=== PATIENT | female | born 1975 | race Caucasian/White ===

== ENCOUNTER 2019-11-11 16:43 | Inpatient (IN) | payer OTHER ==
[2019-11-11 18:01] VITALS: BMI 29.0
--- NOTE | 2019-11-11 18:54 | HP ---
CIWA Score Nausea/Vomitin Muscle Tremors: 3 Anxiety: 1-Mildly Anxious Agitation: 0-Normal Activity Paroxysmal Sweats: 3 (Increased facial moisture) Orientation: 0-Oriented Tacttile Disturbances: 1-Very Mild Itch/Numbness Auditory Disturbances: 0-None Visual Disturbances: 0-None Headache: 2-Mild CIWA-Ar Total Score: 13 - Admission Criteria OASAS Guidelines: Admission for Medically Managed Detox: Requires at least one of the followin. CIWA greater than 12 2. Seizures within the past 24 hours 3. Delirium tremens within the past 24 hours 4. Hallucinations within the past 24 hours 5. Acute intervention needed for co occurring medical disorder 6. Acute intervention needed for co occurring psychiatric disorder 7. Severe withdrawal that cannot be handled at a lower level of care (continued vomiting, continued diarrhea, abnormal vital signs) requiring intravenous medication and/or fluids 8. Patient presents the following: CIWA greater than 12 Admission Criteria Met: Admission criteria met Admission ROS [facility] Chief Complaint: States "I'm suffering and I want to get off benzo's and alcohol" Allergies/Adverse Reactions: Allergies Allergy/AdvReac Type Severity Reaction Status Date / Time No Known Allergies Allergy Verified 11/11/19 18:08 History of Present Illness: 44 yo presents seeking alcohol and benzo withdrawal UTox: + KARLA/MTD/BZO CECILIO: 0.00 Hx; Seizures - last 1 yr ago. Triggered by stopping pill use; + blackouts - last 6 yrs ago; + overdose - Last overdose 7 years ago. Alcohol use began at age 30. Currently drinks 2-3 40 oz beers daily. States last drink yesterday. Benzo use began at age 32ish. Currently uses 3 - 2 mg xanax/day. Last used yesterday. Cocaine use began at age 30. Currently uses $40-60/day. Smokes. Nicotine use began at age16. Currently smokes 4-5 cig/day. Heroin use began at age 19. Currently on PROMESA - MMTP. Methadone dose is 100mg PO daily. Last medicated today. Has a Narcan kit at home. PMHx: COPD, Hep C; MHHx: Depression. Denies thoughts of harming self or others. SHx: Domiciled. Unemployed. Denies legal issues. Patient Name: Cintia Persaud Date: 1975 Address: [address] [place] [id number] Sex: Female Rx Written Rx Dispensed Drug Quantity Days Supply Prescriber Name 10/31/2019 10/31/2019 clonazepam 2 mg tablet 9 3 Cam, Zach Blackwell DO 10/31/2019 10/31/2019 alprazolam 0.5 mg tablet 6 3 Cam, Zach Blackwell DO 09/28/2019 10/01/2019 clonazepam 1 mg tablet 60 10 Cheli Corbett) 09/12/2019 10/01/2019 alprazolam 0.5 mg tablet 30 15 Cam, Zach Blackwell DO 09/11/2019 09/11/2019 alprazolam 0.5 mg tablet 30 15 Cam, Zach Blackwell DO 08/27/2019 08/28/2019 alprazolam 0.5 mg tablet 10 5 Cam, Zach Blackwell DO 07/26/2019 07/27/2019 clonazepam 2 mg tablet 45 15 Cam, Zach Blackwell DO 07/26/2019 07/27/2019 alprazolam 0.5 mg tablet 30 15 Cam, Zach Blackwell DO 07/20/2019 07/24/2019 clonazepam 2 mg tablet 9 3 Cam, Zach Blackwell DO 07/24/2019 07/24/2019 alprazolam 0.5 mg tablet 6 3 Cam, Zach Blackwell DO 07/20/2019 07/21/2019 zolpidem tartrate 10 mg tablet 15 15 Cam, Zach Blackwell DO 07/20/2019 07/21/2019 alprazolam 0.5 mg tablet 6 3 Cam, Zach Blackwell DO 07/18/2019 07/18/2019 clonazepam 2 mg tablet 21 7 Yuni Redman MD 06/26/2019 06/26/2019 alprazolam 0.5 mg tablet 14 7 CamZach DO 06/26/2019 06/26/2019 clonazepam 2 mg tablet 21 7 CamZach DO 06/09/2019 06/09/2019 alprazolam 0.5 mg tablet 20 10 CamZach DO 05/10/2019 05/10/2019 alprazolam 0.5 mg tablet 20 10 CamZach DO 05/02/2019 05/02/2019 zolpidem tartrate 10 mg tablet 15 15 Cam, Zach Blackwell DO 04/25/2019 04/25/2019 alprazolam 0.5 mg tablet 10 5 Cam, Zach Blackwell DO 04/16/2019 04/18/2019 alprazolam 0.5 mg tablet 10 5 Cam, Zach Blackwell DO 03/23/2019 03/23/2019 clonazepam 2 mg tablet 15 5 Cam, Zach Blackwell DO 03/23/2019 03/23/2019 alprazolam 0.5 mg tablet 10 5 Cam, Zach Blackwell DO 02/27/2019 02/27/2019 clonazepam 2 mg tablet 15 5 Cam, Zach Blackwell DO 02/27/2019 02/27/2019 alprazolam 0.5 mg tablet 5 5 Cam, Zach Blackwell DO Patient Name: Cintia Persaud Date: 1975 Address: [address] [place] [address] Sex: Female Rx Written Rx Dispensed Drug Quantity Days Supply Prescriber Name 09/10/2019 09/10/2019 clonazepam 1 mg tablet 21 7 Jordyn Espinoza Patient Name: Cintia Persaud Date: 1975 Address: [address] [place] [address] Sex: Female Rx Written Rx Dispensed Drug Quantity Days Supply Prescriber Name 08/29/2019 08/29/2019 clonazepam 2 mg tablet 90 30 Cam, Zach Blackwell DO 05/30/2019 05/30/2019 zolpidem tartrate 10 mg tablet 30 30 Cam, Zach Blackwell DO 05/30/2019 05/30/2019 clonazepam 2 mg tablet 90 30 Cam, Zach Blackwell DO 05/30/2019 05/30/2019 alprazolam 0.5 mg tablet 20 10 Cam, Zach Blackwell DO 05/02/2019 05/02/2019 alprazolam 0.5 mg tablet 10 5 Cam, Zach Blackwell DO 05/02/2019 05/02/2019 clonazepam 2 mg tablet 90 30 Cam, Zcah Blackwell DO 04/04/2019 04/04/2019 clonazepam 2 mg tablet 90 30 Cam, Zach Blackwell DO 04/04/2019 04/04/2019 alprazolam 0.5 mg tablet 20 10 Cam, Zach Blackwell DO 02/28/2019 03/02/2019 clonazepam 2 mg tablet 75 25 Cam, Zach J DO 02/28/2019 03/02/2019 alprazolam 0.5 mg tablet 30 15 Cam, Zach J DO 12/22/2018 12/22/2018 clonazepam 2 mg tablet 48 16 Cam, Zach J DO 12/22/2018 12/22/2018 zolpidem tartrate 10 mg tablet 15 15 Cam, Zach J DO 12/22/2018 12/22/2018 alprazolam 0.5 mg tablet 60 15 Cam, Zach J DO 12/14/2018 12/15/2018 clonazepam 2 mg tablet 15 5 Cam, Zach J DO Patient Name: Cnitia Persaud Date: 1975 Address: [address] [place], [place] [address] [address] Sex: Female Rx Written Rx Dispensed Drug Quantity Days Supply Prescriber Name 02/07/2019 02/10/2019 alprazolam 0.5 mg tablet 20 10 Cam, Zach J DO 02/07/2019 02/10/2019 clonazepam 2 mg tablet 42 14 Cam, Zach J DO 01/23/2019 01/29/2019 clonazepam 2 mg tablet 42 14 Cam, Zach J DO 01/15/2019 01/15/2019 clonazepam 2 mg tablet 48 16 Cam, Zach J DO 01/15/2019 01/15/2019 alprazolam 0.5 mg tablet 60 30 Cam, Zach J DO 01/15/2019 01/15/2019 zolpidem tartrate 10 mg tablet 30 30 Cam, Zach Blackwell DO 01/03/2019 01/04/2019 clonazepam 2 mg tablet 48 16 Cam, Zach J DO 11/22/2018 11/24/2018 alprazolam 0.5 mg tablet 90 30 Cam, Zach Blackwell DO 11/22/2018 11/22/2018 clonazepam 2 mg tablet 90 30 Cam, Zach Blackwell DO 11/20/2018 11/21/2018 alprazolam 0.5 mg tablet 15 5 Cam, Zach Blackwell DO Patient Name: Cintia Persaud Date: 1975 Address: [place] [address] Sex: Female Rx Written Rx Dispensed Drug Quantity Days Supply Prescriber Name 02/02/2019 02/04/2019 lorazepam 2 mg tablet 8 2 Adelso Meza (LAURA) 12/27/2018 12/27/2018 lorazepam 1 mg tablet 8 2 Kristi Crowder MD 11/07/2018 11/15/2018 lorazepam 2 mg tablet 8 2 Reshma Raghav Patient Name: Cintia Persaud Date: 1975 Address: [address] [place] [address] Sex: Female Rx Written Rx Dispensed Drug Quantity Days Supply Prescriber Name 12/19/2018 12/20/2018 clonazepam 2 mg tablet 42 14 Zach Levy DO Exam Limitations: No Limitations - Ebola screening Have you traveled outside of the country in the last 21 days: No Have you had contact with anyone from an Ebola affected area: No Have you been sick,other than usual withdrawal symptoms: No Do you have a fever: No - Review of Systems Constitutional: Changes in sleep (Difficulty falling and staying asleep. States takes seroquel for sleep) EENT: reports: Dental Problems (Craked/missing teeth. Chews and swallows ok) Respiratory: reports: No Symptoms reported Cardiac: reports: No Symptoms Reported GI: reports: Nausea (x 2 hours), Abdominal cramping : reports: No Symptoms Reported Musculoskeletal: reports: Back Pain (Intermittent achy back pain r/t withdrawals ) Integumentary: reports: No Symptoms Reported Neuro: reports: Headache (Temporal headache - sharp - "6". Triggered by stress.) Endocrine: reports: Increased Thirst Hematology: reports: No Symptoms Reported Psychiatric: reports: Judgement Intact, Orientated x3, Anxious, Depressed ( Denies thoughts of harming self or others) Patient History - PPD History Previous Implant?: Yes Documented Results: Negative w/o proof Implanted On Prior [facility] Admission?: Yes PPD to be Administered?: Yes - Reproductive History Patient is a Female of Child Bearing Age (11 -55 yrs old): Yes Last Menstrual Period: 10/28/19 Patient : No - Smoking Cessation Smoking history: Current every day smoker Have you smoked in the past 12 months: Yes Aproximately how many cigarettes per day: 5 Hx Chewing Tobacco Use: No Initiated information on smoking cessation: Yes 'Breaking Loose' booklet given: 11/11/19 - Substance & Tx. History Hx Alcohol Use: Yes Hx Substance Use: Yes Substance Use Type: Alcohol, Cocaine, Heroin, Tranquilizers (Xanax) Hx Substance Use Treatment: Yes (detox, rehab, currently on MMTP) - Substances abused Alcohol Substance route: Oral Frequency: Daily Amount used: Beer - 2 40 oz Age of first use: 30 Date of last use: 11/10/19 Alprazolam (Xanax) Substance route: Oral Frequency: Daily Amount used: 2 mg pill Age of first use: 30 Date of last use: 11/10/19 Admission Physical Exam [facility] - Vital Signs Vital Signs: Vital Signs - 24 hr 11/11/19 11/11/19 17:50 18:12 Temperature 7.8 F L 7.8 F L Pulse Rate 56 L 56 L Respiratory 18 18 Rate Blood Pressure 123/69 123/69 - Physical General Appearance: Yes: Nourished, Mild Distress, Tremorous (Mild tremors), Sweating (Increased facial moisture), Anxious HEENTM: Yes: EOMI, Hearing grossly Normal, Normocephalic, Normal Voice, ARTURO, Pharynx Normal (No lesions/erythema. 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 NML intact, Fully Oriented, Alert, Motor Strength 5/5, Normal Mood/Affect Integumentary: Yes: Normal Color, Warm, Moist (Increased facial moisture), Other (decreased skin turgor) Lymphatic: Yes: Within Normal Limits - Diagnostic (1) Alcohol dependence with withdrawal, uncomplicated Current Visit: Yes Status: Acute (2) Sedative, hypnotic or anxiolytic dependence with withdrawal, uncomplicated Current Visit: Yes Status: Acute (3) History of COPD Current Visit: Yes Status: Chronic (4) History of hepatitis C Current Visit: Yes Status: Chronic (5) Cocaine dependence, uncomplicated Current Visit: Yes Status: Acute (6) Nicotine dependence, unspecified, uncomplicated Current Visit: Yes Status: Chronic Qualifiers: Nicotine product type: cigarettes Qualified Code(s): F17.210 - Nicotine dependence, cigarettes, uncomplicated (7) Bradycardia Current Visit: Yes Status: Acute (8) Dehydration symptoms Current Visit: Yes Status: Acute (9) Methadone maintenance therapy patient Current Visit: Yes Status: Acute (10) Perforated nasal septum Current Visit: Yes Status: Chronic Cleared for Admission S - Detox or Rehab [facility] Level of Care: Medically Managed Detox Regimen/Protocol: Ativan Claeared for Rehab Admission: No Breathalyzer - Breathalyzer Breathalyzer: 0 Urine Drug Screen - Test Device Lot number: [id number] Expiration date: 08/27/21 - Control Is test valid?: Yes - Results Drug screen NEGATIVE: No Urine drug screen results: KARLA-Cocaine, MTD-Methadone, BZO-Benzodiazepines Inpatient Rehab Admission - Rehab Decision to Admit Inpatient rehab admission?: No
[2019-11-11] MEDS ORDERED: BISMUTH SUBSALICYLATE 524 MG/30 ML UD PO PRN (19:20)
[2019-11-11] MEDS ORDERED: MENTHOL/PHENOL 1 EACH UD MM PRN (19:20)
[2019-11-11] MEDS ORDERED: MAGNESIUM CITRATE 300 ML BOTTLE PO PRN (19:20)
[2019-11-11] MEDS ORDERED: LORazepam 1 MG TABLET PO PRN (19:20)
[2019-11-11] MEDS ORDERED: MAG HYDROX/AL HYDROX/SIMETH 30 ML UNIT-DOSE CUP PO PRN (19:20)
[2019-11-11] MEDS ORDERED: IBUPROFEN 400 MG TABLET (FP) PO PRN (19:20)
[2019-11-11] MEDS ORDERED: PROCHLORPERAZINE MALEATE 5 MG TABLET PO PRN (19:20)
[2019-11-11] MEDS ORDERED: MAGNESIUM HYDROX 2400MG/30ML ORAL SUSPENSION 30 ML CUP PO PRN (19:20)
[2019-11-11] MEDS ORDERED: LORazepam 1 MG TABLET PO ONE (19:20)
[2019-11-11] MEDS ORDERED: ACETAMINOPHEN 325 MG TABLET (FP) PO PRN ×2 (19:20)
[2019-11-11] MEDS: THIAMINE HCL 100 MG TABLET (FP) PO SCH (22:12)
[2019-11-11] MEDS: MELATONIN 5 MG TABLETS PO PRN (22:13)
[2019-11-11] MEDS: LORazepam 2 MG TABLET PO SCH (22:13)
[2019-11-12] MEDS: LORazepam 2 MG TABLET PO SCH ×2 (05:30→10:28)
[2019-11-12] MEDS ORDERED: METHADONE HCL 10 MG TABLET PO SCH (07:45)
[2019-11-12] MEDS ORDERED: METHADONE HCL 40 MG DISPERSABLE TABLET ONE (08:32)
[2019-11-12] MEDS ORDERED: METHADONE HCL 10 MG TABLET ONE (08:32)
[2019-11-12] MEDS: METHADONE 80 MG, METHADONE 20 MG PO SCH (08:35)
--- NOTE | 2019-11-12 09:45 | EKG ---
Test Reason : Blood Pressure : / mmHG Vent. Rate : 052 BPM Atrial Rate : 052 BPM P-R Int : 166 ms QRS Dur : 094 ms QT Int : 458 ms P-R-T Axes : 061 062 040 degrees QTc Int : 425 ms POOR DATA QUALITY, INTERPRETATION MAY BE ADVERSELY AFFECTED SINUS BRADYCARDIA INCOMPLETE RIGHT BUNDLE BRANCH BLOCK BORDERLINE ECG NO PREVIOUS ECGS AVAILABLE Confirmed by Yane Fox ([id number]) on 11/12/2019 9:45:29 AM Referred By: APOLONIA Confirmed By:Yane Fox
[2019-11-12] MEDS: PRENATAL VITAMINS W/ FOLIC ACID TABLET (FP) PO SCH (10:28)
--- NOTE | 2019-11-12 10:51 | PN ---
S CIWA - CIWA Score Nausea/Vomitin-Mild Nausea/No Vomiting Muscle Tremors: 2 Anxiety: 4-Mod. Anxious/Guarded Agitation: 2 Paroxysmal Sweats: 2 Orientation: 0-Oriented Tacttile Disturbances: 0-None Auditory Disturbances: 0-None Visual Disturbances: 1-Very Mild Sensitivity Headache: 0-None Present CIWA-Ar Total Score: 12 BHS Progress Note (SOAP) Subjective: 44 years old female admitted on 11/09/19 for alcohol and benzo withdrawal sx management treating with ativan detox regiment reports ativan not working for Mrs Persaud discontinue ativan replaced with valium patient demands to have ativan and valium health teaching on risks of addiction and respiratory suppression patient prefers valium as detox regiment Objective: 11/12/19 10:58 Vital Signs Temperature 98.7 F 11/12/19 08:34 Pulse Rate 80 11/12/19 08:34 Respiratory Rate 18 11/12/19 08:34 Blood Pressure 105/71 11/12/19 08:34 O2 Sat by Pulse Oximetry (%) Laboratory Last Values POC Urine HCG, Qual Negative 11/11/19 18:25 11/12/19 11:00 lab history reviewed that 11/11/19 admission lab been cancelled reorder admission lab Assessment: 11/12/19 11:01 alcohol and benzo withdrawal Plan: valium regiment
[2019-11-12] MEDS ORDERED: TRIMETHOBENZAMIDE HCL 200MG/2ML INJ IM ONE (11:10)
[2019-11-12] MEDS ORDERED: ALBUTEROL SO4 HFA INHALER IH PRN ×2 (13:26→15:18)
[2019-11-12] MEDS ORDERED: ALBUTEROL SO4 0.083% IH SOL 2.5 MG/3 ML VIAL.NEB. NEB PRN (13:26)
[2019-11-12] MEDS: diazePAM 5 MG TABLET PO PRN ×2 (13:34→19:41)
[2019-11-12] MEDS ORDERED: ALBUTEROL SO4 2.5/IPRATROPIUM 0.5 INH SOL 3 ML VIAL.NEB. NEB PRN (15:17)
--- NOTE | 2019-11-12 15:40 | CONSULT ---
[facility] Psychiatric Consult - Data Date of interview: 11/12/19 Admission source: [facility] Identifying data: First visit at [facility] and admission to [address] [place] [address] for this 44 y/o Hispnic female self-referred for detoxification treatment. KERRY issues : opioid, cocaine, benzodiazepine (xanax), nicotine. Patient is , mother of eight, domiciled, uneployed and supported on food stamps. Substance Abuse History: Discussed with patient. Details in current [facility] report as follows : Smoking history: Current every day smoker. Have you smoked in the past 12 months: Yes. Aproximately how many cigarettes per day: 5. Hx Chewing Tobacco Use: No. Initiated information on smoking cessation: Yes. 'Breaking Loose' booklet given: 11/11/19. - Substance & Tx. History. Hx Alcohol Use: Yes. Hx Substance Use: Yes. Substance Use Type: Alcohol, Cocaine, Heroin, Tranquilizers (Xanax). Hx Substance Use Treatment: Yes (detox, rehab, currently on MMTP). - Substances abused. Alcohol. Substance route: Oral. Frequency: Daily. Amount used: Beer - 2 40 oz. Age of first use: 30. Date of last use: 11/10/19. Alprazolam (Xanax). Substance route: Oral. Frequency: Daily. Amount used: 2 mg pill. Age of first use: 30. Date of last use: Medical History: Medical profile is remarkable for COPD and hepatitis C. No known allergies. Psychiatric History: Patient endorses a history of multiple psychiatric hospitalizations ([facility], [facility] , [facility]). Diagnosed with Schizophrenia (self-report). Ms Persaud informs that she sees a private psychiatrist in [place] , Dr Reid, for medication management (seroquel + prozac + xanax + klonopin). She is also on methadone maintenance (100 mg/day) at [facility] in the [place]. Patient denies history of suicide attempts. Physical/Sexual Abuse/Trauma History: Not discussed. Patient declines. Additional Comment: Urine drug screen results: KARLA-Cocaine, MTD-Methadone, BZO- Benzodiazepines. Noted. Mental Status Exam - Mental Status Exam Alert and Oriented to: Time, Place, Person Cognitive Function: Good Patient Appearance: Well Groomed Mood: Withdrawn, Anxious Affect: Mood Congruent, Constricted Patient Behavior: Fatigued, Appropriate, Cooperative Speech Pattern: Clear, Appropriate Voice Loudness: Normal Thought Process: Goal Oriented Thought Disorder: Not Present Hallucinations: Denies Suicidal Ideation: Denies Homicidal Ideation: Denies Insight/Judgement: Poor Sleep: Poorly, Difficulty falling asleep Appetite: Good Gait/Station: Normal Psychiatric Findings - Problem List ([place] 1, 2,3) (1) Alcohol dependence with withdrawal, uncomplicated Current Visit: Yes Status: Acute (2) Sedative, hypnotic or anxiolytic dependence with withdrawal, uncomplicated Current Visit: Yes Status: Acute (3) Opioid dependence on agonist therapy Current Visit: Yes Status: Chronic (4) Cocaine dependence, uncomplicated Current Visit: Yes Status: Chronic (5) Nicotine dependence, unspecified, uncomplicated Current Visit: Yes Status: Chronic Qualifiers: Nicotine product type: cigarettes Qualified Code(s): F17.210 - Nicotine dependence, cigarettes, uncomplicated (6) Substance induced mood disorder Current Visit: Yes Status: Chronic (7) Schizophrenia Current Visit: Yes Status: Chronic Comment: As per self-report. (8) Insomnia Current Visit: Yes Status: Chronic - Initial Treatment Plan Initial Treatment Plan: Psychoeducation. Sleep hygiene. Detoxification in progress. AA/NA metings. Resumed, at patient's request : seroquel 50 mg po hs + prozac 20 mg po daily. Side effects/benefits of both drugs are discussed with patient. Consent (verbal) given to MD. Neville.
[2019-11-12] MEDS: diazePAM 5 MG TABLET PO SCH ×2 (17:23→22:08)
[2019-11-12 17:55] LABS: PH,URINE 6.5 (5.0-8.0); URINE APPEARANCE CLOUDY; URINE BILIRUBIN NEGATIVE (NEGATIVE); URINE COLOR YELLOW; URINE GLUCOSE (UA) NEGATIVE (NEGATIVE); URINE KETONE NEGATIVE (NEGATIVE); URINE LEUK ESTERASE NEGATIVE (NEGATIVE); URINE NITRITE NEGATIVE (NEGATIVE); URINE PROTEIN NEGATIVE (NEGATIVE); URINE UROBILINOGEN 0.2 mg/dL (0.2-1.0)
[2019-11-12] MEDS: QUEtiapine FUMARATE 50 MG TABLET PO SCH (22:08)
[2019-11-12] MEDS: THIAMINE HCL 100 MG TABLET (FP) PO SCH (22:08)
[2019-11-12] MEDS: MELATONIN 5 MG TABLETS PO PRN (22:09)
[2019-11-13] MEDS ORDERED: METHADONE HCL 10 MG TABLET ONE (04:39)
[2019-11-13] MEDS ORDERED: METHADONE HCL 40 MG DISPERSABLE TABLET ONE (04:40)
[2019-11-13] MEDS ORDERED: LORazepam 1 MG TABLET PO SCH (05:00)
[2019-11-13] MEDS: diazePAM 5 MG TABLET PO SCH ×3 (05:13→22:13)
[2019-11-13] MEDS: METHADONE 80 MG, METHADONE 20 MG PO SCH (05:13)
[2019-11-13] MEDS: NICOTINE POLACRILEX 2 MG GUM BUC PRN (05:14)
[2019-11-13] MEDS: FLUoxetine HCL 20 MG CAPSULE PO SCH (10:07)
[2019-11-13] MEDS: PRENATAL VITAMINS W/ FOLIC ACID TABLET (FP) PO SCH (10:07)
[2019-11-13] MEDS: diazePAM 5 MG TABLET PO PRN ×2 (10:07→17:06)
[2019-11-13 10:37] LABS: HEMATOCRIT 39.8 % (32.4-45.2); HEMOGLOBIN 13.2 GM/dL (10.7-15.3); MCHC 33.1 g/dl (32.0-36.0); MEAN CELL VOLUME 93.7 fl (80-96); MEAN PLT VOLUME 7.8 fl (7.5-11.1); PLATELET COUNT 276 K/MM3 (134-434); RBC 4.25 M/mm3 (3.60-5.2); RDW 13.6 % (11.6-15.6); WHITE BLOOD COUNT 7.1 K/mm3 (4.0-10.0)
[2019-11-13 10:55] LABS: ALBUMIN 3.4 g/dl (3.4-5.0); BILIRUBIN,TOTAL 0.7 mg/dL (0.2-1); BLOOD UREA NITROGEN 19.8 mg/dL (7-18); CALCIUM 9.2 mg/dL (8.5-10.1); CREATININE 0.8 mg/dL (0.55-1.3); POTASSIUM 4.4 mmol/L (3.5-5.1); TOT PROT 7.4 g/dl (6.4-8.2)
--- NOTE | 2019-11-13 11:58 | PN ---
[facility] CIWA - CIWA Score Nausea/Vomitin-No Nausea/No Vomiting Muscle Tremors: 2 Anxiety: 4-Mod. Anxious/Guarded Agitation: 1-Slight > Activity Paroxysmal Sweats: 1-Minimal Palms Moist Orientation: 0-Oriented Tacttile Disturbances: 0-None Auditory Disturbances: 0-None Visual Disturbances: 0-None Headache: 0-None Present CIWA-Ar Total Score: 8 [facility] Progress Note (SOAP) Subjective: 44 years old female admitted on 11/09/19 for alcohol and benzo withdrawal sx management treating with valium detox regiment patient requested valium detox regiment yesterday patient prefers ativan detox regiment today encourage the patient to stay with valium patient requests to be seen by a psychiatrist psychiatric referral Objective: 11/13/19 11:57 Vital Signs Temperature 97 F L 11/13/19 08:35 Pulse Rate 65 11/13/19 08:35 Respiratory Rate 20 11/13/19 08:35 Blood Pressure 103/65 11/13/19 08:35 O2 Sat by Pulse Oximetry (%) Laboratory Last Values WBC 7.1 K/mm3 (4.0-10.0) 11/13/19 07:45 RBC 4.25 M/mm3 (3.60-5.2) 11/13/19 07:45 Hgb 13.2 GM/dL (10.7-15.3) 11/13/19 07:45 Hct 39.8 % (32.4-45.2) 11/13/19 07:45 MCV 93.7 fl (80-96) 11/13/19 07:45 MCH 31.0 pg (25.7-33.7) 11/13/19 07:45 MCHC 33.1 g/dl (32.0-36.0) 11/13/19 07:45 RDW 13.6 % (11.6-15.6) 11/13/19 07:45 Plt Count 276 K/MM3 (134-434) 11/13/19 07:45 MPV 7.8 fl (7.5-11.1) 11/13/19 07:45 Sodium 139 mmol/L (136-145) 11/13/19 07:45 Potassium 4.4 mmol/L (3.5-5.1) 11/13/19 07:45 Chloride 104 mmol/L (98-107) 11/13/19 07:45 Carbon Dioxide 32 mmol/L (21-32) 11/13/19 07:45 Anion Gap 3 MMOL/L (8-16) L 11/13/19 07:45 BUN 19.8 mg/dL (7-18) H 11/13/19 07:45 Creatinine 0.8 mg/dL (0.55-1.3) 11/13/19 07:45 Est GFR (CKD-EPI)AfAm 105.39 11/13/19 07:45 Est GFR (CKD-EPI)NonAf 90.93 11/13/19 07:45 Random Glucose 64 mg/dL (74-106) L 11/13/19 07:45 Calcium 9.2 mg/dL (8.5-10.1) 11/13/19 07:45 Total Bilirubin 0.7 mg/dL (0.2-1) 11/13/19 07:45 AST 46 U/L (15-37) H 11/13/19 07:45 ALT 58 U/L (13-61) 11/13/19 07:45 Alkaline Phosphatase 89 U/L (45-117) 11/13/19 07:45 Total Protein 7.4 g/dl (6.4-8.2) 11/13/19 07:45 Albumin 3.4 g/dl (3.4-5.0) 11/13/19 07:45 Urine Color Yellow 11/12/19 13:41 Urine Appearance Cloudy 11/12/19 13:41 Urine pH 6.5 (5.0-8.0) 11/12/19 13:41 Ur Specific [place] 1.021 (1.010-1.035) 11/12/19 13:41 Urine Protein Negative (NEGATIVE) 11/12/19 13:41 Urine Glucose (UA) Negative (NEGATIVE) 11/12/19 13:41 Urine Ketones Negative (NEGATIVE) 11/12/19 13:41 Urine Blood Negative (NEGATIVE) 11/12/19 13:41 Urine Nitrite Negative (NEGATIVE) 11/12/19 13:41 Urine Bilirubin Negative (NEGATIVE) 11/12/19 13:41 Urine Urobilinogen 0.2 mg/dL (0.2-1.0) 11/12/19 13:41 Ur Leukocyte Esterase Negative (NEGATIVE) 11/12/19 13:41 POC Urine HCG, Qual Negative 11/11/19 18:25 lab noted Assessment: 11/13/19 11:58 alcohol and benzo withdrawal Plan: valium regiment
[2019-11-13] MEDS: THIAMINE HCL 100 MG TABLET (FP) PO SCH (22:12)
[2019-11-13] MEDS: MELATONIN 5 MG TABLETS PO PRN (22:13)
[2019-11-13] MEDS: QUEtiapine FUMARATE 50 MG TABLET PO SCH (22:13)
[2019-11-14] MEDS ORDERED: LORazepam 0.5 MG TABLET PO PRN
[2019-11-14] MEDS ORDERED: diazePAM 5 MG TABLET PO PRN (01:00)
[2019-11-14] MEDS ORDERED: METHADONE HCL 10 MG TABLET ONE (02:53)
[2019-11-14] MEDS ORDERED: METHADONE HCL 40 MG DISPERSABLE TABLET ONE (02:53)
[2019-11-14] MEDS ORDERED: LORazepam 0.5 MG TABLET PO SCH (05:00)
[2019-11-14] MEDS: diazePAM 5 MG TABLET PO SCH ×2 (05:36→17:18)
[2019-11-14] MEDS: METHADONE 80 MG, METHADONE 20 MG PO SCH (05:36)
[2019-11-14] MEDS: NICOTINE POLACRILEX 2 MG GUM BUC PRN (05:37)
[2019-11-14] MEDS: PRENATAL VITAMINS W/ FOLIC ACID TABLET (FP) PO SCH (09:53)
[2019-11-14] MEDS: FLUoxetine HCL 20 MG CAPSULE PO SCH (09:54)
--- NOTE | 2019-11-14 12:20 | PN ---
S CIWA - CIWA Score Nausea/Vomitin-No Nausea/No Vomiting Muscle Tremors: 2 Anxiety: 1-Mildly Anxious Agitation: 1-Slight > Activity Paroxysmal Sweats: 2 Orientation: 0-Oriented Tacttile Disturbances: 0-None Auditory Disturbances: 0-None Visual Disturbances: 0-None Headache: 0-None Present CIWA-Ar Total Score: 6 S Progress Note (SOAP) Subjective: 44 years old female admitted on 11/09/19 for alcohol and benzo withdrawal sx management treating with valium detox regiment feeling better today less anxious patient wants to go to [facility] patient prefers to go to [facility] today Mrs Persaud attends groups and meetings while in detox Objective: 11/14/19 12:25 Vital Signs Temperature 97.0 F L 11/14/19 08:43 Pulse Rate 74 11/14/19 08:43 Respiratory Rate 18 11/14/19 08:43 Blood Pressure 118/71 11/14/19 08:43 O2 Sat by Pulse Oximetry (%) Laboratory Last Values WBC 7.1 K/mm3 (4.0-10.0) 11/13/19 07:45 RBC 4.25 M/mm3 (3.60-5.2) 11/13/19 07:45 Hgb 13.2 GM/dL (10.7-15.3) 11/13/19 07:45 Hct 39.8 % (32.4-45.2) 11/13/19 07:45 MCV 93.7 fl (80-96) 11/13/19 07:45 MCH 31.0 pg (25.7-33.7) 11/13/19 07:45 MCHC 33.1 g/dl (32.0-36.0) 11/13/19 07:45 RDW 13.6 % (11.6-15.6) 11/13/19 07:45 Plt Count 276 K/MM3 (134-434) 11/13/19 07:45 MPV 7.8 fl (7.5-11.1) 11/13/19 07:45 Sodium 139 mmol/L (136-145) 11/13/19 07:45 Potassium 4.4 mmol/L (3.5-5.1) 11/13/19 07:45 Chloride 104 mmol/L (98-107) 11/13/19 07:45 Carbon Dioxide 32 mmol/L (21-32) 11/13/19 07:45 Anion Gap 3 MMOL/L (8-16) L 11/13/19 07:45 BUN 19.8 mg/dL (7-18) H 11/13/19 07:45 Creatinine 0.8 mg/dL (0.55-1.3) 11/13/19 07:45 Est GFR (CKD-EPI)AfAm 105.39 11/13/19 07:45 Est GFR (CKD-EPI)NonAf 90.93 11/13/19 07:45 Random Glucose 64 mg/dL (74-106) L 11/13/19 07:45 Calcium 9.2 mg/dL (8.5-10.1) 11/13/19 07:45 Total Bilirubin 0.7 mg/dL (0.2-1) 11/13/19 07:45 AST 46 U/L (15-37) H 11/13/19 07:45 ALT 58 U/L (13-61) 11/13/19 07:45 Alkaline Phosphatase 89 U/L (45-117) 11/13/19 07:45 Total Protein 7.4 g/dl (6.4-8.2) 11/13/19 07:45 Albumin 3.4 g/dl (3.4-5.0) 11/13/19 07:45 Urine Color Yellow 11/12/19 13:41 Urine Appearance Cloudy 11/12/19 13:41 Urine pH 6.5 (5.0-8.0) 11/12/19 13:41 Ur Specific [place] 1.021 (1.010-1.035) 11/12/19 13:41 Urine Protein Negative (NEGATIVE) 11/12/19 13:41 Urine Glucose (UA) Negative (NEGATIVE) 11/12/19 13:41 Urine Ketones Negative (NEGATIVE) 11/12/19 13:41 Urine Blood Negative (NEGATIVE) 11/12/19 13:41 Urine Nitrite Negative (NEGATIVE) 11/12/19 13:41 Urine Bilirubin Negative (NEGATIVE) 11/12/19 13:41 Urine Urobilinogen 0.2 mg/dL (0.2-1.0) 11/12/19 13:41 Ur Leukocyte Esterase Negative (NEGATIVE) 11/12/19 13:41 POC Urine HCG, Qual Negative 11/11/19 18:25 RPR Titer Nonreactive (NONREACTIVE) 11/13/19 07:45 lab noted Assessment: 11/14/19 12:26 alcohol and benzo withdrawal Plan: valium regiment
[2019-11-14] MEDS: THIAMINE HCL 100 MG TABLET (FP) PO SCH (22:03)
[2019-11-14] MEDS: QUEtiapine FUMARATE 50 MG TABLET PO SCH (22:03)
[2019-11-15] MEDS ORDERED: METHADONE HCL 10 MG TABLET ONE (04:19)
[2019-11-15] MEDS ORDERED: METHADONE HCL 40 MG DISPERSABLE TABLET ONE (04:20)
[2019-11-15] MEDS ORDERED: LORazepam 0.5 MG TABLET PO ONE (05:00)
[2019-11-15] MEDS ORDERED: diazePAM 5 MG TABLET PO ONE (05:00)
[2019-11-15] MEDS: METHADONE 80 MG, METHADONE 20 MG PO SCH (05:50)
[2019-11-15 09:22] VITALS: BP 104/66; PULSE 75; TEMP 97.2
[2019-11-15] MEDS: FLUoxetine HCL 20 MG CAPSULE PO SCH (10:30)
[2019-11-15] MEDS: PRENATAL VITAMINS W/ FOLIC ACID TABLET (FP) PO SCH (10:31)
--- NOTE | 2019-11-15 11:40 | DS ---
[facility] Detox Discharge Summary Admission Date: 11/11/19 Discharge Date: 11/15/19 - History Present History: Alcohol Dependence, Sedative Dependence Additional Comments: 44 years old female admitted on 11/09/19 for alcohol and benzo withdrawal sx management treated with valium detox regiment Ms Persaud has completed the valium detox regiment and tolerated well seen by psychiatrist resume seroquel and prozac alert oriented x 3 respiratory clear lungs bilaterally on auscultation abdomen soft round obese no rebound tenderness extremities full range of motion Pertinent Past History: time for discharge : 33 minutes patient may return to her methadone program for behavior and psychosocial therapies - Physical Exam Results Vital Signs: Vital Signs Temperature 97.2 F L 11/15/19 08:38 Pulse Rate 75 11/15/19 08:38 Respiratory Rate 18 11/15/19 08:38 Blood Pressure 104/66 11/15/19 08:38 O2 Sat by Pulse Oximetry (%) Pertinent Admission Physical Exam Findings: alcohol and benzo withdrawal Laboratory Last Values WBC 7.1 K/mm3 (4.0-10.0) 11/13/19 07:45 RBC 4.25 M/mm3 (3.60-5.2) 11/13/19 07:45 Hgb 13.2 GM/dL (10.7-15.3) 11/13/19 07:45 Hct 39.8 % (32.4-45.2) 11/13/19 07:45 MCV 93.7 fl (80-96) 11/13/19 07:45 MCH 31.0 pg (25.7-33.7) 11/13/19 07:45 MCHC 33.1 g/dl (32.0-36.0) 11/13/19 07:45 RDW 13.6 % (11.6-15.6) 11/13/19 07:45 Plt Count 276 K/MM3 (134-434) 11/13/19 07:45 MPV 7.8 fl (7.5-11.1) 11/13/19 07:45 Sodium 139 mmol/L (136-145) 11/13/19 07:45 Potassium 4.4 mmol/L (3.5-5.1) 11/13/19 07:45 Chloride 104 mmol/L (98-107) 11/13/19 07:45 Carbon Dioxide 32 mmol/L (21-32) 11/13/19 07:45 Anion Gap 3 MMOL/L (8-16) L 11/13/19 07:45 BUN 19.8 mg/dL (7-18) H 11/13/19 07:45 Creatinine 0.8 mg/dL (0.55-1.3) 11/13/19 07:45 Est GFR (CKD-EPI)AfAm 105.39 11/13/19 07:45 Est GFR (CKD-EPI)NonAf 90.93 11/13/19 07:45 Random Glucose 64 mg/dL (74-106) L 11/13/19 07:45 Calcium 9.2 mg/dL (8.5-10.1) 11/13/19 07:45 Total Bilirubin 0.7 mg/dL (0.2-1) 11/13/19 07:45 AST 46 U/L (15-37) H 11/13/19 07:45 ALT 58 U/L (13-61) 11/13/19 07:45 Alkaline Phosphatase 89 U/L (45-117) 11/13/19 07:45 Total Protein 7.4 g/dl (6.4-8.2) 11/13/19 07:45 Albumin 3.4 g/dl (3.4-5.0) 11/13/19 07:45 Urine Color Yellow 11/12/19 13:41 Urine Appearance Cloudy 11/12/19 13:41 Urine pH 6.5 (5.0-8.0) 11/12/19 13:41 Ur Specific [place] 1.021 (1.010-1.035) 11/12/19 13:41 Urine Protein Negative (NEGATIVE) 11/12/19 13:41 Urine Glucose (UA) Negative (NEGATIVE) 11/12/19 13:41 Urine Ketones Negative (NEGATIVE) 11/12/19 13:41 Urine Blood Negative (NEGATIVE) 11/12/19 13:41 Urine Nitrite Negative (NEGATIVE) 11/12/19 13:41 Urine Bilirubin Negative (NEGATIVE) 11/12/19 13:41 Urine Urobilinogen 0.2 mg/dL (0.2-1.0) 11/12/19 13:41 Ur Leukocyte Esterase Negative (NEGATIVE) 11/12/19 13:41 POC Urine HCG, Qual Negative 11/11/19 18:25 RPR Titer Nonreactive (NONREACTIVE) 11/13/19 07:45 lab noted - Treatment Hospital Course: Detox Protocol Followed, Detoxed Safely, Responded well, Discharged Condition Good, Rehab Referral Accepted Patient has Accepted a [facility] Referral [facility] - Medication Discharge Medications: Ambulatory Orders Fluoxetine HCl [Prozac -] 20 mg PO DAILY 11/11/19 Albuterol Sulfate 0.5% [Ventolin 0.5% Nebulizing Soln. -] 1 amp NEB QID Albuterol Sulfate Inhaler - [Ventolin HFA Inhaler -] 2 inh PO Q4H 11/12/19 Quetiapine Fumarate [Seroquel -] 100 mg PO HS 11/12/19 - Diagnosis (1) Alcohol dependence with withdrawal, uncomplicated Current Visit: Yes Status: Acute (2) Methadone maintenance therapy patient Current Visit: Yes Status: Chronic (3) Sedative, hypnotic or anxiolytic dependence with withdrawal, uncomplicated Current Visit: Yes Status: Acute (4) History of hepatitis C Current Visit: Yes Status: Chronic (5) Nicotine dependence, unspecified, uncomplicated Current Visit: Yes Status: Acute Qualifiers: Nicotine product type: cigarettes Qualified Code(s): F17.210 - Nicotine dependence, cigarettes, uncomplicated (6) Substance induced mood disorder Current Visit: Yes Status: Suspected - AMA Did Patient Leave Against Medical Advice: No CIWA Score - CIWA Score Nausea/Vomitin-No Nausea/No Vomiting Muscle Tremors: 1-None Visible, but [place] Anxiety: 1-Mildly Anxious Agitation: 0-Normal Activity Paroxysmal Sweats: 1-Minimal Palms Moist Orientation: 0-Oriented Tacttile Disturbances: 0-None Auditory Disturbances: 0-None Visual Disturbances: 0-None Headache: 0-None Present CIWA-Ar Total Score: 3
== END 2019-11-15 10:30 | disposition home or self-care (01) | DRG 773 ==
LOC: YASAS 16:43 → Y3N 19:57
PROVIDERS: ADMIT Allergy & Immunology; ATTEND Allergy & Immunology
PROC: HZ2ZZZZ Detoxification Services for Substance Abuse Treatment (ICD-10-PCS; principal; 2019-11-11)
DX: F10.230 Alcohol dependence with withdrawal, uncomplicated (principal); F13.230 Sedative, hypnotic or anxiolytic dependence with withdrawal, uncomplicated; F11.20 Opioid dependence, uncomplicated; F14.20 Cocaine dependence, uncomplicated; F17.210 Nicotine dependence, cigarettes, uncomplicated; F19.24 Other psychoactive substance dependence with psychoactive substance-induced mood disorder; F20.9 Schizophrenia, unspecified; J44.9 Chronic obstructive pulmonary disease, unspecified; B18.2 Chronic viral hepatitis C; G47.00 Insomnia, unspecified; E86.0 Dehydration; R00.1 Bradycardia, unspecified; J34.89 Other specified disorders of nose and nasal sinuses
CPT/HCPCS: 36415; 80053; 81003; 81025; 85027; 86593; 93005; 93010

== ENCOUNTER 2020-05-02 21:15 | Inpatient (IN) | payer OTHER ==
[2020-05-02] MEDS ORDERED: NALOXONE HCL 0.4 MG/ML VIAL ONE (21:35)
[2020-05-02] MEDS ORDERED: SODIUM CHLORIDE 0.9% 500 ML INFUS.BAG IV ONE (22:26)
[2020-05-02 22:59] LABS: BASO % 0.9 % (0-2.0); EOS % 5.2 % (0-4.5); HEMATOCRIT 32.6 % (32.4-45.2); HEMOGLOBIN 10.5 GM/dL (10.7-15.3); MCH 29.2 pg (25.7-33.7); MCHC 32.3 g/dl (32.0-36.0); MEAN CELL VOLUME 90.3 fl (80-96); MEAN PLT VOLUME 7.9 fl (7.5-11.1); MONO % 11.2 % (3.8-10.2); NEUT % 29.7 % (42.8-82.8); PLATELET COUNT 171 K/MM3 (134-434); RBC 3.61 M/mm3 (3.60-5.2); RDW 16.1 % (11.6-15.6); WHITE BLOOD COUNT 4.5 K/mm3 (4.0-10.0)
--- NOTE | 2020-05-02 23:08 | PDOC ---
History of Present Illness - General Chief Complaint: Irregular Heart Beat Stated Complaint: ABNORMAL EKG Time Seen by Provider: 05/02/20 21:19 History Source: Unavil. due to pt. cond. Exam Limitations: Clinical Condition, Intoxication - History of Present Illness Initial Comments: 05/02/20 23:02 Cintia Persaud is a 45 Y F with a PMH of COPD, HEP C, seizures, and polysubtance abuse(alcohol, cocaine, heroin, and THC) on methadone maintenance (110 mg PO daily) presented from [facility] for abnormal EKG: HR: 43, T-Wave abnormality, QT prolonged. In ER patient is somnolent but arousable, unable to obtain information from the patient. v/s in ER p42, O2 sat 97, RR 16, BP 100/60 05/02/20 23:11 Timing/Duration: unsure Severity: moderate Past History - Medical History Allergies/Adverse Reactions: Allergies Allergy/AdvReac Type Severity Reaction Status Date / Time No Known Allergies Allergy Verified 05/02/20 18:06 Home Medications: Ambulatory Orders Fluoxetine HCl [Prozac -] 20 mg PO DAILY 11/11/19 Albuterol Sulfate Inhaler - [Ventolin HFA Inhaler -] 2 inh PO Q4H 11/12/19 Quetiapine Fumarate [Seroquel -] 100 mg PO HS 11/12/19 Asthma: No Cardiac Disorders: No COPD: Yes Diabetes: No GI Disorders: No Disorders: No HTN: No Kidney Stones: No Seizures: Yes (LAST EPISODE 2019) - Surgical History Abdominal Surgery: No Appendectomy: No Cardiac Surgery: No Cholecystectomy: No Lung Surgery: No Neurologic Surgery: No Orthopedic Surgery: No - Reproductive History PID: Yes - Psycho-Social/Smoking History Smoking History: Former smoker Have you smoked in the past 12 months: Yes Number of Cigarettes Smoked Daily: 10 Cigars Per Day: 0 Information on smoking cessation initiated: Yes 'Breaking Loose' booklet given: 05/02/20 - Substance Abuse Hx (Audit-C & DAST Scrn) How often the patient has a drink containing alcohol: 2-4 times / month Number of drinks the patient has on a typical day: 3 or 4 How often the patient has six or more drinks on one occasion: Never Score: In Men: 4 or > Positive; In Women: 3 or > Positive: 3 Screen Result (Pos requires Nsg. Audit-10AR): Positive In the last yr the pt used illegal drug/Rx for NonMed reason: No Score: Yes response is considered Positive: 0 Screen Result (Positive result requires Nsg. DAST-10): Negative Review of Systems - Review of Systems Able to Perform ROS?: No (somnolent, non-verbal ) *Physical Exam - Vital Signs Last Vital Signs Temp Pulse Resp BP Pulse Ox 96.0 F L 43 L 12 90/66 94 L 05/02/20 21:15 05/02/20 22:52 05/02/20 22:52 05/02/20 22:52 05/02/20 22:52 - Physical Exam General Appearance: Yes: Intoxicated HEENT: positive: ARTURO Respiratory/Chest: positive: Lungs Clear, Normal Breath Sounds (decreased RR). negative: Crackles, Rales, Rhonchi Cardiovascular: positive: Regular Rhythm, S1, S2, Bradycardia. negative: JVD, Murmur Vascular Pulses: Carotid (R): 2+, Carotid (L): 2+, Dorsalis-Pedis (R): 2+, Doralis-Pedis (L): 2+ Gastrointestinal/Abdominal: positive: Normal Bowel Sounds Integumentary: positive: Dry, Warm Neurologic: positive: Respond to painful stimul. negative: Fully Oriented, Alert ED Treatment Course - LABORATORY CBC & Chemistry Diagram: 05/02/20 22:39 05/02/20 22:39 - Medications Given in the ED: ED Medications Discontinued Medications Generic Name Dose Route Start Last Admin Trade Name Freq PRN Reason Stop Dose Admin Sodium Chloride 1,000 ml 05/02/20 22:26 05/02/20 22:39 Normal Saline - IV 05/02/20 22:27 1,000 ml ONCE ONE Administration Medical Decision Making - Medical Decision Making 05/02/20 23:21 45 Y F with a PMH of polysubtance abuse(alcohol, cocaine, heroin, and THC) on methadone maintenance (110 mg PO daily), presented to ER with Bradycardia and AMS. - Patient is somnolent, but arousable, non verbal - IVF NS 1000ml, continue to monitor v/s - HR at 40s, stable BP at this time - CBC, CMP - around 1:00 am pts BP dropped to 73/48 P 46, patient was somnolent but arousable. Treated with atropin 1mg, increased P by 20 points. treated with Naloxone 0.4, raised P by another 20 points and raised her BP. She is more awake and alert now. - Dispo: admit to tele 05/02/20 23:21 05/03/20 02:00 05/03/20 02:04 05/03/20 02:12 05/03/20 06:33 Discharge - Discharge Information Problems reviewed: Yes Clinical Impression/Diagnosis: Bradycardia, Somnolence Hypotension Qualifiers: Hypotension type: unspecified hypotension type Qualified Code(s): I95.9 - Hypotension, unspecified Condition: Stable - Admission Yes - Follow up/Referral - Patient Discharge Instructions - Post Discharge Activity
--- NOTE | 2020-05-02 23:15 | PDOC ---
Documentation entered by Jez Horn SCRIBE, acting as scribe for Deana Zapata MD. Deana Zapata MD: This documentation has been prepared by the Kory perdomo Xhesika, SCRIBE, under my direction and personally reviewed by me in its entirety. I confirm that the documentation accurately reflects all work, treatment, procedures, and medical decision making performed by me. Attending Attestation - Resident Resident Name: Colt Aguila - HPI HPI: 05/02/20 22:28 The patient is a 45y/o F with a PMH of alcohol/cocaine/marijuana/ opiates abuse, COPD and Hep C who presents to the ED BIBA from [facility] for bradycardia. Pt is somnolent and unable to contribute to further history. Per [facility] note patient is on methadone maintenance "(reports 110 mg PO daily)." Allergies: NKDA - Physicial Exam PE: 05/02/20 23:10 Pt is somulent but arousable to loud voice or gentle sternal rub. HEENT: normocephalic, atraumatic. Lungs are clear. CV: rrr, bradycardic, no murmur. Abdomen soft, non tender, non distended without guarding or rebound. - Medical Decision Making 05/02/20 23:13 Pt presents to the ED after sent in from [facility] for bradycardia. Patient is sommulent in the ED but arousable, BP and oxygen saturation are normal. Will check labs and hold for sobriety. Discharge - Discharge Information Problems reviewed: Yes Clinical Impression/Diagnosis: Bradycardia, Somnolence Hypotension Qualifiers: Hypotension type: unspecified hypotension type Qualified Code(s): I95.9 - Hypotension, unspecified Condition: Improved Disposition: HOME - Follow up/Referral - Patient Discharge Instructions - Post Discharge Activity
[2020-05-02 23:18] LABS: ALBUMIN 2.9 g/dl (3.4-5.0); BILIRUBIN,TOTAL 0.3 mg/dL (0.2-1); BLOOD UREA NITROGEN 40.9 mg/dL (7-18); CALCIUM 7.9 mg/dL (8.5-10.1); CREATININE 1.1 mg/dL (0.55-1.3); POTASSIUM 4.4 mmol/L (3.5-5.1); TOT PROT 7.4 g/dl (6.4-8.2)
[2020-05-03] MEDS ORDERED: LACTATED RINGERS SOLUTION 1000 ML INFUS.BAG IV ONE (01:14)
[2020-05-03] MEDS ORDERED: ATROPINE SULFATE 1 MG/10 ML DISP.SYRIN ONE (01:38)
[2020-05-03] MEDS ORDERED: ATROPINE SULFATE 1 MG/10 ML DISP.SYRIN IVPUSH ONE (01:39)
[2020-05-03] MEDS ORDERED: NALOXONE HCL 0.4 MG/ML VIAL IVPUSH ONE (01:42)
--- NOTE | 2020-05-03 02:36 | PN ---
Teaching Attending Note Name of Resident: Rocio Littlejohn ATTENDING PHYSICIAN STATEMENT I saw and evaluated the patient. I reviewed the resident's note and discussed the case with the resident. I agree with the resident's findings and plan as documented. SUBJECTIVE: Patient is a 45 year old woman with a PMH of COPD, Hepatitis C disease, Se izures, Bradycardia, Tobacco use and Polysubtance abuse (alcohol, cocaine, heroin, benzodiazepine, marijuana) on Methadone maintenance (110 mg PO daily) who was sent from [facility] for abnormal EKG - rate of 43/minute, T-Wave abnormality and prolonged QT prolonged. In ER patient was somnolent but arousable BP dropped to 73/48 with a pulse of 46/minute - she got naloxone, Atropine and IV NS and her vitals and mentation reportedly improved. Patient is unemployed, lives at home with and LMP was ?01/27/2020. Patient denies chest pain, shortness of breath, abdominal pain, headache, palpitations, dizziness, fever, chills, nausea, vomiting, diarrhea, constipation, dysuria, frequency, urgency, melena, hematochezia or hematuria. No sick contacts or recent travels. Family history is unremarkable. OBJECTIVE: Somnolent but arousable Vital Signs Period Temp Pulse Resp BP Sys/Ramesh Pulse Ox Last 24 Hr 96.0 F 39-87 8-18 73-187/48-152 94-97 HEENT: No Jaundice, eye redness or discharge, PERRLA, EOMI. Normocephalic, atraumatic. External ears are normal and hearing is grossly intact. No nasal discharge. Neck: Supple, nontender. No palpable adenopathy or thyromegaly. No JVD Chest: Good effort. Clear to auscultation and percussion. Heart: Bradycardia. No S3, rub or murmur Abdomen: Not distended, soft, nontender and no HSM. No rebound or guarding. Normal bowel sounds. Ext: Peripheral pulses intact. No leg edema. Skin: Warm and dry. No petechiae, rash or ecchymosis. Neuro: Somnolent but arousable. Oriented x3. CN 2-12 grossly intact. Sensation grossly intact in all four extremities and DTR are symmetric. Psych: Appropriate mood and affect. Good insight. Home Medications Medication Instructions Recorded Fluoxetine HCl [Prozac -] 20 mg PO DAILY 11/11/19 Albuterol Sulfate Inhaler - 2 inh PO Q4H 11/12/19 [Ventolin HFA Inhaler -] Quetiapine Fumarate [Seroquel -] 100 mg PO HS 11/12/19 Abnormal Lab Results 05/02/20 05/02/20 22:39 22:39 Hgb 10.5 L RDW 16.1 H Absolute Neuts (auto) 1.3 L Neutrophils % 29.7 L Lymphocytes % 53.0 H Monocytes % 11.2 H Eosinophils % 5.2 H Anion Gap 3 L BUN 40.9 H Calcium 7.9 L AST 89 H Albumin 2.9 L Current Medications Generic Name Dose Route Start Last Admin Trade Name Freq PRN Reason Stop Dose Admin Albuterol Sulfate 2 puff 05/03/20 04:27 Ventolin Hfa Inhaler - IH Q6H PRN SHORT OF BREATH/WHEEZING Enoxaparin Sodium 40 mg 05/03/20 10:00 Lovenox - SQ DAILY DEEPAK Sodium Chloride 1,000 mls @ 75 mls/hr 05/03/20 04:15 05/03/20 04:28 Normal Saline - IV 75 mls/hr ASDIR DEEPAK Administration Folic Acid 1 mg/ Thiamine HCl 1,000 mls @ 125 mls/hr 05/03/20 05:00 100 mg/ Multivitamins/Minerals IVPB 05/03/20 12:59 10 ml/ Sodium Chloride ONCE ONE Ceftriaxone Sodium 1 gm/ 50 mls @ 100 mls/hr 05/03/20 05:00 Dextrose IVPB DAILY [facility] Multivitamins/Minerals/Vitamin C 1 tab 05/03/20 10:00 Tab-A-Vit - PO DAILY DEEPAK Thiamine HCl 100 mg 05/03/20 10:00 Vitamin B1 - PO DAILY [facility] ASSESSMENT AND PLAN: 1. Polysubstance abuse/Bradycardia/UTI - Bradycardia likely related to illicit drug use. Also it is unclear when last she took Seroquel and Prozac since both may cause bradycardia. EKG shows sinus bradycardia at 44/minute and QTc 497, IRBBB, T wave inversion in V1-V2 with no significant ST changes - not significantly changed compared to prior EKG. Initial troponin is negative. Urine toxicology and CXR are pending. Will verify Methadone dose during the day. Will admit to telemetry, treat with IV Ceftriaxone, repeat troponin, get ECHO, TSH, do neurochecks and implement fall/aspiration/seizure precautions. Consult Cardiology. Continue to monitor for withdrawal. Implement [facility] alcohol withdrawal protocol. Treat with IV Banana bag, thiamine and folic acid. Monitor and replete electrolytes (Ca,Mg,K,P). Counseled patient about abstaining from illicit drugs/alcohol. Will consult transition specialist and refer to alcohol/drug detox upon discharge. Viral testing for COVID-19 ordered and patient placed on airborne, droplet and contact isolation. Will continue comprehensive care for all of patients comorbid conditions. 2. Hypoalbuminemia - Possibly due to combined effects of malnutrition and inflammation associated with comorbid conditions. Will ensure adequate dietary protein intake and also consult pricer bagger. Urinalysis pending. 3. Tobacco Use Counseled on risks associated with tobacco use. We will provide patient all the necessary assistance to facilitate smoking cessation and prescribe Nicotine patch. 4. AMY Cause unclear. Will get kidney sonogram, CPK, hydrate gently, monitor urine output and consult Nephrology. Avoid nephrotoxic agents such as NSAIDS, aminoglycosides, contrast dyes and certain Alternative medicine products. 5. Mild anemia - Likely multifactorial. Will do basic anemia work up including serial stool guaiacs, reticulocyte count and iron studies. 6. DVT prophylaxis - Lovenox 40 mg SQ q 24 hours. 7. Advance directives - Full code
[2020-05-03 03:51] LABS: EPI CELLS >36 /uL (0-25.1); HYALINE CASTS 6 /uL (0-3.1); URINE APPEARANCE CLOUDY; URINE BACTERIA 44 /uL (0-1359); URINE BILIRUBIN NEGATIVE (NEGATIVE); URINE COLOR YELLOW; URINE GLUCOSE (UA) NEGATIVE (NEGATIVE); URINE KETONE NEGATIVE (NEGATIVE); URINE LEUK ESTERASE 2+ (NEGATIVE); URINE NITRITE NEGATIVE (NEGATIVE); URINE PROTEIN 2+ (NEGATIVE); URINE RBC 106 /uL (0-23.9); URINE UROBILINOGEN 0.2 mg/dL (0.2-1.0); URINE WBC 171 /uL (0-25.8)
--- NOTE | 2020-05-03 04:11 | HP ---
CHIEF COMPLAINT: sent from [facility] because of abnormal EKG/bradycardia PCP: unable to answer HISTORY OF PRESENT ILLNESS: Patient 45 yo female with PMHx of COPD, hepatitis C, polysubstance abuse (hx of cocaine, heroine, alcohol & marijuana use), and seizures. Currently on methadone maintenance dose 110 mg daily (need to verify). She presented to [facility] for "detox" and was sent to [facility] because of her EKG findings (bradycardia + prolonged QT). She denies taking any heroine before going to [facility]. She endorses having drank alcohol, and taken klonopin and xanax that day. History was limited due to patient's lethargy and agitation. She denied chest pain, SOB, n/v/d. ER course was notable for: (1)./4 mg narcan (2) (3) Recent Travel: PAST MEDICAL HISTORY: PAST SURGICAL HISTORY: Social History: Smoking: Alcohol: Drugs: Allergies No Known Allergies Allergy (Verified 05/02/20 18:06) HOME MEDICATIONS: Home Medications Medication Instructions Recorded Fluoxetine HCl [Prozac -] 20 mg PO DAILY 11/11/19 Albuterol Sulfate Inhaler - 2 inh PO Q4H 11/12/19 [Ventolin HFA Inhaler -] Quetiapine Fumarate [Seroquel -] 100 mg PO HS 11/12/19 REVIEW OF SYSTEMS CONSTITUTIONAL: Absent: fever, chills, diaphoresis, generalized weakness, malaise, loss of appetite, weight change HEENT: Absent: rhinorrhea, nasal congestion, throat pain, throat swelling, difficulty swallowing, mouth swelling, ear pain, eye pain, visual changes CARDIOVASCULAR: Absent: chest pain, syncope, palpitations, irregular heart rate, lightheadedness, peripheral edema RESPIRATORY: Absent: cough, shortness of breath, dyspnea with exertion, orthopnea, wheezing, stridor, hemoptysis GASTROINTESTINAL: Absent: abdominal pain, abdominal distension, nausea, vomiting, diarrhea, constipation, melena, hematochezia GENITOURINARY: Absent: dysuria, frequency, urgency, hesitancy, hematuria, flank pain, genital pain MUSCULOSKELETAL: Absent: myalgia, arthralgia, joint swelling, back pain, neck pain SKIN: Absent: rash, itching, pallor HEMATOLOGIC/IMMUNOLOGIC: Absent: easy bleeding, easy bruising, lymphadenopathy, frequent infections ENDOCRINE: Absent: unexplained weight gain, unexplained weight loss, heat intolerance, cold intolerance NEUROLOGIC: Absent: headache, focal weakness or paresthesias, dizziness, unsteady gait, seizure, mental status changes, bladder or bowel incontinence PSYCHIATRIC: Absent: anxiety, depression, suicidal or homicidal ideation, hallucinations. PHYSICAL EXAMINATION Vital Signs - 24 hr 05/02/20 05/02/20 05/02/20 21:15 21:30 22:06 Temperature 96.0 F L Pulse Rate 39 L Pulse Rate [ 42 L 42 L Apical] Respiratory 8 L 8 L 14 Rate Blood Pressure 100/60 Blood Pressure 102/62 [Right Arm] O2 Sat by Pulse 97 97 97 Oximetry (%) 05/02/20 05/03/20 05/03/20 22:52 01:12 01:55 Temperature Pulse Rate Pulse Rate [ 43 L 46 L 87 Apical] Respiratory 12 18 Rate Blood Pressure Blood Pressure 90/66 73/48 L [Right Arm] O2 Sat by Pulse 94 L 96 Oximetry (%) 05/03/20 05/03/20 02:10 03:14 Temperature Pulse Rate Pulse Rate [ 71 Apical] Respiratory Rate Blood Pressure Blood Pressure 187/152 H 102/61 [Right Arm] O2 Sat by Pulse Oximetry (%) GENERAL: Awake, alert, and fully oriented, in no acute distress. HEAD: Normal with no signs of trauma. EYES: Pupils equal, round and reactive to light, extraocular movements intact, sclera anicteric, conjunctiva clear. No lid lag. EARS, NOSE, THROAT: Ears normal, nares patent, oropharynx clear without exudates. Moist mucous membranes. NECK: Normal range of motion, supple without lymphadenopathy, JVD, or masses. LUNGS: Breath sounds equal, clear to auscultation bilaterally. No wheezes, and no crackles. No accessory muscle use. HEART: Regular rate and rhythm, normal S1 and S2 without murmur, rub or gallop. ABDOMEN: Soft, nontender, not distended, normoactive bowel sounds, no guarding, no rebound, no masses. No hepatomegaly or splenomegaly. MUSCULOSKELETAL: Normal range of motion at all joints. No bony deformities or tenderness. No CVA tenderness. UPPER EXTREMITIES: 2+ pulses, warm, well-perfused. No cyanosis. No clubbing. No peripheral edema. LOWER EXTREMITIES: 2+ pulses, warm, well-perfused. No calf tenderness. No peripheral edema. NEUROLOGICAL: Cranial nerves II-XII intact. Normal speech. Normal gait. PSYCHIATRIC: Cooperative. Good eye contact. Appropriate mood and affect. SKIN: Warm, dry, normal turgor, no rashes or lesions noted, normal capillary refill. Laboratory Results - last 24 hr 05/02/20 05/02/20 05/03/20 22:39 22:39 01:00 WBC 4.5 RBC 3.61 Hgb 10.5 L Hct 32.6 MCV 90.3 MCH 29.2 MCHC 32.3 RDW 16.1 H Plt Count 171 D MPV 7.9 Absolute Neuts (auto) 1.3 L Neutrophils % 29.7 L Lymphocytes % 53.0 H Monocytes % 11.2 H Eosinophils % 5.2 H Basophils % 0.9 Nucleated RBC % 0 Sodium 138 Potassium 4.4 Chloride 106 Carbon Dioxide 28 Anion Gap 3 L BUN 40.9 H Creatinine 1.1 Est GFR (CKD-EPI)AfAm 71.21 Est GFR (CKD-EPI)NonAf 61.44 Random Glucose 79 Calcium 7.9 L Total Bilirubin 0.3 AST 89 H ALT 52 Alkaline Phosphatase 99 Total Protein 7.4 Albumin 2.9 L Serum , Qual Negative Urine Color Urine Appearance Urine pH Ur Specific [place] Urine Protein Urine Glucose (UA) Urine Ketones Urine Blood Urine Nitrite Urine Bilirubin Urine Urobilinogen Ur Leukocyte Esterase Urine WBC (Auto) Urine RBC (Auto) Urine Casts (Auto) U Epithel Cells (Auto) Urine Bacteria (Auto) 05/03/20 03:37 WBC RBC Hgb Hct MCV MCH MCHC RDW Plt Count MPV Absolute Neuts (auto) Neutrophils % Lymphocytes % Monocytes % Eosinophils % Basophils % Nucleated RBC % Sodium Potassium Chloride Carbon Dioxide Anion Gap BUN Creatinine Est GFR (CKD-EPI)AfAm Est GFR (CKD-EPI)NonAf Random Glucose Calcium Total Bilirubin AST ALT Alkaline Phosphatase Total Protein Albumin Serum , Qual Urine Color Yellow Urine Appearance Cloudy Urine pH 6.0 Ur Specific [place] 1.007 L Urine Protein 2+ H Urine Glucose (UA) Negative Urine Ketones Negative Urine Blood 3+ H Urine Nitrite Negative Urine Bilirubin Negative Urine Urobilinogen 0.2 Ur Leukocyte Esterase 2+ H Urine WBC (Auto) 171 Urine RBC (Auto) 106 Urine Casts (Auto) 6 U Epithel Cells (Auto) >36 Urine Bacteria (Auto) 44 ASSESSMENT/PLAN: ATTENDING PHYSICIAN STATEMENT I saw and evaluated the patient. I reviewed the resident's note and discussed the case with the resident. I agree with the resident's findings and plan as documented. SUBJECTIVE: OBJECTIVE: ASSESSMENT AND PLAN:
[2020-05-03] MEDS ORDERED: SODIUM CHLORIDE 1,000 ML IV SCH ×3 (04:15→16:30)
[2020-05-03] MEDS ORDERED: FOLIC ACID 1 MG TABLET (FP) PO ONE (04:23)
[2020-05-03] MEDS ORDERED: THIAMINE HCL 200 MG/2 ML VIAL IM ONE (04:23)
[2020-05-03 04:27] LABS: OPIATES, URI NEGATIVE ng/ml (CUTOFF=300); PHENCYCLIDINE,URINE NEGATIVE ng/ml (CUTOFF=25); URINE AMPHETAMINES NEGATIVE ng/ml (CUTOFF=500); URINE BARBITURATES NEGATIVE ng/ml (CUTOFF=200)
[2020-05-03] MEDS ORDERED: ALBUTEROL SO4 HFA INHALER IH PRN ×2 (04:27→19:56)
[2020-05-03 04:38] LABS: COCAINE, UR POSITIVE ng/ml (CUTOFF=300); METHADONE, UR POSITIVE ng/ml (CUTOFF=300); URINE BENZODIAZEPINES POSITIVE ng/ml (CUTOFF=200)
[2020-05-03] MEDS ORDERED: CEFTRIAXONE 1 GM/50 ML BAG ONE ×3 (04:53→10:13)
[2020-05-03] MEDS ORDERED: FOLIC ACID INJECTION - 1 MG, THIAMINE HCL 100 MG, MULTIVIT INJECTION ADULT 10 ML in SOD... IVPB ONE (05:00)
[2020-05-03] MEDS ORDERED: CEFTRIAXONE 1 GM in DEXTROSE 5%-WATER - 50 ML IVPB SCH (05:00)
--- NOTE | 2020-05-03 05:10 | HP ---
CHIEF COMPLAINT: sent from health system because of abnormal EKG/bradycardia PCP: unable to answer HISTORY OF PRESENT ILLNESS: Patient 45 yo female with PMHx of COPD, hepatitis C, polysubstance abuse (hx of cocaine, heroine, alcohol & marijuana use), seizures, and patient mentions possible heart murmur. Currently on methadone maintenance dose 110 mg daily (need to verify). She presented to health system for "detox" and was sent to [facility] because of her EKG findings (bradycardia + prolonged QT). She denies taking any heroine before going to health system. She endorses having drank alcohol, and taken klonopin and xanax that day. History was limited due to patient's lethargy and agitation. She denied chest pain, SOB, n/v/d. ER course was notable for: (1) 0.4 mg narcan + 1mg IV atropine (2) + UA (3) EKG bradycardia (4) BP 73/48 Recent Travel: denies PAST MEDICAL HISTORY: only verified COPD, and mentions heart murmur PAST SURGICAL HISTORY: mentioned some history of some kind of vaginal surgery, unable to elaborate Family Hx: refused to answer Social History: Smoking: former Alcohol: occasionaly Drugs: benzos, methadone, cocaine, marijuana Allergies No Known Allergies Allergy (Verified 05/02/20 18:06) REVIEW OF SYSTEMS CONSTITUTIONAL: Absent: fever, chills, diaphoresis, generalized weakness, malaise, loss of a ppetite, weight change HEENT: Absent: rhinorrhea, nasal congestion, throat pain, throat swelling, difficulty swallowing, mouth swelling, ear pain, eye pain, visual changes CARDIOVASCULAR: Absent: chest pain, syncope, palpitations, irregular heart rate, lightheadedness, peripheral edema RESPIRATORY: Absent: cough, shortness of breath, dyspnea with exertion, orthopnea, wheezing, stridor, hemoptysis GASTROINTESTINAL: Absent: abdominal pain, abdominal distension, nausea, vomiting, diarrhea, constipation, melena, hematochezia GENITOURINARY: Absent: dysuria, frequency, urgency, hesitancy, hematuria, flank pain, genital pain MUSCULOSKELETAL: Absent: myalgia, arthralgia, joint swelling, back pain, neck pain SKIN: Absent: rash, itching, pallor HEMATOLOGIC/IMMUNOLOGIC: Absent: easy bleeding, easy bruising, lymphadenopathy, frequent infections ENDOCRINE: Absent: unexplained weight gain, unexplained weight loss, heat intolerance, cold intolerance NEUROLOGIC: Tired Absent: headache, focal weakness or paresthesias, dizziness, unsteady gait, seizure, mental status changes, bladder or bowel incontinence PSYCHIATRIC: Absent: anxiety, depression, suicidal or homicidal ideation, hallucinations. Vital Signs - 24 hr 05/02/20 05/02/20 05/02/20 21:15 21:30 22:06 Temperature 96.0 F L Pulse Rate 39 L Pulse Rate [ 42 L 42 L Apical] Respiratory 8 L 8 L 14 Rate Blood Pressure 100/60 Blood Pressure 102/62 [Right Arm] O2 Sat by Pulse 97 97 97 Oximetry (%) 05/02/20 05/03/20 05/03/20 22:52 01:12 01:55 Temperature Pulse Rate Pulse Rate [ 43 L 46 L 87 Apical] Respiratory 12 18 Rate Blood Pressure Blood Pressure 90/66 73/48 L [Right Arm] O2 Sat by Pulse 94 L 96 Oximetry (%) 05/03/20 05/03/20 02:10 03:14 Temperature Pulse Rate Pulse Rate [ 71 Apical] Respiratory Rate Blood Pressure Blood Pressure 187/152 H 102/61 [Right Arm] O2 Sat by Pulse Oximetry (%) Patient denied most of the exam, was very agitated when woken up GENERAL: Arousable, lethargic, no acute distress HEAD: Normal with no signs of trauma. EYES: dilated, conjunctiva clear EARS, NECK: LUNGS: HEART: ABDOMEN: MUSCULOSKELETAL: . UPPER EXTREMITIES: No peripheral edema. LOWER EXTREMITIES: No peripheral edema. NEUROLOGICAL: PSYCHIATRIC: Not Cooperative. Agitated SKIN: Laboratory Results - last 24 hr 05/02/20 05/02/20 05/03/20 22:39 22:39 01:00 WBC 4.5 RBC 3.61 Hgb 10.5 L Hct 32.6 MCV 90.3 MCH 29.2 MCHC 32.3 RDW 16.1 H Plt Count 171 D MPV 7.9 Absolute Neuts (auto) 1.3 L Neutrophils % 29.7 L Lymphocytes % 53.0 H Monocytes % 11.2 H Eosinophils % 5.2 H Basophils % 0.9 Nucleated RBC % 0 Sodium 138 Potassium 4.4 Chloride 106 Carbon Dioxide 28 Anion Gap 3 L BUN 40.9 H Creatinine 1.1 Est GFR (CKD-EPI)AfAm 71.21 Est GFR (CKD-EPI)NonAf 61.44 Random Glucose 79 Calcium 7.9 L Total Bilirubin 0.3 AST 89 H ALT 52 Alkaline Phosphatase 99 Total Protein 7.4 Albumin 2.9 L Serum , Qual Negative Urine Color Urine Appearance Urine pH Ur Specific [place] Urine Protein Urine Glucose (UA) Urine Ketones Urine Blood Urine Nitrite Urine Bilirubin Urine Urobilinogen Ur Leukocyte Esterase Urine WBC (Auto) Urine RBC (Auto) Urine Casts (Auto) U Epithel Cells (Auto) Urine Bacteria (Auto) Opiates Screen Methadone Screen Barbiturate Screen Phencyclidine Screen Ur Amphetamines Screen MDMA (Ecstasy) Screen Benzodiazepines Screen Cocaine Screen U Marijuana (THC) Screen 05/03/20 05/03/20 03:37 03:37 WBC RBC Hgb Hct MCV MCH MCHC RDW Plt Count MPV Absolute Neuts (auto) Neutrophils % Lymphocytes % Monocytes % Eosinophils % Basophils % Nucleated RBC % Sodium Potassium Chloride Carbon Dioxide Anion Gap BUN Creatinine Est GFR (CKD-EPI)AfAm Est GFR (CKD-EPI)NonAf Random Glucose Calcium Total Bilirubin AST ALT Alkaline Phosphatase Total Protein Albumin Serum , Qual Urine Color Yellow Urine Appearance Cloudy Urine pH 6.0 Ur Specific [place] 1.007 L Urine Protein 2+ H Urine Glucose (UA) Negative Urine Ketones Negative Urine Blood 3+ H Urine Nitrite Negative Urine Bilirubin Negative Urine Urobilinogen 0.2 Ur Leukocyte Esterase 2+ H Urine WBC (Auto) 171 Urine RBC (Auto) 106 Urine Casts (Auto) 6 U Epithel Cells (Auto) >36 Urine Bacteria (Auto) 44 Opiates Screen Negative Methadone Screen Positive A* Barbiturate Screen Negative Phencyclidine Screen Negative Ur Amphetamines Screen Negative MDMA (Ecstasy) Screen Negative Benzodiazepines Screen Positive A* Cocaine Screen Positive A* U Marijuana (THC) Screen Negative ASSESSMENT/PLAN: 45 yo female presented to ED from [facility] because of abnormal EKG showing bradycardia and prolonged QT. In ED became hypotensive and narcan and atropine were given. Patient remains lethargic. Admitted to tele for bradycardia and detox. Bradycardia: 2/2 opioid overdose vs, drug use vs, psych medications - EKG: bradycardia, prolonged QT, QTc 497 - responded to narcan - hx bradycardia w/ possibly murmur - Cardiology consulted - tele monitoring - Seroquel and prozac could be contributing/ Psych consulted Polysubstance abuse - possible withdrawal - verify methadone dose - COW score 2 - thiamine, folic acid, IVF - utox pending - seizure precautions - fall precautions UTI - UA + - started 1 g ceftriazone IV COPD - CXR pending - albuterol PRN - verify home medications DVT Prophylaxis Lovenox 40 sq Visit type - Emergency Visit Emergency Visit: Yes ED Registration Date: 05/03/20 Care time: The patient presented to the Emergency Department on the above date and was hospitalized for further evaluation of their emergent condition. - New Patient This patient is new to me today: Yes Date on this admission: 05/03/20 - Critical Care Critical Care patient: No ATTENDING PHYSICIAN STATEMENT I saw and evaluated the patient. I reviewed the resident's note and discussed the case with the resident. I agree with the resident's findings and plan as documented. SUBJECTIVE: OBJECTIVE: ASSESSMENT AND PLAN:
[2020-05-03] MEDS: cefTRIAXone SODIUM 1 GM VIAL IVPB SCH ×2 (07:02→11:00)
--- NOTE | 2020-05-03 09:06 | CON.CARD ---
Consult Consult Specialty:: Cardiology - History of Present Illness History of Present Illness: Cintia Persaud is a 45 Y F with a PMH of COPD, HEP C, seizures, and polysubtance abuse(alcohol, cocaine, heroin, and THC) on methadone maintenance (110 mg PO daily) presented from [facility] for abnormal EKG: HR: 43, T-Wave abnormality, QT prolonged. In ER patient is somnolent but arousable, unable to obtain information from the patient. v/s in ER p42, O2 sat 97, RR 16, BP 100/60 - History Source History Provided By: Patient, Medical Record - Past Medical History Pulmonary: Yes: COPD Hepatobiliary: Yes: Hepatitis C ...LMP: 01/27/20 - Alcohol/Substance Use Hx Alcohol Use: Yes History of Substance Use: reports: Cocaine, Heroin, Prescription - Smoking History Smoking history: Former smoker Have you smoked in the past 12 months: Yes Aproximately how many cigarettes per day: 10 - Social History ADL: Independent Occupation: unemployed History of Recent Travel: No Home Medications - Allergies Allergies/Adverse Reactions: Allergies Allergy/AdvReac Type Severity Reaction Status Date / Time No Known Allergies Allergy Verified 05/02/20 18:06 - Home Medications Home Medications: Ambulatory Orders Fluoxetine HCl [Prozac -] 20 mg PO DAILY 11/11/19 Albuterol Sulfate Inhaler - [Ventolin HFA Inhaler -] 2 inh PO Q4H 11/12/19 Quetiapine Fumarate [Seroquel -] 100 mg PO HS 11/12/19 Review of Systems - Review of Systems Constitutional: reports: Lethargy Eyes: reports: No Symptoms HENT: reports: No Symptoms Neck: reports: No Symptoms Cardiovascular: reports: No Symptoms Gastrointestinal: reports: No Symptoms Genitourinary: reports: No Symptoms Breasts: reports: No Symptoms Reported Musculoskeletal: reports: No Symptoms Integumentary: reports: No Symptoms Neurological: reports: No Symptoms Endocrine: reports: No Symptoms Hematology/Lymphatic: reports: No Symptoms Psychiatric: reports: No Symptoms Vital Signs: Vital Signs Temperature 96.0 F L 05/02/20 21:15 Pulse Rate 46 L 05/03/20 06:57 Respiratory Rate 18 05/03/20 06:57 Blood Pressure 105/69 05/03/20 06:57 O2 Sat by Pulse Oximetry (%) 96 05/03/20 06:57 Constitutional: Yes: Well Nourished, No Distress, Calm Eyes: Yes: WNL, Conjunctiva Clear, EOM Intact HENT: Yes: WNL, Atraumatic, Normocephalic Neck: Yes: WNL, Supple, Trachea Midline Respiratory: Yes: WNL, Regular, CTA Bilaterally Gastrointestinal: Yes: WNL, Normal Bowel Sounds Renal/: Yes: WNL Cardiovascular: Yes: WNL, Regular Rate and Rhythm Musculoskeletal: Yes: WNL Extremities: Yes: WNL Integumentary: Yes: WNL Neurological: Yes: WNL, Alert, Oriented ...Motor Strength: WNL Psychiatric: Yes: WNL, Alert, Oriented - Other Data Labs, Other Data: CBC, BMP 05/02/20 22:39 05/02/20 22:39 Imaging - Results Chest X-ray: Image Reviewed (no i/e) EKG: Image Reviewed (s barady at 44) Problem List - Problems (1) Hypotension Code(s): I95.9 - HYPOTENSION, UNSPECIFIED Qualifiers: Hypotension type: unspecified hypotension type Qualified Code(s): I95.9 - Hypotension, unspecified (2) Somnolence Code(s): R40.0 - SOMNOLENCE (3) Bradycardia Code(s): R00.1 - BRADYCARDIA, UNSPECIFIED (4) Alcohol dependence Code(s): F10.20 - ALCOHOL DEPENDENCE, UNCOMPLICATED (5) Alcohol dependence with withdrawal, uncomplicated Code(s): F10.230 - ALCOHOL DEPENDENCE WITH WITHDRAWAL, UNCOMPLICATED (6) Substance induced mood disorder Code(s): F19.94 - OTH PSYCHOACTIVE SUBSTANCE USE, UNSP W MOOD DISORDER (7) Substance-induced anxiety disorder Code(s): F19.980 - OTH PSYCHOACTIVE SUBSTANCE USE, UNSP W ANXIETY DISORDER (8) Substance-induced sleep disorder Code(s): F19.982 - OTH PSYCHOACTIVE SUBSTANCE USE, UNSP W SLEEP DISORDER (9) COPD (chronic obstructive pulmonary disease) Code(s): J44.9 - CHRONIC OBSTRUCTIVE PULMONARY DISEASE, UNSPECIFIED (10) Cocaine dependence Code(s): F14.20 - COCAINE DEPENDENCE, UNCOMPLICATED (11) Cocaine dependence, uncomplicated Code(s): F14.20 - COCAINE DEPENDENCE, UNCOMPLICATED (12) Hepatitis C Code(s): B19.20 - UNSPECIFIED VIRAL HEPATITIS C WITHOUT HEPATIC COMA Qualifiers: Viral hepatitis chronicity: chronic Hepatic coma status: without hepatic co ma Qualified Code(s): B18.2 - Chronic viral hepatitis C (13) History of COPD Code(s): Z87.09 - PERSONAL HISTORY OF OTHER DISEASES OF THE RESPIRATORY SYSTEM (14) Insomnia Code(s): G47.00 - INSOMNIA, UNSPECIFIED (15) Methadone maintenance therapy patient Code(s): F11.20 - OPIOID DEPENDENCE, UNCOMPLICATED (16) Nicotine dependence Code(s): F17.200 - NICOTINE DEPENDENCE, UNSPECIFIED, UNCOMPLICATED (17) Nicotine dependence, unspecified, uncomplicated Code(s): F17.200 - NICOTINE DEPENDENCE, UNSPECIFIED, UNCOMPLICATED Qualifiers: Nicotine product type: cigarettes Qualified Code(s): F17.210 - Nicotine dependence, cigarettes, uncomplicated (18) Opioid dependence on agonist therapy Code(s): F11.20 - OPIOID DEPENDENCE, UNCOMPLICATED (19) Perforated nasal septum Code(s): J34.89 - OTHER SPECIFIED DISORDERS OF NOSE AND NASAL SINUSES (20) Schizoaffective disorder Code(s): F25.9 - SCHIZOAFFECTIVE DISORDER, UNSPECIFIED (21) Sedative, hypnotic or anxiolytic dependence with withdrawal, uncomplicated Code(s): F13.230 - SEDATV/HYP/ANXIOLYTC DEPENDENCE W WITHDRAWAL, UNCOMPLICATED (22) Substance induced mood disorder Code(s): F19.94 - OTH PSYCHOACTIVE SUBSTANCE USE, UNSP W MOOD DISORDER (23) Seizure concurrent with and due to anxiolytic withdrawal Code(s): F13.239 - SEDATV/HYP/ANXIOLYTC DEPENDENCE W WITHDRAWAL, UNSP; F13.288 - SEDATIVE, HYPNOTIC OR ANXIOLYTIC DEPENDENCE W OTH DISORDER; R56.9 - UNSPECIFIED CONVULSIONS (24) Bipolar disorder Code(s): F31.9 - BIPOLAR DISORDER, UNSPECIFIED (25) Schizophrenia Code(s): F20.9 - SCHIZOPHRENIA, UNSPECIFIED (26) Schizophrenia Code(s): F20.9 - SCHIZOPHRENIA, UNSPECIFIED Assessment/Plan urosepsis Somnolence bradycardia QTC prolongation polysubstance abuse Plan ICU monitoring ABX IVF resuscitation 24 Holter echo cc time spent 70 min
[2020-05-03] MEDS ORDERED: chlordiazePOXIDE HCL 25 MG CAPSULE ONE (09:22)
[2020-05-03] MEDS ORDERED: THIAMINE HCL 100 MG TABLET (FP) PO SCH (10:00)
[2020-05-03] MEDS ORDERED: ENOXAPARIN NA (PORCINE) 40 MG/0.4 ML DISP.SYRIN SQ SCH (10:00)
[2020-05-03] MEDS ORDERED: MULTIVITAMINS (DAILY MVI) TABLET (FP) PO SCH (10:00)
[2020-05-03] MEDS ORDERED: ENOXAPARIN NA (PORCINE) 40 MG/0.4 ML DISP.SYRIN SQ ONE (10:12)
[2020-05-03] MEDS ORDERED: MULTIVITAMINS (DAILY MVI) TABLET (FP) ONE (10:12)
[2020-05-03] MEDS ORDERED: THIAMINE HCL 100 MG TABLET (FP) ONE (10:12)
[2020-05-03] MEDS ORDERED: SODIUM CHLORIDE 0.9% 500 ML INFUS.BAG IV ONE ×2 (12:25)
[2020-05-03 12:43] LABS: EOS % 3.6 % (0-4.5); HEMOGLOBIN 9.7 GM/dL (10.7-15.3); LYMPH % 36.8 % (8-40); MCHC 32.2 g/dl (32.0-36.0); MEAN CELL VOLUME 89.9 fl (80-96); MEAN PLT VOLUME 7.8 fl (7.5-11.1); MONO % 11.1 % (3.8-10.2); NEUT % 47.5 % (42.8-82.8); PLATELET COUNT 150 K/MM3 (134-434); RBC 3.34 M/mm3 (3.60-5.2); RDW 16.2 % (11.6-15.6); WHITE BLOOD COUNT 3.6 K/mm3 (4.0-10.0)
--- NOTE | 2020-05-03 13:25 | CONSULT ---
Consultation: REQUESTING PROVIDER:Mimi CONSULT REQUEST: We have been asked to medically evaluate this patient for ICU HISTORY OF PRESENT ILLNESS: 45 yo F PMH of COPD, hepatitis C, polysubstance abuse (hx of cocaine, heroine, alcohol & marijuana use), seizure d/o presented to [facility] yesterday for deto x. pt states that while she was at [facility] she was sent to [place] since her " heart was too slow" and EKG findings (bradycardia + prolonged QT). . she denies cp, shortness of breath or dizziness. she states that her drug of choice is benzos and she last used 4 mg BZO yesterday morning. denies withdrawal seizures. she is currently on methadone maintenance dose 110 mg daily (need to verify). She presented to [facility] for "detox" . She denies taking any heroine before going to [facility]. pt denied overdose during my exam but [facility] note states hx of overdose. Pt states that 2 weeks ago she was in [facility] for 7 days for a "kidney infection" requiring surgery. she states she was on IV abx . she denies having any home medications/ antibiotics In ED pt has received 4 L IVF and MAPs in 60. currently with MAP of 71 on 5th L. She was bradycardic in 30s throughout ED course REVIEW OF SYSTEMS: CONSTITUTIONAL: Present: generalized weakness Absent: fever, chills, diaphoresis,malaise, loss of appetite, weight change HEENT: Absent: rhinorrhea, nasal congestion, throat pain, throat swelling, difficulty swallowing, mouth swelling, ear pain, eye pain, visual changes CARDIOVASCULAR: Absent: chest pain, syncope, palpitations, irregular heart rate, lightheadedness, peripheral edema RESPIRATORY: Absent: cough, shortness of breath, dyspnea with exertion, orthopnea, wheezing, stridor, hemoptysis GASTROINTESTINAL: Absent: abdominal pain, abdominal distension, nausea, vomiting, diarrhea, constipation, melena, hematochezia GENITOURINARY: Absent: dysuria, frequency, urgency, hesitancy, hematuria, flank pain, genital pain MUSCULOSKELETAL: Absent: myalgia, arthralgia, joint swelling, back pain, neck pain SKIN: Absent: rash, itching, pallor HEMATOLOGIC/IMMUNOLOGIC: Absent: easy bleeding, easy bruising, lymphadenopathy, frequent infections ENDOCRINE: Absent: unexplained weight gain, unexplained weight loss, heat intolerance, cold intolerance NEUROLOGIC: Absent: headache, focal weakness or paresthesias, dizziness, unsteady gait, seizure, mental status changes, bladder or bowel incontinence PSYCHIATRIC: Absent: anxiety, depression, suicidal or homicidal ideation, hallucinations. PHYSICAL EXAMINATION Vital Signs - 24 hr 05/02/20 05/03/20 05/03/20 22:52 01:12 01:55 Temperature Pulse Rate Pulse Rate [ 43 L 46 L 87 Apical] Respiratory 12 18 Rate Blood Pressure Blood Pressure 90/66 73/48 L [Right Arm] O2 Sat by Pulse 94 L 96 Oximetry (%) 05/03/20 05/03/20 05/03/20 02:10 03:14 06:57 Temperature Pulse Rate Pulse Rate [ 71 46 L Apical] Respiratory 18 Rate Blood Pressure Blood Pressure 187/152 H 102/61 105/69 [Right Arm] O2 Sat by Pulse 96 Oximetry (%) 05/03/20 12:11 Temperature 96.7 F L Pulse Rate Pulse Rate [ 38 L Apical] Respiratory Rate Blood Pressure Blood Pressure 87/60 L [Right Arm] O2 Sat by Pulse 100 Oximetry (%) GENERAL: Awake, alert, and fully oriented, in no acute distress. HEAD: Normal with no signs of trauma. EYES: Pupils equally dilated, round and reactive to light, extraocular movements intact EARS, NOSE, THROAT: oropharynx clear without exudates. Moist mucous membranes. NECK: Normal range of motion, supple without lymphadenopathy, JVD, or masses. LUNGS: Breath sounds equal, clear to auscultation bilaterally. No accessory muscle use. HEART: bradycardia rate and rhythm, normal S1 and S2, + systolic murmur ABDOMEN: Soft, nontender, not distended, normoactive bowel sounds, no guarding, no rebound, no masses. MUSCULOSKELETAL: No CVA tenderness. midline lower thoracic tenderness UPPER EXTREMITIES: 2+ pulses, warm, well-perfused. No peripheral edema. LOWER EXTREMITIES: 2+ pulses, warm, well-perfused. No calf tenderness. No peripheral edema. NEUROLOGICAL: Cranial nerves II-XII intact. Normal speech. CIWA 4; tremulousness COWS8; dilated pupils, chills, tremor Laboratory Last Values WBC 3.6 K/mm3 (4.0-10.0) L 05/03/20 12:23 RBC 3.34 M/mm3 (3.60-5.2) L 05/03/20 12:23 Hgb 9.7 GM/dL (10.7-15.3) L 05/03/20 12:23 Hct 30.0 % (32.4-45.2) L 05/03/20 12:23 MCV 89.9 fl (80-96) 05/03/20 12:23 MCH 29.0 pg (25.7-33.7) 05/03/20 12:23 MCHC 32.2 g/dl (32.0-36.0) 05/03/20 12:23 RDW 16.2 % (11.6-15.6) H 05/03/20 12:23 Plt Count 150 K/MM3 (134-434) 05/03/20 12:23 MPV 7.8 fl (7.5-11.1) 05/03/20 12:23 Absolute Neuts (auto) 1.7 K/mm3 (1.5-8.0) 05/03/20 12:23 Neutrophils % 47.5 % (42.8-82.8) D 05/03/20 12:23 Lymphocytes % 36.8 % (8-40) D 05/03/20 12:23 Monocytes % 11.1 % (3.8-10.2) H 05/03/20 12:23 Eosinophils % 3.6 % (0-4.5) 05/03/20 12:23 Basophils % 1.0 % (0-2.0) 05/03/20 12:23 Nucleated RBC % 0 % (0-0) 05/03/20 12:23 Sodium 143 mmol/L (136-145) 05/03/20 12:23 Potassium 4.5 mmol/L (3.5-5.1) 05/03/20 12:23 Chloride 113 mmol/L (98-107) H 05/03/20 12:23 Carbon Dioxide 29 mmol/L (21-32) 05/03/20 12:23 Anion Gap 1 MMOL/L (8-16) L 05/03/20 12:23 BUN 28.8 mg/dL (7-18) H 05/03/20 12:23 Creatinine 0.8 mg/dL (0.55-1.3) 05/03/20 12:23 Est GFR (CKD-EPI)AfAm 104.65 05/03/20 12:23 Est GFR (CKD-EPI)NonAf 90.30 05/03/20 12:23 Random Glucose 65 mg/dL (74-106) L 05/03/20 12:23 Calcium 8.2 mg/dL (8.5-10.1) L 05/03/20 12:23 Phosphorus 3.1 mg/dL (2.5-4.9) 05/03/20 12:23 Magnesium 2.1 mg/dL (1.8-2.4) 05/03/20 12:23 Total Bilirubin 0.2 mg/dL (0.2-1) 05/03/20 12:23 AST 60 U/L (15-37) H 05/03/20 12:23 ALT 40 U/L (13-61) 05/03/20 12:23 Alkaline Phosphatase 87 U/L (45-117) 05/03/20 12:23 Total Protein 6.4 g/dl (6.4-8.2) 05/03/20 12:23 Albumin 2.4 g/dl (3.4-5.0) L 05/03/20 12:23 TSH 0.53 uIU/ml (0.358-3.74) 05/03/20 12:23 Serum , Qual Negative 05/03/20 01:00 Urine Color Yellow 05/03/20 03:37 Urine Appearance Cloudy 05/03/20 03:37 Urine pH 6.0 (5.0-8.0) 05/03/20 03:37 Ur Specific Stryker 1.007 (1.010-1.035) L 05/03/20 03:37 Urine Protein 2+ (NEGATIVE) H 05/03/20 03:37 Urine Glucose (UA) Negative (NEGATIVE) 05/03/20 03:37 Urine Ketones Negative (NEGATIVE) 05/03/20 03:37 Urine Blood 3+ (NEGATIVE) H 05/03/20 03:37 Urine Nitrite Negative (NEGATIVE) 05/03/20 03:37 Urine Bilirubin Negative (NEGATIVE) 05/03/20 03:37 Urine Urobilinogen 0.2 mg/dL (0.2-1.0) 05/03/20 03:37 Ur Leukocyte Esterase 2+ (NEGATIVE) H 05/03/20 03:37 Urine WBC (Auto) 171 /uL (0-25.8) 05/03/20 03:37 Urine RBC (Auto) 106 /uL (0-23.9) 05/03/20 03:37 Urine Casts (Auto) 6 /uL (0-3.1) 05/03/20 03:37 U Epithel Cells (Auto) >36 /uL (0-25.1) 05/03/20 03:37 Urine Bacteria (Auto) 44 /uL (0-1359) 05/03/20 03:37 Opiates Screen Negative ng/ml (AOQUBZ=771) 05/03/20 03:37 Methadone Screen Positive ng/ml (EOGTZP=341) A* 05/03/20 03:37 Barbiturate Screen Negative ng/ml (UATFQQ=502) 05/03/20 03:37 Phencyclidine Screen Negative ng/ml (CUTOFF=25) 05/03/20 03:37 Ur Amphetamines Screen Negative ng/ml (NXHRDL=435) 05/03/20 03:37 MDMA (Ecstasy) Screen Negative ng/ml (WIWOKH=962) 05/03/20 03:37 Benzodiazepines Screen Positive ng/ml (DVXPRD=814) A* 05/03/20 03:37 Cocaine Screen Positive ng/ml (OLOKQW=079) A* 05/03/20 03:37 U Marijuana (THC) Screen Negative ng/ml (CUTOFF=50) 05/03/20 03:37 Active Medications Generic Name Dose Route Start Last Admin Trade Name Freq PRN Reason Stop Dose Admin Albuterol Sulfate 2 puff 05/03/20 04:27 Ventolin Hfa Inhaler - IH Q6H PRN SHORT OF BREATH/WHEEZING Ceftriaxone Sodium 1 gm 05/03/20 05:00 05/03/20 11:00 Rocephin - IVPB 1 gm DAILY DEEPAK Administration Enoxaparin Sodium 40 mg 05/03/20 10:00 05/03/20 11:00 Lovenox - SQ 40 mg DAILY DEEPAK Administration Folic Acid 1 mg 05/04/20 10:00 Folic Acid - PO DAILY DEEPAK Sodium Chloride 1,000 mls @ 125 mls/hr 05/03/20 12:25 Normal Saline - IV ASDIR DEEPAK Multivitamins/Minerals/Vitamin C 1 tab 05/03/20 10:00 05/03/20 11:00 Tab-A-Vit - PO 1 tab DAILY DEEPAK Administration Thiamine HCl 100 mg 05/03/20 10:00 05/03/20 11:00 Vitamin B1 - PO 100 mg DAILY DEEPAK Administration CT Abdomen/ Pelvis: Atelectatic changes and/or scarring in the visualized lower lungs with trace left and possibly right pleural effusions. Small nodule at the periphery of the right middle lobe measuring 6.4 mm. Trace pericardial effusion. There is mild simple ascites predominantly perihepatic with fluid in the bilateral paracolic gutters and small collection in the pelvis. No intra-abdominal free air. Intrahepatic periportal edema and pericholecystic edema could be secondary to a degree of fluid overload versus hepatocellular disease. The liver is enlarged measuring 19 cm in craniocaudal dimension. Spleen is upper limits of normal size. Pancreas a nd adrenal glands are unremarkable . There is a well-positioned right nephroureteral stent. Mild to moderate right hydronephrosis. Patchy areas of cortical hypoenhancement in both kidneys more pronounced on the right side compatible with pyelonephritis. Cortical scarring in the right kidney. No evidence of abscess. No bowel distention or appreciable thickening allowing for lack of enteric contrast. Normal appendix. Large amount of retained stool in the colon. Pelvic organs are grossly normal. 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 In ED became hypotensive and narcan and atropine were given. Pt is admitted to ICU for Sepsis Neuro: hx of seizures -seizure precautions Cardio: Bradycardia: 2/2 opioid intoxication - EKG: bradycardia, prolonged QT, QTc 497 ... will do continuous QTc monitoring - Cardiology consulted - tele monitoring - avoid QT prolonging agents - cont IVF @80 - maintain MAP >65, will start peripheral dopamine - cont to follow K, Mg, Phos - since pt was bradycardic, hypotensive and hypoglycemic considered possible Beta etelvina toxicity, gave 2mg glucagon without response. - will order Echo ID: Sepsis 2/2 UTI vs Pyelonephritis - c/w ceftriaxone - c/w IVF @ 80 cc. s/p 6 U - will get BCx, UCx - will get CT abdomen/pelvis Psych: Polysubstance abuse - possible withdrawal - CIWA, COWS monitor closely - avoid ativan, librium given HR. avoid MTD bc of QTc - thiamine, folic acid, IVF - utox + MTD, BZO, cocaine - seizure precautions - fall precautions Pulm: Acute hypercapnic respiratory failure 2/2 COPD, BZO use -ABG reviewed: pH 7.25, pCO2 50, pO2 127 - albuterol PRN - on 3L NC O2, titrate as tolerated DVT Prophylaxis Lovenox 40 sq Regular diet Dispo: We will continue to follow the patient. Thank you for this consultative opportunity. ATTENDING PHYSICIAN STATEMENT I saw and evaluated the patient. I reviewed the resident's note and discussed the case with the resident. I agree with the resident's findings and plan as documented. SUBJECTIVE: OBJECTIVE: ASSESSMENT AND PLAN:
[2020-05-03 13:26] LABS: BILIRUBIN,TOTAL 0.2 mg/dL (0.2-1); BLOOD UREA NITROGEN 28.8 mg/dL (7-18); CALCIUM 8.2 mg/dL (8.5-10.1); GLUCOSE,RANDOM 65 mg/dL (74-106); PHOSPHOROUS 3.1 mg/dL (2.5-4.9); POTASSIUM 4.5 mmol/L (3.5-5.1); SGOT/AST 60 U/L (15-37); TOT PROT 6.4 g/dl (6.4-8.2)
[2020-05-03 13:27] LABS: ALBUMIN 2.4 g/dl (3.4-5.0); ALK PHOS 87 U/L (45-117); ANION GAP 1 MMOL/L (8-16); CHLORIDE 113 mmol/L (98-107); CO2 29 mmol/L (21-32); CREATININE 0.8 mg/dL (0.55-1.3); MAGNESIUM 2.1 mg/dL (1.8-2.4); SGPT/ALT 40 U/L (13-61); SODIUM 143 mmol/L (136-145)
--- NOTE | 2020-05-03 14:55 | PN ---
Progress Note, Physician History of Present Illness: Cintia Persaud is a 45 Y F with a PMH of COPD, HEP C, seizures, and polysubtance abuse(alcohol, cocaine, heroin, and THC) on methadone maintenance (110 mg PO daily) presented from [facility] for abnormal EKG: HR: 43, T-Wave abnormality, QT prolonged. In ER patient is somnolent but arousable, unable to obtain information from the patient. v/s in ER p42, O2 sat 97, RR 16, BP 100/60 - Current Medication List Current Medications: Active Medications Albuterol Sulfate (Ventolin Hfa Inhaler -) 2 puff IH Q6H PRN PRN Reason: SHORT OF BREATH/WHEEZING Chlorhexidine Gluconate (Hibiclens For Decolonization -) 1 applic TP HS [facility] Enoxaparin Sodium (Lovenox -) 40 mg SQ DAILY [facility] Last Admin: 05/03/20 11:00 Dose: 40 mg Documented by: Folic Acid (Folic Acid -) 1 mg PO DAILY [facility] Sodium Chloride (Normal Saline -) 1,000 mls @ 125 mls/hr IV ASDIR [facility] Last Admin: 05/03/20 14:16 Dose: 125 mls/hr Documented by: Piperacillin Sod/Tazobactam (Sod 3.375 gm/ Dextrose) 50 mls @ 100 mls/hr IVPB Q8H-IV DEEPAK; Protocol Piperacillin Sod/Tazobactam (Sod 3.375 gm/ Dextrose) 50 mls @ 100 mls/hr IVPB Q8H-IV DEEPAK; Protocol Stop: 05/04/20 14:29 Multivitamins/Minerals/Vitamin C (Tab-A-Vit -) 1 tab PO DAILY [facility] Last Admin: 05/03/20 11:00 Dose: 1 tab Documented by: Mupirocin (Bactroban Ointment (For Decolonization) -) 1 applic NS BID [facility] Stop: 05/08/20 21:59 Thiamine HCl (Vitamin B1 -) 100 mg PO DAILY [facility] Last Admin: 05/03/20 11:00 Dose: 100 mg Documented by: - Objective Vital Signs: Vital Signs Temperature 96.7 F L 05/03/20 12:11 Pulse Rate 38 L 05/03/20 12:11 Respiratory Rate 18 05/03/20 06:57 Blood Pressure 87/60 L 05/03/20 12:11 O2 Sat by Pulse Oximetry (%) 100 05/03/20 12:11 Eyes: Yes: WNL, Conjunctiva Clear, EOM Intact HENT: Yes: WNL, Atraumatic, Normocephalic Neck: Yes: WNL, Supple, Trachea Midline Cardiovascular: Yes: WNL, Regular Rate and Rhythm Respiratory: Yes: WNL, Regular, CTA Bilaterally Gastrointestinal: Yes: WNL, Normal Bowel Sounds Genitourinary: Yes: WNL Musculoskeletal: Yes: WNL Extremities: Yes: WNL Edema: No Integumentary: Yes: WNL Neurological: Yes: WNL, Alert, Oriented ...Motor Strength: WNL Psychiatric: Yes: WNL Labs: CBC, BMP 05/03/20 12:23 05/03/20 12:23 Problem List - Problems (1) Hypotension Code(s): I95.9 - HYPOTENSION, UNSPECIFIED Qualifiers: Hypotension type: unspecified hypotension type Qualified Code(s): I95.9 - Hypotension, unspecified (2) Somnolence Code(s): R40.0 - SOMNOLENCE (3) Bradycardia Code(s): R00.1 - BRADYCARDIA, UNSPECIFIED (4) Alcohol dependence Code(s): F10.20 - ALCOHOL DEPENDENCE, UNCOMPLICATED (5) Alcohol dependence with withdrawal, uncomplicated Code(s): F10.230 - ALCOHOL DEPENDENCE WITH WITHDRAWAL, UNCOMPLICATED (6) Substance induced mood disorder Code(s): F19.94 - OTH PSYCHOACTIVE SUBSTANCE USE, UNSP W MOOD DISORDER (7) Substance-induced anxiety disorder Code(s): F19.980 - OTH PSYCHOACTIVE SUBSTANCE USE, UNSP W ANXIETY DISORDER (8) Substance-induced sleep disorder Code(s): F19.982 - OTH PSYCHOACTIVE SUBSTANCE USE, UNSP W SLEEP DISORDER (9) COPD (chronic obstructive pulmonary disease) Code(s): J44.9 - CHRONIC OBSTRUCTIVE PULMONARY DISEASE, UNSPECIFIED (10) Cocaine dependence Code(s): F14.20 - COCAINE DEPENDENCE, UNCOMPLICATED (11) Cocaine dependence, uncomplicated Code(s): F14.20 - COCAINE DEPENDENCE, UNCOMPLICATED (12) Hepatitis C Code(s): B19.20 - UNSPECIFIED VIRAL HEPATITIS C WITHOUT HEPATIC COMA Qualifiers: Viral hepatitis chronicity: chronic Hepatic coma status: without hepatic coma Qualified Code(s): B18.2 - Chronic viral hepatitis C (13) History of COPD Code(s): Z87.09 - PERSONAL HISTORY OF OTHER DISEASES OF THE RESPIRATORY SYSTEM (14) Insomnia Code(s): G47.00 - INSOMNIA, UNSPECIFIED (15) Methadone maintenance therapy patient Code(s): F11.20 - OPIOID DEPENDENCE, UNCOMPLICATED (16) Nicotine dependence Code(s): F17.200 - NICOTINE DEPENDENCE, UNSPECIFIED, UNCOMPLICATED (17) Nicotine dependence, unspecified, uncomplicated Code(s): F17.200 - NICOTINE DEPENDENCE, UNSPECIFIED, UNCOMPLICATED Qualifiers: Nicotine product type: cigarettes Qualified Code(s): F17.210 - Nicotine dependence, cigarettes, uncomplicated (18) Opioid dependence on agonist therapy Code(s): F11.20 - OPIOID DEPENDENCE, UNCOMPLICATED (19) Perforated nasal septum Code(s): J34.89 - OTHER SPECIFIED DISORDERS OF NOSE AND NASAL SINUSES (20) Schizoaffective disorder Code(s): F25.9 - SCHIZOAFFECTIVE DISORDER, UNSPECIFIED (21) Sedative, hypnotic or anxiolytic dependence with withdrawal, uncomplicated Code(s): F13.230 - SEDATV/HYP/ANXIOLYTC DEPENDENCE W WITHDRAWAL, UNCOMPLICATED (22) Substance induced mood disorder Code(s): F19.94 - OTH PSYCHOACTIVE SUBSTANCE USE, UNSP W MOOD DISORDER (23) Seizure concurrent with and due to anxiolytic withdrawal Code(s): F13.239 - SEDATV/HYP/ANXIOLYTC DEPENDENCE W WITHDRAWAL, UNSP; F13.288 - SEDATIVE, HYPNOTIC OR ANXIOLYTIC DEPENDENCE W OTH DISORDER; R56.9 - UNSPECIFIED CONVULSIONS (24) Bipolar disorder Code(s): F31.9 - BIPOLAR DISORDER, UNSPECIFIED (25) Schizophrenia Code(s): F20.9 - SCHIZOPHRENIA, UNSPECIFIED (26) Schizophrenia Code(s): F20.9 - SCHIZOPHRENIA, UNSPECIFIED Assessment/Plan urosepsis Somnolence bradycardia QTC prolongation polysubstance abuse Plan ICU monitoring ABX IVF resuscitation 24 Holter echo cc time spent 36 min
[2020-05-03] MEDS ORDERED: DEXTROSE 50%-WATER 25 GM/50 ML DISP.SYRIN ONE (16:18)
[2020-05-03] MEDS ORDERED: GLUCAGON 1 MG KIT IVPUSH ONE (16:28)
[2020-05-03] MEDS ORDERED: MAGNESIUM 2GM/50ML STERILE WATER IVPB IVPB ONE (16:29)
[2020-05-03] MEDS ORDERED: DEXTROSE 50%-WATER 25 GM/50 ML DISP.SYRIN IVPUSH ONE (16:32)
[2020-05-03] MEDS ORDERED: DEXTROSE 50%-WATER - 25 GM/50 ML VIAL IVPUSH ONE (16:32)
[2020-05-03] MEDS ORDERED: DEXTROSE 5%-0.45% SALINE 1,000 ML IV SCH (16:45)
[2020-05-03] MEDS ORDERED: DOPAMINE 400 MG/D5W - 400,000 MCG/250 ML INFUS.BAG IVPB SCH (16:45)
[2020-05-03 18:08] LABS: ARTERIAL BLD GAS O2 SATURATION 98.1 mmHg (95-98); ARTERIAL BLOOD GAS BASE EXCESS -5.3 mmol/L (-2-2); ARTERIAL BLOOD GAS PO2 127.8 mmHg (80-100); ARTERIAL BLOOD GAS pH 7.256 (7.350-7.450)
[2020-05-03 18:14] LABS: ALLENS TEST POSITIVE; O2 CONTENT 97.5 % vol
[2020-05-03] MEDS: PIPERACILLIN/TAZOB 3.375 GM 3.375 GM in DEXTROSE 5%-WATER - 50 ML IVPB SCH ×2 (19:39→19:45)
[2020-05-03] MEDS ORDERED: DEXTROSE 5%-WATER - 50 ML IVPB ONE (19:43)
[2020-05-03] MEDS ORDERED: PIPERACILLIN/TAZOBACTAM 3.375 GM VIAL IVPB ONE (19:43)
[2020-05-03] MEDS: MUPIROCIN 2% TOPICAL OINTMENT FOR DECOLONIZATION NS SCH (21:26)
[2020-05-03] MEDS: CHLORHEXIDINE GLUCONATE 4% CLEANSER FOR DECOLONIZATION TP SCH (21:26)
[2020-05-04] MEDS ORDERED: DOPAMINE 400 MG/D5W - 400,000 MCG/250 ML INFUS.BAG IVPB SCH (01:15)
[2020-05-04] MEDS ORDERED: PIPERACILLIN/TAZOBACTAM 3.375 GM VIAL IVPB ONE ×3 (01:17→17:40)
[2020-05-04] MEDS ORDERED: DEXTROSE 5%-WATER - 50 ML IVPB ONE ×3 (01:17→17:40)
[2020-05-04] MEDS: PIPERACILLIN/TAZOB 3.375 GM 3.375 GM in DEXTROSE 5%-WATER - 50 ML IVPB SCH ×3 (01:22→17:43)
[2020-05-04] MEDS ORDERED: CALCIUM CARBONATE 650 MG TABLET PO PRN (02:49)
[2020-05-04] MEDS ORDERED: PANTOPRAZOLE 20 MG TABLET PO ONE (02:49)
[2020-05-04] MEDS: PANTOPRAZOLE 20 MG TABLET PO SCH (06:27)
[2020-05-04] MEDS ORDERED: DEXTROSE 5%-0.45% SALINE 1,000 ML IV SCH (06:57)
[2020-05-04 07:29] LABS: INR 0.87 (0.83-1.09); PROTHROMBIN TIME (PATIENT) 10.2 SEC (9.7-13.0)
[2020-05-04 07:43] LABS: ALBUMIN 2.4 g/dl (3.4-5.0); ALK PHOS 90 U/L (45-117); ANION GAP 5 MMOL/L (8-16); BILIRUBIN,TOTAL 0.7 mg/dL (0.2-1); BLOOD UREA NITROGEN 16.8 mg/dL (7-18); CALCIUM 8.2 mg/dL (8.5-10.1); CHLORIDE 110 mmol/L (98-107); CO2 25 mmol/L (21-32); CREATININE 0.8 mg/dL (0.55-1.3); GLUCOSE,RANDOM 67 mg/dL (74-106); MAGNESIUM 1.8 mg/dL (1.8-2.4); PHOSPHOROUS 2.5 mg/dL (2.5-4.9); POTASSIUM 4.2 mmol/L (3.5-5.1); SGOT/AST 57 U/L (15-37); SGPT/ALT 38 U/L (13-61); SODIUM 141 mmol/L (136-145); TOT PROT 6.3 g/dl (6.4-8.2)
[2020-05-04] MEDS ORDERED: FOLIC ACID 1 MG TABLET (FP) PO SCH (10:00)
[2020-05-04] MEDS ORDERED: METHADONE HCL 10 MG TABLET PO SCH (10:30)
[2020-05-04] MEDS: MUPIROCIN 2% TOPICAL OINTMENT FOR DECOLONIZATION NS SCH ×2 (10:32→22:30)
--- NOTE | 2020-05-04 10:45 | PN ---
Teaching Attending Note Name of Resident: Lalo Humphries ATTENDING PHYSICIAN STATEMENT I saw and evaluated the patient. I reviewed the resident's note and discussed the case with the resident. I agree with the resident's findings and plan as documented. SUBJECTIVE: Pt seen and examined in the ICU. Remains in sinus bradycardia but with good ch ronotropic response with movement or activity. Briefly on dopamine gtt overnight. Denies shortness of breath, chest pain, lightheadedness, dizziness. OBJECTIVE: Vital Signs Period Temp Pulse Resp BP Sys/Ramesh Pulse Ox Last 24 Hr 96.7 F-98.7 F 36-65 10-19 74-139/41-92 94-100 Intake & Output 05/01/20 05/02/20 05/03/20 05/04/20 23:59 23:59 23:59 23:59 Intake Total 150 1550 Balance 150 1550 Weight 76.204 kg 79.6 kg Gen: NAD at rest Heart: RRR Lung: decreased breath sounds at the bases Abd: soft, nontender Ext: no edema CBC, BMP 05/03/20 12:23 05/04/20 06:00 Active Medications Albuterol Sulfate (Ventolin Hfa Inhaler -) 2 puff IH Q6H PRN PRN Reason: SHORT OF BREATH/WHEEZING Calcium Carbonate (Calcium Carbonate -) 650 mg PO DAILY PRN PRN Reason: DYSPEPSIA Chlorhexidine Gluconate (Hibiclens For Decolonization -) 1 applic TP HS DEEPAK Last Admin: 05/03/20 21:26 Dose: Not Given Documented by: Enoxaparin Sodium (Lovenox -) 40 mg SQ DAILY DEEPAK Folic Acid (Folic Acid -) 1 mg PO DAILY DEEPAK Piperacillin Sod/Tazobactam (Sod 3.375 gm/ Dextrose) 50 mls @ 100 mls/hr IVPB Q8H-IV DEEPAK; Protocol Piperacillin Sod/Tazobactam (Sod 3.375 gm/ Dextrose) 50 mls @ 100 mls/hr IVPB Q8H-IV DEEPAK; Protocol Stop: 05/04/20 14:29 Last Admin: 05/04/20 01:22 Dose: 100 mls/hr Documented by: Dopamine HCl/Dextrose (Dopamine 400 Mg/D5w -) 400,000 mcg in 250 mls @ 5.97 mls/hr IVPB TITR DEEPAK; Protocol Last Titration: 05/04/20 03:07 Dose: 0 mcg/kg/min, 0 mls/hr Documented by: Dextrose/Sodium Chloride (D5-1/2ns -) 1,000 mls @ 42 mls/hr IV ASDIR [facility] Last Admin: 05/04/20 06:45 Dose: 42 mls/hr Documented by: Methadone HCl (Dolophine -) 55 mg PO DAILY@0600 [facility] Multivitamins/Minerals/Vitamin C (Tab-A-Vit -) 1 tab PO DAILY [facility] Mupirocin (Bactroban Ointment (For Decolonization) -) 1 applic NS BID [facility] Stop: 05/08/20 21:59 Last Admin: 05/04/20 10:32 Dose: Not Given Documented by: Pantoprazole Sodium (Protonix -) 20 mg PO ACBK [facility] Last Admin: 05/04/20 06:27 Dose: 20 mg Documented by: Thiamine HCl (Vitamin B1 -) 100 mg PO DAILY [facility] ASSESSMENT AND PLAN: Sinus Bradycardia Pyelonephritis Sepsis Polysubstance Abuse COPD Hep C Smoker Anemia - decrease methadone dose - continue antibiotics - f/u cultures - urology eval - IVF - can monitor on telemetry
[2020-05-04] MEDS: THIAMINE HCL 100 MG TABLET (FP) PO SCH (10:49)
[2020-05-04] MEDS: ENOXAPARIN NA (PORCINE) 40 MG/0.4 ML DISP.SYRIN SQ SCH (10:49)
[2020-05-04] MEDS: FOLIC ACID 1 MG TABLET (FP) PO SCH (10:49)
[2020-05-04] MEDS: MULTIVITAMINS (DAILY MVI) TABLET (FP) PO SCH (10:49)
--- NOTE | 2020-05-04 10:51 | PN ---
Progress Note (short form) - Note Progress Note: ICU Transfer Note 45 yo F PMH of COPD, hepatitis C, polysubstance abuse (hx of cocaine, heroine, alcohol & marijuana use), seizure d/o presented to ED from [facility] because of abnormal EKG showing bradycardia and prolonged QT and found to have hypotension and bradycardia, given narcan + atropine is admitted to ICU for Sepsis 2/2 to pyelonephritis. Pt was recently treated for a urinary tract infection and montifiore, however she presented with similar symptoms and CAT scan a/p showed right ureteral stent in place with right mild-moderate hydro. Dr Cook/Urology is to see patient. Pt is currently on abx and is stable to be transferred to med surg.
--- NOTE | 2020-05-04 11:12 | CON.GU ---
Consult Consult Specialty:: Urology Reason for Consultation:: 45 yo female w hx chronic right hydronephrosis and prior stent placement w pylonephritis - History of Present Illness History of Present Illness: 45 yo female w mult medical issues including polysubstance abuse copd prior sepsis now w pylonephritis w hx of chronic right hydronephrosis w DJ stent in place - Past Medical History Pulmonary: Yes: COPD Hepatobiliary: Yes: Hepatitis C ...LMP: 04/02/20 - Alcohol/Substance Use Hx Alcohol Use: Yes History of Substance Use: reports: Cocaine, Heroin, Prescription - Smoking History Smoking history: Current every day smoker Have you smoked in the past 12 months: Yes Aproximately how many cigarettes per day: 5 - Social History ADL: Independent Occupation: unemployed History of Recent Travel: No Home Medications - Allergies Allergies/Adverse Reactions: Allergies Allergy/AdvReac Type Severity Reaction Status Date / Time No Known Allergies Allergy Verified 05/02/20 18:06 - Home Medications Home Medications: Ambulatory Orders Fluoxetine HCl [Prozac -] 20 mg PO DAILY 11/11/19 Albuterol Sulfate Inhaler - [Ventolin HFA Inhaler -] 2 inh PO Q4H 11/12/19 Quetiapine Fumarate [Seroquel -] 100 mg PO HS 11/12/19 Physical Exam- Vital Signs: Vital Signs Temperature 98.7 F 05/04/20 06:00 Pulse Rate 54 L 05/04/20 09:00 Respiratory Rate 17 05/04/20 09:00 Blood Pressure 129/70 05/04/20 09:00 O2 Sat by Pulse Oximetry (%) 100 05/04/20 09:00 Labs: CBC, BMP 05/03/20 12:23 05/04/20 06:00 Problem List - Problems (1) Pyelonephritis Assessment/Plan: Chronic right hydronephrosis s/p right DJ stent placement Pt cr currently 0.8 no WBC elevation Hydronephrosis chronic Likely nonobstructive If does not improve would perform renal scan w lasix if obstructed would need percutaneous NT Code(s): N12 - TUBULO-INTERSTITIAL NEPHRITIS, NOT SPCF ACUTE OR CHRONIC
[2020-05-04] MEDS ORDERED: METHADONE HCL 10 MG TABLET PO ONE (12:45)
[2020-05-04] MEDS ORDERED: METHADONE 40 MG, METHADONE 15 MG PO ONE (13:00)
--- NOTE | 2020-05-04 13:03 | PN ---
Physical Exam: SUBJECTIVE: Patient seen and examined. No acute events overnight, asymptoamtic and afebrile. C/o of mild stomach pain. OBJECTIVE: Vital Signs Period Temp Pulse Resp BP Sys/Ramesh Pulse Ox Last 24 Hr 97.6 F-98.7 F 36-65 10-19 74-139/41-92 94-100 GENERAL: Awake, alert, and fully oriented, in no acute distress. EYES: Pupils equally dilated, round and reactive to light EARS, NOSE, THROAT: dry mucous membranes. NECK: Normal range of motion, supple without lymphadenopathy, JVD, or masses. LUNGS: Breath sounds equal, clear to auscultation bilaterally. HEART: bradycardia rate and rhythm, normal S1 and S2, + systolic murmur ABDOMEN: Soft, nontender, not distended, normoactive bowel sounds, no guarding, no rebound, no masses. MUSCULOSKELETAL: No CVA tenderness. midline lower thoracic tenderness UPPER EXTREMITIES: 2+ pulses, warm, well-perfused. No peripheral edema. LOWER EXTREMITIES: 2+ pulses, warm, well-perfused. No calf tenderness. No peripheral edema. NEUROLOGICAL: Normal speech. Laboratory Results - last 24 hr 05/03/20 05/03/20 05/04/20 12:23 18:10 06:00 PT with INR INR Anticoagulation Therapy No Result Required. Puncture Site Right radial Patient Temperature No Result Required. ABG pH 7.256 L ABG pCO2 50.30 H ABG pO2 127.8 H ABG HCO3 21.9 L ABG O2 Sat (Measured) 98.1 H ABG O2 Content 97.5 ABG Base Excess -5.3 L Jeff Test Positive Patient On Oxygen Yes O2 Delivery Device Nasal Oxygen Flow Rate 1 lt Vent Mode No Result Required. Vent Rate No Result Required. Mechanical Rate No Result Required. PEEP No Result Required. Pressure Support Vent No Result Required. Sodium 143 141 Potassium 4.5 4.2 Chloride 113 H 110 H Carbon Dioxide 29 25 Anion Gap 1 L 5 L BUN 28.8 H 16.8 Creatinine 0.8 0.8 Est GFR (CKD-EPI)AfAm 104.65 104.65 Est GFR (CKD-EPI)NonAf 90.30 90.30 Random Glucose 65 L 67 L Calcium 8.2 L 8.2 L Phosphorus 3.1 2.5 Magnesium 2.1 1.8 Total Bilirubin 0.2 0.7 AST 60 H 57 H ALT 40 38 Alkaline Phosphatase 87 90 Troponin I < 0.02 < 0.02 Total Protein 6.4 6.3 L Albumin 2.4 L 2.4 L TSH 0.53 05/04/20 06:00 PT with INR 10.20 INR 0.87 Anticoagulation Therapy Puncture Site Patient Temperature ABG pH ABG pCO2 ABG pO2 ABG HCO3 ABG O2 Sat (Measured) ABG O2 Content ABG Base Excess Jeff Test Patient On Oxygen O2 Delivery Device Oxygen Flow Rate Vent Mode Vent Rate Mechanical Rate PEEP Pressure Support Vent Sodium Potassium Chloride Carbon Dioxide Anion Gap BUN Creatinine Est GFR (CKD-EPI)AfAm Est GFR (CKD-EPI)NonAf Random Glucose Calcium Phosphorus Magnesium Total Bilirubin AST ALT Alkaline Phosphatase Troponin I Total Protein Albumin TSH Active Medications Generic Name Dose Route Start Last Admin Trade Name Freq PRN Reason Stop Dose Admin Albuterol Sulfate 2 puff 05/03/20 19:56 Ventolin Hfa Inhaler - IH Q6H PRN SHORT OF BREATH/WHEEZING Calcium Carbonate 650 mg 05/04/20 02:49 Calcium Carbonate - PO DAILY PRN DYSPEPSIA Chlorhexidine Gluconate 1 applic 05/03/20 22:00 05/03/20 21:26 Hibiclens For Decolonization - TP Not Given HS DEEPAK Enoxaparin Sodium 40 mg 05/04/20 10:00 05/04/20 10:49 Lovenox - SQ 40 mg DAILY DEEPAK Administration Folic Acid 1 mg 05/04/20 10:00 05/04/20 10:49 Folic Acid - PO 1 mg DAILY DEEPAK Administration Piperacillin Sod/Tazobactam 50 mls @ 100 mls/hr 05/03/20 14:30 Sod 3.375 gm/ Dextrose IVPB Q8H-IV DEEPAK Protocol Piperacillin Sod/Tazobactam 50 mls @ 100 mls/hr 05/03/20 14:30 05/04/20 10:50 Sod 3.375 gm/ Dextrose IVPB 05/04/20 14:29 100 mls/hr Q8H-IV DEEPAK Administration Protocol Dopamine HCl/Dextrose 400,000 mcg in 250 mls @ 5.97 mls/hr 05/04/20 01:15 05/04/20 03:07 Dopamine 400 Mg/D5w - IVPB 0 mcg/kg/min TITR DEEPAK 0 mls/hr Titration Protocol 2 MCG/KG/MIN Dextrose/Sodium Chloride 1,000 mls @ 42 mls/hr 05/04/20 06:57 05/04/20 06:45 D5-1/2ns - IV 42 mls/hr ASDIR DEEPAK Administration Multivitamins/Minerals/Vitamin C 1 tab 05/04/20 10:00 05/04/20 10:49 Tab-A-Vit - PO 1 tab DAILY DEEPAK Administration Mupirocin 1 applic 05/03/20 22:00 05/04/20 10:32 Bactroban Ointment (For Decolonization) - NS 05/08/20 21:59 Not Given BID DEEPAK Pantoprazole Sodium 20 mg 05/04/20 07:00 05/04/20 06:27 Protonix - PO 20 mg ACBK DEEPAK Administration Thiamine HCl 100 mg 05/04/20 10:00 05/04/20 10:49 Vitamin B1 - PO 100 mg DAILY DEEPAK Administration ASSESSMENT/PLAN: 45 yo F PMH of COPD, hepatitis C, polysubstance abuse (hx of cocaine, heroine, alcohol & marijuana use), seizure d/o presented to ED from [facility] because of abnormal EKG showing bradycardia and prolonged QT and found to have hypotension and bradycardia, given narcan + atropine is admitted to ICU for Sepsis 2/2 to pyelonephritis. Neuro: hx of seizures seizure precautions Aox3 Cardio: Bradycardia: 2/2 opioid intoxication EKG: bradycardia, prolonged QTc 501 avoid QT prolonging agents maintain MAP >65, will start peripheral dopamine cont to follow K, Mg, Phos ID: Sepsis 2/2 UTI vs Pyelonephritis c/w IVF d5-1/2ns CT abdomen/pelvis: mild to moderate right hydro, right ureteral stent intact, b/l kidneys consistent with pyelo cont zosyn Psych: Polysubstance abuse CIWA, COWS monitor closely avoid ativan, librium given HR. avoid MTD bc of QTc thiamine, folic acid, IVF utox + MTD, BZO, cocaine seizure precautions fall precautions Methadone for detox 110mg as per pt Will give half 55mg today- verify with clinic in am- closed today Pulm: albuterol PRN on 3L NC O2, titrate as tolerated DVT Prophylaxis Lovenox 40 sq FEN monitor lytes Regular diet Dispo: f/u methadone dose, transfer to [facility], cont abx Visit type - Emergency Visit Emergency Visit: Yes ED Registration Date: 05/03/20 Care time: The patient presented to the Emergency Department on the above date and was hospitalized for further evaluation of their emergent condition. - New Patient This patient is new to me today: Yes Date on this admission: 05/08/20 - Critical Care Critical Care patient: No - Discharge Referral Referred to [facility] Med [facility] No ATTENDING PHYSICIAN STATEMENT I saw and evaluated the patient. I reviewed the resident's note and discussed the case with the resident. I agree with the resident's findings and plan as documented. SUBJECTIVE: OBJECTIVE: ASSESSMENT AND PLAN:
[2020-05-04] MEDS ORDERED: METHADONE HCL 10 MG TABLET ONE (13:06)
[2020-05-04] MEDS ORDERED: METHADONE HCL 40 MG DISPERSABLE TABLET ONE (13:06)
--- NOTE | 2020-05-04 14:00 | CON.ID ---
Consult - History of Present Illness History of Present Illness: 45 y.o. female with PMH of polysubstance abuse (heroin, crack/cocaine, marijuana) , ETOH abuse, Hepatitis C, ? Bipolar d.o./Schizophrenia sent from [facility] for bradycardia. Pt states she was hospitalized 2 wks ago for c/o dysuria and treated for pylenephritis with IV antibiotics and had Rt ureteral stent placement for hydronephrosis. Pt reports that she was placed in isolation "because of the bacteria they found in my urine". Does not know results of COVID screen but has not had fever/SOB/cough/rhinorhea/abd pain/n/d/v. She states she was discharged home last week and and told to f/u with PMD within 2 days but she did not. She went to [facility] to detox because she started doing cocaine again. Denies IV heroin use for past 20 yrs and states she has been on MMTP on and off since then. In the ER, pt was noted to have a HR of 42 and became hypotensive (BP 73/48) which was treated with naloxone and atropine and has resolved. Was a poor source of history due to lethargy at the time. EKG showed sinus bradycardia and QTc prolongation. Pt currently in ICU still with bradycardia but alert, without distress. Denies flank pain/suprapubic pain/dysuria and remains afebrile. Has no other complaints. Was initally started on Ceftriaxone for possible UTI based on UA results but was switched to Zosyn. - History Source History Provided By: Patient Limitations to Obtaining History: No Limitations - Past Medical History Pulmonary: Yes: COPD Hepatobiliary: Yes: Hepatitis C Renal/: Yes: UTI ...LMP: 04/02/20 Psych: Yes: Other (? bipolar/schizophrenia) - Past Surgical History Past Surgical History: Yes: Stent (ureteral) - Alcohol/Substance Use Hx Alcohol Use: Yes History of Substance Use: reports: Cocaine, Heroin, Prescription - Smoking History Smoking history: Current every day smoker Have you smoked in the past 12 months: Yes Aproximately how many cigarettes per day: 5 - Social History ADL: Independent Occupation: unemployed History of Recent Travel: No Home Medications - Allergies Allergies/Adverse Reactions: Allergies Allergy/AdvReac Type Severity Reaction Status Date / Time No Known Allergies Allergy Verified 05/02/20 18:06 - Home Medications Home Medications: Ambulatory Orders Fluoxetine HCl [Prozac -] 20 mg PO DAILY 11/11/19 Albuterol Sulfate Inhaler - [Ventolin HFA Inhaler -] 2 inh PO Q4H 11/12/19 Quetiapine Fumarate [Seroquel -] 100 mg PO HS 11/12/19 Review of Systems - Review of Systems Constitutional: reports: No Symptoms Eyes: reports: No Symptoms HENT: reports: No Symptoms Neck: reports: No Symptoms Cardiovascular: reports: No Symptoms Respiratory: reports: No Symptoms Gastrointestinal: reports: No Symptoms Genitourinary: reports: No Symptoms Musculoskeletal: reports: No Symptoms Integumentary: reports: No Symptoms Neurological: reports: No Symptoms Endocrine: reports: No Symptoms Hematology/Lymphatic: reports: No Symptoms Psychiatric: reports: No Symptoms Physical Exam Vital Signs: Vital Signs Temperature 98.7 F 05/04/20 06:00 Pulse Rate 54 L 05/04/20 09:00 Respiratory Rate 17 05/04/20 09:00 Blood Pressure 129/70 05/04/20 09:00 O2 Sat by Pulse Oximetry (%) 100 05/04/20 09:00 Constitutional: Yes: No Distress, Calm Eyes: Yes: Conjunctiva Clear, EOM Intact, PERRL HENT: Yes: Atraumatic, Normocephalic Neck: Yes: Supple, Trachea Midline Cardiovascular: Yes: Bradycardia Respiratory: Yes: CTA Bilaterally Gastrointestinal: Yes: Normal Bowel Sounds, Soft Renal/: Yes: WNL Musculoskeletal: Yes: WNL Extremities: Yes: WNL Edema: No Peripheral Pulses WNL: Yes Integumentary: Yes: Tattoos Neurological: Yes: Alert, Oriented Psychiatric: Yes: Alert Labs: CBC, BMP 05/03/20 12:23 05/04/20 06:00 Microbiology 05/03/20 03:37 Urine - Urine - Catheterized Urine Culture - Final Normal Urogenital Lexie Laboratory Tests 05/02/20 05/02/20 05/03/20 22:39 22:39 01:00 WBC 4.5 RBC 3.61 Hgb 10.5 L Hct 32.6 MCV 90.3 MCH 29.2 MCHC 32.3 RDW 16.1 H Plt Count 171 D MPV 7.9 Absolute Neuts (auto) 1.3 L Neutrophils % 29.7 L Lymphocytes % 53.0 H Monocytes % 11.2 H Eosinophils % 5.2 H Basophils % 0.9 Nucleated RBC % 0 PT with INR INR Anticoagulation Therapy Puncture Site Patient Temperature ABG pH ABG pCO2 ABG pO2 ABG HCO3 ABG O2 Sat (Measured) ABG O2 Content ABG Base Excess Jeff Test Patient On Oxygen O2 Delivery Device Oxygen Flow Rate Vent Mode Vent Rate Mechanical Rate PEEP Pressure Support Vent Sodium 138 Potassium 4.4 Chloride 106 Carbon Dioxide 28 Anion Gap 3 L BUN 40.9 H Creatinine 1.1 Est GFR (CKD-EPI)AfAm 71.21 Est GFR (CKD-EPI)NonAf 61.44 Random Glucose 79 Calcium 7.9 L Phosphorus Magnesium Total Bilirubin 0.3 AST 89 H ALT 52 Alkaline Phosphatase 99 Troponin I Total Protein 7.4 Albumin 2.9 L TSH 1.43 Serum , Qual Negative Urine Color Urine Appearance Urine pH Ur Specific [place] Urine Protein Urine Glucose (UA) Urine Ketones Urine Blood Urine Nitrite Urine Bilirubin Urine Urobilinogen Ur Leukocyte Esterase Urine WBC (Auto) Urine RBC (Auto) Urine Casts (Auto) U Epithel Cells (Auto) Urine Bacteria (Auto) Opiates Screen Methadone Screen Barbiturate Screen Phencyclidine Screen Ur Amphetamines Screen MDMA (Ecstasy) Screen Benzodiazepines Screen Cocaine Screen U Marijuana (THC) Screen 05/03/20 05/03/20 05/03/20 03:37 03:37 12:23 WBC 3.6 L RBC 3.34 L Hgb 9.7 L Hct 30.0 L MCV 89.9 MCH 29.0 MCHC 32.2 RDW 16.2 H Plt Count 150 MPV 7.8 Absolute Neuts (auto) 1.7 Neutrophils % 47.5 D Lymphocytes % 36.8 D Monocytes % 11.1 H Eosinophils % 3.6 Basophils % 1.0 Nucleated RBC % 0 PT with INR INR Anticoagulation Therapy Puncture Site Patient Temperature ABG pH ABG pCO2 ABG pO2 ABG HCO3 ABG O2 Sat (Measured) ABG O2 Content ABG Base Excess Jeff Test Patient On Oxygen O2 Delivery Device Oxygen Flow Rate Vent Mode Vent Rate Mechanical Rate PEEP Pressure Support Vent Sodium Potassium Chloride Carbon Dioxide Anion Gap BUN Creatinine Est GFR (CKD-EPI)AfAm Est GFR (CKD-EPI)NonAf Random Glucose Calcium Phosphorus Magnesium Total Bilirubin AST ALT Alkaline Phosphatase Troponin I Total Protein Albumin TSH Serum , Qual Urine Color Yellow Urine Appearance Cloudy Urine pH 6.0 Ur Specific [place] 1.007 L Urine Protein 2+ H Urine Glucose (UA) Negative Urine Ketones Negative Urine Blood 3+ H Urine Nitrite Negative Urine Bilirubin Negative Urine Urobilinogen 0.2 Ur Leukocyte Esterase 2+ H Urine WBC (Auto) 171 Urine RBC (Auto) 106 Urine Casts (Auto) 6 U Epithel Cells (Auto) >36 Urine Bacteria (Auto) 44 Opiates Screen Negative Methadone Screen Positive A* Barbiturate Screen Negative Phencyclidine Screen Negative Ur Amphetamines Screen Negative MDMA (Ecstasy) Screen Negative Benzodiazepines Screen Positive A* Cocaine Screen Positive A* U Marijuana (THC) Screen Negative 05/03/20 05/03/20 05/04/20 12:23 18:10 06:00 WBC RBC Hgb Hct MCV MCH MCHC RDW Plt Count MPV Absolute Neuts (auto) Neutrophils % Lymphocytes % Monocytes % Eosinophils % Basophils % Nucleated RBC % PT with INR INR Anticoagulation Therapy No Result Required. Puncture Site Right radial Patient Temperature No Result Required. ABG pH 7.256 L ABG pCO2 50.30 H ABG pO2 127.8 H ABG HCO3 21.9 L ABG O2 Sat (Measured) 98.1 H ABG O2 Content 97.5 ABG Base Excess -5.3 L Jeff Test Positive Patient On Oxygen Yes O2 Delivery Device Nasal Oxygen Flow Rate 1 lt Vent Mode No Result Required. Vent Rate No Result Required. Mechanical Rate No Result Required. PEEP No Result Required. Pressure Support Vent No Result Required. Sodium 143 141 Potassium 4.5 4.2 Chloride 113 H 110 H Carbon Dioxide 29 25 Anion Gap 1 L 5 L BUN 28.8 H 16.8 Creatinine 0.8 0.8 Est GFR (CKD-EPI)AfAm 104.65 104.65 Est GFR (CKD-EPI)NonAf 90.30 90.30 Random Glucose 65 L 67 L Calcium 8.2 L 8.2 L Phosphorus 3.1 2.5 Magnesium 2.1 1.8 Total Bilirubin 0.2 0.7 AST 60 H 57 H ALT 40 38 Alkaline Phosphatase 87 90 Troponin I < 0.02 < 0.02 Total Protein 6.4 6.3 L Albumin 2.4 L 2.4 L TSH 0.53 Serum , Qual Urine Color Urine Appearance Urine pH Ur Specific [place] Urine Protein Urine Glucose (UA) Urine Ketones Urine Blood Urine Nitrite Urine Bilirubin Urine Urobilinogen Ur Leukocyte Esterase Urine WBC (Auto) Urine RBC (Auto) Urine Casts (Auto) U Epithel Cells (Auto) Urine Bacteria (Auto) Opiates Screen Methadone Screen Barbiturate Screen Phencyclidine Screen Ur Amphetamines Screen MDMA (Ecstasy) Screen Benzodiazepines Screen Cocaine Screen U Marijuana (THC) Screen 05/04/20 06:00 WBC RBC Hgb Hct MCV MCH MCHC RDW Plt Count MPV Absolute Neuts (auto) Neutrophils % Lymphocytes % Monocytes % Eosinophils % Basophils % Nucleated RBC % PT with INR 10.20 INR 0.87 Anticoagulation Therapy Puncture Site Patient Temperature ABG pH ABG pCO2 ABG pO2 ABG HCO3 ABG O2 Sat (Measured) ABG O2 Content ABG Base Excess Jeff Test Patient On Oxygen O2 Delivery Device Oxygen Flow Rate Vent Mode Vent Rate Mechanical Rate PEEP Pressure Support Vent Sodium Potassium Chloride Carbon Dioxide Anion Gap BUN Creatinine Est GFR (CKD-EPI)AfAm Est GFR (CKD-EPI)NonAf Random Glucose Calcium Phosphorus Magnesium Total Bilirubin AST ALT Alkaline Phosphatase Troponin I Total Protein Albumin TSH Serum , Qual Urine Color Urine Appearance Urine pH Ur Specific [place] Urine Protein Urine Glucose (UA) Urine Ketones Urine Blood Urine Nitrite Urine Bilirubin Urine Urobilinogen Ur Leukocyte Esterase Urine WBC (Auto) Urine RBC (Auto) Urine Casts (Auto) U Epithel Cells (Auto) Urine Bacteria (Auto) Opiates Screen Methadone Screen Barbiturate Screen Phencyclidine Screen Ur Amphetamines Screen MDMA (Ecstasy) Screen Benzodiazepines Screen Cocaine Screen U Marijuana (THC) Screen Urine CX - no pathogens Blood culture pending COVID pending Imaging - Results X-ray: Report Reviewed Cat Scan: Pending Problem List - Problems (1) Hypotension Code(s): I95.9 - HYPOTENSION, UNSPECIFIED Qualifiers: Hypotension type: unspecified hypotension type Qualified Code(s): I95.9 - Hypotension, unspecified (2) Pyelonephritis Code(s): N12 - TUBULO-INTERSTITIAL NEPHRITIS, NOT SPCF ACUTE OR CHRONIC (3) Bradycardia Code(s): R00.1 - BRADYCARDIA, UNSPECIFIED (4) Alcohol dependence Code(s): F10.20 - ALCOHOL DEPENDENCE, UNCOMPLICATED (5) COPD (chronic obstructive pulmonary disease) Code(s): J44.9 - CHRONIC OBSTRUCTIVE PULMONARY DISEASE, UNSPECIFIED (6) Cocaine dependence Code(s): F14.20 - COCAINE DEPENDENCE, UNCOMPLICATED (7) Hepatitis C Code(s): B19.20 - UNSPECIFIED VIRAL HEPATITIS C WITHOUT HEPATIC COMA Qualifiers: Viral hepatitis chronicity: chronic Hepatic coma status: without hepatic coma Qualified Code(s): B18.2 - Chronic viral hepatitis C (8) History of COPD Code(s): Z87.09 - PERSONAL HISTORY OF OTHER DISEASES OF THE RESPIRATORY SYSTEM (9) Methadone maintenance therapy patient Code(s): F11.20 - OPIOID DEPENDENCE, UNCOMPLICATED (10) Nicotine dependence Code(s): F17.200 - NICOTINE DEPENDENCE, UNSPECIFIED, UNCOMPLICATED Assessment/Plan Bradycardia Hypotension Pyelonephritis Rt hydronephrosis s/p ureteral stent Polysubstance abuse AMY Hx of Seizure d.o. COPD Hepatitis C -- chart reviewed, lab/imaging results noted -- Pt remains bradycardic but alert, afebrile -- U/A suggestive of UTI, Urine Culture neg -- s/p treatment for Pyelonephritis recently reported 7 days with IV antibiotics - possibly for resistant organism. Continue Zosyn for now. -- following , f/u CT A/P results -- follow up blood cultures, hepatitis serology -- renal function improved -- f/u COVID testing, isolation/precautions -- Cardiology following Will follow up Thank you cc time: 45 min
--- NOTE | 2020-05-04 15:41 | HOSP ---
Subjective - Review of Symptoms Subjective: Pt seen and assessed at bedside in ICU, seen stable, NAD, AOx3. Pt stable for transfer from ICU to telemetry. Physical Examination Vital Signs: Vital Signs Temperature 98.7 F 05/04/20 06:00 Pulse Rate 54 L 05/04/20 09:00 Respiratory Rate 17 05/04/20 09:00 Blood Pressure 129/70 05/04/20 09:00 O2 Sat by Pulse Oximetry (%) 100 05/04/20 09:00 Findings/Remarks: General: AOx3, pt resting comfortably in bed Lungs: Clear B/L Heart: RRR, no murmurs or rubs noted Abdomen: Soft, non-tender, B/L mild CVA tenderness Extremities: No edema, pulses intact Neuro: Motor 5/5, sensations intact in all 4 extremities Labs: CBC, BMP 05/03/20 12:23 05/04/20 06:00 Visit type - Emergency Visit Emergency Visit: No - New Patient This patient is new to me today: No - Critical Care Critical Care patient: No
--- NOTE | 2020-05-04 15:46 | PN ---
Progress Note, Physician History of Present Illness: Cintia Persaud is a 45 Y F with a PMH of COPD, HEP C, seizures, and polysubtance abuse(alcohol, cocaine, heroin, and THC) on methadone maintenance (110 mg PO daily) presented from [facility] for abnormal EKG: HR: 43, T-Wave abnormality, QT prolonged. In ER patient is somnolent but arousable, unable to obtain information from the patient. v/s in ER p42, O2 sat 97, RR 16, BP 100/60 - Current Medication List Current Medications: Active Medications Albuterol Sulfate (Ventolin Hfa Inhaler -) 2 puff IH Q6H PRN PRN Reason: SHORT OF BREATH/WHEEZING Calcium Carbonate (Calcium Carbonate -) 650 mg PO DAILY PRN PRN Reason: DYSPEPSIA Chlorhexidine Gluconate (Hibiclens For Decolonization -) 1 applic TP HS [facility] Last Admin: 05/03/20 21:26 Dose: Not Given Documented by: Enoxaparin Sodium (Lovenox -) 40 mg SQ DAILY [facility] Last Admin: 05/04/20 10:49 Dose: 40 mg Documented by: Folic Acid (Folic Acid -) 1 mg PO DAILY [facility] Last Admin: 05/04/20 10:49 Dose: 1 mg Documented by: Piperacillin Sod/Tazobactam (Sod 3.375 gm/ Dextrose) 50 mls @ 100 mls/hr IVPB Q8H-IV [facility]; Protocol Dopamine HCl/Dextrose (Dopamine 400 Mg/D5w -) 400,000 mcg in 250 mls @ 5.97 mls/hr IVPB TITR [facility]; Protocol Last Titration: 05/04/20 03:07 Dose: 0 mcg/kg/min, 0 mls/hr Documented by: Dextrose/Sodium Chloride (D5-1/2ns -) 1,000 mls @ 42 mls/hr IV ASDIR [facility] Last Admin: 05/04/20 06:45 Dose: 42 mls/hr Documented by: Multivitamins/Minerals/Vitamin C (Tab-A-Vit -) 1 tab PO DAILY [facility] Last Admin: 05/04/20 10:49 Dose: 1 tab Documented by: Mupirocin (Bactroban Ointment (For Decolonization) -) 1 applic NS BID [facility] Stop: 05/08/20 21:59 Last Admin: 05/04/20 10:32 Dose: Not Given Documented by: Pantoprazole Sodium (Protonix -) 20 mg PO ACBK [facility] Last Admin: 05/04/20 06:27 Dose: 20 mg Documented by: Thiamine HCl (Vitamin B1 -) 100 mg PO DAILY [facility] Last Admin: 05/04/20 10:49 Dose: 100 mg Documented by: - Objective Vital Signs: Vital Signs Temperature 98.7 F 05/04/20 06:00 Pulse Rate 54 L 05/04/20 09:00 Respiratory Rate 17 05/04/20 09:00 Blood Pressure 129/70 05/04/20 09:00 O2 Sat by Pulse Oximetry (%) 100 05/04/20 09:00 Eyes: Yes: WNL, Conjunctiva Clear, EOM Intact HENT: Yes: WNL, Atraumatic, Normocephalic Neck: Yes: WNL, Supple, Trachea Midline Cardiovascular: Yes: WNL, Regular Rate and Rhythm Respiratory: Yes: WNL, Regular, CTA Bilaterally Gastrointestinal: Yes: WNL, Normal Bowel Sounds Genitourinary: Yes: WNL Musculoskeletal: Yes: WNL Extremities: Yes: WNL Edema: No Integumentary: Yes: WNL Neurological: Yes: WNL, Alert, Oriented ...Motor Strength: WNL Psychiatric: Yes: WNL Labs: CBC, BMP 05/03/20 12:23 05/04/20 06:00 INR, PTT INR 0.87 (0.83-1.09) 05/04/20 06:00 Problem List - Problems (1) Hypotension Code(s): I95.9 - HYPOTENSION, UNSPECIFIED Qualifiers: Hypotension type: unspecified hypotension type Qualified Code(s): I95.9 - Hypotension, unspecified (2) Somnolence Code(s): R40.0 - SOMNOLENCE (3) Bradycardia Code(s): R00.1 - BRADYCARDIA, UNSPECIFIED (4) Alcohol dependence Code(s): F10.20 - ALCOHOL DEPENDENCE, UNCOMPLICATED (5) Alcohol dependence with withdrawal, uncomplicated Code(s): F10.230 - ALCOHOL DEPENDENCE WITH WITHDRAWAL, UNCOMPLICATED (6) Substance induced mood disorder Code(s): F19.94 - OTH PSYCHOACTIVE SUBSTANCE USE, UNSP W MOOD DISORDER (7) Substance-induced anxiety disorder Code(s): F19.980 - OTH PSYCHOACTIVE SUBSTANCE USE, UNSP W ANXIETY DISORDER (8) Substance-induced sleep disorder Code(s): F19.982 - OTH PSYCHOACTIVE SUBSTANCE USE, UNSP W SLEEP DISORDER (9) COPD (chronic obstructive pulmonary disease) Code(s): J44.9 - CHRONIC OBSTRUCTIVE PULMONARY DISEASE, UNSPECIFIED (10) Cocaine dependence Code(s): F14.20 - COCAINE DEPENDENCE, UNCOMPLICATED (11) Cocaine dependence, uncomplicated Code(s): F14.20 - COCAINE DEPENDENCE, UNCOMPLICATED (12) Hepatitis C Code(s): B19.20 - UNSPECIFIED VIRAL HEPATITIS C WITHOUT HEPATIC COMA Qualifiers: Viral hepatitis chronicity: chronic Hepatic coma status: without hepatic coma Qualified Code(s): B18.2 - Chronic viral hepatitis C (13) History of COPD Code(s): Z87.09 - PERSONAL HISTORY OF OTHER DISEASES OF THE RESPIRATORY SYSTEM (14) Insomnia Code(s): G47.00 - INSOMNIA, UNSPECIFIED (15) Methadone maintenance therapy patient Code(s): F11.20 - OPIOID DEPENDENCE, UNCOMPLICATED (16) Nicotine dependence Code(s): F17.200 - NICOTINE DEPENDENCE, UNSPECIFIED, UNCOMPLICATED (17) Nicotine dependence, unspecified, uncomplicated Code(s): F17.200 - NICOTINE DEPENDENCE, UNSPECIFIED, UNCOMPLICATED Qualifiers: Nicotine product type: cigarettes Qualified Code(s): F17.210 - Nicotine dependence, cigarettes, uncomplicated (18) Opioid dependence on agonist therapy Code(s): F11.20 - OPIOID DEPENDENCE, UNCOMPLICATED (19) Perforated nasal septum Code(s): J34.89 - OTHER SPECIFIED DISORDERS OF NOSE AND NASAL SINUSES (20) Schizoaffective disorder Code(s): F25.9 - SCHIZOAFFECTIVE DISORDER, UNSPECIFIED (21) Sedative, hypnotic or anxiolytic dependence with withdrawal, uncomplicated Code(s): F13.230 - SEDATV/HYP/ANXIOLYTC DEPENDENCE W WITHDRAWAL, UNCOMPLICATED (22) Substance induced mood disorder Code(s): F19.94 - OTH PSYCHOACTIVE SUBSTANCE USE, UNSP W MOOD DISORDER (23) Seizure concurrent with and due to anxiolytic withdrawal Code(s): F13.239 - SEDATV/HYP/ANXIOLYTC DEPENDENCE W WITHDRAWAL, UNSP; F13.288 - SEDATIVE, HYPNOTIC OR ANXIOLYTIC DEPENDENCE W OTH DISORDER; R56.9 - UNSPECIFIED CONVULSIONS (24) Bipolar disorder Code(s): F31.9 - BIPOLAR DISORDER, UNSPECIFIED (25) Schizophrenia Code(s): F20.9 - SCHIZOPHRENIA, UNSPECIFIED (26) Schizophrenia Code(s): F20.9 - SCHIZOPHRENIA, UNSPECIFIED Assessment/Plan urosepsis bradycardia QTC prolongation polysubstance abuse Plan ICU monitoring ABX IVF resuscitation 24 Holter echo cc time spent 36 min
--- NOTE | 2020-05-04 19:03 | PN ---
Physical Exam: SUBJECTIVE: Patient seen and examined 05/04/20: tranferred from icu service to medicine. Pt states she feels tired and exhausted. Deneis any cp, sob, plapitations. No abd pain, n/v/f/c OBJECTIVE: Vital Signs Period Temp Pulse Resp BP Sys/Ramesh Pulse Ox Last 24 Hr 97.6 F-98.7 F 38-65 10-20 83-139/46-92 94-100 GENERAL: The patient is awake, alert, and fully oriented, in no acute distress. HEAD: Normal with no signs of trauma. EYES: extraocular movements intact, sclera anicteric, conjunctiva clear. No ptosis. ENT: Ears normal, nares patent, oropharynx clear without exudates, moist mucous membranes. NECK: Trachea midline, full range of motion, supple. LUNGS: Breath sounds equal, clear to auscultation bilaterally, no wheezes, no crackles, no accessory muscle use. HEART: bradycardic, S1, S2 without murmur, rub or gallop. ABDOMEN: Soft, nontender, nondistended, normoactive bowel sounds, no guarding, no rebound, no hepatosplenomegaly, no masses. EXTREMITIES: 2+ pulses, warm, well-perfused, no edema. NEUROLOGICAL: Cranial nerves II through XII grossly intact. Normal speech, gait not observed. PSYCH: Normal mood, normal affect. SKIN: Warm, dry, normal turgor, no rashes or lesions noted Laboratory Results - last 24 hr 05/03/20 05/04/20 05/04/20 12:23 06:00 06:00 PT with INR 10.20 INR 0.87 Sodium 143 141 Potassium 4.5 4.2 Chloride 113 H 110 H Carbon Dioxide 29 25 Anion Gap 1 L 5 L BUN 28.8 H 16.8 Creatinine 0.8 0.8 Est GFR (CKD-EPI)AfAm 104.65 104.65 Est GFR (CKD-EPI)NonAf 90.30 90.30 Random Glucose 65 L 67 L Calcium 8.2 L 8.2 L Phosphorus 3.1 2.5 Magnesium 2.1 1.8 Total Bilirubin 0.2 0.7 AST 60 H 57 H ALT 40 38 Alkaline Phosphatase 87 90 Troponin I < 0.02 < 0.02 Total Protein 6.4 6.3 L Albumin 2.4 L 2.4 L TSH 0.53 Active Medications Generic Name Dose Route Start Last Admin Trade Name Freq PRN Reason Stop Dose Admin Albuterol Sulfate 2 puff 05/03/20 19:56 Ventolin Hfa Inhaler - IH Q6H PRN SHORT OF BREATH/WHEEZING Calcium Carbonate 650 mg 05/04/20 02:49 Calcium Carbonate - PO DAILY PRN DYSPEPSIA Chlorhexidine Gluconate 1 applic 05/03/20 22:00 05/03/20 21:26 Hibiclens For Decolonization - TP Not Given HS [facility] Enoxaparin Sodium 40 mg 05/04/20 10:00 05/04/20 10:49 Lovenox - SQ 40 mg DAILY [facility] Administration Folic Acid 1 mg 05/04/20 10:00 05/04/20 10:49 Folic Acid - PO 1 mg DAILY [facility] Administration Piperacillin Sod/Tazobactam 50 mls @ 100 mls/hr 05/04/20 18:00 05/04/20 17:43 Sod 3.375 gm/ Dextrose IVPB 100 mls/hr Q8H-IV [facility] Administration Protocol Dopamine HCl/Dextrose 400,000 mcg in 250 mls @ 5.97 mls/hr 05/04/20 01:15 05/04/20 03:07 Dopamine 400 Mg/D5w - IVPB 0 mcg/kg/min TITR [facility] 0 mls/hr Titration Protocol 2 MCG/KG/MIN Dextrose/Sodium Chloride 1,000 mls @ 42 mls/hr 05/04/20 06:57 05/04/20 06:45 D5-1/2ns - IV 42 mls/hr ASDIR [facility] Administration Multivitamins/Minerals/Vitamin C 1 tab 05/04/20 10:00 05/04/20 10:49 Tab-A-Vit - PO 1 tab DAILY [facility] Administration Mupirocin 1 applic 05/03/20 22:00 05/04/20 10:32 Bactroban Ointment (For Decolonization) - NS 05/08/20 21:59 Not Given BID [facility] Pantoprazole Sodium 20 mg 05/04/20 07:00 05/04/20 06:27 Protonix - PO 20 mg ACBK [facility] Administration Thiamine HCl 100 mg 05/04/20 10:00 05/04/20 10:49 Vitamin B1 - PO 100 mg DAILY [facility] Administration ASSESSMENT/PLAN: 45 yo F PMH of COPD, hepatitis C, polysubstance abuse (hx of cocaine, heroine, alcohol & marijuana use), seizure d/o admitted to icu for sepsis secondary to pyelonephritis. *Sepsis - secondary to pyelonephritis On Zosyn, recent treatment for pyelo s/p ureteral stent for right hydronephrosis Urine culture neg, blood cultures neg to date *Bradycardia: 2/2 opioid intoxication s/p narcan and atropine in ED -cont to monitor on tele *Polysubstance abuse CIWA, COWS monitor closely - no signs of withdrawal currently avoid ativan, librium given HR. avoid MTD bc of QTc thiamine, folic acid, IVF utox + MTD, BZO, cocaine seizure precautions fall precautions Methadone for detox 110mg as per pt Will give half 55mg today- verify with clinic in am- clinic closed again today *DVT Prophy - Lovenox Dispo: f/u methadone dose Problem List - Problems (1) Bradycardia Code(s): R00.1 - BRADYCARDIA, UNSPECIFIED (2) Sepsis Code(s): A41.9 - SEPSIS, UNSPECIFIED ORGANISM Visit type - Emergency Visit Emergency Visit: Yes ED Registration Date: 05/03/20 Care time: The patient presented to the Emergency Department on the above date a nd was hospitalized for further evaluation of their emergent condition. - New Patient This patient is new to me today: Yes Date on this admission: 05/04/20 - Critical Care Critical Care patient: No - Discharge Referral Referred to [facility] No
[2020-05-04] MEDS: CHLORHEXIDINE GLUCONATE 4% CLEANSER FOR DECOLONIZATION TP SCH (22:30)
[2020-05-05] MEDS ORDERED: PIPERACILLIN/TAZOBACTAM 3.375 GM VIAL IVPB ONE ×3 (01:40→16:06)
[2020-05-05] MEDS ORDERED: DEXTROSE 5%-WATER - 50 ML IVPB ONE ×3 (01:40→16:06)
[2020-05-05] MEDS: PIPERACILLIN/TAZOB 3.375 GM 3.375 GM in DEXTROSE 5%-WATER - 50 ML IVPB SCH ×3 (01:55→18:13)
[2020-05-05] MEDS ORDERED: METHADONE HCL 10 MG TABLET PO ONE (05:56)
[2020-05-05] MEDS ORDERED: METHADONE 40 MG, METHADONE 10 MG, METHADONE 5 MG PO ONE (06:15)
[2020-05-05] MEDS ORDERED: METHADONE HCL 10 MG TABLET ONE (06:47)
[2020-05-05] MEDS ORDERED: METHADONE HCL 40 MG DISPERSABLE TABLET ONE (06:48)
[2020-05-05] MEDS ORDERED: METHADONE HCL 5 MG TABLET ONE (06:48)
[2020-05-05] MEDS: PANTOPRAZOLE 20 MG TABLET PO SCH (06:51)
--- NOTE | 2020-05-05 07:07 | PN ---
Physical Exam: SUBJECTIVE: Patient seen and examined. No acute overnight events. Pt complained of nausea, to which she says that she feels better with Tums. She also complains of some burning on urination. Denies fevers, chills, SOB, c/p, abd pain, numbness or tingling. OBJECTIVE: Vital Signs Period Temp Pulse Resp BP Sys/Ramesh Pulse Ox Last 24 Hr 98.1 F-98.1 F 35-54 12-20 117-162/55-86 96-100 GENERAL: Pt somnolent, not in acute distress HEENT: NCAT, EOMI, moist mucus membranes, no nasal exudates. LUNGS: Breath sounds equal, clear to auscultation bilaterally, no wheezes HEART: Bradycardic, regular rhythm. S1, S2, no murmurs. ABDOMEN: Soft, nontender, nondistended, bowel sounds present in all 4 quadrants. EXTREMITIES: warm, well-perfused, no edema. SKIN: Warm, dry Laboratory Last Values WBC 3.6 K/mm3 (4.0-10.0) L 05/03/20 12:23 RBC 3.34 M/mm3 (3.60-5.2) L 05/03/20 12:23 Hgb 9.7 GM/dL (10.7-15.3) L 05/03/20 12:23 Hct 30.0 % (32.4-45.2) L 05/03/20 12:23 MCV 89.9 fl (80-96) 05/03/20 12:23 MCH 29.0 pg (25.7-33.7) 05/03/20 12:23 MCHC 32.2 g/dl (32.0-36.0) 05/03/20 12:23 RDW 16.2 % (11.6-15.6) H 05/03/20 12:23 Plt Count 150 K/MM3 (134-434) 05/03/20 12:23 MPV 7.8 fl (7.5-11.1) 05/03/20 12:23 Absolute Neuts (auto) 1.7 K/mm3 (1.5-8.0) 05/03/20 12:23 Neutrophils % 47.5 % (42.8-82.8) D 05/03/20 12:23 Lymphocytes % 36.8 % (8-40) D 05/03/20 12:23 Monocytes % 11.1 % (3.8-10.2) H 05/03/20 12:23 Eosinophils % 3.6 % (0-4.5) 05/03/20 12:23 Basophils % 1.0 % (0-2.0) 05/03/20 12:23 Nucleated RBC % 0 % (0-0) 05/03/20 12:23 PT with INR 10.20 SEC (9.7-13.0) 05/04/20 06:00 INR 0.87 (0.83-1.09) 05/04/20 06:00 Anticoagulation Therapy No Result Required. 05/03/20 18:10 Puncture Site Right radial 05/03/20 18:10 Patient Temperature No Result Required. 05/03/20 18:10 ABG pH 7.256 (7.350-7.450) L 05/03/20 18:10 ABG pCO2 50.30 mmHg (35-45) H 05/03/20 18:10 ABG pO2 127.8 mmHg (80-100) H 05/03/20 18:10 ABG HCO3 21.9 mmol/L (22-27) L 05/03/20 18:10 ABG O2 Sat (Measured) 98.1 mmHg (95-98) H 05/03/20 18:10 ABG O2 Content 97.5 % vol 05/03/20 18:10 ABG Base Excess -5.3 mmol/L (-2-2) L 05/03/20 18:10 Jeff Test Positive 05/03/20 18:10 Patient On Oxygen Yes 05/03/20 18:10 O2 Delivery Device Nasal 05/03/20 18:10 Oxygen Flow Rate 1 lt 05/03/20 18:10 Vent Mode No Result Required. 05/03/20 18:10 Vent Rate No Result Required. 05/03/20 18:10 Mechanical Rate No Result Required. 05/03/20 18:10 PEEP No Result Required. 05/03/20 18:10 Pressure Support Vent No Result Required. 05/03/20 18:10 Sodium 141 mmol/L (136-145) 05/04/20 06:00 Potassium 4.2 mmol/L (3.5-5.1) 05/04/20 06:00 Chloride 110 mmol/L (98-107) H 05/04/20 06:00 Carbon Dioxide 25 mmol/L (21-32) 05/04/20 06:00 Anion Gap 5 MMOL/L (8-16) L 05/04/20 06:00 BUN 16.8 mg/dL (7-18) 05/04/20 06:00 Creatinine 0.8 mg/dL (0.55-1.3) 05/04/20 06:00 Est GFR (CKD-EPI)AfAm 104.65 05/04/20 06:00 Est GFR (CKD-EPI)NonAf 90.30 05/04/20 06:00 Random Glucose 67 mg/dL (74-106) L 05/04/20 06:00 Calcium 8.2 mg/dL (8.5-10.1) L 05/04/20 06:00 Phosphorus 2.5 mg/dL (2.5-4.9) 05/04/20 06:00 Magnesium 1.8 mg/dL (1.8-2.4) 05/04/20 06:00 Total Bilirubin 0.7 mg/dL (0.2-1) 05/04/20 06:00 AST 57 U/L (15-37) H 05/04/20 06:00 ALT 38 U/L (13-61) 05/04/20 06:00 Alkaline Phosphatase 90 U/L (45-117) 05/04/20 06:00 Troponin I < 0.02 ng/ml (0.00-0.05) 05/04/20 06:00 Total Protein 6.3 g/dl (6.4-8.2) L 05/04/20 06:00 Albumin 2.4 g/dl (3.4-5.0) L 05/04/20 06:00 TSH 0.53 uIU/ml (0.358-3.74) 05/03/20 12:23 Serum , Qual Negative 05/03/20 01:00 Urine Color Yellow 05/03/20 03:37 Urine Appearance Cloudy 05/03/20 03:37 Urine pH 6.0 (5.0-8.0) 05/03/20 03:37 Ur Specific Blair 1.007 (1.010-1.035) L 05/03/20 03:37 Urine Protein 2+ (NEGATIVE) H 05/03/20 03:37 Urine Glucose (UA) Negative (NEGATIVE) 05/03/20 03:37 Urine Ketones Negative (NEGATIVE) 05/03/20 03:37 Urine Blood 3+ (NEGATIVE) H 05/03/20 03:37 Urine Nitrite Negative (NEGATIVE) 05/03/20 03:37 Urine Bilirubin Negative (NEGATIVE) 05/03/20 03:37 Urine Urobilinogen 0.2 mg/dL (0.2-1.0) 05/03/20 03:37 Ur Leukocyte Esterase 2+ (NEGATIVE) H 05/03/20 03:37 Urine WBC (Auto) 171 /uL (0-25.8) 05/03/20 03:37 Urine RBC (Auto) 106 /uL (0-23.9) 05/03/20 03:37 Urine Casts (Auto) 6 /uL (0-3.1) 05/03/20 03:37 U Epithel Cells (Auto) >36 /uL (0-25.1) 05/03/20 03:37 Urine Bacteria (Auto) 44 /uL (0-1359) 05/03/20 03:37 Opiates Screen Negative ng/ml (ZEPAFV=904) 05/03/20 03:37 Methadone Screen Positive ng/ml (YURCTC=307) A* 05/03/20 03:37 Barbiturate Screen Negative ng/ml (JMNWLD=319) 05/03/20 03:37 Phencyclidine Screen Negative ng/ml (CUTOFF=25) 05/03/20 03:37 Ur Amphetamines Screen Negative ng/ml (FUWCRO=503) 05/03/20 03:37 MDMA (Ecstasy) Screen Negative ng/ml (NVRWIT=763) 05/03/20 03:37 Benzodiazepines Screen Positive ng/ml (KHECUI=145) A* 05/03/20 03:37 Cocaine Screen Positive ng/ml (DOFSDS=507) A* 05/03/20 03:37 U Marijuana (THC) Screen Negative ng/ml (CUTOFF=50) 05/03/20 03:37 COVID-19 (YASMANI) Not detected (Not Detected) 05/03/20 01:43 Active Medications Albuterol Sulfate (Ventolin Hfa Inhaler -) 2 puff IH Q4H PRN PRN Reason: SHORT OF BREATH/WHEEZING Calcium Carbonate (Calcium Carbonate -) 650 mg PO DAILY PRN PRN Reason: DYSPEPSIA Last Admin: 05/05/20 10:47 Dose: 650 mg Documented by: Chlorhexidine Gluconate (Hibiclens For Decolonization -) 1 applic TP HS [facility] Last Admin: 05/04/20 22:30 Dose: 1 applic Documented by: Enoxaparin Sodium (Lovenox -) 40 mg SQ DAILY [facility] Last Admin: 05/05/20 10:46 Dose: 40 mg Documented by: Folic Acid (Folic Acid -) 1 mg PO DAILY [facility] Last Admin: 05/05/20 10:47 Dose: 1 mg Documented by: Gabapentin (Neurontin -) 300 mg PO TID [facility] Piperacillin Sod/Tazobactam (Sod 3.375 gm/ Dextrose) 50 mls @ 100 mls/hr IVPB Q8H-IV [facility]; Protocol Last Admin: 05/05/20 01:55 Dose: 100 mls/hr Documented by: Methadone HCl (Dolophine -) 55 mg PO DAILY [facility] Multivitamins/Minerals/Vitamin C (Tab-A-Vit -) 1 tab PO DAILY [facility] Last Admin: 05/05/20 10:47 Dose: 1 tab Documented by: Mupirocin (Bactroban Ointment (For Decolonization) -) 1 applic NS BID [facility] Stop: 05/08/20 21:59 Last Admin: 05/05/20 10:56 Dose: Not Given Documented by: Pantoprazole Sodium (Protonix -) 20 mg PO ACBK [facility] Last Admin: 05/05/20 06:51 Dose: 20 mg Documented by: Thiamine HCl (Vitamin B1 -) 100 mg PO DAILY [facility] Last Admin: 05/05/20 10:48 Dose: 100 mg Documented by: ASSESSMENT/PLAN: 45 yo F PMH of COPD, hepatitis C, polysubstance abuse (hx of cocaine, heroine, alcohol & marijuana use), seizure disorder presented to ED from [facility] because of abnormal EKG showing bradycardia and prolonged QT and found to have hypotension and bradycardia. In the ED, pt was given narcan and atropine. She is currently admitted to ICU for Sepsis secondary to pyelonephritis. Neuro/Psych: Polysubstance abuse Seizure disorder -Alert and oriented -CIWA 5, COWS 2 -avoid ativan, librium given bradycardia. Caution with methadone because prolonged QTc. -c/w methadone 55mg -c/w gabapentin -start Klonipin 2mg once. -Avoid medication that prolongs QTc. -c/w thiamine, folic acid, IVF -Utox positive for methadone, benzodiazepines, cocaine -seizure precautions, fall precautions -Addiction medicine consulted. Will follow recommendations regarding methadone and Klonipin. -Spoke to [facility] Methadone clinic, confirmed with Simi Cook, pt takes 110mg qD. Last medicated on 05/02/2020. Cardio: Bradycardia secondary to opioid intoxication -Considered possible BB toxicity (hypotensive, bradycardia, hypoglycemic). Gave 2mg glucagon w/o response. -Cardiology consulted. Recommended IVF resuscitation, 24h Holter, echo. GI Nausea -Avoid zofran due to QTc. Recommend Compazine or Tigan for nausea. -c/w calcium carbonate ID: Sepsis secondary to Pyelonephritis -CT abdomen/pelvis: mild to moderate right hydronephrosis, right ureteral stent intact, b/l kidneys consistent with pyelonephritis. -ID consulted. Recommended continue zosyn (05/04) -f/u cultures Pulm: No acute issues -saturating 100% on RA, supplemental O2 to keep SpO2 >92% -c/w Albuterol PRN FEN -No standing fluids -replete electrolytes as needed -Full diet PPx -DVT: Lovenox 40 sq -GI: PPI Dispo: Transfer to Tele. Visit type - Emergency Visit Emergency Visit: Yes ED Registration Date: 05/03/20 Care time: The patient presented to the Emergency Department on the above date and was hospitalized for further evaluation of their emergent condition. - New Patient This patient is new to me today: No - Critical Care Critical Care patient: Yes Total Critical Care Time (in minutes): 37 Critical Care Statement: The care of this patient involved high complexity decision making to prevent further life threatening deterioration of the patient's condition and/or to evaluate & treat vital organ system(s) failure or risk of failure. ATTENDING PHYSICIAN STATEMENT I saw and evaluated the patient. I reviewed the resident's note and discussed the case with the resident. I agree with the resident's findings and plan as documented. SUBJECTIVE: OBJECTIVE: ASSESSMENT AND PLAN:
--- NOTE | 2020-05-05 08:40 | PN ---
Progress Note, Physician History of Present Illness: Cintia Persaud is a 45 Y F with a PMH of COPD, HEP C, seizures, and polysubtance abuse(alcohol, cocaine, heroin, and THC) on methadone maintenance (110 mg PO daily) presented from [facility] for abnormal EKG: HR: 43, T-Wave abnormality, QT prolonged. In ER patient is somnolent but arousable, unable to obtain information from the patient. v/s in ER p42, O2 sat 97, RR 16, BP 100/60 - Current Medication List Current Medications: Active Medications Albuterol Sulfate (Ventolin Hfa Inhaler -) 2 puff IH Q6H PRN PRN Reason: SHORT OF BREATH/WHEEZING Calcium Carbonate (Calcium Carbonate -) 650 mg PO DAILY PRN PRN Reason: DYSPEPSIA Chlorhexidine Gluconate (Hibiclens For Decolonization -) 1 applic TP HS [facility] Last Admin: 05/04/20 22:30 Dose: 1 applic Documented by: Enoxaparin Sodium (Lovenox -) 40 mg SQ DAILY [facility] Last Admin: 05/04/20 10:49 Dose: 40 mg Documented by: Folic Acid (Folic Acid -) 1 mg PO DAILY [facility] Last Admin: 05/04/20 10:49 Dose: 1 mg Documented by: Piperacillin Sod/Tazobactam (Sod 3.375 gm/ Dextrose) 50 mls @ 100 mls/hr IVPB Q8H-IV DEEPAK; Protocol Last Admin: 05/05/20 01:55 Dose: 100 mls/hr Documented by: Multivitamins/Minerals/Vitamin C (Tab-A-Vit -) 1 tab PO DAILY [facility] Last Admin: 05/04/20 10:49 Dose: 1 tab Documented by: Mupirocin (Bactroban Ointment (For Decolonization) -) 1 applic NS BID [facility] Stop: 05/08/20 21:59 Last Admin: 05/04/20 22:30 Dose: Not Given Documented by: Pantoprazole Sodium (Protonix -) 20 mg PO ACBK [facility] Last Admin: 05/05/20 06:51 Dose: 20 mg Documented by: Thiamine HCl (Vitamin B1 -) 100 mg PO DAILY [facility] Last Admin: 05/04/20 10:49 Dose: 100 mg Documented by: - Objective Vital Signs: Vital Signs Temperature 98.1 F 05/05/20 04:00 Pulse Rate 35 L 05/05/20 06:00 Respiratory Rate 14 05/05/20 06:00 Blood Pressure 162/86 05/05/20 06:00 O2 Sat by Pulse Oximetry (%) 100 05/05/20 06:00 Eyes: Yes: WNL, Conjunctiva Clear, EOM Intact HENT: Yes: WNL, Atraumatic, Normocephalic Neck: Yes: WNL, Supple, Trachea Midline Cardiovascular: Yes: WNL, Regular Rate and Rhythm Respiratory: Yes: WNL, Regular, CTA Bilaterally Gastrointestinal: Yes: WNL, Normal Bowel Sounds Genitourinary: Yes: WNL Musculoskeletal: Yes: WNL Extremities: Yes: WNL Edema: No Integumentary: Yes: WNL Neurological: Yes: WNL, Alert, Oriented ...Motor Strength: WNL Psychiatric: Yes: WNL Labs: CBC, BMP 05/03/20 12:23 05/04/20 06:00 INR, PTT INR 0.87 (0.83-1.09) 05/04/20 06:00 Problem List - Problems (1) Hypotension Code(s): I95.9 - HYPOTENSION, UNSPECIFIED Qualifiers: Hypotension type: unspecified hypotension type Qualified Code(s): I95.9 - Hypotension, unspecified (2) Somnolence Code(s): R40.0 - SOMNOLENCE (3) Bradycardia Code(s): R00.1 - BRADYCARDIA, UNSPECIFIED (4) Alcohol dependence Code(s): F10.20 - ALCOHOL DEPENDENCE, UNCOMPLICATED (5) Alcohol dependence with withdrawal, uncomplicated Code(s): F10.230 - ALCOHOL DEPENDENCE WITH WITHDRAWAL, UNCOMPLICATED (6) Substance induced mood disorder Code(s): F19.94 - OTH PSYCHOACTIVE SUBSTANCE USE, UNSP W MOOD DISORDER (7) Substance-induced anxiety disorder Code(s): F19.980 - OTH PSYCHOACTIVE SUBSTANCE USE, UNSP W ANXIETY DISORDER (8) Substance-induced sleep disorder Code(s): F19.982 - OTH PSYCHOACTIVE SUBSTANCE USE, UNSP W SLEEP DISORDER (9) COPD (chronic obstructive pulmonary disease) Code(s): J44.9 - CHRONIC OBSTRUCTIVE PULMONARY DISEASE, UNSPECIFIED (10) Cocaine dependence Code(s): F14.20 - COCAINE DEPENDENCE, UNCOMPLICATED (11) Cocaine dependence, uncomplicated Code(s): F14.20 - COCAINE DEPENDENCE, UNCOMPLICATED (12) Hepatitis C Code(s): B19.20 - UNSPECIFIED VIRAL HEPATITIS C WITHOUT HEPATIC COMA Qualifiers: Viral hepatitis chronicity: chronic Hepatic coma status: without hepatic coma Qualified Code(s): B18.2 - Chronic viral hepatitis C (13) History of COPD Code(s): Z87.09 - PERSONAL HISTORY OF OTHER DISEASES OF THE RESPIRATORY SYSTEM (14) Insomnia Code(s): G47.00 - INSOMNIA, UNSPECIFIED (15) Methadone maintenance therapy patient Code(s): F11.20 - OPIOID DEPENDENCE, UNCOMPLICATED (16) Nicotine dependence Code(s): F17.200 - NICOTINE DEPENDENCE, UNSPECIFIED, UNCOMPLICATED (17) Nicotine dependence, unspecified, uncomplicated Code(s): F17.200 - NICOTINE DEPENDENCE, UNSPECIFIED, UNCOMPLICATED Qualifiers: Nicotine product type: cigarettes Qualified Code(s): F17.210 - Nicotine dependence, cigarettes, uncomplicated (18) Opioid dependence on agonist therapy Code(s): F11.20 - OPIOID DEPENDENCE, UNCOMPLICATED (19) Perforated nasal septum Code(s): J34.89 - OTHER SPECIFIED DISORDERS OF NOSE AND NASAL SINUSES (20) Schizoaffective disorder Code(s): F25.9 - SCHIZOAFFECTIVE DISORDER, UNSPECIFIED (21) Sedative, hypnotic or anxiolytic dependence with withdrawal, uncomplicated Code(s): F13.230 - SEDATV/HYP/ANXIOLYTC DEPENDENCE W WITHDRAWAL, UNCOMPLICATED (22) Substance induced mood disorder Code(s): F19.94 - OTH PSYCHOACTIVE SUBSTANCE USE, UNSP W MOOD DISORDER (23) Seizure concurrent with and due to anxiolytic withdrawal Code(s): F13.239 - SEDATV/HYP/ANXIOLYTC DEPENDENCE W WITHDRAWAL, UNSP; F13.288 - SEDATIVE, HYPNOTIC OR ANXIOLYTIC DEPENDENCE W OTH DISORDER; R56.9 - UNSPECIFIED CONVULSIONS (24) Bipolar disorder Code(s): F31.9 - BIPOLAR DISORDER, UNSPECIFIED (25) Schizophrenia Code(s): F20.9 - SCHIZOPHRENIA, UNSPECIFIED (26) Schizophrenia Code(s): F20.9 - SCHIZOPHRENIA, UNSPECIFIED Assessment/Plan urosepsis -resolved HTN bradycardia may be due to Klonopin and gabapeptin QTC prolongation polysubstance abuse ECHO moderate tly reduced EF ? 30% - will review Plan ICU monitoring ABX IVF resuscitation 24 Holter echo d/c gabapeptin and klonopin Add ELI I and [place] check BNP cc time spent 36 min
--- NOTE | 2020-05-05 10:02 | EKG ---
Test Reason : Blood Pressure : / mmHG Vent. Rate : 039 BPM Atrial Rate : 039 BPM P-R Int : 188 ms QRS Dur : 086 ms QT Int : 548 ms P-R-T Axes : 072 066 053 degrees QTc Int : 441 ms MARKED SINUS BRADYCARDIA ABNORMAL ECG WHEN COMPARED WITH ECG OF 02-MAY-2020 21:26, INCOMPLETE RIGHT BUNDLE BRANCH BLOCK IS NO LONGER PRESENT NONSPECIFIC T WAVE ABNORMALITY NO LONGER EVIDENT IN ANTERIOR LEADS Confirmed by Yane Fox ([id number]) on 05/05/2020 10:02:13 AM Referred By: Confirmed By:Yane Fox
--- NOTE | 2020-05-05 10:14 | EKG ---
Test Reason : Blood Pressure : / mmHG Vent. Rate : 044 BPM Atrial Rate : 044 BPM P-R Int : 204 ms QRS Dur : 096 ms QT Int : 582 ms P-R-T Axes : 078 039 041 degrees QTc Int : 497 ms MARKED SINUS BRADYCARDIA INCOMPLETE RIGHT BUNDLE BRANCH BLOCK NONSPECIFIC T WAVE ABNORMALITY PROLONGED QT ABNORMAL ECG WHEN COMPARED WITH ECG OF 02-MAY-2020 19:10, No significant changes Confirmed by Yane Fox ([id number]) on 05/05/2020 10:14:28 AM Referred By: Confirmed By:Yane Fox
[2020-05-05] MEDS: ENOXAPARIN NA (PORCINE) 40 MG/0.4 ML DISP.SYRIN SQ SCH (10:46)
[2020-05-05] MEDS: MULTIVITAMINS (DAILY MVI) TABLET (FP) PO SCH (10:47)
[2020-05-05] MEDS: FOLIC ACID 1 MG TABLET (FP) PO SCH (10:47)
[2020-05-05] MEDS: THIAMINE HCL 100 MG TABLET (FP) PO SCH (10:48)
[2020-05-05] MEDS: MUPIROCIN 2% TOPICAL OINTMENT FOR DECOLONIZATION NS SCH ×2 (10:56→21:46)
--- NOTE | 2020-05-05 11:23 | ECHO ---
Name: ARA MOORE Exam:Adult Echocardiogram Study Date: 05/05/2020 07:49 AM Age: 45 yrs Reason For Study: SOB Height: 63 in Weight: 168 lb BSA: 1.8 m2 BP: 162/86 mmHg MMode/2D Measurements & Calculations IVSd: 0.71 cm Ao root diam: 3.0 cm LVIDd: 5.4 cm LA dimension: 3.0 cm LVIDs: 3.9 cm ACS: 2.3 cm LVPWd: 0.74 cm LVPWs: 1.0 cm EDV(Teich): 142.2 ml ESV(Teich): 64.4 ml LVOT diam: 2.1 cm TAPSE: 2.1 cm RV S Trev: 11.5 cm/sec Doppler Measurements & Calculations MV V2 max: 133.4 cm/sec MV E max trev: 98.2 cm/sec MV max P.1 mmHg MV A max trev: 71.6 cm/sec MV V2 mean: 47.2 cm/sec MV E/A: 1.4 MV mean P.3 mmHg MV dec time: 0.20 sec MV V2 VTI: 43.1 cm Ao V2 max: 129.5 cm/sec LV V1 max P.0 mmHg Ao max P.7 mmHg LV V1 max: 111.6 cm/sec MEI(V,D): 3.0 cm2 MR max trev: 413.4 cm/sec TR max trev: 217.9 cm/sec MR max P.4 mmHg TR max P.0 mmHg PA V2 max: 80.1 cm/sec Med Peak E' Trev: 7.4 cm/sec PA max P.6 mmHg Med E/e': 13.3 Lat Peak E' Trev: 12.5 cm/sec Lat E/e': 7.9 Procedure Study Quality: Fair. Left Ventricle The left ventricle is mildly dilated. Left ventricular systolic function is moderately reduced. Eject ion Fraction = 30%. The transmitral spectral Doppler flow pattern is suggestive of pseudonormalization. T here is moderate global hypokinesis of the left ventricle. Right Ventricle The right ventricle is grossly normal size. The right ventricular systolic function is moderately red uced. Atria The left atrium is mildly dilated. Mitral Valve The mitral valve leaflets appear normal. There is no evidence of stenosis, fluttering, or prolapse. T here is mild mitral regurgitation. Tricuspid Valve The tricuspid valve is not well visualized, but is grossly normal. There is trace tricuspid regurgita tion. Right ventricular systolic pressure is normal. Aortic Valve The aortic valve is normal in structure and function. Pulmonic Valve The pulmonic valve is not well seen, but is grossly normal. Great Vessels The aortic root is normal size. Pericardium/Pleura There is no pericardial effusion. Interpretation Summary LV: Mildly dilated, global hypokinesia with moderately decreased systolic function, EF 30%, pseudonormalization inflow pattern; E/e' 13 mmhg RV: not well seen, likely normal size , decreased systolic function LA; Mildly dilated MV: Mild MR Trace TR with normal RVSP. Yane Fox 05/05/2020 11:22 AM
--- NOTE | 2020-05-05 11:53 | PN ---
Progress Note, Physician History of Present Illness: stable no new issues afebrile today - Current Medication List Current Medications: Active Medications Albuterol Sulfate (Ventolin Hfa Inhaler -) 2 puff IH Q6H PRN PRN Reason: SHORT OF BREATH/WHEEZING Calcium Carbonate (Calcium Carbonate -) 650 mg PO DAILY PRN PRN Reason: DYSPEPSIA Last Admin: 05/05/20 10:47 Dose: 650 mg Documented by: Chlorhexidine Gluconate (Hibiclens For Decolonization -) 1 applic TP HS [facility] Last Admin: 05/04/20 22:30 Dose: 1 applic Documented by: Enoxaparin Sodium (Lovenox -) 40 mg SQ DAILY [facility] Last Admin: 05/05/20 10:46 Dose: 40 mg Documented by: Folic Acid (Folic Acid -) 1 mg PO DAILY [facility] Last Admin: 05/05/20 10:47 Dose: 1 mg Documented by: Piperacillin Sod/Tazobactam (Sod 3.375 gm/ Dextrose) 50 mls @ 100 mls/hr IVPB Q8H-IV DEEPAK; Protocol Last Admin: 05/05/20 01:55 Dose: 100 mls/hr Documented by: Multivitamins/Minerals/Vitamin C (Tab-A-Vit -) 1 tab PO DAILY [facility] Last Admin: 05/05/20 10:47 Dose: 1 tab Documented by: Mupirocin (Bactroban Ointment (For Decolonization) -) 1 applic NS BID [facility] Stop: 05/08/20 21:59 Last Admin: 05/05/20 10:56 Dose: Not Given Documented by: Pantoprazole Sodium (Protonix -) 20 mg PO ACBK [facility] Last Admin: 05/05/20 06:51 Dose: 20 mg Documented by: Thiamine HCl (Vitamin B1 -) 100 mg PO DAILY [facility] Last Admin: 05/05/20 10:48 Dose: 100 mg Documented by: - Objective Vital Signs: Vital Signs Temperature 98.1 F 05/05/20 04:00 Pulse Rate 35 L 05/05/20 06:00 Respiratory Rate 14 05/05/20 09:00 Blood Pressure 162/86 05/05/20 06:00 O2 Sat by Pulse Oximetry (%) 100 05/05/20 09:00 Constitutional: Yes: No Distress, Calm, Obese Cardiovascular: Yes: S1, S2 Respiratory: Yes: Regular, CTA Bilaterally Gastrointestinal: Yes: Normal Bowel Sounds, Soft Musculoskeletal: Yes: WNL Extremities: Yes: WNL Neurological: Yes: Alert, Oriented Psychiatric: Yes: Alert, Oriented Labs: CBC, BMP 05/03/20 12:23 05/04/20 06:00 INR, PTT INR 0.87 (0.83-1.09) 05/04/20 06:00 - ....Imaging Chest X-ray: Report Reviewed, Image Reviewed Cat Scan: Report Reviewed, Image Reviewed Assessment/Plan Problem List - Problems (1) Hypotension Code(s): I95.9 - HYPOTENSION, UNSPECIFIED Qualifiers: Hypotension type: unspecified hypotension type Qualified Code(s): I95.9 - Hypotension, unspecified (2) Pyelonephritis Code(s): N12 - TUBULO-INTERSTITIAL NEPHRITIS, NOT SPCF ACUTE OR CHRONIC (3) Bradycardia Code(s): R00.1 - BRADYCARDIA, UNSPECIFIED (4) Alcohol dependence Code(s): F10.20 - ALCOHOL DEPENDENCE, UNCOMPLICATED (5) COPD (chronic obstructive pulmonary disease) Code(s): J44.9 - CHRONIC OBSTRUCTIVE PULMONARY DISEASE, UNSPECIFIED (6) Cocaine dependence Code(s): F14.20 - COCAINE DEPENDENCE, UNCOMPLICATED (7) Hepatitis C Code(s): B19.20 - UNSPECIFIED VIRAL HEPATITIS C WITHOUT HEPATIC COMA Qualifiers: Viral hepatitis chronicity: chronic Hepatic coma status: without hepatic coma Qualified Code(s): B18.2 - Chronic viral hepatitis C (8) History of COPD Code(s): Z87.09 - PERSONAL HISTORY OF OTHER DISEASES OF THE RESPIRATORY SYSTEM (9) Methadone maintenance therapy patient Code(s): F11.20 - OPIOID DEPENDENCE, UNCOMPLICATED (10) Nicotine dependence Code(s): F17.200 - NICOTINE DEPENDENCE, UNSPECIFIED, UNCOMPLICATED Assessment/Plan Bradycardia Hypotension Pyelonephritis Rt hydronephrosis s/p ureteral stent Polysubstance abuse AMY Hx of Seizure d.o. COPD Hepatitis C plan continue abx await for all results rest as per icu monitor closely cc 37 min
--- NOTE | 2020-05-05 12:22 | CONSULT ---
Consult Detox [facility] Reason for Current Admission/Consult: We are consulted for assistance with patients methadone maintenence. - History History of Present Illness: History obtained from chart: Patient 45 yo female with PMHx of COPD, hepatitis C, polysubstance abuse (hx of cocaine, heroine, alcohol & marijuana use), seizures, and patient mentions possible heart murmur. Currently on methadone maintenance dose 110 mg daily (need to verify). She presented to [facility] for "detox" and was sent to [facility] because of her EKG findings (bradycardia + prolonged QT). She denies taking any heroine before going to [facility]. She endorses having drank alcohol, and taken klonopin and xanax that day. History was limited due to patient's lethargy and agitation. She denied chest pain, SOB, n/v/d. She was seen by Cardiology: Dr. Ryaa: urosepsis, bradycardia, QTC prolongation, polysubstance abuse. Plan: ICU monitoring, ABX, IVF resuscitation, 24 Holter, echo. EKG: HR 39, QTc 441. Laboratory Tests 05/02/20 05/02/20 05/03/20 22:39 22:39 01:00 WBC 4.5 RBC 3.61 Hgb 10.5 L Hct 32.6 MCV 90.3 MCH 29.2 MCHC 32.3 RDW 16.1 H Plt Count 171 D MPV 7.9 Absolute Neuts (auto) 1.3 L Neutrophils % 29.7 L Lymphocytes % 53.0 H Monocytes % 11.2 H Eosinophils % 5.2 H Basophils % 0.9 Nucleated RBC % 0 PT with INR INR Anticoagulation Therapy Puncture Site Patient Temperature ABG pH ABG pCO2 ABG pO2 ABG HCO3 ABG O2 Sat (Measured) ABG O2 Content ABG Base Excess Jeff Test Patient On Oxygen O2 Delivery Device Oxygen Flow Rate Vent Mode Vent Rate Mechanical Rate PEEP Pressure Support Vent Sodium 138 Potassium 4.4 Chloride 106 Carbon Dioxide 28 Anion Gap 3 L BUN 40.9 H Creatinine 1.1 Est GFR (CKD-EPI)AfAm 71.21 Est GFR (CKD-EPI)NonAf 61.44 Random Glucose 79 Calcium 7.9 L Phosphorus Magnesium Total Bilirubin 0.3 AST 89 H ALT 52 Alkaline Phosphatase 99 Troponin I Total Protein 7.4 Albumin 2.9 L TSH 1.43 Serum , Qual Negative Urine Color Urine Appearance Urine pH Ur Specific [place] Urine Protein Urine Glucose (UA) Urine Ketones Urine Blood Urine Nitrite Urine Bilirubin Urine Urobilinogen Ur Leukocyte Esterase Urine WBC (Auto) Urine RBC (Auto) Urine Casts (Auto) U Epithel Cells (Auto) Urine Bacteria (Auto) Opiates Screen Methadone Screen Barbiturate Screen Phencyclidine Screen Ur Amphetamines Screen MDMA (Ecstasy) Screen Benzodiazepines Screen Cocaine Screen U Marijuana (THC) Screen COVID-19 (YASMANI) 05/03/20 05/03/20 05/03/20 01:43 03:37 03:37 WBC RBC Hgb Hct MCV MCH MCHC RDW Plt Count MPV Absolute Neuts (auto) Neutrophils % Lymphocytes % Monocytes % Eosinophils % Basophils % Nucleated RBC % PT with INR INR Anticoagulation Therapy Puncture Site Patient Temperature ABG pH ABG pCO2 ABG pO2 ABG HCO3 ABG O2 Sat (Measured) ABG O2 Content ABG Base Excess Jeff Test Patient On Oxygen O2 Delivery Device Oxygen Flow Rate Vent Mode Vent Rate Mechanical Rate PEEP Pressure Support Vent Sodium Potassium Chloride Carbon Dioxide Anion Gap BUN Creatinine Est GFR (CKD-EPI)AfAm Est GFR (CKD-EPI)NonAf Random Glucose Calcium Phosphorus Magnesium Total Bilirubin AST ALT Alkaline Phosphatase Troponin I Total Protein Albumin TSH Serum , Qual Urine Color Yellow Urine Appearance Cloudy Urine pH 6.0 Ur Specific [place] 1.007 L Urine Protein 2+ H Urine Glucose (UA) Negative Urine Ketones Negative Urine Blood 3+ H Urine Nitrite Negative Urine Bilirubin Negative Urine Urobilinogen 0.2 Ur Leukocyte Esterase 2+ H Urine WBC (Auto) 171 Urine RBC (Auto) 106 Urine Casts (Auto) 6 U Epithel Cells (Auto) >36 Urine Bacteria (Auto) 44 Opiates Screen Negative Methadone Screen Positive A* Barbiturate Screen Negative Phencyclidine Screen Negative Ur Amphetamines Screen Negative MDMA (Ecstasy) Screen Negative Benzodiazepines Screen Positive A* Cocaine Screen Positive A* U Marijuana (THC) Screen Negative COVID-19 (YASMANI) Not detected 05/03/20 05/03/20 05/03/20 12:23 12:23 18:10 WBC 3.6 L RBC 3.34 L Hgb 9.7 L Hct 30.0 L MCV 89.9 MCH 29.0 MCHC 32.2 RDW 16.2 H Plt Count 150 MPV 7.8 Absolute Neuts (auto) 1.7 Neutrophils % 47.5 D Lymphocytes % 36.8 D Monocytes % 11.1 H Eosinophils % 3.6 Basophils % 1.0 Nucleated RBC % 0 PT with INR INR Anticoagulation Therapy No Result Required. Puncture Site Right radial Patient Temperature No Result Required. ABG pH 7.256 L ABG pCO2 50.30 H ABG pO2 127.8 H ABG HCO3 21.9 L ABG O2 Sat (Measured) 98.1 H ABG O2 Content 97.5 ABG Base Excess -5.3 L Jeff Test Positive Patient On Oxygen Yes O2 Delivery Device Nasal Oxygen Flow Rate 1 lt Vent Mode No Result Required. Vent Rate No Result Required. Mechanical Rate No Result Required. PEEP No Result Required. Pressure Support Vent No Result Required. Sodium 143 Potassium 4.5 Chloride 113 H Carbon Dioxide 29 Anion Gap 1 L BUN 28.8 H Creatinine 0.8 Est GFR (CKD-EPI)AfAm 104.65 Est GFR (CKD-EPI)NonAf 90.30 Random Glucose 65 L Calcium 8.2 L Phosphorus 3.1 Magnesium 2.1 Total Bilirubin 0.2 AST 60 H ALT 40 Alkaline Phosphatase 87 Troponin I < 0.02 Total Protein 6.4 Albumin 2.4 L TSH 0.53 Serum , Qual Urine Color Urine Appearance Urine pH Ur Specific [place] Urine Protein Urine Glucose (UA) Urine Ketones Urine Blood Urine Nitrite Urine Bilirubin Urine Urobilinogen Ur Leukocyte Esterase Urine WBC (Auto) Urine RBC (Auto) Urine Casts (Auto) U Epithel Cells (Auto) Urine Bacteria (Auto) Opiates Screen Methadone Screen Barbiturate Screen Phencyclidine Screen Ur Amphetamines Screen MDMA (Ecstasy) Screen Benzodiazepines Screen Cocaine Screen U Marijuana (THC) Screen COVID-19 (YASMANI) 05/04/20 05/04/20 06:00 06:00 WBC RBC Hgb Hct MCV MCH MCHC RDW Plt Count MPV Absolute Neuts (auto) Neutrophils % Lymphocytes % Monocytes % Eosinophils % Basophils % Nucleated RBC % PT with INR 10.20 INR 0.87 Anticoagulation Therapy Puncture Site Patient Temperature ABG pH ABG pCO2 ABG pO2 ABG HCO3 ABG O2 Sat (Measured) ABG O2 Content ABG Base Excess Jeff Test Patient On Oxygen O2 Delivery Device Oxygen Flow Rate Vent Mode Vent Rate Mechanical Rate PEEP Pressure Support Vent Sodium 141 Potassium 4.2 Chloride 110 H Carbon Dioxide 25 Anion Gap 5 L BUN 16.8 Creatinine 0.8 Est GFR (CKD-EPI)AfAm 104.65 Est GFR (CKD-EPI)NonAf 90.30 Random Glucose 67 L Calcium 8.2 L Phosphorus 2.5 Magnesium 1.8 Total Bilirubin 0.7 AST 57 H ALT 38 Alkaline Phosphatase 90 Troponin I < 0.02 Total Protein 6.3 L Albumin 2.4 L TSH Serum , Qual Urine Color Urine Appearance Urine pH Ur Specific [place] Urine Protein Urine Glucose (UA) Urine Ketones Urine Blood Urine Nitrite Urine Bilirubin Urine Urobilinogen Ur Leukocyte Esterase Urine WBC (Auto) Urine RBC (Auto) Urine Casts (Auto) U Epithel Cells (Auto) Urine Bacteria (Auto) Opiates Screen Methadone Screen Barbiturate Screen Phencyclidine Screen Ur Amphetamines Screen MDMA (Ecstasy) Screen Benzodiazepines Screen Cocaine Screen U Marijuana (THC) Screen COVID-19 (YASMANI) Home Medication List Medication Instructions Recorded Confirmed Type Albuterol Sulfate Inhaler - 2 inh PO Q4H PRN 11/12/19 05/05/20 History [Ventolin HFA Inhaler -] Alprazolam [Xanax] 0.5 mg PO BID 05/05/20 05/05/20 History Clonazepam [Klonopin] 2 mg PO BID 05/05/20 05/05/20 History Dolutegravir Sodium [Tivicay] 50 mg PO DAILY 05/05/20 05/05/20 History Emtricitabine/Tenofov Alafenam 1 tablet PO DAILY 05/05/20 05/05/20 History [Descovy 200-25 mg Tablet] Gabapentin [Gralise] 300 mg PO TID 05/05/20 05/05/20 History Methadone [Dolophine -] 110 mg PO DAILY 05/05/20 05/05/20 History Venlafaxine HCl ER [Effexor Xr -] 37.5 mg PO DAILY 05/05/20 05/05/20 History Active Medications Generic Name Dose Route Start Last Admin Trade Name Freq PRN Reason Stop Dose Admin Albuterol Sulfate 2 puff 05/03/20 19:56 Ventolin Hfa Inhaler - IH Q6H PRN SHORT OF BREATH/WHEEZING Calcium Carbonate 650 mg 05/04/20 02:49 05/05/20 10:47 Calcium Carbonate - PO 650 mg DAILY PRN Administration DYSPEPSIA Chlorhexidine Gluconate 1 applic 05/03/20 22:00 05/04/20 22:30 Hibiclens For Decolonization - TP 1 applic HS DEEPAK Administration Enoxaparin Sodium 40 mg 05/04/20 10:00 05/05/20 10:46 Lovenox - SQ 40 mg DAILY DEEPAK Administration Folic Acid 1 mg 05/04/20 10:00 05/05/20 10:47 Folic Acid - PO 1 mg DAILY DEEPAK Administration Piperacillin Sod/Tazobactam 50 mls @ 100 mls/hr 05/04/20 18:00 05/05/20 01:55 Sod 3.375 gm/ Dextrose IVPB 100 mls/hr Q8H-IV DEEPAK Administration Protocol Multivitamins/Minerals/Vitamin C 1 tab 05/04/20 10:00 05/05/20 10:47 Tab-A-Vit - PO 1 tab DAILY DEEPAK Administration Mupirocin 1 applic 05/03/20 22:00 05/05/20 10:56 Bactroban Ointment (For Decolonization) - NS 05/08/20 21:59 Not Given BID DEEPAK Pantoprazole Sodium 20 mg 05/04/20 07:00 05/05/20 06:51 Protonix - PO 20 mg ACBK DEEPAK Administration Thiamine HCl 100 mg 05/04/20 10:00 05/05/20 10:48 Vitamin B1 - PO 100 mg DAILY DEEPAK Administration Vital Signs (72 hours) 05/02/20 05/02/20 05/02/20 21:15 21:30 22:06 Temperature 96.0 F L Pulse Rate 39 L Pulse Rate [ 42 L 42 L Apical] Respiratory 8 L 8 L 14 Rate Blood Pressure 100/60 Blood Pressure 102/62 [Right Arm] O2 Sat by Pulse 97 97 97 Oximetry (%) 05/02/20 05/03/20 05/03/20 22:52 01:12 01:55 Temperature Pulse Rate Pulse Rate [ 43 L 46 L 87 Apical] Respiratory 12 18 Rate Blood Pressure Blood Pressure 90/66 73/48 L [Right Arm] O2 Sat by Pulse 94 L 96 Oximetry (%) 05/03/20 05/03/20 05/03/20 02:10 03:14 06:57 Temperature Pulse Rate Pulse Rate [ 71 46 L Apical] Respiratory 18 Rate Blood Pressure Blood Pressure 187/152 H 102/61 105/69 [Right Arm] O2 Sat by Pulse 96 Oximetry (%) 05/03/20 05/03/20 05/03/20 12:11 13:00 14:56 Temperature 96.7 F L Pulse Rate 42 L Pulse Rate [ 38 L 36 L Apical] Respiratory 13 Rate Blood Pressure 88/57 L Blood Pressure 87/60 L 99/68 [Right Arm] O2 Sat by Pulse 100 100 100 Oximetry (%) 05/03/20 05/03/20 05/03/20 15:18 15:24 15:53 Temperature Pulse Rate 40 L 36 L Pulse Rate [ 40 L Apical] Respiratory 16 12 11 Rate Blood Pressure 112/51 L 84/54 L Blood Pressure 92/58 L [Right Arm] O2 Sat by Pulse 100 100 100 Oximetry (%) 05/03/20 05/03/20 05/03/20 16:02 17:00 18:00 Temperature Pulse Rate 39 L 38 L 46 L Pulse Rate [ Apical] Respiratory 11 11 15 Rate Blood Pressure 79/60 L 89/57 L 91/76 Blood Pressure [Right Arm] O2 Sat by Pulse 100 Oximetry (%) 05/03/20 05/03/20 05/03/20 18:30 18:32 18:40 Temperature 97.8 F Pulse Rate 40 L 40 L 40 L Pulse Rate [ Apical] Respiratory 14 13 Rate Blood Pressure 75/46 L 74/41 L 74/41 L Blood Pressure [Right Arm] O2 Sat by Pulse 100 Oximetry (%) 05/03/20 05/03/20 05/03/20 18:57 19:00 19:30 Temperature Pulse Rate 39 L 39 L Pulse Rate [ Apical] Respiratory 13 12 Rate Blood Pressure 84/48 L 83/51 L Blood Pressure [Right Arm] O2 Sat by Pulse 100 100 97 Oximetry (%) 05/03/20 05/03/20 05/03/20 20:00 21:00 21:27 Temperature Pulse Rate 43 L 41 L 40 L Pulse Rate [ Apical] Respiratory 16 12 Rate Blood Pressure 93/54 L 89/46 L 93/60 Blood Pressure [Right Arm] O2 Sat by Pulse 98 98 95 Oximetry (%) 05/03/20 05/03/20 05/03/20 22:30 23:00 23:05 Temperature 97.6 F Pulse Rate 40 L 39 L Pulse Rate [ Apical] Respiratory 16 10 Rate Blood Pressure 101/70 113/59 L Blood Pressure [Right Arm] O2 Sat by Pulse 98 98 98 Oximetry (%) 05/04/20 05/04/20 05/04/20 00:00 00:54 01:00 Temperature Pulse Rate 45 L 49 L 46 L Pulse Rate [ Apical] Respiratory 16 15 Rate Blood Pressure 112/80 139/71 Blood Pressure [Right Arm] O2 Sat by Pulse 96 95 94 L Oximetry (%) 05/04/20 05/04/20 05/04/20 01:05 01:37 02:00 Temperature Pulse Rate 50 L 49 L 48 L Pulse Rate [ Apical] Respiratory 16 Rate Blood Pressure 139/71 121/90 Blood Pressure [Right Arm] O2 Sat by Pulse 98 98 Oximetry (%) 05/04/20 05/04/20 05/04/20 02:30 03:00 03:07 Temperature 98.6 F Pulse Rate 47 L 42 L 65 Pulse Rate [ Apical] Respiratory 16 14 Rate Blood Pressure 128/79 121/63 121/63 Blood Pressure [Right Arm] O2 Sat by Pulse 99 97 Oximetry (%) 05/04/20 05/04/20 05/04/20 03:30 04:00 05:00 Temperature Pulse Rate 48 L 51 L 40 L Pulse Rate [ Apical] Respiratory 16 19 17 Rate Blood Pressure 122/92 130/62 131/78 Blood Pressure [Right Arm] O2 Sat by Pulse 97 98 96 Oximetry (%) 05/04/20 05/04/20 05/04/20 06:00 06:54 09:00 Temperature 98.7 F Pulse Rate 41 L 45 L 54 L Pulse Rate [ Apical] Respiratory 14 17 Rate Blood Pressure 133/85 129/70 Blood Pressure [Right Arm] O2 Sat by Pulse 99 99 100 Oximetry (%) 05/04/20 05/04/20 05/04/20 11:00 13:00 15:00 Temperature Pulse Rate 46 L 40 L 40 L Pulse Rate [ Apical] Respiratory 15 17 20 Rate Blood Pressure 120/75 126/73 132/71 Blood Pressure [Right Arm] O2 Sat by Pulse 97 98 97 Oximetry (%) 05/04/20 05/04/20 05/04/20 17:00 19:00 20:00 Temperature 98.1 F Pulse Rate 38 L 41 L 38 L Pulse Rate [ Apical] Respiratory 18 12 16 Rate Blood Pressure 120/74 139/70 117/64 Blood Pressure [Right Arm] O2 Sat by Pulse 97 100 97 Oximetry (%) 05/04/20 05/04/20 05/05/20 21:00 22:00 00:00 Temperature 98.1 F Pulse Rate 41 L 37 L Pulse Rate [ Apical] Respiratory 14 14 14 Rate Blood Pressure 119/61 131/55 L Blood Pressure [Right Arm] O2 Sat by Pulse 100 96 100 Oximetry (%) 05/05/20 05/05/20 05/05/20 04:00 04:01 06:00 Temperature 98.1 F Pulse Rate 37 L 37 L 35 L Pulse Rate [ Apical] Respiratory 14 14 Rate Blood Pressure 143/75 162/86 Blood Pressure [Right Arm] O2 Sat by Pulse 100 100 100 Oximetry (%) 05/05/20 09:00 Temperature Pulse Rate Pulse Rate [ Apical] Respiratory 14 Rate Blood Pressure Blood Pressure [Right Arm] O2 Sat by Pulse 100 Oximetry (%) - History Source History Provided By: Medical Record - Alcohol/Substance Use Hx Alcohol Use: Yes - Past Medical History Pulmonary: Yes: COPD Hepatobiliary: Yes: Hepatitis C Renal/: Yes: UTI ...LMP: 04/02/20 Psych: Yes: Other (? bipolar/schizophrenia) - Past Surgical History Past Surgical History: Yes: Stent (ureteral) Assessment Plan - Diagnosis (1) Methadone maintenance therapy patient Status: Chronic - Plan Plan: 1. Pt on methadone maintenence, spoke to resident: Lacy Nixon. Dose needs to be verified with pts program. In our records, his program is [facility]. Please document in Methadone verification form in [id number].
--- NOTE | 2020-05-05 12:57 | PN ---
Teaching Attending Note Name of Resident: Lacy Nixon ATTENDING PHYSICIAN STATEMENT I saw and evaluated the patient. I reviewed the resident's note and discussed the case with the resident. I agree with the resident's findings and plan as documented. SUBJECTIVE: Pt seen and examined in the ICU. Remains in sinus bradycardia. Nauseous this AM. Denies shortness of breath, chest pain, lightheadedness, dizziness. OBJECTIVE: Vital Signs Period Temp Pulse Resp BP Sys/Ramesh Pulse Ox Last 24 Hr 98.1 F-98.1 F 35-41 -20 117-162/55-86 96-100 Intake & Output 05/02/20 05/03/20 05/04/20 05/05/20 23:59 23:59 23:59 23:59 Intake Total 150 2416 670 Balance 150 2416 670 Weight 76.204 kg 79.6 kg Gen: NAD at rest Heart: RRR Lung: decreased breath sounds at the bases Abd: soft, nontender Ext: no edema CBC, BMP 05/03/20 12:23 05/04/20 06:00 Active Medications Albuterol Sulfate (Ventolin Hfa Inhaler -) 2 puff IH Q6H PRN PRN Reason: SHORT OF BREATH/WHEEZING Calcium Carbonate (Calcium Carbonate -) 650 mg PO DAILY PRN PRN Reason: DYSPEPSIA Last Admin: 05/05/20 10:47 Dose: 650 mg Documented by: Chlorhexidine Gluconate (Hibiclens For Decolonization -) 1 applic TP HS [facility] Last Admin: 05/04/20 22:30 Dose: 1 applic Documented by: Enoxaparin Sodium (Lovenox -) 40 mg SQ DAILY [facility] Last Admin: 05/05/20 10:46 Dose: 40 mg Documented by: Folic Acid (Folic Acid -) 1 mg PO DAILY DEEPAK Last Admin: 05/05/20 10:47 Dose: 1 mg Documented by: Piperacillin Sod/Tazobactam (Sod 3.375 gm/ Dextrose) 50 mls @ 100 mls/hr IVPB Q8H-IV DEEPAK; Protocol Last Admin: 05/05/20 01:55 Dose: 100 mls/hr Documented by: Multivitamins/Minerals/Vitamin C (Tab-A-Vit -) 1 tab PO DAILY DEEPAK Last Admin: 05/05/20 10:47 Dose: 1 tab Documented by: Mupirocin (Bactroban Ointment (For Decolonization) -) 1 applic NS BID [facility] Stop: 05/08/20 21:59 Last Admin: 05/05/20 10:56 Dose: Not Given Documented by: Pantoprazole Sodium (Protonix -) 20 mg PO ACBK [facility] Last Admin: 05/05/20 06:51 Dose: 20 mg Documented by: Thiamine HCl (Vitamin B1 -) 100 mg PO DAILY [facility] Last Admin: 05/05/20 10:48 Dose: 100 mg Documented by: ASSESSMENT AND PLAN: Sinus Bradycardia Pyelonephritis Sepsis Polysubstance Abuse COPD Hep C Smoker Anemia - decrease methadone dose - continue antibiotics - f/u cultures - can monitor on telemetry
[2020-05-05] MEDS ORDERED: ALBUTEROL SO4 HFA INHALER IH PRN (15:22)
--- NOTE | 2020-05-05 15:31 | PN ---
Physical Exam: SUBJECTIVE: Patient seen and examined. PAtient reports nausea, otherwise no vomiting. Denies fevers, chills, headache, chest pain, SOB, abdominal pain, OBJECTIVE: Vital Signs Temperature 98.1 F 05/05/20 04:00 Pulse Rate 35 L 05/05/20 06:00 Respiratory Rate 14 05/05/20 09:00 Blood Pressure 162/86 05/05/20 06:00 O2 Sat by Pulse Oximetry (%) 100 05/05/20 09:00 GENERAL: The patient is awake, alert, and fully oriented, in no acute distress. NECK: full range of motion, supple. LUNGS: decreased breath sounds on bilateral bases HEART: bradycardic, regular rhythm, S1, S2 ABDOMEN: Soft, nontender, nondistended, normoactive bowel sounds EXTREMITIES: 2+ pulses, warm, well-perfused, no edema. NEUROLOGICAL: Cranial nerves II through XII grossly intact. Normal speech PSYCH: Normal mood, normal affect. SKIN: Warm, dry, normal turgor Laboratory Results - last 24 hr 05/03/20 01:43 COVID-19 (YASMANI) Not detected Active Medications Generic Name Dose Route Start Last Admin Trade Name Freq PRN Reason Stop Dose Admin Albuterol Sulfate 2 puff 05/03/20 19:56 Ventolin Hfa Inhaler - IH Q6H PRN SHORT OF BREATH/WHEEZING Albuterol Sulfate 2 puff 05/05/20 15:22 Ventolin Hfa Inhaler - IH Q4H PRN SHORT OF BREATH/WHEEZING Calcium Carbonate 650 mg 05/04/20 02:49 05/05/20 10:47 Calcium Carbonate - PO 650 mg DAILY PRN Administration DYSPEPSIA Chlorhexidine Gluconate 1 applic 05/03/20 22:00 05/04/20 22:30 Hibiclens For Decolonization - TP 1 applic HS DEEPAK Administration Enoxaparin Sodium 40 mg 05/04/20 10:00 05/05/20 10:46 Lovenox - SQ 40 mg DAILY DEEPAK Administration Folic Acid 1 mg 05/04/20 10:00 05/05/20 10:47 Folic Acid - PO 1 mg DAILY DEEPAK Administration Piperacillin Sod/Tazobactam 50 mls @ 100 mls/hr 05/04/20 18:00 05/05/20 01:55 Sod 3.375 gm/ Dextrose IVPB 100 mls/hr Q8H-IV DEEPAK Administration Protocol Methadone HCl 55 mg 05/06/20 10:00 Dolophine - PO DAILY DEEPAK Multivitamins/Minerals/Vitamin C 1 tab 05/04/20 10:00 05/05/20 10:47 Tab-A-Vit - PO 1 tab DAILY DEEPAK Administration Mupirocin 1 applic 05/03/20 22:00 05/05/20 10:56 Bactroban Ointment (For Decolonization) - NS 05/08/20 21:59 Not Given BID DEEPAK Non-Formulary Medication 300 mg 05/05/20 22:00 Gabapentin [Gralise] PO TID DEEPAK Pantoprazole Sodium 20 mg 05/04/20 07:00 05/05/20 06:51 Protonix - PO 20 mg ACBK DEEPAK Administration Thiamine HCl 100 mg 05/04/20 10:00 05/05/20 10:48 Vitamin B1 - PO 100 mg DAILY DEEPAK Administration ASSESSMENT/PLAN: Patient is a 45 yo F presented to ED from [facility] because of abnormal EKG showing bradycardia and prolonged QT. In ED became hypotensive and narcan and atropine were given. Patient is admitted to ICU for Sepsis, now resolved and transferred medical floor. #Bradycardia -likely 2/2 multiple medications including opioid intoxication, Klonopin, XAnax -will give klonopin at slower dose prn, hold xanax and give half dose of methadone -EKG done today, QTc 450s -avoid QT prolonging agents -Echo - mildly dilated, global hypokinesia with moderately decreased systolic function, EF 30%, pseudonormalization inflow pattern, RV decreased systolic function, mildly dilated LA, Mild MR, Trace TR with normal RVSP -Cardiology (Dr. Bright) consulted. REcommendations appreciated. #Sepsis 2/2 UTI/pyelonephritis, improving -Continue IV Zosyn -Blood cx, urine cx unremarkable -CT abdomen/pelvis: mild to moderate right hydronephrosis, right ureteral stent intact, b/l kidneys consistent with pyelonephritis. -ID consulted. Recommendations appreciated. #Polysubstance abuse - CIWA, COWS monitor closely - avoid ativan, librium given HR. avoid MTD bc of QTc - thiamine, folic acid, IVF - utox + MTD, BZO, cocaine - seizure precautions - fall precautions #Hx of HIV -continue home Tivicay and Descovy #COPD -continue albuterol IH prn #FEN -Not on any standing fluids -Electrolytes wnl, routine bmp monitoring -Sodium restricted diet #Prophylaxis -Lovenox 40mg sq daily #Disposition -full code -tele monitoring Visit type - Emergency Visit Emergency Visit: Yes ED Registration Date: 05/03/20 Care time: The patient presented to the Emergency Department on the above date and was hospitalized for further evaluation of their emergent condition. - New Patient This patient is new to me today: Yes Date on this admission: 05/05/20 - Critical Care Critical Care patient: No ATTENDING PHYSICIAN STATEMENT I saw and evaluated the patient. I reviewed the resident's note and discussed the case with the resident. I agree with the resident's findings and plan as documented. SUBJECTIVE: OBJECTIVE: ASSESSMENT AND PLAN:
[2020-05-05] MEDS ORDERED: clonazePAM 2 MG TABLET PO ONE (16:16)
[2020-05-05] MEDS ORDERED: SODIUM CHLORIDE 1,000 ML IV SCH (16:30)
[2020-05-05] MEDS ORDERED: clonazePAM 0.5 MG TABLET PO PRN (16:59)
[2020-05-05] MEDS: DOLUTEGRAVIR SODIUM 50 MG TABLET (NON-FORMULARY) PO SCH (18:12)
[2020-05-05] MEDS: EMTRICITABINE/TENOFOV ALAFENAM (DESCOVY) TABLET PO SCH (18:12)
[2020-05-05] MEDS: LISINOPRIL 10 MG TABLET (FP) PO SCH (18:22)
[2020-05-05] MEDS ORDERED: MELATONIN 5 MG TABLETS PO PRN (19:48)
[2020-05-05] MEDS: hydrALAZINE HCL 10 MG TABLET PO SCH (21:46)
[2020-05-05] MEDS: CHLORHEXIDINE GLUCONATE 4% CLEANSER FOR DECOLONIZATION TP SCH (21:46)
[2020-05-05] MEDS ORDERED: GABAPENTIN 300 MG CAPSULE PO SCH (22:00)
[2020-05-06] MEDS ORDERED: DEXTROSE 5%-WATER - 50 ML IVPB ONE ×3 (01:47→17:16)
[2020-05-06] MEDS ORDERED: PIPERACILLIN/TAZOBACTAM 3.375 GM VIAL IVPB ONE ×3 (01:47→17:15)
[2020-05-06] MEDS: PIPERACILLIN/TAZOB 3.375 GM 3.375 GM in DEXTROSE 5%-WATER - 50 ML IVPB SCH ×3 (02:02→17:25)
[2020-05-06] MEDS: hydrALAZINE HCL 10 MG TABLET PO SCH ×3 (05:58→21:10)
[2020-05-06] MEDS: PANTOPRAZOLE 20 MG TABLET PO SCH (05:59)
--- NOTE | 2020-05-06 07:14 | PN ---
Physical Exam: SUBJECTIVE: Patient seen and examined. Complains of nausea, but is able to eat. Also complains of anxiety due to not getting Klonipin. Denies fever, chills, shortness of breath, chest pain, abdominal pain. OBJECTIVE: Vital Signs Period Temp Pulse Resp BP Sys/Ramesh Pulse Ox Last 24 Hr 97.6 F-98.1 F 35-48 12-17 145-161/77-94 98-100 GENERAL: Pt somnolent, not in acute distress HEENT: NCAT, EOMI, moist mucus membranes, no nasal exudates. LUNGS: Breath sounds equal, clear to auscultation bilaterally, no wheezes HEART: Bradycardic, regular rhythm. S1, S2, no murmurs. ABDOMEN: Soft, nontender, nondistended, bowel sounds present in all 4 quadrants. EXTREMITIES: warm, well-perfused, no edema. SKIN: Warm, dry Laboratory Last Values WBC 3.6 K/mm3 (4.0-10.0) L 05/03/20 12:23 RBC 3.34 M/mm3 (3.60-5.2) L 05/03/20 12:23 Hgb 9.7 GM/dL (10.7-15.3) L 05/03/20 12:23 Hct 30.0 % (32.4-45.2) L 05/03/20 12:23 MCV 89.9 fl (80-96) 05/03/20 12:23 MCH 29.0 pg (25.7-33.7) 05/03/20 12:23 MCHC 32.2 g/dl (32.0-36.0) 05/03/20 12:23 RDW 16.2 % (11.6-15.6) H 05/03/20 12:23 Plt Count 150 K/MM3 (134-434) 05/03/20 12:23 MPV 7.8 fl (7.5-11.1) 05/03/20 12:23 Absolute Neuts (auto) 1.7 K/mm3 (1.5-8.0) 05/03/20 12:23 Neutrophils % 47.5 % (42.8-82.8) D 05/03/20 12:23 Lymphocytes % 36.8 % (8-40) D 05/03/20 12:23 Monocytes % 11.1 % (3.8-10.2) H 05/03/20 12:23 Eosinophils % 3.6 % (0-4.5) 05/03/20 12:23 Basophils % 1.0 % (0-2.0) 05/03/20 12:23 Nucleated RBC % 0 % (0-0) 05/03/20 12:23 PT with INR 10.20 SEC (9.7-13.0) 05/04/20 06:00 INR 0.87 (0.83-1.09) 05/04/20 06:00 Anticoagulation Therapy No Result Required. 05/03/20 18:10 Puncture Site Right radial 05/03/20 18:10 Patient Temperature No Result Required. 05/03/20 18:10 ABG pH 7.256 (7.350-7.450) L 05/03/20 18:10 ABG pCO2 50.30 mmHg (35-45) H 05/03/20 18:10 ABG pO2 127.8 mmHg (80-100) H 05/03/20 18:10 ABG HCO3 21.9 mmol/L (22-27) L 05/03/20 18:10 ABG O2 Sat (Measured) 98.1 mmHg (95-98) H 05/03/20 18:10 ABG O2 Content 97.5 % vol 05/03/20 18:10 ABG Base Excess -5.3 mmol/L (-2-2) L 05/03/20 18:10 Jeff Test Positive 05/03/20 18:10 Patient On Oxygen Yes 05/03/20 18:10 O2 Delivery Device Nasal 05/03/20 18:10 Oxygen Flow Rate 1 lt 05/03/20 18:10 Vent Mode No Result Required. 05/03/20 18:10 Vent Rate No Result Required. 05/03/20 18:10 Mechanical Rate No Result Required. 05/03/20 18:10 PEEP No Result Required. 05/03/20 18:10 Pressure Support Vent No Result Required. 05/03/20 18:10 Sodium 141 mmol/L (136-145) 05/04/20 06:00 Potassium 4.2 mmol/L (3.5-5.1) 05/04/20 06:00 Chloride 110 mmol/L (98-107) H 05/04/20 06:00 Carbon Dioxide 25 mmol/L (21-32) 05/04/20 06:00 Anion Gap 5 MMOL/L (8-16) L 05/04/20 06:00 BUN 16.8 mg/dL (7-18) 05/04/20 06:00 Creatinine 0.8 mg/dL (0.55-1.3) 05/04/20 06:00 Est GFR (CKD-EPI)AfAm 104.65 05/04/20 06:00 Est GFR (CKD-EPI)NonAf 90.30 05/04/20 06:00 Random Glucose 67 mg/dL (74-106) L 05/04/20 06:00 Calcium 8.2 mg/dL (8.5-10.1) L 05/04/20 06:00 Phosphorus 2.5 mg/dL (2.5-4.9) 05/04/20 06:00 Magnesium 1.8 mg/dL (1.8-2.4) 05/04/20 06:00 Total Bilirubin 0.7 mg/dL (0.2-1) 05/04/20 06:00 AST 57 U/L (15-37) H 05/04/20 06:00 ALT 38 U/L (13-61) 05/04/20 06:00 Alkaline Phosphatase 90 U/L (45-117) 05/04/20 06:00 Troponin I < 0.02 ng/ml (0.00-0.05) 05/04/20 06:00 Total Protein 6.3 g/dl (6.4-8.2) L 05/04/20 06:00 Albumin 2.4 g/dl (3.4-5.0) L 05/04/20 06:00 TSH 0.53 uIU/ml (0.358-3.74) 05/03/20 12:23 Serum , Qual Negative 05/03/20 01:00 Urine Color Yellow 05/03/20 03:37 Urine Appearance Cloudy 05/03/20 03:37 Urine pH 6.0 (5.0-8.0) 05/03/20 03:37 Ur Specific [place] 1.007 (1.010-1.035) L 05/03/20 03:37 Urine Protein 2+ (NEGATIVE) H 05/03/20 03:37 Urine Glucose (UA) Negative (NEGATIVE) 05/03/20 03:37 Urine Ketones Negative (NEGATIVE) 05/03/20 03:37 Urine Blood 3+ (NEGATIVE) H 05/03/20 03:37 Urine Nitrite Negative (NEGATIVE) 05/03/20 03:37 Urine Bilirubin Negative (NEGATIVE) 05/03/20 03:37 Urine Urobilinogen 0.2 mg/dL (0.2-1.0) 05/03/20 03:37 Ur Leukocyte Esterase 2+ (NEGATIVE) H 05/03/20 03:37 Urine WBC (Auto) 171 /uL (0-25.8) 05/03/20 03:37 Urine RBC (Auto) 106 /uL (0-23.9) 05/03/20 03:37 Urine Casts (Auto) 6 /uL (0-3.1) 05/03/20 03:37 U Epithel Cells (Auto) >36 /uL (0-25.1) 05/03/20 03:37 Urine Bacteria (Auto) 44 /uL (0-1359) 05/03/20 03:37 Opiates Screen Negative ng/ml (NIAQSI=686) 05/03/20 03:37 Methadone Screen Positive ng/ml (RDOVPE=189) A* 05/03/20 03:37 Barbiturate Screen Negative ng/ml (ILHOGK=004) 05/03/20 03:37 Phencyclidine Screen Negative ng/ml (CUTOFF=25) 05/03/20 03:37 Ur Amphetamines Screen Negative ng/ml (ORBYAB=305) 05/03/20 03:37 MDMA (Ecstasy) Screen Negative ng/ml (ZHSKKM=632) 05/03/20 03:37 Benzodiazepines Screen Positive ng/ml (YNQUBA=478) A* 05/03/20 03:37 Cocaine Screen Positive ng/ml (RANWAJ=798) A* 05/03/20 03:37 U Marijuana (THC) Screen Negative ng/ml (CUTOFF=50) 05/03/20 03:37 COVID-19 (YASMANI) Not detected (Not Detected) 05/03/20 01:43 Active Medications Albuterol Sulfate (Ventolin Hfa Inhaler -) 2 puff IH Q4H PRN PRN Reason: SHORT OF BREATH/WHEEZING Calcium Carbonate (Calcium Carbonate -) 650 mg PO DAILY PRN PRN Reason: DYSPEPSIA Last Admin: 05/05/20 10:47 Dose: 650 mg Documented by: Chlorhexidine Gluconate (Hibiclens For Decolonization -) 1 applic TP HS [facility] Last Admin: 05/05/20 21:46 Dose: Not Given Documented by: Enoxaparin Sodium (Lovenox -) 40 mg SQ DAILY [facility] Last Admin: 05/05/20 10:46 Dose: 40 mg Documented by: Folic Acid (Folic Acid -) 1 mg PO DAILY [facility] Last Admin: 05/05/20 10:47 Dose: 1 mg Documented by: Hydralazine HCl (Apresoline -) 10 mg PO TID [facility] Last Admin: 05/06/20 05:58 Dose: 10 mg Documented by: Piperacillin Sod/Tazobactam (Sod 3.375 gm/ Dextrose) 50 mls @ 100 mls/hr IVPB Q8H-IV [facility]; Protocol Last Admin: 05/06/20 02:02 Dose: 100 mls/hr Documented by: Lisinopril (Prinivil) 10 mg PO DAILY [facility] Last Admin: 05/05/20 18:22 Dose: 10 mg Documented by: Melatonin (Melatonin) 10 mg PO PRN PRN Reason: INSOMNIA Methadone HCl (Dolophine -) 55 mg PO DAILY [facility] Multivitamins/Minerals/Vitamin C (Tab-A-Vit -) 1 tab PO DAILY [facility] Last Admin: 05/05/20 10:47 Dose: 1 tab Documented by: Mupirocin (Bactroban Ointment (For Decolonization) -) 1 applic NS BID [facility] Stop: 05/08/20 21:59 Last Admin: 05/05/20 21:46 Dose: Not Given Documented by: Pantoprazole Sodium (Protonix -) 20 mg PO ACBK [facility] Last Admin: 05/06/20 05:59 Dose: 20 mg Documented by: Thiamine HCl (Vitamin B1 -) 100 mg PO DAILY [facility] Last Admin: 05/05/20 10:48 Dose: 100 mg Documented by: ASSESSMENT/PLAN: 45 yo F PMH of COPD, hepatitis C, polysubstance abuse (hx of cocaine, heroine, alcohol & marijuana use), seizure disorder presented to ED from [facility] because of abnormal EKG showing bradycardia and prolonged QT and found to have hypotension and bradycardia. In the ED, pt was given narcan and atropine. She is currently admitted to ICU for Sepsis secondary to pyelonephritis. Neuro/Psych: Polysubstance abuse Seizure disorder -Alert and oriented -CIWA 5, COWS 2 -avoid ativan, librium given bradycardia. Caution with methadone because prolonged QTc. -decrease methadone dose -d/c gabapentin, given bradycardia -Hold Klonipin, until HR >60 -Avoid medication that prolongs QTc. -c/w thiamine, folic acid, IVF -Utox positive for methadone, benzodiazepines, cocaine -seizure precautions, fall precautions -Addiction medicine consulted. Will follow recommendations regarding methadone and Klonipin. -Spoke to [facility] Meth[facility], confirmed with Simi Cook, pt takes 110mg qD. Last medicated on 05/02/2020. Cardio: Bradycardia secondary to opioid intoxication -Considered possible BB toxicity (hypotensive, bradycardia, hypoglycemic). Gave 2mg glucagon w/o response. -Cardiology consulted. Recommended IVF resuscitation, 24h Holter, echo. D/c gabapentin, klonopin, f/u HR. Start lisinopril and Aldactone. C/w hydralazine; add Imdur. -Echo done 05/05 showed mildly dilated LV, global hypokinesia, EF 30%, decrease systolic function. -EKG shows sinus bradycardia GI Nausea -Avoid zofran due to QTc. Recommend Compazine or Tigan for nausea. -c/w calcium carbonate ID: Sepsis secondary to Pyelonephritis -CT abdomen/pelvis: mild to moderate right hydronephrosis, right ureteral stent intact, b/l kidneys consistent with pyelonephritis. -ID consulted. Recommended continue zosyn (05/04) -f/u cultures Pulm: No acute issues -saturating 100% on RA, supplemental O2 to keep SpO2 >92% -c/w Albuterol PRN FEN -No standing fluids -replete electrolytes as needed -Full diet PPx -DVT: Lovenox 40 sq -GI: PPI Dispo: Transfer to tele Visit type - Emergency Visit Emergency Visit: Yes ED Registration Date: 05/03/20 Care time: The patient presented to the Emergency Department on the above date and was hospitalized for further evaluation of their emergent condition. - New Patient This patient is new to me today: No - Critical Care Critical Care patient: Yes Total Critical Care Time (in minutes): 36 Critical Care Statement: The care of this patient involved high complexity decision making to prevent further life threatening deterioration of the patient's condition and/or to evaluate & treat vital organ system(s) failure or risk of failure. ATTENDING PHYSICIAN STATEMENT I saw and evaluated the patient. I reviewed the resident's note and discussed the case with the resident. I agree with the resident's findings and plan as documented. SUBJECTIVE: OBJECTIVE: ASSESSMENT AND PLAN:
[2020-05-06] MEDS ORDERED: PT OWN MED DRAWER 7, Y5N ONE (09:23)
[2020-05-06] MEDS: EMTRICITABINE/TENOFOV ALAFENAM (DESCOVY) TABLET PO SCH (09:33)
[2020-05-06] MEDS: ENOXAPARIN NA (PORCINE) 40 MG/0.4 ML DISP.SYRIN SQ SCH (09:33)
[2020-05-06] MEDS: THIAMINE HCL 100 MG TABLET (FP) PO SCH (09:34)
[2020-05-06] MEDS: FOLIC ACID 1 MG TABLET (FP) PO SCH (09:34)
[2020-05-06] MEDS: DOLUTEGRAVIR SODIUM 50 MG TABLET (NON-FORMULARY) PO SCH (09:35)
[2020-05-06] MEDS: LISINOPRIL 10 MG TABLET (FP) PO SCH (09:35)
[2020-05-06] MEDS: MULTIVITAMINS (DAILY MVI) TABLET (FP) PO SCH (09:35)
[2020-05-06] MEDS ORDERED: METHADONE HCL 10 MG TABLET (FOR DETOX USE ONLY) PO ONE (09:37)
[2020-05-06] MEDS ORDERED: METHADONE HCL 10 MG TABLET (FOR DETOX USE ONLY) PO SCH (10:00)
[2020-05-06] MEDS ORDERED: METHADONE HCL 40 MG DISPERSABLE TABLET ONE (10:08)
[2020-05-06] MEDS ORDERED: METHADONE HCL 5 MG TABLET ONE (10:08)
[2020-05-06] MEDS ORDERED: METHADONE HCL 10 MG TABLET ONE (10:08)
[2020-05-06] MEDS ORDERED: METHADONE 40 MG, METHADONE 10 MG, METHADONE 5 MG PO ONE (10:15)
[2020-05-06] MEDS: MUPIROCIN 2% TOPICAL OINTMENT FOR DECOLONIZATION NS SCH ×2 (10:15→21:10)
--- NOTE | 2020-05-06 12:19 | PN ---
Progress Note, Physician History of Present Illness: stable no new issues - Current Medication List Current Medications: Active Medications Albuterol Sulfate (Ventolin Hfa Inhaler -) 2 puff IH Q4H PRN PRN Reason: SHORT OF BREATH/WHEEZING Calcium Carbonate (Calcium Carbonate -) 650 mg PO DAILY PRN PRN Reason: DYSPEPSIA Last Admin: 05/05/20 10:47 Dose: 650 mg Documented by: Chlorhexidine Gluconate (Hibiclens For Decolonization -) 1 applic TP HS [facility]PL[facility] BY [facility] Last Admin: 05/05/20 21:46 Dose: Not Given Documented by: Enoxaparin Sodium (Lovenox -) 40 mg SQ DAILY [facility]PL[facility] BY [facility] Last Admin: 05/06/20 09:33 Dose: 40 mg Documented by: Folic Acid (Folic Acid -) 1 mg PO DAILY [facility] Last Admin: 05/06/20 09:34 Dose: 1 mg Documented by: Hydralazine HCl (Apresoline -) 10 mg PO TID [facility]PL[facility] BY [facility] Last Admin: 05/06/20 05:58 Dose: 10 mg Documented by: Piperacillin Sod/Tazobactam (Sod 3.375 gm/ Dextrose) 50 mls @ 100 mls/hr IVPB Q8H-IV [facility]; Protocol Last Admin: 05/06/20 09:36 Dose: 100 mls/hr Documented by: Lisinopril (Prinivil) 10 mg PO DAILY [facility] Last Admin: 05/06/20 09:35 Dose: 10 mg Documented by: Melatonin (Melatonin) 10 mg PO HS PRN PRN Reason: INSOMNIA Methadone HCl 40 mg/ Methadone (HCl 10 mg/ Methadone HCl 5 mg) 55 mg PO 0600 [facility]PLACED BY [facility] Multivitamins/Minerals/Vitamin C (Tab-A-Vit -) 1 tab PO DAILY [facility] BY [facility] Last Admin: 05/06/20 09:35 Dose: 1 tab Documented by: Mupirocin (Bactroban Ointment (For Decolonization) -) 1 applic NS BID REPLACED BY [facility] Stop: 05/08/20 21:59 Last Admin: 05/06/20 10:15 Dose: Not Given Documented by: Pantoprazole Sodium (Protonix -) 20 mg PO ACBK REPLACED BY [facility] Last Admin: 05/06/20 05:59 Dose: 20 mg Documented by: Thiamine HCl (Vitamin B1 -) 100 mg PO DAILY REPL[facility] BY [facility] Last Admin: 05/06/20 09:34 Dose: 100 mg Documented by: - Objective Vital Signs: Vital Signs Temperature 98.1 F 05/06/20 09:00 Pulse Rate 47 L 05/06/20 10:18 Respiratory Rate 16 05/06/20 09:00 Blood Pressure 153/94 05/06/20 09:00 O2 Sat by Pulse Oximetry (%) 99 05/06/20 10:18 Constitutional: Yes: No Distress, Calm, Obese Neck: Yes: Supple Cardiovascular: Yes: Regular Rate and Rhythm Respiratory: Yes: Regular, CTA Bilaterally Gastrointestinal: Yes: Normal Bowel Sounds, Soft Musculoskeletal: Yes: WNL Extremities: Yes: Other Neurological: Yes: Alert Psychiatric: Yes: Alert Labs: CBC, BMP 05/03/20 12:23 05/04/20 06:00 INR, PTT INR 0.87 (0.83-1.09) 05/04/20 06:00 Assessment/Plan Problem List - Problems (1) Hypotension Code(s): I95.9 - HYPOTENSION, UNSPECIFIED Qualifiers: Hypotension type: unspecified hypotension type Qualified Code(s): I95.9 - Hypotension, unspecified (2) Pyelonephritis Code(s): N12 - TUBULO-INTERSTITIAL NEPHRITIS, NOT SPCF ACUTE OR CHRONIC (3) Bradycardia Code(s): R00.1 - BRADYCARDIA, UNSPECIFIED (4) Alcohol dependence Code(s): F10.20 - ALCOHOL DEPENDENCE, UNCOMPLICATED (5) COPD (chronic obstructive pulmonary disease) Code(s): J44.9 - CHRONIC OBSTRUCTIVE PULMONARY DISEASE, UNSPECIFIED (6) Cocaine dependence Code(s): F14.20 - COCAINE DEPENDENCE, UNCOMPLICATED (7) Hepatitis C Code(s): B19.20 - UNSPECIFIED VIRAL HEPATITIS C WITHOUT HEPATIC COMA Qualifiers: Viral hepatitis chronicity: chronic Hepatic coma status: without hepatic coma Qualified Code(s): B18.2 - Chronic viral hepatitis C (8) History of COPD Code(s): Z87.09 - PERSONAL HISTORY OF OTHER DISEASES OF THE RESPIRATORY SYSTEM (9) Methadone maintenance therapy patient Code(s): F11.20 - OPIOID DEPENDENCE, UNCOMPLICATED (10) Nicotine dependence Code(s): F17.200 - NICOTINE DEPENDENCE, UNSPECIFIED, UNCOMPLICATED Assessment/Plan Bradycardia Hypotension Pyelonephritis Rt hydronephrosis s/p ureteral stent Polysubstance abuse AMY Hx of Seizure d.o. COPD Hepatitis C plan continue abx rest as per the team
--- NOTE | 2020-05-06 12:44 | EKG ---
Test Reason : Blood Pressure : / mmHG Vent. Rate : 045 BPM Atrial Rate : 045 BPM P-R Int : 186 ms QRS Dur : 092 ms QT Int : 512 ms P-R-T Axes : 067 058 040 degrees QTc Int : 442 ms SINUS BRADYCARDIA OTHERWISE NORMAL ECG WHEN COMPARED WITH ECG OF 05-MAY-2020 09:48, NO SIGNIFICANT CHANGE WAS FOUND Confirmed by MD LIOR, ANGELINA ([id number]) on 05/06/2020 12:43:22 PM Referred By: Genny CASTILLO Confirmed By:ANGELINA TINAJERO MD
--- NOTE | 2020-05-06 12:45 | PN ---
Teaching Attending Note Name of Resident: Lacy Nixon ATTENDING PHYSICIAN STATEMENT I saw and evaluated the patient. I reviewed the resident's note and discussed the case with the resident. I agree with the resident's findings and plan as documented. SUBJECTIVE: Pt seen and examined in the ICU. Remains in sinus bradycardia. Still some nause a. Denies shortness of breath, chest pain, lightheadedness, dizziness. OBJECTIVE: Vital Signs Period Temp Pulse Resp BP Sys/Ramesh Pulse Ox Last 24 Hr 97.6 F-98.1 F 35-48 12-17 145-161/77-94 98-100 Intake & Output 05/03/20 05/04/20 05/05/20 05/06/20 23:59 23:59 23:59 23:59 Intake Total 150 2416 1170 50 Balance 150 2416 1170 50 Weight 79.6 kg 79.379 kg Gen: NAD at rest Heart: RRR Lung: decreased breath sounds at the bases Abd: soft, nontender Ext: no edema CBC, BMP 05/03/20 12:23 05/04/20 06:00 Active Medications Albuterol Sulfate (Ventolin Hfa Inhaler -) 2 puff IH Q4H PRN PRN Reason: SHORT OF BREATH/WHEEZING Calcium Carbonate (Calcium Carbonate -) 650 mg PO DAILY PRN PRN Reason: DYSPEPSIA Last Admin: 05/05/20 10:47 Dose: 650 mg Documented by: Chlorhexidine Gluconate (Hibiclens For Decolonization -) 1 applic TP HS [facility] Last Admin: 05/05/20 21:46 Dose: Not Given Documented by: Enoxaparin Sodium (Lovenox -) 40 mg SQ DAILY [facility] Last Admin: 05/06/20 09:33 Dose: 40 mg Documented by: Folic Acid (Folic Acid -) 1 mg PO DAILY [facility] Last Admin: 05/06/20 09:34 Dose: 1 mg Documented by: Hydralazine HCl (Apresoline -) 10 mg PO TID [facility] Last Admin: 05/06/20 05:58 Dose: 10 mg Documented by: Piperacillin Sod/Tazobactam (Sod 3.375 gm/ Dextrose) 50 mls @ 100 mls/hr IVPB Q8H-IV [facility]; Protocol Last Admin: 05/06/20 09:36 Dose: 100 mls/hr Documented by: Lisinopril (Prinivil) 10 mg PO DAILY [facility] Last Admin: 05/06/20 09:35 Dose: 10 mg Documented by: Melatonin (Melatonin) 10 mg PO HS PRN PRN Reason: INSOMNIA Methadone HCl 40 mg/ Methadone (HCl 10 mg/ Methadone HCl 5 mg) 55 mg PO 0600 [facility] Multivitamins/Minerals/Vitamin C (Tab-A-Vit -) 1 tab PO DAILY [facility] Last Admin: 05/06/20 09:35 Dose: 1 tab Documented by: Mupirocin (Bactroban Ointment (For Decolonization) -) 1 applic NS BID [facility] Stop: 05/08/20 21:59 Last Admin: 05/06/20 10:15 Dose: Not Given Documented by: Pantoprazole Sodium (Protonix -) 20 mg PO ACBK [facility] Last Admin: 05/06/20 05:59 Dose: 20 mg Documented by: Thiamine HCl (Vitamin B1 -) 100 mg PO DAILY [facility] Last Admin: 05/06/20 09:34 Dose: 100 mg Documented by: ASSESSMENT AND PLAN: Sinus Bradycardia Pyelonephritis Sepsis Polysubstance Abuse COPD Hep C Smoker Anemia - decrease methadone dose, minimize klonopin - continue antibiotics - f/u cultures - can monitor on telemetry
--- NOTE | 2020-05-06 13:13 | PN ---
Progress Note, Physician Chief Complaint: Pt A&Ox3; no chest pain or dyspnea. History of Present Illness: Ms. Persaud is a 45y/o woman with a PMH of alcohol/cocaine/marijuana/ opiates abuse, COPD and Hep C who presents to the ED BIBA from [facility] for bradycardia. Pt is somnolent and unable to contribute to further history. Per [facility] note patient is on methadone maintenance "(reports 110 mg PO daily)." Found to have moderately reduced LVEF on ECHO. - Current Medication List Current Medications: Active Medications Albuterol Sulfate (Ventolin Hfa Inhaler -) 2 puff IH Q4H PRN PRN Reason: SHORT OF BREATH/WHEEZING Calcium Carbonate (Calcium Carbonate -) 650 mg PO DAILY PRN PRN Reason: DYSPEPSIA Last Admin: 05/05/20 10:47 Dose: 650 mg Documented by: Chlorhexidine Gluconate (Hibiclens For Decolonization -) 1 applic TP HS [facility] Last Admin: 05/05/20 21:46 Dose: Not Given Documented by: Enoxaparin Sodium (Lovenox -) 40 mg SQ DAILY [facility] Last Admin: 05/06/20 09:33 Dose: 40 mg Documented by: Folic Acid (Folic Acid -) 1 mg PO DAILY [facility] Last Admin: 05/06/20 09:34 Dose: 1 mg Documented by: Hydralazine HCl (Apresoline -) 10 mg PO TID [facility] Last Admin: 05/06/20 05:58 Dose: 10 mg Documented by: Piperacillin Sod/Tazobactam (Sod 3.375 gm/ Dextrose) 50 mls @ 100 mls/hr IVPB Q8H-IV [facility]; Protocol Last Admin: 05/06/20 09:36 Dose: 100 mls/hr Documented by: Lisinopril (Prinivil) 10 mg PO DAILY [facility] Last Admin: 05/06/20 09:35 Dose: 10 mg Documented by: Melatonin (Melatonin) 10 mg PO HS PRN PRN Reason: INSOMNIA Methadone HCl 40 mg/ Methadone (HCl 10 mg/ Methadone HCl 5 mg) 55 mg PO 0600 [facility] Multivitamins/Minerals/Vitamin C (Tab-A-Vit -) 1 tab PO DAILY [facility] Last Admin: 05/06/20 09:35 Dose: 1 tab Documented by: Mupirocin (Bactroban Ointment (For Decolonization) -) 1 applic NS BID [facility] Stop: 05/08/20 21:59 Last Admin: 05/06/20 10:15 Dose: Not Given Documented by: Pantoprazole Sodium (Protonix -) 20 mg PO ACBK [facility] Last Admin: 05/06/20 05:59 Dose: 20 mg Documented by: Thiamine HCl (Vitamin B1 -) 100 mg PO DAILY [facility] Last Admin: 05/06/20 09:34 Dose: 100 mg Documented by: - Objective Vital Signs: Vital Signs Temperature 98.1 F 05/06/20 09:00 Pulse Rate 47 L 05/06/20 10:18 Respiratory Rate 16 05/06/20 09:00 Blood Pressure 153/94 05/06/20 09:00 O2 Sat by Pulse Oximetry (%) 99 05/06/20 10:18 Constitutional: Yes: Obese Eyes: Yes: WNL HENT: Yes: WNL Neck: Yes: WNL Cardiovascular: Yes: S1, S2 Respiratory: Yes: Regular Gastrointestinal: Yes: Soft ...Rectal Exam: Yes: Deferred Genitourinary: No: Anuria Breast(s): Yes: WNL Musculoskeletal: Yes: Muscle Weakness Extremities: Yes: Cool Edema: No Peripheral Pulses WNL: Yes Integumentary: Yes: WNL Neurological: Yes: Alert, Oriented, Weakness Psychiatric: Yes: Alert, Oriented Labs: CBC, BMP 05/03/20 12:23 05/04/20 06:00 INR, PTT INR 0.87 (0.83-1.09) 05/04/20 06:00 - ....Imaging Chest X-ray: Image Reviewed EKG: Image Reviewed Assessment/Plan urosepsis; bilateral ureteral stents; hydronephrosis HTN asymptomatic bradycardia may be due to Klonopin and gabapeptin QTC prolongation polysubstance abuse ECHO moderately reduced EF ? 30% TNI < 0.02 x 3 Pulmonary nodule Plan Telemetry: sinus rhythm; periods of asymptomatic bradycardia to 30s; appropriate chronotropic response to 80-90 bpm. ABX IVF 24 Holter d/c gabapeptin; klonopin dose reduced (continued at lower dose due to detox); f/u HR. On ELI I; started Aldactone On hydralazine; add Imdur. F/u BP and HR. F/u BUN/Cr, electrolytes, Is and Os, daily weight. check BNP (ordered) CT chest for pulmonary nodules suggested (see pelvic CT). cc time spent 35 min
--- NOTE | 2020-05-06 13:54 | PN ---
Teaching Attending Note Name of Resident: Yumi Negron ATTENDING PHYSICIAN STATEMENT I saw and evaluated the patient. I reviewed the resident's note and discussed the case with the resident. I agree with the resident's findings and plan as documented. SUBJECTIVE: pt seen and examined at bedside OBJECTIVE: Last Vital Signs Temp Pulse Resp BP Pulse Ox 98.1 F 47 L 16 153/94 99 05/06/20 09:00 05/06/20 10:18 05/06/20 09:00 05/06/20 09:00 05/06/20 10:18 GENERAL: Awake, alert, and fully oriented, in no acute distress. HEAD: Normal with no signs of trauma. EYES: Pupils equal, round and reactive to light, extraocular movements intact, sclera anicteric, conjunctiva clear. No lid lag. EARS, NOSE, THROAT: Ears normal, nares patent, oropharynx clear without exudates. Moist mucous membranes. NECK: Normal range of motion, supple without lymphadenopathy, JVD, or masses. LUNGS: Breath sounds equal, clear to auscultation bilaterally. No wheezes, and no crackles. No accessory muscle use. HEART: Regular rate and rhythm, normal S1 and S2 without murmur, rub or gallop. ABDOMEN: Soft, nontender, not distended, normoactive bowel sounds, no guarding, no rebound, no masses. No hepatomegaly or splenomegaly. MUSCULOSKELETAL: Normal range of motion at all joints. No bony deformities or tenderness. No CVA tenderness. UPPER EXTREMITIES: 2+ pulses, warm, well-perfused. No cyanosis. No clubbing. No peripheral edema. LOWER EXTREMITIES: 2+ pulses, warm, well-perfused. No calf tenderness. No peripheral edema. NEUROLOGICAL: Cranial nerves II-XII intact. Normal speech. Normal gait. PSYCHIATRIC: Cooperative. Good eye contact. Appropriate mood and affect. SKIN: Warm, dry, normal turgor, no rashes or lesions noted, normal capillary refill. CBCD WBC 3.6 K/mm3 (4.0-10.0) L 05/03/20 12:23 RBC 3.34 M/mm3 (3.60-5.2) L 05/03/20 12:23 Hgb 9.7 GM/dL (10.7-15.3) L 05/03/20 12:23 Hct 30.0 % (32.4-45.2) L 05/03/20 12:23 MCV 89.9 fl (80-96) 05/03/20 12:23 MCHC 32.2 g/dl (32.0-36.0) 05/03/20 12:23 RDW 16.2 % (11.6-15.6) H 05/03/20 12:23 Plt Count 150 K/MM3 (134-434) 05/03/20 12:23 MPV 7.8 fl (7.5-11.1) 05/03/20 12:23 CMP Sodium 141 mmol/L (136-145) 05/04/20 06:00 Potassium 4.2 mmol/L (3.5-5.1) 05/04/20 06:00 Chloride 110 mmol/L (98-107) H 05/04/20 06:00 Carbon Dioxide 25 mmol/L (21-32) 05/04/20 06:00 Anion Gap 5 MMOL/L (8-16) L 05/04/20 06:00 BUN 16.8 mg/dL (7-18) 05/04/20 06:00 Creatinine 0.8 mg/dL (0.55-1.3) 05/04/20 06:00 Calcium 8.2 mg/dL (8.5-10.1) L 05/04/20 06:00 Total Bilirubin 0.7 mg/dL (0.2-1) 05/04/20 06:00 AST 57 U/L (15-37) H 05/04/20 06:00 ALT 38 U/L (13-61) 05/04/20 06:00 Alkaline Phosphatase 90 U/L (45-117) 05/04/20 06:00 Total Protein 6.3 g/dl (6.4-8.2) L 05/04/20 06:00 Albumin 2.4 g/dl (3.4-5.0) L 05/04/20 06:00 Active Medications Albuterol Sulfate (Ventolin Hfa Inhaler -) 2 puff IH Q4H PRN PRN Reason: SHORT OF BREATH/WHEEZING Calcium Carbonate (Calcium Carbonate -) 650 mg PO DAILY PRN PRN Reason: DYSPEPSIA Last Admin: 05/05/20 10:47 Dose: 650 mg Documented by: Chlorhexidine Gluconate (Hibiclens For Decolonization -) 1 applic TP HS [facility] Last Admin: 05/05/20 21:46 Dose: Not Given Documented by: Enoxaparin Sodium (Lovenox -) 40 mg SQ DAILY [facility] Last Admin: 05/06/20 09:33 Dose: 40 mg Documented by: Folic Acid (Folic Acid -) 1 mg PO DAILY [facility] Last Admin: 05/06/20 09:34 Dose: 1 mg Documented by: Hydralazine HCl (Apresoline -) 10 mg PO TID [facility] Last Admin: 05/06/20 05:58 Dose: 10 mg Documented by: Piperacillin Sod/Tazobactam (Sod 3.375 gm/ Dextrose) 50 mls @ 100 mls/hr IVPB Q8H-IV [facility]; Protocol Last Admin: 05/06/20 09:36 Dose: 100 mls/hr Documented by: Lisinopril (Prinivil) 10 mg PO DAILY [facility] Last Admin: 05/06/20 09:35 Dose: 10 mg Documented by: Melatonin (Melatonin) 10 mg PO HS PRN PRN Reason: INSOMNIA Methadone HCl 40 mg/ Methadone (HCl 10 mg/ Methadone HCl 5 mg) 55 mg PO 0600 [facility] Multivitamins/Minerals/Vitamin C (Tab-A-Vit -) 1 tab PO DAILY [facility] Last Admin: 05/06/20 09:35 Dose: 1 tab Documented by: Mupirocin (Bactroban Ointment (For Decolonization) -) 1 applic NS BID [facility] Stop: 05/08/20 21:59 Last Admin: 05/06/20 10:15 Dose: Not Given Documented by: Pantoprazole Sodium (Protonix -) 20 mg PO ACBK [facility] Last Admin: 05/06/20 05:59 Dose: 20 mg Documented by: Spironolactone (Aldactone -) 25 mg PO DAILY [facility] Thiamine HCl (Vitamin B1 -) 100 mg PO DAILY [facility] Last Admin: 05/06/20 09:34 Dose: 100 mg Documented by: ASSESSMENT AND PLAN: Patient is a 45 yo F presented to ED from [facility] because of abnormal EKG showing bradycardia and prolonged QT. In ED became hypotensive and narcan and atropine were given. Patient is admitted to ICU for Sepsis, now resolved and transferred medical floor. # Sinus Bradycardia due to polysubstance intoxication/abuse - d/c gabapentin, taper clonazepam (hold until HR >60bpm) - decrease methadone dose - daily EKG, monitor QTc - if HR<50 consider external pacemaker - had SI in past, but denies current SI, feels depressed - would ask for psych consult - continue tele Pyelonephritis Sepsis Polysubstance Abuse COPD Hep C HIV Smoker Anemia DVT prophylaxis
[2020-05-06] MEDS: SPIRONOLACTONE 25 MG TABLET PO SCH (14:36)
--- NOTE | 2020-05-06 15:13 | PN ---
Physical Exam: SUBJECTIVE: Patient seen and examined. HR improved to 50-60s today. OBJECTIVE: Vital Signs Temperature 98.1 F 05/06/20 09:00 Pulse Rate 47 L 05/06/20 10:18 Respiratory Rate 16 05/06/20 09:00 Blood Pressure 153/94 05/06/20 09:00 O2 Sat by Pulse Oximetry (%) 99 05/06/20 10:18 GENERAL: The patient is awake, alert, and fully oriented, in no acute distress. NECK: full range of motion, supple. LUNGS: decreased breath sounds on bilateral bases HEART: bradycardic, regular rhythm, S1, S2 ABDOMEN: Soft, nontender, nondistended, normoactive bowel sounds EXTREMITIES: 2+ pulses, warm, well-perfused, no edema. NEUROLOGICAL: Cranial nerves II through XII grossly intact. Normal speech PSYCH: Normal mood, normal affect. SKIN: Warm, dry, normal turgor Active Medications Generic Name Dose Route Start Last Admin Trade Name Freq PRN Reason Stop Dose Admin Albuterol Sulfate 2 puff 05/05/20 15:22 Ventolin Hfa Inhaler - IH Q4H PRN SHORT OF BREATH/WHEEZING Calcium Carbonate 650 mg 05/04/20 02:49 05/05/20 10:47 Calcium Carbonate - PO 650 mg DAILY PRN Administration DYSPEPSIA Chlorhexidine Gluconate 1 applic 05/03/20 22:00 05/05/20 21:46 Hibiclens For Decolonization - TP Not Given HS [facility] Enoxaparin Sodium 40 mg 05/04/20 10:00 05/06/20 09:33 Lovenox - SQ 40 mg DAILY [facility] Administration Folic Acid 1 mg 05/04/20 10:00 05/06/20 09:34 Folic Acid - PO 1 mg DAILY [facility] Administration Hydralazine HCl 10 mg 05/05/20 22:00 05/06/20 14:36 Apresoline - PO 10 mg TID [facility] Administration Piperacillin Sod/Tazobactam 50 mls @ 100 mls/hr 05/04/20 18:00 05/06/20 09:36 Sod 3.375 gm/ Dextrose IVPB 100 mls/hr Q8H-IV [facility] Administration Protocol Lisinopril 10 mg 05/05/20 18:15 05/06/20 09:35 Prinivil PO 10 mg DAILY [facility] Administration Melatonin 10 mg 05/05/20 19:48 Melatonin PO HS PRN INSOMNIA Methadone HCl 40 mg/ Methadone 55 mg 05/07/20 06:00 HCl 10 mg/ Methadone HCl 5 mg PO 0600 [facility] Multivitamins/Minerals/Vitamin C 1 tab 05/04/20 10:00 05/06/20 09:35 Tab-A-Vit - PO 1 tab DAILY [facility] Administration Mupirocin 1 applic 05/03/20 22:00 05/06/20 10:15 Bactroban Ointment (For Decolonization) - NS 05/08/20 21:59 Not Given BID [facility] Pantoprazole Sodium 20 mg 05/04/20 07:00 05/06/20 05:59 Protonix - PO 20 mg ACBK [facility] Administration Spironolactone 25 mg 05/06/20 13:30 05/06/20 14:36 Aldactone - PO 25 mg DAILY [facility] Administration Thiamine HCl 100 mg 05/04/20 10:00 05/06/20 09:34 Vitamin B1 - PO 100 mg DAILY [facility] Administration ASSESSMENT/PLAN: Patient is a 45 yo F presented to ED from [facility] because of abnormal EKG showing bradycardia and prolonged QT. In ED became hypotensive and narcan and atropine were given. Patient is admitted to ICU for Sepsis, now resolved and transferred medical floor. #Bradycardia -likely 2/2 multiple medications including opioid intoxication, Klonopin, XAnax -will hold klonopin, xanax and give half dose of methadone -avoid QT prolonging agents -Echo - mildly dilated, global hypokinesia with moderately decreased systolic fu nction, EF 30%, pseudonormalization inflow pattern, RV decreased systolic function, mildly dilated LA, Mild MR, Trace TR with normal RVSP -tele monitoring -Continue Lisinopril 10mg daily -Aldactone 25mg started -monitor renal function -I&O, daily weights -Cardiology (Dr. Lo) consulted. REcommendations appreciated. #Sepsis 2/2 UTI/pyelonephritis, improving -Continue IV Zosyn -Blood cx, urine cx unremarkable -CT abdomen/pelvis: mild to moderate right hydronephrosis, right ureteral stent intact, b/l kidneys consistent with pyelonephritis. -ID consulted. Recommendations appreciated. #Polysubstance abuse - CIWA, COWS monitor closely - avoid ativan, librium given HR. avoid MTD bc of QTc - thiamine, folic acid, IVF - utox + MTD, BZO, cocaine - seizure precautions - fall precautions #Hx of HIV -continue home Tivicay and Descovy #COPD -continue albuterol IH prn #FEN -Not on any standing fluids -Electrolytes wnl, routine bmp monitoring -Sodium restricted diet #Prophylaxis -Lovenox 40mg sq daily #Disposition -full code -tele monitoring Visit type - Emergency Visit Emergency Visit: Yes ED Registration Date: 05/03/20 Care time: The patient presented to the Emergency Department on the above date and was hospitalized for further evaluation of their emergent condition. - New Patient This patient is new to me today: No - Critical Care Critical Care patient: No ATTENDING PHYSICIAN STATEMENT I saw and evaluated the patient. I reviewed the resident's note and discussed the case with the resident. I agree with the resident's findings and plan as documented. SUBJECTIVE: OBJECTIVE: ASSESSMENT AND PLAN:
[2020-05-06] MEDS: DOCUSATE SODIUM 100 MG CAPSULE (FP) PO SCH (21:10)
[2020-05-06] MEDS: CHLORHEXIDINE GLUCONATE 4% CLEANSER FOR DECOLONIZATION TP SCH (21:10)
[2020-05-07] MEDS ORDERED: PIPERACILLIN/TAZOBACTAM 3.375 GM VIAL IVPB ONE ×3 (01:21→17:37)
[2020-05-07] MEDS ORDERED: DEXTROSE 5%-WATER - 50 ML IVPB ONE ×3 (01:22→17:37)
[2020-05-07] MEDS: PIPERACILLIN/TAZOB 3.375 GM 3.375 GM in DEXTROSE 5%-WATER - 50 ML IVPB SCH ×3 (01:44→17:44)
[2020-05-07] MEDS ORDERED: METHADONE HCL 5 MG TABLET ONE (06:12)
[2020-05-07] MEDS ORDERED: METHADONE HCL 10 MG TABLET ONE (06:12)
[2020-05-07] MEDS ORDERED: METHADONE HCL 40 MG DISPERSABLE TABLET ONE (06:12)
[2020-05-07] MEDS: METHADONE 40 MG, METHADONE 10 MG, METHADONE 5 MG PO SCH (06:18)
[2020-05-07] MEDS: PANTOPRAZOLE 20 MG TABLET PO SCH (06:18)
[2020-05-07] MEDS: hydrALAZINE HCL 10 MG TABLET PO SCH ×3 (06:18→21:58)
--- NOTE | 2020-05-07 10:08 | PN ---
Teaching Attending Note Name of Resident: Yumi Negron ATTENDING PHYSICIAN STATEMENT I saw and evaluated the patient. I reviewed the resident's note and discussed the case with the resident. I agree with the resident's findings and plan as documented. SUBJECTIVE: pt seen and examined at bedside, still feeling fatigued, complains of occasional nausea OBJECTIVE: Last Vital Signs Temp Pulse Resp BP Pulse Ox 97.7 F 47 L 16 154/77 96 05/07/20 06:00 05/07/20 06:00 05/07/20 06:00 05/07/20 06:00 05/07/20 06:00 GENERAL: Awake, alert, and fully oriented, in no acute distress. HEAD: Normal with no signs of trauma. EYES: Pupils equal, round and reactive to light, extraocular movements intact, sclera anicteric, conjunctiva clear. No lid lag. EARS, NOSE, THROAT: Ears normal, nares patent, oropharynx clear without exudates. Moist mucous membranes. NECK: Normal range of motion, supple without lymphadenopathy, JVD, or masses. LUNGS: Breath sounds equal, clear to auscultation bilaterally. No wheezes, and no crackles. No accessory muscle use. HEART: Regular rate and rhythm, normal S1 and S2 without murmur, rub or gallop. ABDOMEN: Soft, nontender, not distended, normoactive bowel sounds, no guarding, no rebound, no masses. No hepatomegaly or splenomegaly. MUSCULOSKELETAL: Normal range of motion at all joints. No bony deformities or tenderness. No CVA tenderness. UPPER EXTREMITIES: 2+ pulses, warm, well-perfused. No cyanosis. No clubbing. No peripheral edema. LOWER EXTREMITIES: 2+ pulses, warm, well-perfused. No calf tenderness. No peripheral edema. NEUROLOGICAL: Cranial nerves II-XII intact. Normal speech. Normal gait. PSYCHIATRIC: Cooperative. Good eye contact. Appropriate mood and affect. SKIN: Warm, dry, normal turgor, no rashes or lesions noted, normal capillary refill. CBCD WBC 3.6 K/mm3 (4.0-10.0) L 05/03/20 12:23 RBC 3.34 M/mm3 (3.60-5.2) L 05/03/20 12:23 Hgb 9.7 GM/dL (10.7-15.3) L 05/03/20 12:23 Hct 30.0 % (32.4-45.2) L 05/03/20 12:23 MCV 89.9 fl (80-96) 05/03/20 12:23 MCHC 32.2 g/dl (32.0-36.0) 05/03/20 12:23 RDW 16.2 % (11.6-15.6) H 05/03/20 12:23 Plt Count 150 K/MM3 (134-434) 05/03/20 12:23 MPV 7.8 fl (7.5-11.1) 05/03/20 12:23 CMP Sodium 141 mmol/L (136-145) 05/04/20 06:00 Potassium 4.2 mmol/L (3.5-5.1) 05/04/20 06:00 Chloride 110 mmol/L (98-107) H 05/04/20 06:00 Carbon Dioxide 25 mmol/L (21-32) 05/04/20 06:00 Anion Gap 5 MMOL/L (8-16) L 05/04/20 06:00 BUN 16.8 mg/dL (7-18) 05/04/20 06:00 Creatinine 0.8 mg/dL (0.55-1.3) 05/04/20 06:00 Calcium 8.2 mg/dL (8.5-10.1) L 05/04/20 06:00 Total Bilirubin 0.7 mg/dL (0.2-1) 05/04/20 06:00 AST 57 U/L (15-37) H 05/04/20 06:00 ALT 38 U/L (13-61) 05/04/20 06:00 Alkaline Phosphatase 90 U/L (45-117) 05/04/20 06:00 Total Protein 6.3 g/dl (6.4-8.2) L 05/04/20 06:00 Albumin 2.4 g/dl (3.4-5.0) L 05/04/20 06:00 Active Medications Albuterol Sulfate (Ventolin Hfa Inhaler -) 2 puff IH Q4H PRN PRN Reason: SHORT OF BREATH/WHEEZING Calcium Carbonate (Calcium Carbonate -) 650 mg PO DAILY PRN PRN Reason: DYSPEPSIA Last Admin: 05/05/20 10:47 Dose: 650 mg Documented by: Chlorhexidine Gluconate (Hibiclens For Decolonization -) 1 applic TP HS [facility] Last Admin: 05/06/20 21:10 Dose: 1 applic Documented by: Docusate Sodium (Colace -) 100 mg PO DAILY [facility] Last Admin: 05/06/20 21:10 Dose: 100 mg Documented by: Enoxaparin Sodium (Lovenox -) 40 mg SQ DAILY [facility] Last Admin: 05/06/20 09:33 Dose: 40 mg Documented by: Folic Acid (Folic Acid -) 1 mg PO DAILY [facility] Last Admin: 05/06/20 09:34 Dose: 1 mg Documented by: Hydralazine HCl (Apresoline -) 10 mg PO TID [facility] Last Admin: 05/07/20 06:18 Dose: 10 mg Documented by: Piperacillin Sod/Tazobactam (Sod 3.375 gm/ Dextrose) 50 mls @ 100 mls/hr IVPB Q8H-IV [facility]; Protocol Last Admin: 05/07/20 01:44 Dose: 100 mls/hr Documented by: Lisinopril (Prinivil) 10 mg PO DAILY [facility] Last Admin: 05/06/20 09:35 Dose: 10 mg Documented by: Melatonin (Melatonin) 10 mg PO HS PRN PRN Reason: INSOMNIA Methadone HCl 40 mg/ Methadone (HCl 10 mg/ Methadone HCl 5 mg) 55 mg PO 0600 [facility] Last Admin: 05/07/20 06:18 Dose: 55 mg Documented by: Multivitamins/Minerals/Vitamin C (Tab-A-Vit -) 1 tab PO DAILY [facility] Last Admin: 05/06/20 09:35 Dose: 1 tab Documented by: Mupirocin (Bactroban Ointment (For Decolonization) -) 1 applic NS BID [facility] Stop: 05/08/20 21:59 Last Admin: 05/06/20 21:10 Dose: Not Given Documented by: Pantoprazole Sodium (Protonix -) 20 mg PO ACBK [facility] Last Admin: 05/07/20 06:18 Dose: 20 mg Documented by: Spironolactone (Aldactone -) 25 mg PO DAILY [facility] Last Admin: 05/06/20 14:36 Dose: 25 mg Documented by: Thiamine HCl (Vitamin B1 -) 100 mg PO DAILY [facility] Last Admin: 05/06/20 09:34 Dose: 100 mg Documented by: ASSESSMENT AND PLAN: Patient is a 45 yo F presented to ED from [facility] because of abnormal EKG showing bradycardia and prolonged QT. In ED became hypotensive and narcan and atropine were given. Patient is admitted to ICU for Sepsis, now resolved and transferred medical floor. # Sinus Bradycardia - d/c gabapentin, taper clonazepam - decreased methadone dose - HR still running in 40s and occasionally in 30s - daily EKG, monitor QTc - external pacemaker? permanent pacemaker? - continue tele # Pyelonephritis and Sepsis resolved - on zosyn day 4 Hydronephrosis with J stent Polysubstance Abuse, depression COPD Hep C HIV Smoker Anemia DVT prophylaxis
[2020-05-07] MEDS ORDERED: PT OWN MED DRAWER 7, Y5N ONE (10:33)
[2020-05-07] MEDS: FOLIC ACID 1 MG TABLET (FP) PO SCH (10:36)
[2020-05-07] MEDS: MULTIVITAMINS (DAILY MVI) TABLET (FP) PO SCH (10:37)
[2020-05-07] MEDS: DOCUSATE SODIUM 100 MG CAPSULE (FP) PO SCH (10:38)
[2020-05-07] MEDS: SPIRONOLACTONE 25 MG TABLET PO SCH (10:39)
[2020-05-07] MEDS: LISINOPRIL 10 MG TABLET (FP) PO SCH (10:39)
[2020-05-07] MEDS: THIAMINE HCL 100 MG TABLET (FP) PO SCH (10:40)
[2020-05-07] MEDS: EMTRICITABINE/TENOFOV ALAFENAM (DESCOVY) TABLET PO SCH (10:42)
[2020-05-07] MEDS: DOLUTEGRAVIR SODIUM 50 MG TABLET (NON-FORMULARY) PO SCH (10:44)
[2020-05-07] MEDS: ENOXAPARIN NA (PORCINE) 40 MG/0.4 ML DISP.SYRIN SQ SCH (10:46)
[2020-05-07] MEDS: MUPIROCIN 2% TOPICAL OINTMENT FOR DECOLONIZATION NS SCH ×2 (10:47→22:00)
[2020-05-07 10:50] LABS: BASO % 0.4 % (0-2.0); EOS % 3.6 % (0-4.5); HEMOGLOBIN 11.8 GM/dL (10.7-15.3); LYMPH % 30.1 % (8-40); MCH 29.8 pg (25.7-33.7); MCHC 33.6 g/dl (32.0-36.0); MEAN CELL VOLUME 88.7 fl (80-96); MEAN PLT VOLUME 7.5 fl (7.5-11.1); MONO % 6.9 % (3.8-10.2); PLATELET COUNT 192 K/MM3 (134-434); RBC 3.94 M/mm3 (3.60-5.2); RDW 17.1 % (11.6-15.6)
--- NOTE | 2020-05-07 10:53 | PN ---
Progress Note, Physician History of Present Illness: stable no new issues - Current Medication List Current Medications: Active Medications Albuterol Sulfate (Ventolin Hfa Inhaler -) 2 puff IH Q4H PRN PRN Reason: SHORT OF BREATH/WHEEZING Calcium Carbonate (Calcium Carbonate -) 650 mg PO DAILY PRN PRN Reason: DYSPEPSIA Last Admin: 05/05/20 10:47 Dose: 650 mg Documented by: Chlorhexidine Gluconate (Hibiclens For Decolonization -) 1 applic TP HS [facility] Last Admin: 05/06/20 21:10 Dose: 1 applic Documented by: Docusate Sodium (Colace -) 100 mg PO DAILY [facility] Last Admin: 05/07/20 10:38 Dose: 100 mg Documented by: Enoxaparin Sodium (Lovenox -) 40 mg SQ DAILY [facility] Last Admin: 05/07/20 10:46 Dose: 40 mg Documented by: Folic Acid (Folic Acid -) 1 mg PO DAILY [facility] Last Admin: 05/07/20 10:36 Dose: 1 mg Documented by: Hydralazine HCl (Apresoline -) 10 mg PO TID [facility] Last Admin: 05/07/20 06:18 Dose: 10 mg Documented by: Piperacillin Sod/Tazobactam (Sod 3.375 gm/ Dextrose) 50 mls @ 100 mls/hr IVPB Q8H-IV [facility]; Protocol Last Admin: 05/07/20 10:45 Dose: 100 mls/hr Documented by: Lisinopril (Prinivil) 10 mg PO DAILY [facility] Last Admin: 05/07/20 10:39 Dose: 10 mg Documented by: Melatonin (Melatonin) 10 mg PO HS PRN PRN Reason: INSOMNIA Methadone HCl 40 mg/ Methadone (HCl 10 mg/ Methadone HCl 5 mg) 55 mg PO 0600 [facility] Last Admin: 05/07/20 06:18 Dose: 55 mg Documented by: Multivitamins/Minerals/Vitamin C (Tab-A-Vit -) 1 tab PO DAILY [facility] Last Admin: 05/07/20 10:37 Dose: 1 tab Documented by: Mupirocin (Bactroban Ointment (For Decolonization) -) 1 applic NS BID [facility] Stop: 05/08/20 21:59 Last Admin: 05/07/20 10:47 Dose: Not Given Documented by: Pantoprazole Sodium (Protonix -) 20 mg PO ACBK [facility] Last Admin: 05/07/20 06:18 Dose: 20 mg Documented by: Spironolactone (Aldactone -) 25 mg PO DAILY [facility] Last Admin: 05/07/20 10:39 Dose: 25 mg Documented by: Thiamine HCl (Vitamin B1 -) 100 mg PO DAILY [facility] Last Admin: 05/07/20 10:40 Dose: 100 mg Documented by: - Objective Vital Signs: Vital Signs Temperature 97.7 F 05/07/20 06:00 Pulse Rate 47 L 05/07/20 06:00 Respiratory Rate 16 05/07/20 06:00 Blood Pressure 154/77 05/07/20 06:00 O2 Sat by Pulse Oximetry (%) 96 05/07/20 06:00 Constitutional: Yes: No Distress, Calm Cardiovascular: Yes: S1, S2 Respiratory: Yes: Regular, CTA Bilaterally Gastrointestinal: Yes: Normal Bowel Sounds, Soft Musculoskeletal: Yes: WNL Extremities: Yes: WNL Neurological: Yes: Alert, Oriented Psychiatric: Yes: Alert, Oriented Labs: INR, PTT INR 0.87 (0.83-1.09) 05/04/20 06:00 Assessment/Plan Problem List - Problems (1) Hypotension Code(s): I95.9 - HYPOTENSION, UNSPECIFIED Qualifiers: Hypotension type: unspecified hypotension type Qualified Code(s): I95.9 - Hypotension, unspecified (2) Pyelonephritis Code(s): N12 - TUBULO-INTERSTITIAL NEPHRITIS, NOT SPCF ACUTE OR CHRONIC (3) Bradycardia Code(s): R00.1 - BRADYCARDIA, UNSPECIFIED (4) Alcohol dependence Code(s): F10.20 - ALCOHOL DEPENDENCE, UNCOMPLICATED (5) COPD (chronic obstructive pulmonary disease) Code(s): J44.9 - CHRONIC OBSTRUCTIVE PULMONARY DISEASE, UNSPECIFIED (6) Cocaine dependence Code(s): F14.20 - COCAINE DEPENDENCE, UNCOMPLICATED (7) Hepatitis C Code(s): B19.20 - UNSPECIFIED VIRAL HEPATITIS C WITHOUT HEPATIC COMA Qualifiers: Viral hepatitis chronicity: chronic Hepatic coma status: without hepatic coma Qualified Code(s): B18.2 - Chronic viral hepatitis C (8) History of COPD Code(s): Z87.09 - PERSONAL HISTORY OF OTHER DISEASES OF THE RESPIRATORY SYSTEM (9) Methadone maintenance therapy patient Code(s): F11.20 - OPIOID DEPENDENCE, UNCOMPLICATED (10) Nicotine dependence Code(s): F17.200 - NICOTINE DEPENDENCE, UNSPECIFIED, UNCOMPLICATED Assessment/Plan Bradycardia Hypotension Pyelonephritis Rt hydronephrosis s/p ureteral stent Polysubstance abuse AMY Hx of Seizure d.o. COPD Hepatitis C plan continue abx rest as per the team will deescalte soon
[2020-05-07 11:30] LABS: ALBUMIN 2.9 g/dl (3.4-5.0); BILIRUBIN,TOTAL 0.4 mg/dL (0.2-1); BLOOD UREA NITROGEN 11.3 mg/dL (7-18); CALCIUM 8.9 mg/dL (8.5-10.1); CREATININE 0.9 mg/dL (0.55-1.3); MAGNESIUM 1.8 mg/dL (1.8-2.4); N-TERMINAL BNP 3257.7 pg/ml (5-125); PHOSPHOROUS 4.2 mg/dL (2.5-4.9); POTASSIUM 3.7 mmol/L (3.5-5.1); TOT PROT 7.3 g/dl (6.4-8.2)
--- NOTE | 2020-05-07 11:41 | PN ---
Progress Note (short form) - Note Progress Note: SUBJECTIVE: Pt seen and examined in the ICU. Remains in sinus bradycardia. Still some nausea. No shortness of breath, chest pain, lightheadedness, dizziness. Asking for klonopin. OBJECTIVE: Vital Signs Period Temp Pulse Resp BP Sys/Ramesh Pulse Ox Last 24 Hr 97.7 F-97.9 F 36-59 14-16 120-159/71-87 94-100 Intake & Output 05/04/20 05/05/20 05/06/20 05/07/20 23:59 23:59 23:59 23:59 Intake Total 2416 1170 50 470 Balance 2416 1170 50 470 Weight 79.379 kg 76.3 kg Gen: NAD at rest Heart: RRR Lung: decreased breath sounds at the bases Abd: soft, nontender Ext: no edema CBC, BMP 05/07/20 10:22 05/07/20 10:22 Active Medications Albuterol Sulfate (Ventolin Hfa Inhaler -) 2 puff IH Q4H PRN PRN Reason: SHORT OF BREATH/WHEEZING Calcium Carbonate (Calcium Carbonate -) 650 mg PO DAILY PRN PRN Reason: DYSPEPSIA Last Admin: 05/05/20 10:47 Dose: 650 mg Documented by: Chlorhexidine Gluconate (Hibiclens For Decolonization -) 1 applic TP HS [facility] Last Admin: 05/06/20 21:10 Dose: 1 applic Documented by: Docusate Sodium (Colace -) 100 mg PO DAILY [facility] Last Admin: 05/07/20 10:38 Dose: 100 mg Documented by: Enoxaparin Sodium (Lovenox -) 40 mg SQ DAILY [facility] Last Admin: 05/07/20 10:46 Dose: 40 mg Documented by: Folic Acid (Folic Acid -) 1 mg PO DAILY [facility] Last Admin: 05/07/20 10:36 Dose: 1 mg Documented by: Hydralazine HCl (Apresoline -) 10 mg PO TID [facility] Last Admin: 05/07/20 06:18 Dose: 10 mg Documented by: Piperacillin Sod/Tazobactam (Sod 3.375 gm/ Dextrose) 50 mls @ 100 mls/hr IVPB Q8H-IV [facility]; Protocol Last Admin: 05/07/20 10:45 Dose: 100 mls/hr Documented by: Lisinopril (Prinivil) 10 mg PO DAILY [facility] Last Admin: 05/07/20 10:39 Dose: 10 mg Documented by: Melatonin (Melatonin) 10 mg PO HS PRN PRN Reason: INSOMNIA Methadone HCl 40 mg/ Methadone (HCl 10 mg/ Methadone HCl 5 mg) 55 mg PO 0600 [facility] Last Admin: 05/07/20 06:18 Dose: 55 mg Documented by: Multivitamins/Minerals/Vitamin C (Tab-A-Vit -) 1 tab PO DAILY [facility] Last Admin: 05/07/20 10:37 Dose: 1 tab Documented by: Mupirocin (Bactroban Ointment (For Decolonization) -) 1 applic NS BID [facility] Stop: 05/08/20 21:59 Last Admin: 05/07/20 10:47 Dose: Not Given Documented by: Pantoprazole Sodium (Protonix -) 20 mg PO ACBK [facility] Last Admin: 05/07/20 06:18 Dose: 20 mg Documented by: Spironolactone (Aldactone -) 25 mg PO DAILY [facility] Last Admin: 05/07/20 10:39 Dose: 25 mg Documented by: Thiamine HCl (Vitamin B1 -) 100 mg PO DAILY [facility] Last Admin: 05/07/20 10:40 Dose: 100 mg Documented by: ASSESSMENT AND PLAN: Sinus Bradycardia Pyelonephritis Sepsis Polysubstance Abuse LV Systolic Dysfunction COPD Hep C Smoker Anemia - decrease methadone dose, minimize klonopin - addiction medicine f/u for benzo withdrawal - continue antibiotics - f/u cultures - can monitor on telemetry
--- NOTE | 2020-05-07 12:13 | PN ---
Physical Exam: SUBJECTIVE: Patient seen and examined OBJECTIVE: Vital Signs Temperature 97.7 F 05/07/20 06:00 Pulse Rate 48 L 05/07/20 10:25 Respiratory Rate 14 05/07/20 10:25 Blood Pressure 120/71 05/07/20 10:25 O2 Sat by Pulse Oximetry (%) 96 05/07/20 10:00 GENERAL: The patient is awake, alert, and fully oriented, in no acute distress. NECK: full range of motion, supple. LUNGS: decreased breath sounds on bilateral bases HEART: bradycardic, regular rhythm, S1, S2 ABDOMEN: Soft, nontender, nondistended, normoactive bowel sounds EXTREMITIES: 2+ pulses, warm, well-perfused, no edema. NEUROLOGICAL: Cranial nerves II through XII grossly intact. Normal speech PSYCH: Normal mood, normal affect. SKIN: Warm, dry, normal turgor Laboratory Results - last 24 hr 05/07/20 05/07/20 10:22 10:22 WBC 5.0 RBC 3.94 Hgb 11.8 Hct 35.0 D MCV 88.7 MCH 29.8 MCHC 33.6 RDW 17.1 H Plt Count 192 D MPV 7.5 Absolute Neuts (auto) 3.0 Neutrophils % 59.0 D Lymphocytes % 30.1 Monocytes % 6.9 Eosinophils % 3.6 Basophils % 0.4 Nucleated RBC % 0 Sodium 139 Potassium 3.7 Chloride 104 Carbon Dioxide 31 Anion Gap 5 L BUN 11.3 Creatinine 0.9 Est GFR (CKD-EPI)AfAm 90.76 Est GFR (CKD-EPI)NonAf 78.31 Random Glucose 99 Calcium 8.9 Phosphorus 4.2 Magnesium 1.8 Total Bilirubin 0.4 AST 62 H ALT 43 Alkaline Phosphatase 108 B-Natriuretic Peptide 3257.7 H Total Protein 7.3 Albumin 2.9 L Active Medications Generic Name Dose Route Start Last Admin Trade Name Freq PRN Reason Stop Dose Admin Albuterol Sulfate 2 puff 05/05/20 15:22 Ventolin Hfa Inhaler - IH Q4H PRN SHORT OF BREATH/WHEEZING Calcium Carbonate 650 mg 05/04/20 02:49 05/05/20 10:47 Calcium Carbonate - PO 650 mg DAILY PRN Administration DYSPEPSIA Chlorhexidine Gluconate 1 applic 05/03/20 22:00 05/06/20 21:10 Hibiclens For Decolonization - TP 1 applic HS DEEPAK Administration Docusate Sodium 100 mg 05/06/20 21:00 05/07/20 10:38 Colace - PO 100 mg DAILY DEEPAK Administration Enoxaparin Sodium 40 mg 05/04/20 10:00 05/07/20 10:46 Lovenox - SQ 40 mg DAILY DEEPAK Administration Folic Acid 1 mg 05/04/20 10:00 05/07/20 10:36 Folic Acid - PO 1 mg DAILY DEEPAK Administration Hydralazine HCl 10 mg 05/05/20 22:00 05/07/20 06:18 Apresoline - PO 10 mg TID DEEPAK Administration Piperacillin Sod/Tazobactam 50 mls @ 100 mls/hr 05/04/20 18:00 05/07/20 10:45 Sod 3.375 gm/ Dextrose IVPB 100 mls/hr Q8H-IV DEEPAK Administration Protocol Lisinopril 10 mg 05/05/20 18:15 05/07/20 10:39 Prinivil PO 10 mg DAILY DEEPAK Administration Melatonin 10 mg 05/05/20 19:48 Melatonin PO HS PRN INSOMNIA Methadone HCl 40 mg/ Methadone 55 mg 05/07/20 06:00 05/07/20 06:18 HCl 10 mg/ Methadone HCl 5 mg PO 55 mg 0600 DEEPAK Administration Multivitamins/Minerals/Vitamin C 1 tab 05/04/20 10:00 05/07/20 10:37 Tab-A-Vit - PO 1 tab DAILY DEEPAK Administration Mupirocin 1 applic 05/03/20 22:00 05/07/20 10:47 Bactroban Ointment (For Decolonization) - NS 05/08/20 21:59 Not Given BID [facility] Pantoprazole Sodium 20 mg 05/04/20 07:00 05/07/20 06:18 Protonix - PO 20 mg ACBK DEEPAK Administration Spironolactone 25 mg 05/06/20 13:30 05/07/20 10:39 Aldactone - PO 25 mg DAILY DEEPAK Administration Thiamine HCl 100 mg 05/04/20 10:00 05/07/20 10:40 Vitamin B1 - PO 100 mg DAILY DEEPAK Administration ASSESSMENT/PLAN: Patient is a 45 yo F presented to ED from [facility] because of abnormal EKG showing bradycardia and prolonged QT. In ED became hypotensive and narcan and atropine were given. Patient is admitted to ICU for Sepsis, now resolved and transferred medical floor. #Bradycardia -likely 2/2 multiple medications including opioid intoxication, Klonopin, XAnax -will hold klonopin, xanax and give half dose of methadone -avoid QT prolonging agents -Echo - mildly dilated, global hypokinesia with moderately decreased systolic function, EF 30%, pseudonormalization inflow pattern, RV decreased systolic function, mildly dilated LA, Mild MR, Trace TR with normal RVSP -tele monitoring -Lisinopril 20mg daily -Aldactone 25mg, Hydralazine 10mg tid, Imdur 30mg started -monitor renal function -I&O, daily weights -Will need MIBI stress test prior to d/c to r/o ischemic CMP -If no ischemia medical rx for CMP and if no improvement ICD evaluation -Cardiology (Dr. Lo) consulted. REcommendations appreciated. #Sepsis 2/2 UTI/pyelonephritis, improving -Continue IV Zosyn -Blood cx, urine cx unremarkable -CT abdomen/pelvis: mild to moderate right hydronephrosis, right ureteral stent intact, b/l kidneys consistent with pyelonephritis. -ID consulted. Recommendations appreciated. #Polysubstance abuse - CIWA, COWS monitor closely - avoid ativan, librium given HR. avoid MTD bc of QTc - thiamine, folic acid, IVF - utox + MTD, BZO, cocaine - seizure precautions - fall precautions #Hx of HIV -continue home Tivicay and Descovy #COPD -continue albuterol IH prn #FEN -Not on any standing fluids -Electrolytes wnl, routine bmp monitoring -Sodium restricted diet #Prophylaxis -Lovenox 40mg sq daily #Disposition -full code -tele monitoring Visit type - Emergency Visit Emergency Visit: Yes ED Registration Date: 05/03/20 Care time: The patient presented to the Emergency Department on the above date and was hospitalized for further evaluation of their emergent condition. - New Patient This patient is new to me today: No - Critical Care Critical Care patient: No ATTENDING PHYSICIAN STATEMENT I saw and evaluated the patient. I reviewed the resident's note and discussed the case with the resident. I agree with the resident's findings and plan as documented. SUBJECTIVE: OBJECTIVE: ASSESSMENT AND PLAN:
[2020-05-07] MEDS ORDERED: LISINOPRIL 10 MG TABLET (FP) PO ONE ×2 (13:27→17:45)
--- NOTE | 2020-05-07 13:28 | PN ---
Progress Note, Physician History of Present Illness: Cintia Persaud is a 45 Y F with a PMH of COPD, HEP C, seizures, and polysubtance abuse(alcohol, cocaine, heroin, and THC) on methadone maintenance (110 mg PO daily) presented from [facility] for abnormal EKG: HR: 43, T-Wave abnormality, QT prolonged. In ER patient is somnolent but arousable, unable to obtain information from the patient. v/s in ER p42, O2 sat 97, RR 16, BP 100/60 - Current Medication List Current Medications: Active Medications Albuterol Sulfate (Ventolin Hfa Inhaler -) 2 puff IH Q4H PRN PRN Reason: SHORT OF BREATH/WHEEZING Calcium Carbonate (Calcium Carbonate -) 650 mg PO DAILY PRN PRN Reason: DYSPEPSIA Last Admin: 05/05/20 10:47 Dose: 650 mg Documented by: Chlorhexidine Gluconate (Hibiclens For Decolonization -) 1 applic TP HS [facility] Last Admin: 05/06/20 21:10 Dose: 1 applic Documented by: Docusate Sodium (Colace -) 100 mg PO DAILY [facility] Last Admin: 05/07/20 10:38 Dose: 100 mg Documented by: Enoxaparin Sodium (Lovenox -) 40 mg SQ DAILY [facility] Last Admin: 05/07/20 10:46 Dose: 40 mg Documented by: Folic Acid (Folic Acid -) 1 mg PO DAILY [facility] Last Admin: 05/07/20 10:36 Dose: 1 mg Documented by: Hydralazine HCl (Apresoline -) 10 mg PO TID [facility] Last Admin: 05/07/20 06:18 Dose: 10 mg Documented by: Piperacillin Sod/Tazobactam (Sod 3.375 gm/ Dextrose) 50 mls @ 100 mls/hr IVPB Q8H-IV [facility]; Protocol Last Admin: 05/07/20 10:45 Dose: 100 mls/hr Documented by: Lisinopril (Prinivil) 10 mg PO DAILY [facility] Last Admin: 05/07/20 10:39 Dose: 10 mg Documented by: Melatonin (Melatonin) 10 mg PO HS PRN PRN Reason: INSOMNIA Methadone HCl 40 mg/ Methadone (HCl 10 mg/ Methadone HCl 5 mg) 55 mg PO 0600 [facility] Last Admin: 05/07/20 06:18 Dose: 55 mg Documented by: Multivitamins/Minerals/Vitamin C (Tab-A-Vit -) 1 tab PO DAILY [facility] Last Admin: 05/07/20 10:37 Dose: 1 tab Documented by: Mupirocin (Bactroban Ointment (For Decolonization) -) 1 applic NS BID [facility] Stop: 05/08/20 21:59 Last Admin: 05/07/20 10:47 Dose: Not Given Documented by: Pantoprazole Sodium (Protonix -) 20 mg PO ACBK [facility] Last Admin: 05/07/20 06:18 Dose: 20 mg Documented by: Spironolactone (Aldactone -) 25 mg PO DAILY [facility] Last Admin: 05/07/20 10:39 Dose: 25 mg Documented by: Thiamine HCl (Vitamin B1 -) 100 mg PO DAILY [facility] Last Admin: 05/07/20 10:40 Dose: 100 mg Documented by: - Objective Vital Signs: Vital Signs Temperature 97.7 F 05/07/20 06:00 Pulse Rate 46 L 05/07/20 13:09 Respiratory Rate 14 05/07/20 13:09 Blood Pressure 146/75 05/07/20 13:09 O2 Sat by Pulse Oximetry (%) 96 05/07/20 10:00 Eyes: Yes: WNL, Conjunctiva Clear, EOM Intact HENT: Yes: WNL, Atraumatic, Normocephalic Neck: Yes: WNL, Supple, Trachea Midline Cardiovascular: Yes: WNL, Regular Rate and Rhythm Respiratory: Yes: WNL, Regular, CTA Bilaterally Gastrointestinal: Yes: WNL, Normal Bowel Sounds Genitourinary: Yes: WNL Musculoskeletal: Yes: WNL Extremities: Yes: WNL Edema: No Integumentary: Yes: WNL Neurological: Yes: WNL, Alert, Oriented ...Motor Strength: WNL Psychiatric: Yes: WNL Labs: CBC, BMP 05/07/20 10:22 05/07/20 10:22 INR, PTT INR 0.87 (0.83-1.09) 05/04/20 06:00 Problem List - Problems (1) Hypotension Code(s): I95.9 - HYPOTENSION, UNSPECIFIED Qualifiers: Hypotension type: unspecified hypotension type Qualified Code(s): I95.9 - Hypotension, unspecified (2) Somnolence Code(s): R40.0 - SOMNOLENCE (3) Bradycardia Code(s): R00.1 - BRADYCARDIA, UNSPECIFIED (4) Alcohol dependence Code(s): F10.20 - ALCOHOL DEPENDENCE, UNCOMPLICATED (5) Alcohol dependence with withdrawal, uncomplicated Code(s): F10.230 - ALCOHOL DEPENDENCE WITH WITHDRAWAL, UNCOMPLICATED (6) Substance induced mood disorder Code(s): F19.94 - OTH PSYCHOACTIVE SUBSTANCE USE, UNSP W MOOD DISORDER (7) Substance-induced anxiety disorder Code(s): F19.980 - OTH PSYCHOACTIVE SUBSTANCE USE, UNSP W ANXIETY DISORDER (8) Substance-induced sleep disorder Code(s): F19.982 - OTH PSYCHOACTIVE SUBSTANCE USE, UNSP W SLEEP DISORDER (9) COPD (chronic obstructive pulmonary disease) Code(s): J44.9 - CHRONIC OBSTRUCTIVE PULMONARY DISEASE, UNSPECIFIED (10) Cocaine dependence Code(s): F14.20 - COCAINE DEPENDENCE, UNCOMPLICATED (11) Cocaine dependence, uncomplicated Code(s): F14.20 - COCAINE DEPENDENCE, UNCOMPLICATED (12) Hepatitis C Code(s): B19.20 - UNSPECIFIED VIRAL HEPATITIS C WITHOUT HEPATIC COMA Qualifiers: Viral hepatitis chronicity: chronic Hepatic coma status: without hepatic coma Qualified Code(s): B18.2 - Chronic viral hepatitis C (13) History of COPD Code(s): Z87.09 - PERSONAL HISTORY OF OTHER DISEASES OF THE RESPIRATORY SYSTEM (14) Insomnia Code(s): G47.00 - INSOMNIA, UNSPECIFIED (15) Methadone maintenance therapy patient Code(s): F11.20 - OPIOID DEPENDENCE, UNCOMPLICATED (16) Nicotine dependence Code(s): F17.200 - NICOTINE DEPENDENCE, UNSPECIFIED, UNCOMPLICATED (17) Nicotine dependence, unspecified, uncomplicated Code(s): F17.200 - NICOTINE DEPENDENCE, UNSPECIFIED, UNCOMPLICATED Qualifiers: Nicotine product type: cigarettes Qualified Code(s): F17.210 - Nicotine dependence, cigarettes, uncomplicated (18) Opioid dependence on agonist therapy Code(s): F11.20 - OPIOID DEPENDENCE, UNCOMPLICATED (19) Perforated nasal septum Code(s): J34.89 - OTHER SPECIFIED DISORDERS OF NOSE AND NASAL SINUSES (20) Schizoaffective disorder Code(s): F25.9 - SCHIZOAFFECTIVE DISORDER, UNSPECIFIED (21) Sedative, hypnotic or anxiolytic dependence with withdrawal, uncomplicated Code(s): F13.230 - SEDATV/HYP/ANXIOLYTC DEPENDENCE W WITHDRAWAL, UNCOMPLICATED (22) Substance induced mood disorder Code(s): F19.94 - OTH PSYCHOACTIVE SUBSTANCE USE, UNSP W MOOD DISORDER (23) Seizure concurrent with and due to anxiolytic withdrawal Code(s): F13.239 - SEDATV/HYP/ANXIOLYTC DEPENDENCE W WITHDRAWAL, UNSP; F13.288 - SEDATIVE, HYPNOTIC OR ANXIOLYTIC DEPENDENCE W OTH DISORDER; R56.9 - UNSPECIFIED CONVULSIONS (24) Bipolar disorder Code(s): F31.9 - BIPOLAR DISORDER, UNSPECIFIED (25) Schizophrenia Code(s): F20.9 - SCHIZOPHRENIA, UNSPECIFIED (26) Schizophrenia Code(s): F20.9 - SCHIZOPHRENIA, UNSPECIFIED Assessment/Plan urosepsis; bilateral ureteral stents; hydronephrosis HTN asymptomatic bradycardia may be due to Klonopin and gabapeptin QTC prolongation polysubstance abuse ECHO moderately reduced EF ? 30% TNI < 0.02 x 3 Pulmonary nodule Plan Telemetry: sinus rhythm; periods of asymptomatic bradycardia to 30s; appropriate chronotropic response to 80-90 bpm. ABX IVF 24 Holter d/c gabapeptin; klonopin dose reduced (continued at lower dose due to detox); f/u HR. On Aldactone increase Lisinopril to 20 QD On hydralazine; add Imdur. F/u BP and HR. F/u BUN/Cr, electrolytes, Is and Os, daily weight. check BNP (ordered) CT chest for pulmonary nodules suggested (see pelvic CT). Will need MIBI stress test prior to d/c to r/o ischemic CMP If no ischemia medical rx for CMP and if no improvement ICD evaluation cc time spent 35 min
[2020-05-07] MEDS: CHLORHEXIDINE GLUCONATE 4% CLEANSER FOR DECOLONIZATION TP SCH (22:00)
[2020-05-08] MEDS ORDERED: PIPERACILLIN/TAZOBACTAM 3.375 GM VIAL IVPB ONE ×2 (01:49→09:03)
[2020-05-08] MEDS ORDERED: DEXTROSE 5%-WATER - 50 ML IVPB ONE ×2 (01:49→09:03)
[2020-05-08] MEDS: PIPERACILLIN/TAZOB 3.375 GM 3.375 GM in DEXTROSE 5%-WATER - 50 ML IVPB SCH ×2 (01:52→09:09)
[2020-05-08] MEDS ORDERED: METHADONE HCL 10 MG TABLET ONE (06:10)
[2020-05-08] MEDS ORDERED: METHADONE HCL 40 MG DISPERSABLE TABLET ONE (06:11)
[2020-05-08] MEDS ORDERED: METHADONE HCL 5 MG TABLET ONE (06:11)
[2020-05-08] MEDS: METHADONE 40 MG, METHADONE 10 MG, METHADONE 5 MG PO SCH (06:28)
[2020-05-08] MEDS: hydrALAZINE HCL 10 MG TABLET PO SCH ×3 (06:29→21:14)
[2020-05-08] MEDS: PANTOPRAZOLE 20 MG TABLET PO SCH (06:29)
[2020-05-08] MEDS: FOLIC ACID 1 MG TABLET (FP) PO SCH (09:08)
[2020-05-08] MEDS: MULTIVITAMINS (DAILY MVI) TABLET (FP) PO SCH (09:08)
[2020-05-08] MEDS: LISINOPRIL 20 MG TABLET (FP) PO SCH (09:08)
[2020-05-08] MEDS: DOCUSATE SODIUM 100 MG CAPSULE (FP) PO SCH (09:08)
[2020-05-08] MEDS: ISOSORBIDE MONONITRATE 30 MG TAB.SR.24H (FP) PO SCH (09:08)
[2020-05-08] MEDS: SPIRONOLACTONE 25 MG TABLET PO SCH (09:09)
[2020-05-08] MEDS: ENOXAPARIN NA (PORCINE) 40 MG/0.4 ML DISP.SYRIN SQ SCH (09:10)
[2020-05-08] MEDS: MUPIROCIN 2% TOPICAL OINTMENT FOR DECOLONIZATION NS SCH (09:11)
[2020-05-08] MEDS ORDERED: PT OWN MED DRAWER 7, Y5N ONE (09:13)
[2020-05-08] MEDS: THIAMINE HCL 100 MG TABLET (FP) PO SCH (09:26)
[2020-05-08] MEDS: DOLUTEGRAVIR SODIUM 50 MG TABLET (NON-FORMULARY) PO SCH (09:26)
[2020-05-08] MEDS: EMTRICITABINE/TENOFOV ALAFENAM (DESCOVY) TABLET PO SCH (09:26)
--- NOTE | 2020-05-08 11:44 | PN ---
Progress Note, Physician History of Present Illness: stable no new issues - Current Medication List Current Medications: Active Medications Albuterol Sulfate (Ventolin Hfa Inhaler -) 2 puff IH Q4H PRN PRN Reason: SHORT OF BREATH/WHEEZING Calcium Carbonate (Calcium Carbonate -) 650 mg PO DAILY PRN PRN Reason: DYSPEPSIA Last Admin: 05/05/20 10:47 Dose: 650 mg Documented by: Chlorhexidine Gluconate (Hibiclens For Decolonization -) 1 applic TP HS [facility] Last Admin: 05/07/20 22:00 Dose: 1 applic Documented by: Docusate Sodium (Colace -) 100 mg PO DAILY [facility] Last Admin: 05/08/20 09:08 Dose: 100 mg Documented by: Enoxaparin Sodium (Lovenox -) 40 mg SQ DAILY [facility] Last Admin: 05/08/20 09:10 Dose: 40 mg Documented by: Folic Acid (Folic Acid -) 1 mg PO DAILY [facility] Last Admin: 05/08/20 09:08 Dose: 1 mg Documented by: Hydralazine HCl (Apresoline -) 10 mg PO TID [facility] Last Admin: 05/08/20 06:29 Dose: 10 mg Documented by: Piperacillin Sod/Tazobactam (Sod 3.375 gm/ Dextrose) 50 mls @ 100 mls/hr IVPB Q8H-IV [facility]; Protocol Last Admin: 05/08/20 09:09 Dose: 100 mls/hr Documented by: Isosorbide Mononitrate (Imdur -) 30 mg PO DAILY [facility] Last Admin: 05/08/20 09:08 Dose: 30 mg Documented by: Lisinopril (Prinivil) 20 mg PO DAILY [facility] Last Admin: 05/08/20 09:08 Dose: 20 mg Documented by: Melatonin (Melatonin) 10 mg PO HS PRN PRN Reason: INSOMNIA Methadone HCl 40 mg/ Methadone (HCl 10 mg/ Methadone HCl 5 mg) 55 mg PO 0600 [facility] Last Admin: 05/08/20 06:28 Dose: 55 mg Documented by: Multivitamins/Minerals/Vitamin C (Tab-A-Vit -) 1 tab PO DAILY [facility] Last Admin: 05/08/20 09:08 Dose: 1 tab Documented by: Mupirocin (Bactroban Ointment (For Decolonization) -) 1 applic NS BID [facility] Stop: 05/08/20 21:59 Last Admin: 05/08/20 09:11 Dose: Not Given Documented by: Pantoprazole Sodium (Protonix -) 20 mg PO ACBK [facility] Last Admin: 05/08/20 06:29 Dose: 20 mg Documented by: Spironolactone (Aldactone -) 25 mg PO DAILY [facility] Last Admin: 05/08/20 09:09 Dose: 25 mg Documented by: Thiamine HCl (Vitamin B1 -) 100 mg PO DAILY [facility] Last Admin: 05/08/20 09:26 Dose: 100 mg Documented by: - Objective Vital Signs: Vital Signs Temperature 98.4 F 05/08/20 06:00 Pulse Rate 46 L 05/08/20 08:00 Respiratory Rate 15 05/08/20 08:00 Blood Pressure 147/67 05/08/20 08:00 O2 Sat by Pulse Oximetry (%) 95 05/08/20 08:49 Constitutional: Yes: No Distress, Calm Cardiovascular: Yes: S1, S2 Respiratory: Yes: Regular, CTA Bilaterally Gastrointestinal: Yes: Normal Bowel Sounds, Soft Musculoskeletal: Yes: WNL Extremities: Yes: WNL Neurological: Yes: Alert, Oriented Psychiatric: Yes: Alert, Oriented Labs: CBC, BMP 05/07/20 10:22 05/07/20 10:22 INR, PTT INR 0.87 (0.83-1.09) 05/04/20 06:00 Assessment/Plan Problem List - Problems (1) Hypotension Code(s): I95.9 - HYPOTENSION, UNSPECIFIED Qualifiers: Hypotension type: unspecified hypotension type Qualified Code(s): I95.9 - Hypotension, unspecified (2) Pyelonephritis Code(s): N12 - TUBULO-INTERSTITIAL NEPHRITIS, NOT SPCF ACUTE OR CHRONIC (3) Bradycardia Code(s): R00.1 - BRADYCARDIA, UNSPECIFIED (4) Alcohol dependence Code(s): F10.20 - ALCOHOL DEPENDENCE, UNCOMPLICATED (5) COPD (chronic obstructive pulmonary disease) Code(s): J44.9 - CHRONIC OBSTRUCTIVE PULMONARY DISEASE, UNSPECIFIED (6) Cocaine dependence Code(s): F14.20 - COCAINE DEPENDENCE, UNCOMPLICATED (7) Hepatitis C Code(s): B19.20 - UNSPECIFIED VIRAL HEPATITIS C WITHOUT HEPATIC COMA Qualifiers: Viral hepatitis chronicity: chronic Hepatic coma status: without hepatic coma Qualified Code(s): B18.2 - Chronic viral hepatitis C (8) History of COPD Code(s): Z87.09 - PERSONAL HISTORY OF OTHER DISEASES OF THE RESPIRATORY SYSTEM (9) Methadone maintenance therapy patient Code(s): F11.20 - OPIOID DEPENDENCE, UNCOMPLICATED (10) Nicotine dependence Code(s): F17.200 - NICOTINE DEPENDENCE, UNSPECIFIED, UNCOMPLICATED Assessment/Plan Bradycardia Hypotension Pyelonephritis Rt hydronephrosis s/p ureteral stent Polysubstance abuse AMY Hx of Seizure d.o. COPD Hepatitis C plan can stop abx and monitor rest as per the team
--- NOTE | 2020-05-08 11:50 | PN ---
Progress Note (short form) - Note Progress Note: SUBJECTIVE: Pt seen and examined in the ICU. Remains in sinus bradycardia. Still some nausea. No shortness of breath, chest pain, lightheadedness, dizziness. Feels "out of it." OBJECTIVE: Vital Signs Period Temp Pulse Resp BP Sys/Ramesh Pulse Ox Last 24 Hr 97.4 F-98.6 F 38-68 12-18 120-147/50-88 95-95 Intake & Output 05/05/20 05/06/20 05/07/20 05/08/20 23:59 23:59 23:59 23:59 Intake Total 1170 50 470 180 Balance 1170 50 470 180 Weight 79.379 kg 76.3 kg Gen: NAD at rest Heart: RRR Lung: decreased breath sounds at the bases Abd: soft, nontender Ext: no edema CBC, BMP 05/07/20 10:22 05/07/20 10:22 Active Medications Albuterol Sulfate (Ventolin Hfa Inhaler -) 2 puff IH Q4H PRN PRN Reason: SHORT OF BREATH/WHEEZING Calcium Carbonate (Calcium Carbonate -) 650 mg PO DAILY PRN PRN Reason: DYSPEPSIA Last Admin: 05/05/20 10:47 Dose: 650 mg Documented by: Chlorhexidine Gluconate (Hibiclens For Decolonization -) 1 applic TP HS [facility] Last Admin: 05/07/20 22:00 Dose: 1 applic Documented by: Docusate Sodium (Colace -) 100 mg PO DAILY [facility] Last Admin: 05/08/20 09:08 Dose: 100 mg Documented by: Enoxaparin Sodium (Lovenox -) 40 mg SQ DAILY [facility] Last Admin: 05/08/20 09:10 Dose: 40 mg Documented by: Folic Acid (Folic Acid -) 1 mg PO DAILY [facility] Last Admin: 05/08/20 09:08 Dose: 1 mg Documented by: Hydralazine HCl (Apresoline -) 10 mg PO TID [facility] Last Admin: 05/08/20 06:29 Dose: 10 mg Documented by: Piperacillin Sod/Tazobactam (Sod 3.375 gm/ Dextrose) 50 mls @ 100 mls/hr IVPB Q8H-IV [facility]; Protocol Last Admin: 05/08/20 09:09 Dose: 100 mls/hr Documented by: Isosorbide Mononitrate (Imdur -) 30 mg PO DAILY [facility] Last Admin: 05/08/20 09:08 Dose: 30 mg Documented by: Lisinopril (Prinivil) 20 mg PO DAILY [facility] Last Admin: 05/08/20 09:08 Dose: 20 mg Documented by: Melatonin (Melatonin) 10 mg PO HS PRN PRN Reason: INSOMNIA Methadone HCl 40 mg/ Methadone (HCl 10 mg/ Methadone HCl 5 mg) 55 mg PO 0600 [facility] Last Admin: 05/08/20 06:28 Dose: 55 mg Documented by: Multivitamins/Minerals/Vitamin C (Tab-A-Vit -) 1 tab PO DAILY [facility] Last Admin: 05/08/20 09:08 Dose: 1 tab Documented by: Mupirocin (Bactroban Ointment (For Decolonization) -) 1 applic NS BID [facility] Stop: 05/08/20 21:59 Last Admin: 05/08/20 09:11 Dose: Not Given Documented by: Pantoprazole Sodium (Protonix -) 20 mg PO ACBK [facility] Last Admin: 05/08/20 06:29 Dose: 20 mg Documented by: Spironolactone (Aldactone -) 25 mg PO DAILY [facility] Last Admin: 05/08/20 09:09 Dose: 25 mg Documented by: Thiamine HCl (Vitamin B1 -) 100 mg PO DAILY [facility] Last Admin: 05/08/20 09:26 Dose: 100 mg Documented by: ASSESSMENT AND PLAN: Sinus Bradycardia Pyelonephritis Sepsis Polysubstance Abuse LV Systolic Dysfunction COPD Hep C Smoker Lung Nodule Anemia - decrease methadone dose, minimize klonopin - addiction medicine f/u for benzo withdrawal - continue antibiotics - outpt f/u of lung nodule - can monitor on telemetry
--- NOTE | 2020-05-08 12:20 | PN ---
Progress Note, Physician History of Present Illness: Cintia Persaud is a 45 Y F with a PMH of COPD, HEP C, seizures, and polysubtance abuse(alcohol, cocaine, heroin, and THC) on methadone maintenance (110 mg PO daily) presented from [facility] for abnormal EKG: HR: 43, T-Wave abnormality, QT prolonged. In ER patient is somnolent but arousable, unable to obtain information from the patient. v/s in ER p42, O2 sat 97, RR 16, BP 100/60 - Current Medication List Current Medications: Active Medications Albuterol Sulfate (Ventolin Hfa Inhaler -) 2 puff IH Q4H PRN PRN Reason: SHORT OF BREATH/WHEEZING Calcium Carbonate (Calcium Carbonate -) 650 mg PO DAILY PRN PRN Reason: DYSPEPSIA Last Admin: 05/05/20 10:47 Dose: 650 mg Documented by: Chlorhexidine Gluconate (Hibiclens For Decolonization -) 1 applic TP HS [facility] Last Admin: 05/07/20 22:00 Dose: 1 applic Documented by: Docusate Sodium (Colace -) 100 mg PO DAILY [facility] Last Admin: 05/08/20 09:08 Dose: 100 mg Documented by: Enoxaparin Sodium (Lovenox -) 40 mg SQ DAILY [facility] Last Admin: 05/08/20 09:10 Dose: 40 mg Documented by: Folic Acid (Folic Acid -) 1 mg PO DAILY [facility] Last Admin: 05/08/20 09:08 Dose: 1 mg Documented by: Hydralazine HCl (Apresoline -) 10 mg PO TID [facility] Last Admin: 05/08/20 06:29 Dose: 10 mg Documented by: Piperacillin Sod/Tazobactam (Sod 3.375 gm/ Dextrose) 50 mls @ 100 mls/hr IVPB Q8H-IV [facility]; Protocol Last Admin: 05/08/20 09:09 Dose: 100 mls/hr Documented by: Isosorbide Mononitrate (Imdur -) 30 mg PO DAILY [facility] Last Admin: 05/08/20 09:08 Dose: 30 mg Documented by: Lisinopril (Prinivil) 20 mg PO DAILY [facility] Last Admin: 05/08/20 09:08 Dose: 20 mg Documented by: Melatonin (Melatonin) 10 mg PO HS PRN PRN Reason: INSOMNIA Methadone HCl 40 mg/ Methadone (HCl 10 mg/ Methadone HCl 5 mg) 55 mg PO 0600 [facility] Last Admin: 05/08/20 06:28 Dose: 55 mg Documented by: Multivitamins/Minerals/Vitamin C (Tab-A-Vit -) 1 tab PO DAILY [facility] Last Admin: 05/08/20 09:08 Dose: 1 tab Documented by: Mupirocin (Bactroban Ointment (For Decolonization) -) 1 applic NS BID [facility] Stop: 05/08/20 21:59 Last Admin: 05/08/20 09:11 Dose: Not Given Documented by: Pantoprazole Sodium (Protonix -) 20 mg PO ACBK [facility] Last Admin: 05/08/20 06:29 Dose: 20 mg Documented by: Spironolactone (Aldactone -) 25 mg PO DAILY [facility] Last Admin: 05/08/20 09:09 Dose: 25 mg Documented by: Thiamine HCl (Vitamin B1 -) 100 mg PO DAILY [facility] Last Admin: 05/08/20 09:26 Dose: 100 mg Documented by: - Objective Vital Signs: Vital Signs Temperature 98.4 F 05/08/20 06:00 Pulse Rate 46 L 05/08/20 08:00 Respiratory Rate 15 05/08/20 08:00 Blood Pressure 147/67 05/08/20 08:00 O2 Sat by Pulse Oximetry (%) 95 05/08/20 08:49 Eyes: Yes: WNL, Conjunctiva Clear, EOM Intact HENT: Yes: WNL, Atraumatic, Normocephalic Neck: Yes: WNL, Supple, Trachea Midline Cardiovascular: Yes: WNL, Regular Rate and Rhythm Respiratory: Yes: WNL, Regular, CTA Bilaterally Gastrointestinal: Yes: WNL, Normal Bowel Sounds Genitourinary: Yes: WNL Musculoskeletal: Yes: WNL Extremities: Yes: WNL Edema: No Integumentary: Yes: WNL Neurological: Yes: WNL, Alert, Oriented ...Motor Strength: WNL Psychiatric: Yes: WNL Labs: CBC, BMP 05/07/20 10:22 05/07/20 10:22 INR, PTT INR 0.87 (0.83-1.09) 05/04/20 06:00 Problem List - Problems (1) Hypotension Code(s): I95.9 - HYPOTENSION, UNSPECIFIED Qualifiers: Hypotension type: unspecified hypotension type Qualified Code(s): I95.9 - Hypotension, unspecified (2) Somnolence Code(s): R40.0 - SOMNOLENCE (3) Bradycardia Code(s): R00.1 - BRADYCARDIA, UNSPECIFIED (4) Alcohol dependence Code(s): F10.20 - ALCOHOL DEPENDENCE, UNCOMPLICATED (5) Alcohol dependence with withdrawal, uncomplicated Code(s): F10.230 - ALCOHOL DEPENDENCE WITH WITHDRAWAL, UNCOMPLICATED (6) Substance induced mood disorder Code(s): F19.94 - OTH PSYCHOACTIVE SUBSTANCE USE, UNSP W MOOD DISORDER (7) Substance-induced anxiety disorder Code(s): F19.980 - OTH PSYCHOACTIVE SUBSTANCE USE, UNSP W ANXIETY DISORDER (8) Substance-induced sleep disorder Code(s): F19.982 - OTH PSYCHOACTIVE SUBSTANCE USE, UNSP W SLEEP DISORDER (9) COPD (chronic obstructive pulmonary disease) Code(s): J44.9 - CHRONIC OBSTRUCTIVE PULMONARY DISEASE, UNSPECIFIED (10) Cocaine dependence Code(s): F14.20 - COCAINE DEPENDENCE, UNCOMPLICATED (11) Cocaine dependence, uncomplicated Code(s): F14.20 - COCAINE DEPENDENCE, UNCOMPLICATED (12) Hepatitis C Code(s): B19.20 - UNSPECIFIED VIRAL HEPATITIS C WITHOUT HEPATIC COMA Qualifiers: Viral hepatitis chronicity: chronic Hepatic coma status: without hepatic coma Qualified Code(s): B18.2 - Chronic viral hepatitis C (13) History of COPD Code(s): Z87.09 - PERSONAL HISTORY OF OTHER DISEASES OF THE RESPIRATORY SYSTEM (14) Insomnia Code(s): G47.00 - INSOMNIA, UNSPECIFIED (15) Methadone maintenance therapy patient Code(s): F11.20 - OPIOID DEPENDENCE, UNCOMPLICATED (16) Nicotine dependence Code(s): F17.200 - NICOTINE DEPENDENCE, UNSPECIFIED, UNCOMPLICATED (17) Nicotine dependence, unspecified, uncomplicated Code(s): F17.200 - NICOTINE DEPENDENCE, UNSPECIFIED, UNCOMPLICATED Qualifiers: Nicotine product type: cigarettes Qualified Code(s): F17.210 - Nicotine dependence, cigarettes, uncomplicated (18) Opioid dependence on agonist therapy Code(s): F11.20 - OPIOID DEPENDENCE, UNCOMPLICATED (19) Perforated nasal septum Code(s): J34.89 - OTHER SPECIFIED DISORDERS OF NOSE AND NASAL SINUSES (20) Schizoaffective disorder Code(s): F25.9 - SCHIZOAFFECTIVE DISORDER, UNSPECIFIED (21) Sedative, hypnotic or anxiolytic dependence with withdrawal, uncomplicated Code(s): F13.230 - SEDATV/HYP/ANXIOLYTC DEPENDENCE W WITHDRAWAL, UNCOMPLICATED (22) Substance induced mood disorder Code(s): F19.94 - OTH PSYCHOACTIVE SUBSTANCE USE, UNSP W MOOD DISORDER (23) Seizure concurrent with and due to anxiolytic withdrawal Code(s): F13.239 - SEDATV/HYP/ANXIOLYTC DEPENDENCE W WITHDRAWAL, UNSP; F13.288 - SEDATIVE, HYPNOTIC OR ANXIOLYTIC DEPENDENCE W OTH DISORDER; R56.9 - UNSPECIFIED CONVULSIONS (24) Bipolar disorder Code(s): F31.9 - BIPOLAR DISORDER, UNSPECIFIED (25) Schizophrenia Code(s): F20.9 - SCHIZOPHRENIA, UNSPECIFIED (26) Schizophrenia Code(s): F20.9 - SCHIZOPHRENIA, UNSPECIFIED Assessment/Plan urosepsis; bilateral ureteral stents; hydronephrosis HTN asymptomatic bradycardia may be due to Klonopin and gabapeptin QTC prolongation polysubstance abuse ECHO moderately reduced EF ? 30% TNI < 0.02 x 3 Pulmonary nodule elevated BNP Plan Telemetry: sinus rhythm; periods of asymptomatic bradycardia appropriate chronotropic response to 80-90 bpm. ABX 24 Holter d/c gabapeptin; klonopin dose reduced (continued at lower dose due to detox); f/u HR. On Aldactone increase Lisinopril to 20 QD Will give one dose of Lasix PO On hydralazine; add Imdur. F/u BUN/Cr, electrolytes, Is and Os, daily weight. CT chest for pulmonary nodules suggested (see pelvic CT). Will need MIBI stress test prior to d/c to r/o ischemic CMP If no ischemia medical rx for CMP and if no improvement ICD evaluation cc time spent 35 min
[2020-05-08] MEDS ORDERED: FUROSEMIDE 20 MG TABLET (FP) PO ONE (12:21)
[2020-05-08] MEDS ORDERED: CALCIUM CARBONATE 650 MG TABLET PO PRN (14:04)
--- NOTE | 2020-05-08 15:52 | PN ---
Physical Exam: SUBJECTIVE: Patient seen and examined OBJECTIVE: Vital Signs Period Temp Pulse Resp BP Sys/Ramesh Pulse Ox Last 24 Hr 97.7 F-98.6 F 38-81 12-18 120-147/50-88 95-98 GENERAL: The patient is awake, alert, and fully oriented, in no acute distress. NECK: full range of motion, supple. LUNGS: decreased breath sounds on bilateral bases HEART: bradycardic, regular rhythm, S1, S2 ABDOMEN: Soft, nontender, nondistended, normoactive bowel sounds EXTREMITIES: 2+ pulses, warm, well-perfused, no edema. NEUROLOGICAL: Cranial nerves II through XII grossly intact. Normal speech PSYCH: Normal mood, normal affect. SKIN: Warm, dry, normal turgor Laboratory Results - last 24 hr 05/05/20 13:20 Clonazepam 12 L Active Medications Generic Name Dose Route Start Last Admin Trade Name Freq PRN Reason Stop Dose Admin Albuterol Sulfate 2 puff 05/05/20 15:22 Ventolin Hfa Inhaler - IH Q4H PRN SHORT OF BREATH/WHEEZING Calcium Carbonate 650 mg 05/08/20 14:04 Calcium Carbonate - PO DAILY PRN DYSPEPSIA Docusate Sodium 100 mg 05/06/20 21:00 05/08/20 09:08 Colace - PO 100 mg DAILY [facility] Administration Enoxaparin Sodium 40 mg 05/09/20 10:00 Lovenox - SQ DAILY [facility] Folic Acid 1 mg 05/09/20 10:00 Folic Acid - PO DAILY [facility] Hydralazine HCl 10 mg 05/05/20 22:00 05/08/20 13:43 Apresoline - PO 10 mg TID [facility] Administration Isosorbide Mononitrate 30 mg 05/08/20 10:00 05/08/20 09:08 Imdur - PO 30 mg DAILY [facility] Administration Lisinopril 20 mg 05/08/20 10:00 05/08/20 09:08 Prinivil PO 20 mg DAILY [facility] Administration Melatonin 10 mg 05/05/20 19:48 Melatonin PO HS PRN INSOMNIA Methadone HCl 40 mg/ Methadone 55 mg 05/07/20 06:00 05/08/20 06:28 HCl 10 mg/ Methadone HCl 5 mg PO 55 mg 0600 [facility] Administration Multivitamins/Minerals/Vitamin C 1 tab 05/09/20 10:00 Tab-A-Vit - PO DAILY [facility] Pantoprazole Sodium 20 mg 05/09/20 07:00 Protonix - PO ACBK [facility] Spironolactone 25 mg 05/06/20 13:30 05/08/20 09:09 Aldactone - PO 25 mg DAILY [facility] Administration Thiamine HCl 100 mg 05/09/20 10:00 Vitamin B1 - PO DAILY [facility] ASSESSMENT/PLAN: Patient is a 45 yo F presented to ED from [facility] because of abnormal EKG showing bradycardia and prolonged QT. In ED became hypotensive and narcan and atropine were given. Patient is admitted to ICU for Sepsis, now resolved and transferred medical floor. #Bradycardia -likely 2/2 multiple medications including opioid intoxication, Klonopin, XAnax -will hold klonopin, xanax and give half dose of methadone -avoid QT prolonging agents -Echo - mildly dilated, global hypokinesia with moderately decreased systolic function, EF 30%, pseudonormalization inflow pattern, RV decreased systolic function, mildly dilated LA, Mild MR, Trace TR with normal RVSP -tele monitoring -Lisinopril 20mg daily -Aldactone 25mg, Hydralazine 10mg tid, Imdur 30mg started -monitor renal function -I&O, daily weights -will plan for stress test tomorrow -If no ischemia medical rx for CMP and if no improvement ICD evaluation -Cardiology (Dr. Lo) consulted. REcommendations appreciated. #Sepsis 2/2 UTI/pyelonephritis, improved -observe off abx -Blood cx, urine cx unremarkable -CT abdomen/pelvis: mild to moderate right hydronephrosis, right ureteral stent intact, b/l kidneys consistent with pyelonephritis. -ID consulted. Recommendations appreciated. #Polysubstance abuse - CIWA, COWS monitor closely - avoid ativan, librium given HR. avoid MTD bc of QTc - thiamine, folic acid, IVF - utox + MTD, BZO, cocaine - seizure precautions - fall precautions #Hx of HIV -continue home Tivicay and Descovy #COPD -continue albuterol IH prn #FEN -Not on any standing fluids -Electrolytes wnl, routine bmp monitoring -Sodium restricted diet #Prophylaxis -Lovenox 40mg sq daily #Disposition -full code -tele monitoring Visit type - Emergency Visit Emergency Visit: Yes ED Registration Date: 05/03/20 Care time: The patient presented to the Emergency Department on the above date and was hospitalized for further evaluation of their emergent condition. - New Patient This patient is new to me today: No - Critical Care Critical Care patient: No ATTENDING PHYSICIAN STATEMENT I saw and evaluated the patient. I reviewed the resident's note and discussed the case with the resident. I agree with the resident's findings and plan as documented. SUBJECTIVE: OBJECTIVE: ASSESSMENT AND PLAN:
[2020-05-08] MEDS ORDERED: PIPERACILLIN/TAZOB 3.375 GM 3.375 GM in DEXTROSE 5%-WATER - 50 ML IVPB SCH (18:00)
[2020-05-08] MEDS ORDERED: ACETAMINOPHEN 1000 MG/100 ML VIAL (NON FORMULARY) IVPB PRN (20:05)
[2020-05-08] MEDS ORDERED: MUPIROCIN 2% TOPICAL OINTMENT FOR DECOLONIZATION NS SCH (22:00)
[2020-05-08] MEDS ORDERED: CHLORHEXIDINE GLUCONATE 4% CLEANSER FOR DECOLONIZATION TP SCH (22:00)
[2020-05-09] MEDS ORDERED: METHADONE HCL 40 MG DISPERSABLE TABLET ONE (06:03)
[2020-05-09] MEDS ORDERED: METHADONE HCL 5 MG TABLET ONE (06:04)
[2020-05-09] MEDS ORDERED: METHADONE HCL 10 MG TABLET ONE (06:04)
[2020-05-09] MEDS: METHADONE 40 MG, METHADONE 10 MG, METHADONE 5 MG PO SCH (06:10)
[2020-05-09] MEDS: hydrALAZINE HCL 10 MG TABLET PO SCH ×2 (06:10→13:50)
[2020-05-09] MEDS ORDERED: PANTOPRAZOLE 20 MG TABLET PO SCH (07:00)
[2020-05-09] MEDS: DOCUSATE SODIUM 100 MG CAPSULE (FP) PO SCH (09:13)
[2020-05-09] MEDS: ISOSORBIDE MONONITRATE 30 MG TAB.SR.24H (FP) PO SCH (09:14)
[2020-05-09] MEDS: LISINOPRIL 20 MG TABLET (FP) PO SCH (09:14)
[2020-05-09] MEDS: SPIRONOLACTONE 25 MG TABLET PO SCH (09:14)
[2020-05-09] MEDS: DOLUTEGRAVIR SODIUM 50 MG TABLET (NON-FORMULARY) PO SCH (09:14)
[2020-05-09] MEDS: EMTRICITABINE/TENOFOV ALAFENAM (DESCOVY) TABLET PO SCH (09:15)
[2020-05-09] MEDS ORDERED: THIAMINE HCL 100 MG TABLET (FP) PO SCH (10:00)
[2020-05-09] MEDS ORDERED: FOLIC ACID 1 MG TABLET (FP) PO SCH (10:00)
[2020-05-09] MEDS ORDERED: MULTIVITAMINS (DAILY MVI) TABLET (FP) PO SCH (10:00)
[2020-05-09] MEDS ORDERED: ENOXAPARIN NA (PORCINE) 40 MG/0.4 ML DISP.SYRIN SQ SCH (10:00)
--- NOTE | 2020-05-09 10:16 | PN ---
Progress Note, Physician History of Present Illness: pulmonary alert,comfortable,-cp,-sob - Current Medication List Current Medications: Active Medications Acetaminophen (Ofirmev Injection -) 1,000 mg IVPB Q6H PRN PRN Reason: PAIN LEVEL 1-5 Stop: 05/09/20 20:05 Last Admin: 05/08/20 20:39 Dose: 1,000 mg Documented by: Albuterol Sulfate (Ventolin Hfa Inhaler -) 2 puff IH Q4H PRN PRN Reason: SHORT OF BREATH/WHEEZING Calcium Carbonate (Calcium Carbonate -) 650 mg PO DAILY PRN PRN Reason: DYSPEPSIA Docusate Sodium (Colace -) 100 mg PO DAILY [facility] Last Admin: 05/09/20 09:13 Dose: 100 mg Documented by: Enoxaparin Sodium (Lovenox -) 40 mg SQ DAILY [facility] Last Admin: 05/09/20 09:15 Dose: 40 mg Documented by: Folic Acid (Folic Acid -) 1 mg PO DAILY [facility] Last Admin: 05/09/20 09:14 Dose: 1 mg Documented by: Hydralazine HCl (Apresoline -) 10 mg PO TID [facility] Last Admin: 05/09/20 06:10 Dose: 10 mg Documented by: Isosorbide Mononitrate (Imdur -) 30 mg PO DAILY [facility] Last Admin: 05/09/20 09:14 Dose: 30 mg Documented by: Lisinopril (Prinivil) 20 mg PO DAILY [facility] Last Admin: 05/09/20 09:14 Dose: 20 mg Documented by: Melatonin (Melatonin) 10 mg PO HS PRN PRN Reason: INSOMNIA Methadone HCl 40 mg/ Methadone (HCl 10 mg/ Methadone HCl 5 mg) 55 mg PO 0600 [facility] Last Admin: 05/09/20 06:10 Dose: 55 mg Documented by: Multivitamins/Minerals/Vitamin C (Tab-A-Vit -) 1 tab PO DAILY [facility] Last Admin: 05/09/20 09:14 Dose: 1 tab Documented by: Pantoprazole Sodium (Protonix -) 20 mg PO ACBK [facility] Last Admin: 05/09/20 06:10 Dose: 20 mg Documented by: Spironolactone (Aldactone -) 25 mg PO DAILY [facility] Last Admin: 05/09/20 09:14 Dose: 25 mg Documented by: Thiamine HCl (Vitamin B1 -) 100 mg PO DAILY [facility] Last Admin: 05/09/20 09:14 Dose: 100 mg Documented by: - Objective Vital Signs: Vital Signs Temperature 98.1 F 05/09/20 06:00 Pulse Rate 57 L 05/09/20 06:00 Respiratory Rate 18 05/09/20 06:00 Blood Pressure 144/80 05/09/20 06:00 O2 Sat by Pulse Oximetry (%) 98 05/09/20 06:00 Constitutional: Yes: Well Nourished, Calm Eyes: Yes: WNL HENT: Yes: WNL Neck: Yes: WNL Cardiovascular: Yes: Regular Rate and Rhythm, S1, S2 Respiratory: Yes: CTA Bilaterally Gastrointestinal: Yes: Normal Bowel Sounds, Soft Extremities: Yes: WNL Edema: No Labs: CBC, BMP 05/07/20 10:22 Problem List - Problems (1) Pyelonephritis Code(s): N12 - TUBULO-INTERSTITIAL NEPHRITIS, NOT SPCF ACUTE OR CHRONIC (2) Sepsis Code(s): A41.9 - SEPSIS, UNSPECIFIED ORGANISM (3) Alcohol dependence Code(s): F10.20 - ALCOHOL DEPENDENCE, UNCOMPLICATED (4) Substance induced mood disorder Code(s): F19.94 - OTH PSYCHOACTIVE SUBSTANCE USE, UNSP W MOOD DISORDER (5) Cocaine dependence Code(s): F14.20 - COCAINE DEPENDENCE, UNCOMPLICATED (6) Sedative, hypnotic or anxiolytic dependence with withdrawal, uncomplicated Code(s): F13.230 - SEDATV/HYP/ANXIOLYTC DEPENDENCE W WITHDRAWAL, UNCOMPLICATED (7) Lung nodule Code(s): R91.1 - SOLITARY PULMONARY NODULE Assessment/Plan ASSESSMENT AND PLAN: Sinus Bradycardia Pyelonephritis Sepsis Polysubstance Abuse LV Systolic Dysfunction COPD Hep C Smoker Lung Nodule Anemia - addiction medicine f/u for benzo withdrawal - antibiotics - outpt f/u of lung nodule - chest ct DR NOLASCO
--- NOTE | 2020-05-09 10:28 | PN ---
Teaching Attending Note Name of Resident: Yumi Negron ATTENDING PHYSICIAN STATEMENT I saw and evaluated the patient. I reviewed the resident's note and discussed the case with the resident. I agree with the resident's findings and plan as documented. SUBJECTIVE: pt seen and examined OBJECTIVE: Last Vital Signs Temp Pulse Resp BP Pulse Ox 98.1 F 57 L 18 144/80 98 05/09/20 06:00 05/09/20 06:00 05/09/20 06:00 05/09/20 06:00 05/09/20 06:00 GENERAL: Awake, alert, and fully oriented, in no acute distress. HEENT: AT/NC, not pale cyanosed or jaundiced, neck supple LUNGS: Breath sounds equal, clear to auscultation bilaterally. No wheezes, and no crackles. No accessory muscle use. HEART: Regular rate and rhythm, normal S1 and S2 without murmur, rub or gallop. ABDOMEN: Soft, nontender, not distended, normoactive bowel sounds, no guarding, no rebound, no masses. No hepatomegaly or splenomegaly. NEUROLOGICAL: Cranial nerves II-XII intact. Normal speech. Normal gait. PSYCHIATRIC: Cooperative. Good eye contact. Appropriate mood and affect. SKIN: Warm, dry, normal turgor, no rashes or lesions noted, normal capillary refill. CBCD WBC 5.0 K/mm3 (4.0-10.0) 05/07/20 10:22 RBC 3.94 M/mm3 (3.60-5.2) 05/07/20 10:22 Hgb 11.8 GM/dL (10.7-15.3) 05/07/20 10:22 Hct 35.0 % (32.4-45.2) D 05/07/20 10:22 MCV 88.7 fl (80-96) 05/07/20 10:22 MCHC 33.6 g/dl (32.0-36.0) 05/07/20 10:22 RDW 17.1 % (11.6-15.6) H 05/07/20 10:22 Plt Count 192 K/MM3 (134-434) D 05/07/20 10:22 MPV 7.5 fl (7.5-11.1) 05/07/20 10:22 CMP Sodium 139 mmol/L (136-145) 05/07/20 10:22 Potassium 3.7 mmol/L (3.5-5.1) 05/07/20 10:22 Chloride 104 mmol/L (98-107) 05/07/20 10:22 Carbon Dioxide 31 mmol/L (21-32) 05/07/20 10:22 Anion Gap 5 MMOL/L (8-16) L 05/07/20 10:22 BUN 11.3 mg/dL (7-18) 05/07/20 10:22 Creatinine 0.9 mg/dL (0.55-1.3) 05/07/20 10:22 Calcium 8.9 mg/dL (8.5-10.1) 05/07/20 10:22 Total Bilirubin 0.4 mg/dL (0.2-1) 05/07/20 10:22 AST 62 U/L (15-37) H 05/07/20 10:22 ALT 43 U/L (13-61) 05/07/20 10:22 Alkaline Phosphatase 108 U/L (45-117) 05/07/20 10:22 Total Protein 7.3 g/dl (6.4-8.2) 05/07/20 10:22 Albumin 2.9 g/dl (3.4-5.0) L 05/07/20 10:22 Active Medications Acetaminophen (Ofirmev Injection -) 1,000 mg IVPB Q6H PRN PRN Reason: PAIN LEVEL 1-5 Stop: 05/09/20 20:05 Last Admin: 05/08/20 20:39 Dose: 1,000 mg Documented by: Albuterol Sulfate (Ventolin Hfa Inhaler -) 2 puff IH Q4H PRN PRN Reason: SHORT OF BREATH/WHEEZING Calcium Carbonate (Calcium Carbonate -) 650 mg PO DAILY PRN PRN Reason: DYSPEPSIA Docusate Sodium (Colace -) 100 mg PO DAILY [facility] Last Admin: 05/09/20 09:13 Dose: 100 mg Documented by: Enoxaparin Sodium (Lovenox -) 40 mg SQ DAILY [facility] Last Admin: 05/09/20 09:15 Dose: 40 mg Documented by: Folic Acid (Folic Acid -) 1 mg PO DAILY [facility] Last Admin: 05/09/20 09:14 Dose: 1 mg Documented by: Hydralazine HCl (Apresoline -) 10 mg PO TID [facility] Last Admin: 05/09/20 06:10 Dose: 10 mg Documented by: Isosorbide Mononitrate (Imdur -) 30 mg PO DAILY [facility] Last Admin: 05/09/20 09:14 Dose: 30 mg Documented by: Lisinopril (Prinivil) 20 mg PO DAILY [facility] Last Admin: 05/09/20 09:14 Dose: 20 mg Documented by: Melatonin (Melatonin) 10 mg PO HS PRN PRN Reason: INSOMNIA Methadone HCl 40 mg/ Methadone (HCl 10 mg/ Methadone HCl 5 mg) 55 mg PO 0600 [facility] Last Admin: 05/09/20 06:10 Dose: 55 mg Documented by: Multivitamins/Minerals/Vitamin C (Tab-A-Vit -) 1 tab PO DAILY [facility] Last Admin: 05/09/20 09:14 Dose: 1 tab Documented by: Pantoprazole Sodium (Protonix -) 20 mg PO ACBK [facility] Last Admin: 05/09/20 06:10 Dose: 20 mg Documented by: Spironolactone (Aldactone -) 25 mg PO DAILY [facility] Last Admin: 05/09/20 09:14 Dose: 25 mg Documented by: Thiamine HCl (Vitamin B1 -) 100 mg PO DAILY [facility] Last Admin: 05/09/20 09:14 Dose: 100 mg Documented by: ASSESSMENT AND PLAN: Patient is a 45 yo F presented to ED from [facility] because of abnormal EKG showing bradycardia and prolonged QT. # Sinus Bradycardia - improving, HR in 50s-60s - d/c gabapentin, taper clonazepam - decreased methadone dose - spoke with patient about current methadone dose, recommended against going back up to original dose. Team will reach out for further advise from methadone program - awaiting final cardiology recommendation for discharge - off abx # Pyelonephritis and Sepsis resolved Hydronephrosis with J stent Polysubstance Abuse, depression COPD Hep C HIV Smoker Anemia DVT prophylaxis
--- NOTE | 2020-05-09 10:45 | PN ---
Progress Note, Physician - Current Medication List Current Medications: Active Medications Acetaminophen (Ofirmev Injection -) 1,000 mg IVPB Q6H PRN PRN Reason: PAIN LEVEL 1-5 Stop: 05/09/20 20:05 Last Admin: 05/08/20 20:39 Dose: 1,000 mg Documented by: Albuterol Sulfate (Ventolin Hfa Inhaler -) 2 puff IH Q4H PRN PRN Reason: SHORT OF BREATH/WHEEZING Calcium Carbonate (Calcium Carbonate -) 650 mg PO DAILY PRN PRN Reason: DYSPEPSIA Docusate Sodium (Colace -) 100 mg PO DAILY [facility] Last Admin: 05/09/20 09:13 Dose: 100 mg Documented by: Enoxaparin Sodium (Lovenox -) 40 mg SQ DAILY [facility] Last Admin: 05/09/20 09:15 Dose: 40 mg Documented by: Folic Acid (Folic Acid -) 1 mg PO DAILY [facility] Last Admin: 05/09/20 09:14 Dose: 1 mg Documented by: Hydralazine HCl (Apresoline -) 10 mg PO TID [facility] Last Admin: 05/09/20 06:10 Dose: 10 mg Documented by: Isosorbide Mononitrate (Imdur -) 30 mg PO DAILY [facility] Last Admin: 05/09/20 09:14 Dose: 30 mg Documented by: Lisinopril (Prinivil) 20 mg PO DAILY [facility] Last Admin: 05/09/20 09:14 Dose: 20 mg Documented by: Melatonin (Melatonin) 10 mg PO HS PRN PRN Reason: INSOMNIA Methadone HCl 40 mg/ Methadone (HCl 10 mg/ Methadone HCl 5 mg) 55 mg PO 0600 [facility] Last Admin: 05/09/20 06:10 Dose: 55 mg Documented by: Multivitamins/Minerals/Vitamin C (Tab-A-Vit -) 1 tab PO DAILY [facility] Last Admin: 05/09/20 09:14 Dose: 1 tab Documented by: Pantoprazole Sodium (Protonix -) 20 mg PO ACBK [facility] Last Admin: 05/09/20 06:10 Dose: 20 mg Documented by: Spironolactone (Aldactone -) 25 mg PO DAILY [facility] Last Admin: 05/09/20 09:14 Dose: 25 mg Documented by: Thiamine HCl (Vitamin B1 -) 100 mg PO DAILY [facility] Last Admin: 05/09/20 09:14 Dose: 100 mg Documented by: - Objective Vital Signs: Vital Signs Temperature 98.1 F 05/09/20 06:00 Pulse Rate 57 L 05/09/20 06:00 Respiratory Rate 18 05/09/20 06:00 Blood Pressure 144/80 05/09/20 06:00 O2 Sat by Pulse Oximetry (%) 98 05/09/20 06:00 Labs: CBC, BMP 05/07/20 10:22 05/07/20 10:22 INR, PTT INR 0.87 (0.83-1.09) 05/04/20 06:00
[2020-05-09] MEDS ORDERED: REGADENOSON 0.4 MG/5 ML PRE-FILLED SYRINGE IVPUSH ONE ×2 (11:32→12:15)
[2020-05-09] MEDS ORDERED: AMINOPHYLLINE 250 MG/10 ML VIAL IVPUSH ONE (12:15)
[2020-05-09 13:31] VITALS: BMI 29.7
[2020-05-09] MEDS ORDERED: ACETAMINOPHEN 325 MG TABLET (FP) PO PRN (14:09)
[2020-05-09 14:23] VITALS: BP 123/78; PULSE 69; TEMP 97.8
--- NOTE | 2020-05-09 15:27 | PN ---
Progress Note, Physician History of Present Illness: Cintia Persaud is a 45 Y F with a PMH of COPD, HEP C, seizures, and polysubtance abuse(alcohol, cocaine, heroin, and THC) on methadone maintenance (110 mg PO daily) presented from [facility] for abnormal EKG: HR: 43, T-Wave abnormality, QT prolonged. In ER patient is somnolent but arousable, unable to obtain information from the patient. v/s in ER p42, O2 sat 97, RR 16, BP 100/60 - Current Medication List Current Medications: Active Medications Acetaminophen (Ofirmev Injection -) 1,000 mg IVPB Q6H PRN PRN Reason: PAIN LEVEL 1-5 Stop: 05/09/20 20:05 Last Admin: 05/08/20 20:39 Dose: 1,000 mg Documented by: Acetaminophen (Tylenol -) 650 mg PO Q6H PRN PRN Reason: Fever Or Pain Last Admin: 05/09/20 15:05 Dose: 650 mg Documented by: Albuterol Sulfate (Ventolin Hfa Inhaler -) 2 puff IH Q4H PRN PRN Reason: SHORT OF BREATH/WHEEZING Calcium Carbonate (Calcium Carbonate -) 650 mg PO DAILY PRN PRN Reason: DYSPEPSIA Docusate Sodium (Colace -) 100 mg PO DAILY [facility] Last Admin: 05/09/20 09:13 Dose: 100 mg Documented by: Enoxaparin Sodium (Lovenox -) 40 mg SQ DAILY [facility] Last Admin: 05/09/20 09:15 Dose: 40 mg Documented by: Folic Acid (Folic Acid -) 1 mg PO DAILY [facility] Last Admin: 05/09/20 09:14 Dose: 1 mg Documented by: Hydralazine HCl (Apresoline -) 10 mg PO TID [facility] Last Admin: 05/09/20 13:50 Dose: 10 mg Documented by: Isosorbide Mononitrate (Imdur -) 30 mg PO DAILY [facility] Last Admin: 05/09/20 09:14 Dose: 30 mg Documented by: Lisinopril (Prinivil) 20 mg PO DAILY [facility] Last Admin: 05/09/20 09:14 Dose: 20 mg Documented by: Melatonin (Melatonin) 10 mg PO HS PRN PRN Reason: INSOMNIA Methadone HCl 40 mg/ Methadone (HCl 10 mg/ Methadone HCl 5 mg) 55 mg PO 0600 [facility] Last Admin: 05/09/20 06:10 Dose: 55 mg Documented by: Multivitamins/Minerals/Vitamin C (Tab-A-Vit -) 1 tab PO DAILY [facility] Last Admin: 05/09/20 09:14 Dose: 1 tab Documented by: Pantoprazole Sodium (Protonix -) 20 mg PO ACBK [facility] Last Admin: 05/09/20 06:10 Dose: 20 mg Documented by: Spironolactone (Aldactone -) 25 mg PO DAILY [facility] Last Admin: 05/09/20 09:14 Dose: 25 mg Documented by: Thiamine HCl (Vitamin B1 -) 100 mg PO DAILY [facility] Last Admin: 05/09/20 09:14 Dose: 100 mg Documented by: - Objective Vital Signs: Vital Signs Temperature 97.8 F 05/09/20 14:22 Pulse Rate 69 05/09/20 14:22 Respiratory Rate 16 05/09/20 14:22 Blood Pressure 123/78 05/09/20 14:22 O2 Sat by Pulse Oximetry (%) 96 05/09/20 14:02 Eyes: Yes: WNL, Conjunctiva Clear, EOM Intact HENT: Yes: WNL, Atraumatic, Normocephalic Neck: Yes: WNL, Supple, Trachea Midline Cardiovascular: Yes: WNL, Regular Rate and Rhythm Respiratory: Yes: WNL, Regular, CTA Bilaterally Gastrointestinal: Yes: WNL, Normal Bowel Sounds Genitourinary: Yes: WNL Musculoskeletal: Yes: WNL Extremities: Yes: WNL Edema: No Integumentary: Yes: WNL Neurological: Yes: WNL, Alert, Oriented ...Motor Strength: WNL Psychiatric: Yes: WNL Labs: CBC, BMP 05/07/20 10:22 05/07/20 10:22 INR, PTT INR 0.87 (0.83-1.09) 05/04/20 06:00 Problem List - Problems (1) Hypotension Code(s): I95.9 - HYPOTENSION, UNSPECIFIED Qualifiers: Hypotension type: unspecified hypotension type Qualified Code(s): I95.9 - Hypotension, unspecified (2) Somnolence Code(s): R40.0 - SOMNOLENCE (3) Bradycardia Code(s): R00.1 - BRADYCARDIA, UNSPECIFIED (4) Alcohol dependence Code(s): F10.20 - ALCOHOL DEPENDENCE, UNCOMPLICATED (5) Alcohol dependence with withdrawal, uncomplicated Code(s): F10.230 - ALCOHOL DEPENDENCE WITH WITHDRAWAL, UNCOMPLICATED (6) Substance induced mood disorder Code(s): F19.94 - OTH PSYCHOACTIVE SUBSTANCE USE, UNSP W MOOD DISORDER (7) Substance-induced anxiety disorder Code(s): F19.980 - OTH PSYCHOACTIVE SUBSTANCE USE, UNSP W ANXIETY DISORDER (8) Substance-induced sleep disorder Code(s): F19.982 - OTH PSYCHOACTIVE SUBSTANCE USE, UNSP W SLEEP DISORDER (9) COPD (chronic obstructive pulmonary disease) Code(s): J44.9 - CHRONIC OBSTRUCTIVE PULMONARY DISEASE, UNSPECIFIED (10) Cocaine dependence Code(s): F14.20 - COCAINE DEPENDENCE, UNCOMPLICATED (11) Cocaine dependence, uncomplicated Code(s): F14.20 - COCAINE DEPENDENCE, UNCOMPLICATED (12) Hepatitis C Code(s): B19.20 - UNSPECIFIED VIRAL HEPATITIS C WITHOUT HEPATIC COMA Qualifiers: Viral hepatitis chronicity: chronic Hepatic coma status: without hepatic coma Qualified Code(s): B18.2 - Chronic viral hepatitis C (13) History of COPD Code(s): Z87.09 - PERSONAL HISTORY OF OTHER DISEASES OF THE RESPIRATORY SYSTEM (14) Insomnia Code(s): G47.00 - INSOMNIA, UNSPECIFIED (15) Methadone maintenance therapy patient Code(s): F11.20 - OPIOID DEPENDENCE, UNCOMPLICATED (16) Nicotine dependence Code(s): F17.200 - NICOTINE DEPENDENCE, UNSPECIFIED, UNCOMPLICATED (17) Nicotine dependence, unspecified, uncomplicated Code(s): F17.200 - NICOTINE DEPENDENCE, UNSPECIFIED, UNCOMPLICATED Qualifiers: Nicotine product type: cigarettes Qualified Code(s): F17.210 - Nicotine dependence, cigarettes, uncomplicated (18) Opioid dependence on agonist therapy Code(s): F11.20 - OPIOID DEPENDENCE, UNCOMPLICATED (19) Perforated nasal septum Code(s): J34.89 - OTHER SPECIFIED DISORDERS OF NOSE AND NASAL SINUSES (20) Schizoaffective disorder Code(s): F25.9 - SCHIZOAFFECTIVE DISORDER, UNSPECIFIED (21) Sedative, hypnotic or anxiolytic dependence with withdrawal, uncomplicated Code(s): F13.230 - SEDATV/HYP/ANXIOLYTC DEPENDENCE W WITHDRAWAL, UNCOMPLICATED (22) Substance induced mood disorder Code(s): F19.94 - OTH PSYCHOACTIVE SUBSTANCE USE, UNSP W MOOD DISORDER (23) Seizure concurrent with and due to anxiolytic withdrawal Code(s): F13.239 - SEDATV/HYP/ANXIOLYTC DEPENDENCE W WITHDRAWAL, UNSP; F13.288 - SEDATIVE, HYPNOTIC OR ANXIOLYTIC DEPENDENCE W OTH DISORDER; R56.9 - UNSPECIFIED CONVULSIONS (24) Bipolar disorder Code(s): F31.9 - BIPOLAR DISORDER, UNSPECIFIED (25) Schizophrenia Code(s): F20.9 - SCHIZOPHRENIA, UNSPECIFIED (26) Schizophrenia Code(s): F20.9 - SCHIZOPHRENIA, UNSPECIFIED Assessment/Plan B radycardia resolved urosepsis; bilateral ureteral stents; hydronephrosis HTN asymptomatic bradycardia may be due to Klonopin and gabapeptin QTC prolongation polysubstance abuse ECHO moderately reduced EF ? 30% TNI < 0.02 x 3 Pulmonary nodule elevated BNP Plan Telemetry: sinus rhythm; periods of asymptomatic bradycardia appropriate chronot ropic response to 80-90 bpm. ABX d/c gabapeptin; klonopin dose reduced (continued at lower dose due to detox); f/u HR. On Aldactone increase Lisinopril to 20 QD Will give one dose of Lasix PO On hydralazine; add Imdur. F/u BUN/Cr, electrolytes, Is and Os, daily weight. CT chest for pulmonary nodules suggested (see pelvic CT). MIBI stress test prior negative EF 55% Cont rx for CMP Reevaluate EF - discrepancy between echo and MIBI - may be done as outpatient. D/C telemetry
--- NOTE | 2020-05-09 16:42 | PN ---
Physical Exam: SUBJECTIVE: Patient seen and examined. PATient's heart rate 55-60s on tele. OBJECTIVE: Vital Signs Temperature 97.8 F 05/09/20 14:22 Pulse Rate 69 05/09/20 14:22 Respiratory Rate 16 05/09/20 14:22 Blood Pressure 123/78 05/09/20 14:22 O2 Sat by Pulse Oximetry (%) 96 05/09/20 14:02 GENERAL: The patient is awake, alert, and fully oriented, in no acute distress. NECK: full range of motion, supple. LUNGS: decreased breath sounds on bilateral bases HEART: RRR, regular rhythm, S1, S2 ABDOMEN: Soft, nontender, nondistended, normoactive bowel sounds EXTREMITIES: 2+ pulses, warm, well-perfused, no edema. NEUROLOGICAL: Cranial nerves II through XII grossly intact. Normal speech PSYCH: Normal mood, normal affect. SKIN: Warm, dry, normal turgor Active Medications Generic Name Dose Route Start Last Admin Trade Name Freq PRN Reason Stop Dose Admin Acetaminophen 1,000 mg 05/08/20 20:05 05/08/20 20:39 Ofirmev Injection - IVPB 05/09/20 20:05 1,000 mg Q6H PRN Administration PAIN LEVEL 1-5 Acetaminophen 650 mg 05/09/20 14:09 05/09/20 15:05 Tylenol - PO 650 mg Q6H PRN Administration Fever Or Pain Albuterol Sulfate 2 puff 05/05/20 15:22 Ventolin Hfa Inhaler - IH Q4H PRN SHORT OF BREATH/WHEEZING Calcium Carbonate 650 mg 05/08/20 14:04 Calcium Carbonate - PO DAILY PRN DYSPEPSIA Docusate Sodium 100 mg 05/06/20 21:00 05/09/20 09:13 Colace - PO 100 mg DAILY [facility] Administration Enoxaparin Sodium 40 mg 05/09/20 10:00 05/09/20 09:15 Lovenox - SQ 40 mg DAILY [facility] Administration Folic Acid 1 mg 05/09/20 10:00 05/09/20 09:14 Folic Acid - PO 1 mg DAILY [facility] Administration Hydralazine HCl 10 mg 05/05/20 22:00 05/09/20 13:50 Apresoline - PO 10 mg TID [facility] Administration Isosorbide Mononitrate 30 mg 05/08/20 10:00 05/09/20 09:14 Imdur - PO 30 mg DAILY [facility] Administration Lisinopril 20 mg 05/08/20 10:00 05/09/20 09:14 Prinivil PO 20 mg DAILY [facility] Administration Melatonin 10 mg 05/05/20 19:48 Melatonin PO HS PRN INSOMNIA Methadone HCl 40 mg/ Methadone 55 mg 05/07/20 06:00 05/09/20 06:10 HCl 10 mg/ Methadone HCl 5 mg PO 55 mg 0600 [facility] Administration Multivitamins/Minerals/Vitamin C 1 tab 05/09/20 10:00 05/09/20 09:14 Tab-A-Vit - PO 1 tab DAILY [facility] Administration Pantoprazole Sodium 20 mg 05/09/20 07:00 05/09/20 06:10 Protonix - PO 20 mg ACBK [facility] Administration Spironolactone 25 mg 05/06/20 13:30 05/09/20 09:14 Aldactone - PO 25 mg DAILY [facility] Administration Thiamine HCl 100 mg 05/09/20 10:00 05/09/20 09:14 Vitamin B1 - PO 100 mg DAILY [facility] Administration ASSESSMENT/PLAN: Patient is a 45 yo F presented to ED from [facility] because of abnormal EKG showing bradycardia and prolonged QT. In ED became hypotensive and narcan and atropine were given. Patient is admitted to ICU for Sepsis, now resolved and transferred medical floor. #Bradycardia -likely 2/2 multiple medications including opioid intoxication, Klonopin, XAnax -As per network management specialist, may decrease Methadone dose up to 75mg daily, and discontinue all BZD. -avoid QT prolonging agents -Echo - mildly dilated, global hypokinesia with moderately decreased systolic function, EF 30%, pseudonormalization inflow pattern, RV decreased systolic function, mildly dilated LA, Mild MR, Trace TR with normal RVSP -MIBI stress test - No ischemia, LVEF 55% with normal wall motion in all segments -Lisinopril 20mg daily -Aldactone 25mg, Hydralazine 10mg tid, Imdur 30mg started -monitor renal function -I&O, daily weights -Cardiology (Dr. Lo) consulted. REcommendations appreciated. #Sepsis 2/2 UTI/pyelonephritis, improved -observe off abx -Blood cx, urine cx unremarkable -CT abdomen/pelvis: mild to moderate right hydronephrosis, right ureteral stent intact, b/l kidneys consistent with pyelonephritis. -ID consulted. Recommendations appreciated. #Polysubstance abuse - CIWA, COWS monitor closely - avoid ativan, librium given HR. avoid MTD bc of QTc - thiamine, folic acid, IVF - utox + MTD, BZO, cocaine - seizure precautions - fall precautions #Hx of HIV -continue home Tivicay and Descovy #COPD -continue albuterol IH prn #FEN -Not on any standing fluids -Electrolytes wnl, routine bmp monitoring -Sodium restricted diet #Prophylaxis -Lovenox 40mg sq daily #Disposition -full code -plan for discharge to [facility] rehab once bed is available. Visit type - Emergency Visit Emergency Visit: Yes ED Registration Date: 05/03/20 Care time: The patient presented to the Emergency Department on the above date and was hospitalized for further evaluation of their emergent condition. - New Patient This patient is new to me today: No - Critical Care Critical Care patient: No ATTENDING PHYSICIAN STATEMENT I saw and evaluated the patient. I reviewed the resident's note and discussed the case with the resident. I agree with the resident's findings and plan as documented. SUBJECTIVE: OBJECTIVE: ASSESSMENT AND PLAN:
== END 2020-05-09 18:53 | disposition home or self-care (01) | DRG 720 ==
LOC: JER 21:15 → JERBED 05-03 05:18 → JICU 05-03 15:25 → J4S 05-08 13:47
PROVIDERS: ADMIT Internal Medicine; ATTEND Student in an Organized Health Care Education/Training Program
PROC: HZ95ZZZ Pharmacotherapy for Substance Abuse Treatment, Naloxone (ICD-10-PCS; principal; 2020-05-02)
DX: A41.89 Other specified sepsis (principal); J44.9 Chronic obstructive pulmonary disease, unspecified; G40.909 Epilepsy, unspecified, not intractable, without status epilepticus; E16.2 Hypoglycemia, unspecified; R91.1 Solitary pulmonary nodule; B19.20 Unspecified viral hepatitis C without hepatic coma; F17.210 Nicotine dependence, cigarettes, uncomplicated; T40.2X1A Poisoning by other opioids, accidental (unintentional), initial encounter; T42.4X1A Poisoning by benzodiazepines, accidental (unintentional), initial encounter; N10 Acute pyelonephritis; R00.1 Bradycardia, unspecified; F13.229 Sedative, hypnotic or anxiolytic dependence with intoxication, unspecified; F14.20 Cocaine dependence, uncomplicated; F11.20 Opioid dependence, uncomplicated; F12.10 Cannabis abuse, uncomplicated; F10.20 Alcohol dependence, uncomplicated; R18.8 Other ascites; I95.9 Hypotension, unspecified; I31.3 Pericardial effusion (noninflammatory); J90 Pleural effusion, not elsewhere classified; N17.9 Acute kidney failure, unspecified; E88.09 Other disorders of plasma-protein metabolism, not elsewhere classified; D64.9 Anemia, unspecified; I45.10 Unspecified right bundle-branch block; J96.02 Acute respiratory failure with hypercapnia; G47.00 Insomnia, unspecified; N13.30 Unspecified hydronephrosis; Z21 Asymptomatic human immunodeficiency virus [HIV] infection status
CPT/HCPCS: 36415; 36600; 71045-TC-FY; 74177-TC; 78452-TC; 80053; 80307; 81003; 82803; 83735; 83880; 84100; 84443; 84484; 84703; 85025; 85610; 87040; 87086; 93005; 93010; 93017; 93306-TC; 99285-25; A9502; G0480; J0131; J2785; Q9967; U0003

== ENCOUNTER 2020-09-01 10:15 | Inpatient (IN) | payer OTHER ==
[2020-09-01 10:45] VITALS: BMI 28.3
[2020-09-01] MEDS ORDERED: IBUPROFEN 400 MG TABLET (FP) PO PRN (11:35)
[2020-09-01] MEDS ORDERED: chlordiazePOXIDE HCL 25 MG CAPSULE PO PRN (11:35)
[2020-09-01] MEDS ORDERED: MAG HYDROX/AL HYDROX/SIMETH 30 ML UNIT-DOSE CUP PO PRN (11:35)
[2020-09-01] MEDS ORDERED: NICOTINE POLACRILEX 2 MG GUM BUC PRN (11:35)
[2020-09-01] MEDS ORDERED: BISMUTH SUBSALICYLATE 262 MG/15 ML BTL PO PRN (11:35)
[2020-09-01] MEDS ORDERED: ACETAMINOPHEN 325 MG TABLET (FP) PO PRN ×2 (11:35)
[2020-09-01] MEDS ORDERED: ONDANSETRON *ODT* 4 MG TABLET SL PRN (11:35)
[2020-09-01] MEDS ORDERED: METHOCARBAMOL 500 MG TABLET PO PRN (11:35)
[2020-09-01] MEDS ORDERED: MENTHOL/PHENOL 1 EACH UD MM PRN (11:35)
[2020-09-01] MEDS ORDERED: MAGNESIUM HYDROX 2400MG/30ML ORAL SUSPENSION 30 ML CUP PO PRN (11:35)
[2020-09-01] MEDS ORDERED: MAGNESIUM CITRATE 300 ML BOTTLE PO PRN (11:35)
[2020-09-01] MEDS ORDERED: ALBUTEROL SO4 HFA INHALER IH PRN (11:37)
[2020-09-01] MEDS: LISINOPRIL 20 MG TABLET PO SCH (12:10)
[2020-09-01] MEDS: ISOSORBIDE MONONITRATE 30 MG TAB.SR.24H (FP) PO SCH (13:26)
[2020-09-01 13:59] LABS: POTASSIUM 4.9 mmol/L (3.5-5.1)
[2020-09-01] MEDS ORDERED: hydrOXYzine PAMOATE 25 MG CAPSULE (FP) PO SCH (14:00)
[2020-09-01 14:01] LABS: BLOOD UREA NITROGEN 13.8 mg/dL (7-18); CALCIUM 9.3 mg/dL (8.5-10.1); HEMATOCRIT 35.3 % (32.4-45.2); HEMOGLOBIN 11.3 GM/dL (10.7-15.3); MCH 27.6 pg (25.7-33.7); MCHC 32.1 g/dl (32.0-36.0); MEAN PLT VOLUME 7.2 fl (7.5-11.1); PLATELET COUNT 446 K/MM3 (134-434); RDW 14.7 % (11.6-15.6); WHITE BLOOD COUNT 7.8 K/mm3 (4.0-10.0)
[2020-09-01 14:04] LABS: CREATININE 0.7 mg/dL (0.55-1.3)
[2020-09-01 14:06] LABS: TOT PROT 8.6 g/dl (6.4-8.2)
[2020-09-01 14:58] LABS: HIV INTERPRETATION NEGATIVE (NEGATIVE)
[2020-09-01] MEDS ORDERED: hydrOXYzine PAMOATE 25 MG CAPSULE (FP) PO PRN (15:03)
[2020-09-01] MEDS: chlordiazePOXIDE HCL 25 MG CAPSULE PO SCH (18:01)
[2020-09-02] MEDS: QUEtiapine FUMARATE 200 MG TABLET PO SCH ×2 (00:03→22:36)
[2020-09-02] MEDS: MELATONIN 5 MG TABLETS PO SCH ×2 (00:03→22:37)
[2020-09-02] MEDS: traZODone HCL 100 MG TABLET (FP) PO SCH ×2 (00:03→22:37)
[2020-09-02] MEDS: chlordiazePOXIDE HCL 25 MG CAPSULE PO SCH ×5 (00:04→22:36)
[2020-09-02] MEDS: THIAMINE HCL 100 MG TABLET (FP) PO SCH ×2 (00:04→22:36)
[2020-09-02] MEDS ORDERED: METHADONE HCL 40 MG DISPERSABLE TABLET PO SCH (10:00)
[2020-09-02] MEDS: ISOSORBIDE MONONITRATE 30 MG TAB.SR.24H (FP) PO SCH (10:06)
[2020-09-02] MEDS: LISINOPRIL 20 MG TABLET PO SCH (10:06)
[2020-09-02] MEDS: VENLAFAXINE HCL 75 MG E.R. CAPSULES PO SCH (10:06)
[2020-09-02] MEDS: NICOTINE 7 MG/24 HOURS TOPICAL PATCH TD SCH (10:10)
[2020-09-02] MEDS: PRENATAL VITAMINS W/ FOLIC ACID TABLET (FP) PO SCH (10:10)
[2020-09-03] MEDS: METHADONE HCL 40 MG DISPERSABLE TABLET PO SCH (05:43)
[2020-09-03] MEDS: chlordiazePOXIDE HCL 25 MG CAPSULE PO SCH ×4 (05:43→22:11)
[2020-09-03] MEDS: ISOSORBIDE MONONITRATE 30 MG TAB.SR.24H (FP) PO SCH (10:18)
[2020-09-03] MEDS: LISINOPRIL 20 MG TABLET PO SCH (10:19)
[2020-09-03] MEDS: VENLAFAXINE HCL 75 MG E.R. CAPSULES PO SCH (10:19)
[2020-09-03] MEDS: PRENATAL VITAMINS W/ FOLIC ACID TABLET (FP) PO SCH (10:19)
[2020-09-03] MEDS: NICOTINE 7 MG/24 HOURS TOPICAL PATCH TD SCH (10:19)
[2020-09-03] MEDS: THIAMINE HCL 100 MG TABLET (FP) PO SCH (22:11)
[2020-09-03] MEDS: traZODone HCL 100 MG TABLET (FP) PO SCH (22:11)
[2020-09-03] MEDS: QUEtiapine FUMARATE 200 MG TABLET PO SCH (22:11)
[2020-09-03] MEDS: MELATONIN 5 MG TABLETS PO SCH (22:11)
[2020-09-04] MEDS ORDERED: chlordiazePOXIDE HCL 10 MG CAPSULE PO PRN
[2020-09-04] MEDS: chlordiazePOXIDE HCL 10 MG CAPSULE PO SCH ×4 (06:29→23:11)
[2020-09-04] MEDS: METHADONE HCL 40 MG DISPERSABLE TABLET PO SCH (06:29)
[2020-09-04] MEDS: LISINOPRIL 20 MG TABLET PO SCH (10:08)
[2020-09-04] MEDS: PRENATAL VITAMINS W/ FOLIC ACID TABLET (FP) PO SCH (10:08)
[2020-09-04] MEDS: ISOSORBIDE MONONITRATE 30 MG TAB.SR.24H (FP) PO SCH (10:08)
[2020-09-04] MEDS: VENLAFAXINE HCL 75 MG E.R. CAPSULES PO SCH (10:08)
[2020-09-04] MEDS: NICOTINE 7 MG/24 HOURS TOPICAL PATCH TD SCH (10:09)
[2020-09-04] MEDS: traZODone HCL 100 MG TABLET (FP) PO SCH (23:11)
[2020-09-04] MEDS: QUEtiapine FUMARATE 200 MG TABLET PO SCH (23:11)
[2020-09-04] MEDS: MELATONIN 5 MG TABLETS PO SCH (23:11)
[2020-09-04] MEDS: THIAMINE HCL 100 MG TABLET (FP) PO SCH (23:11)
[2020-09-05] MEDS: METHADONE HCL 40 MG DISPERSABLE TABLET PO SCH (06:22)
[2020-09-05] MEDS: chlordiazePOXIDE HCL 10 MG CAPSULE PO SCH ×2 (06:23→18:01)
[2020-09-05] MEDS: ISOSORBIDE MONONITRATE 30 MG TAB.SR.24H (FP) PO SCH (11:35)
[2020-09-05] MEDS: NICOTINE 7 MG/24 HOURS TOPICAL PATCH TD SCH (11:35)
[2020-09-05] MEDS: PRENATAL VITAMINS W/ FOLIC ACID TABLET (FP) PO SCH (11:35)
[2020-09-05] MEDS: VENLAFAXINE HCL 75 MG E.R. CAPSULES PO SCH (11:35)
[2020-09-05] MEDS: LISINOPRIL 20 MG TABLET PO SCH (11:36)
[2020-09-05] MEDS: MELATONIN 5 MG TABLETS PO SCH (23:34)
[2020-09-05] MEDS: traZODone HCL 100 MG TABLET (FP) PO SCH (23:34)
[2020-09-05] MEDS: THIAMINE HCL 100 MG TABLET (FP) PO SCH (23:35)
[2020-09-05] MEDS: QUEtiapine FUMARATE 200 MG TABLET PO SCH (23:35)
[2020-09-06] MEDS ORDERED: chlordiazePOXIDE HCL 10 MG CAPSULE PO ONE (05:00)
[2020-09-06] MEDS: METHADONE HCL 40 MG DISPERSABLE TABLET PO SCH (06:50)
[2020-09-06 09:20] VITALS: BP 109/71; PULSE 82; TEMP 97.3
[2020-09-06] MEDS: VENLAFAXINE HCL 75 MG E.R. CAPSULES PO SCH (09:40)
[2020-09-06] MEDS: ISOSORBIDE MONONITRATE 30 MG TAB.SR.24H (FP) PO SCH (09:40)
[2020-09-06] MEDS: NICOTINE 7 MG/24 HOURS TOPICAL PATCH TD SCH (09:45)
[2020-09-06] MEDS: PRENATAL VITAMINS W/ FOLIC ACID TABLET (FP) PO SCH (09:45)
[2020-09-06] MEDS: LISINOPRIL 20 MG TABLET PO SCH (09:46)
== END 2020-09-06 12:17 | disposition other institution (70) | DRG 773 ==
LOC: YASAS 10:15 → Y6N 10:53
PROVIDERS: ADMIT Allergy & Immunology; ATTEND Allergy & Immunology
PROC: HZ2ZZZZ Detoxification Services for Substance Abuse Treatment (ICD-10-PCS; principal; 2020-09-01)
DX: F10.230 Alcohol dependence with withdrawal, uncomplicated (principal); F11.20 Opioid dependence, uncomplicated; F13.230 Sedative, hypnotic or anxiolytic dependence with withdrawal, uncomplicated; F14.20 Cocaine dependence, uncomplicated; F17.210 Nicotine dependence, cigarettes, uncomplicated; F25.9 Schizoaffective disorder, unspecified; F19.280 Other psychoactive substance dependence with psychoactive substance-induced anxiety disorder; F19.282 Other psychoactive substance dependence with psychoactive substance-induced sleep disorder; J44.9 Chronic obstructive pulmonary disease, unspecified; B18.2 Chronic viral hepatitis C; G47.00 Insomnia, unspecified; Z86.69 Personal history of other diseases of the nervous system and sense organs; Z56.0 Unemployment, unspecified
CPT/HCPCS: 36415; 80053; 82947; 82962; 85027; 86780; 87389; 93005; 93010; C9803; U0003

== ENCOUNTER 2020-09-06 12:27 | Inpatient (IN) | payer OTHER ==
[2020-09-06] MEDS ORDERED: ACETAMINOPHEN 325 MG TABLET (FP) PO PRN (14:12)
[2020-09-06] MEDS ORDERED: MAG HYDROX/AL HYDROX/SIMETH 30 ML UNIT-DOSE CUP PO PRN (14:12)
[2020-09-06] MEDS ORDERED: IBUPROFEN 400 MG TABLET (FP) PO PRN (14:12)
[2020-09-06] MEDS ORDERED: MAGNESIUM CITRATE 300 ML BOTTLE PO PRN (14:12)
[2020-09-06] MEDS ORDERED: guaiFENesin 200 MG/10 ML 10 ML UNIT-DOSE CUPS PO PRN (14:12)
[2020-09-06] MEDS ORDERED: ALBUTEROL SO4 HFA INHALER IH PRN (14:12)
[2020-09-06] MEDS ORDERED: MENTHOL/PHENOL 1 EACH UD MM PRN (14:12)
[2020-09-06] MEDS ORDERED: P-EPHED 60MG/TRIPROLIDI 2.5MG TABLET PO PRN (14:12)
[2020-09-06] MEDS ORDERED: MAGNESIUM HYDROX 2400MG/30ML ORAL SUSPENSION 30 ML CUP PO PRN (14:12)
[2020-09-06] MEDS ORDERED: LOPERAMIDE HCL 2 MG CAPSULE PO PRN (14:12)
[2020-09-06] MEDS: QUEtiapine FUMARATE 200 MG TABLET PO SCH (23:34)
[2020-09-06] MEDS: MELATONIN 5 MG TABLETS PO SCH (23:34)
[2020-09-06] MEDS: traZODone HCL 100 MG TABLET (FP) PO SCH (23:34)
[2020-09-06] MEDS: hydrALAZINE HCL 10 MG TABLET PO SCH (23:34)
[2020-09-06] MEDS: THIAMINE HCL 100 MG TABLET (FP) PO SCH (23:35)
[2020-09-07] MEDS: METHADONE HCL 40 MG DISPERSABLE TABLET PO SCH (06:21)
[2020-09-07] MEDS: hydrALAZINE HCL 10 MG TABLET PO SCH ×3 (06:22→21:28)
[2020-09-07] MEDS ORDERED: PT OWN MED DRAWER 7, Y5N ONE (09:17)
[2020-09-07] MEDS ORDERED: METHADONE HCL 40 MG DISPERSABLE TABLET PO SCH (10:00)
[2020-09-07] MEDS: PRENATAL VITAMINS W/ FOLIC ACID TABLET (FP) PO SCH (10:17)
[2020-09-07] MEDS: LISINOPRIL 20 MG TABLET PO SCH (10:17)
[2020-09-07] MEDS: hydrOXYzine PAMOATE 25 MG CAPSULE (FP) PO PRN (10:18)
[2020-09-07] MEDS: VENLAFAXINE HCL 75 MG E.R. CAPSULES PO SCH (10:18)
[2020-09-07] MEDS: ISOSORBIDE MONONITRATE 30 MG TAB.SR.24H (FP) PO SCH (10:18)
[2020-09-07] MEDS: THIAMINE HCL 100 MG TABLET (FP) PO SCH (21:27)
[2020-09-07] MEDS: traZODone HCL 100 MG TABLET (FP) PO SCH (21:27)
[2020-09-07] MEDS: QUEtiapine FUMARATE 200 MG TABLET PO SCH (21:27)
[2020-09-07] MEDS: MELATONIN 5 MG TABLETS PO SCH (21:28)
[2020-09-08] MEDS ORDERED: PT OWN MED DRAWER 7, Y5N ONE (05:25)
[2020-09-08] MEDS: hydrALAZINE HCL 10 MG TABLET PO SCH ×3 (06:12→22:45)
[2020-09-08] MEDS: METHADONE HCL 40 MG DISPERSABLE TABLET PO SCH (06:12)
[2020-09-08] MEDS: LISINOPRIL 20 MG TABLET PO SCH (10:55)
[2020-09-08] MEDS: VENLAFAXINE HCL 75 MG E.R. CAPSULES PO SCH (10:55)
[2020-09-08] MEDS: ISOSORBIDE MONONITRATE 30 MG TAB.SR.24H (FP) PO SCH (10:55)
[2020-09-08] MEDS: PRENATAL VITAMINS W/ FOLIC ACID TABLET (FP) PO SCH (10:55)
[2020-09-08] MEDS: traZODone HCL 100 MG TABLET (FP) PO SCH (22:45)
[2020-09-08] MEDS: MELATONIN 5 MG TABLETS PO SCH (22:45)
[2020-09-08] MEDS: THIAMINE HCL 100 MG TABLET (FP) PO SCH (22:45)
[2020-09-08] MEDS: QUEtiapine FUMARATE 200 MG TABLET PO SCH (22:45)
[2020-09-09] MEDS: METHADONE HCL 40 MG DISPERSABLE TABLET PO SCH (06:13)
[2020-09-09] MEDS: hydrALAZINE HCL 10 MG TABLET PO SCH ×3 (06:13→22:51)
[2020-09-09] MEDS: hydrOXYzine PAMOATE 25 MG CAPSULE (FP) PO PRN (10:08)
[2020-09-09] MEDS: PRENATAL VITAMINS W/ FOLIC ACID TABLET (FP) PO SCH (10:08)
[2020-09-09] MEDS: ISOSORBIDE MONONITRATE 30 MG TAB.SR.24H (FP) PO SCH (10:08)
[2020-09-09] MEDS: VENLAFAXINE HCL 75 MG E.R. CAPSULES PO SCH (10:08)
[2020-09-09] MEDS: LISINOPRIL 20 MG TABLET PO SCH (10:09)
[2020-09-09] MEDS: traZODone HCL 100 MG TABLET (FP) PO SCH (22:51)
[2020-09-09] MEDS: THIAMINE HCL 100 MG TABLET (FP) PO SCH (22:51)
[2020-09-09] MEDS: QUEtiapine FUMARATE 200 MG TABLET PO SCH (22:51)
[2020-09-09] MEDS: MELATONIN 5 MG TABLETS PO SCH (22:51)
[2020-09-10] MEDS: METHADONE HCL 40 MG DISPERSABLE TABLET PO SCH (05:56)
[2020-09-10] MEDS: hydrALAZINE HCL 10 MG TABLET PO SCH ×3 (05:57→22:21)
[2020-09-10] MEDS: hydrOXYzine PAMOATE 25 MG CAPSULE (FP) PO PRN ×2 (05:58→10:31)
[2020-09-10] MEDS: PRENATAL VITAMINS W/ FOLIC ACID TABLET (FP) PO SCH (10:30)
[2020-09-10] MEDS: LISINOPRIL 20 MG TABLET PO SCH (10:31)
[2020-09-10] MEDS: ISOSORBIDE MONONITRATE 30 MG TAB.SR.24H (FP) PO SCH (10:32)
[2020-09-10] MEDS: VENLAFAXINE HCL 75 MG E.R. CAPSULES PO SCH (10:32)
[2020-09-10] MEDS: QUEtiapine FUMARATE 200 MG TABLET PO SCH (22:21)
[2020-09-10] MEDS: THIAMINE HCL 100 MG TABLET (FP) PO SCH (22:21)
[2020-09-10] MEDS: MELATONIN 5 MG TABLETS PO SCH (22:21)
[2020-09-10] MEDS: traZODone HCL 100 MG TABLET (FP) PO SCH (22:21)
[2020-09-11] MEDS: METHADONE HCL 40 MG DISPERSABLE TABLET PO SCH (05:58)
[2020-09-11] MEDS: hydrALAZINE HCL 10 MG TABLET PO SCH ×3 (05:59→22:07)
[2020-09-11] MEDS: PRENATAL VITAMINS W/ FOLIC ACID TABLET (FP) PO SCH (10:44)
[2020-09-11] MEDS: VENLAFAXINE HCL 75 MG E.R. CAPSULES PO SCH (10:44)
[2020-09-11] MEDS: ISOSORBIDE MONONITRATE 30 MG TAB.SR.24H (FP) PO SCH (10:44)
[2020-09-11] MEDS: LISINOPRIL 20 MG TABLET PO SCH (10:44)
[2020-09-11] MEDS: hydrOXYzine PAMOATE 25 MG CAPSULE (FP) PO PRN ×2 (11:38→17:31)
[2020-09-11] MEDS: QUEtiapine FUMARATE 200 MG TABLET PO SCH (22:07)
[2020-09-11] MEDS: MELATONIN 5 MG TABLETS PO SCH (22:07)
[2020-09-11] MEDS: THIAMINE HCL 100 MG TABLET (FP) PO SCH (22:07)
[2020-09-11] MEDS: traZODone HCL 100 MG TABLET (FP) PO SCH (22:07)
[2020-09-12] MEDS: hydrALAZINE HCL 10 MG TABLET PO SCH ×3 (06:00→21:19)
[2020-09-12] MEDS: METHADONE HCL 40 MG DISPERSABLE TABLET PO SCH (06:00)
[2020-09-12] MEDS ORDERED: PT OWN MED DRAWER 7, Y5N ONE ×2 (09:09→21:18)
[2020-09-12] MEDS: VENLAFAXINE HCL 75 MG E.R. CAPSULES PO SCH (10:28)
[2020-09-12] MEDS: ISOSORBIDE MONONITRATE 30 MG TAB.SR.24H (FP) PO SCH (10:28)
[2020-09-12] MEDS: PRENATAL VITAMINS W/ FOLIC ACID TABLET (FP) PO SCH (10:28)
[2020-09-12] MEDS: LISINOPRIL 20 MG TABLET PO SCH (10:29)
[2020-09-12] MEDS: hydrOXYzine PAMOATE 25 MG CAPSULE (FP) PO PRN ×2 (10:30→14:33)
[2020-09-12] MEDS: MELATONIN 5 MG TABLETS PO SCH (21:17)
[2020-09-12] MEDS: THIAMINE HCL 100 MG TABLET (FP) PO SCH (21:17)
[2020-09-12] MEDS: QUEtiapine FUMARATE 200 MG TABLET PO SCH (21:19)
[2020-09-12] MEDS: traZODone HCL 100 MG TABLET (FP) PO SCH (21:19)
[2020-09-13] MEDS: hydrALAZINE HCL 10 MG TABLET PO SCH ×3 (06:24→21:21)
[2020-09-13] MEDS: METHADONE HCL 40 MG DISPERSABLE TABLET PO SCH (06:25)
[2020-09-13] MEDS: ISOSORBIDE MONONITRATE 30 MG TAB.SR.24H (FP) PO SCH (10:04)
[2020-09-13] MEDS: VENLAFAXINE HCL 75 MG E.R. CAPSULES PO SCH (10:04)
[2020-09-13] MEDS: PRENATAL VITAMINS W/ FOLIC ACID TABLET (FP) PO SCH (10:05)
[2020-09-13] MEDS: LISINOPRIL 20 MG TABLET PO SCH (10:05)
[2020-09-13] MEDS ORDERED: PT OWN MED DRAWER 7, Y5N ONE (19:11)
[2020-09-13] MEDS: MELATONIN 5 MG TABLETS PO SCH (21:21)
[2020-09-13] MEDS: QUEtiapine FUMARATE 200 MG TABLET PO SCH (21:21)
[2020-09-13] MEDS: traZODone HCL 100 MG TABLET (FP) PO SCH (21:21)
[2020-09-13] MEDS: THIAMINE HCL 100 MG TABLET (FP) PO SCH (21:22)
[2020-09-14] MEDS: METHADONE HCL 40 MG DISPERSABLE TABLET PO SCH (06:26)
[2020-09-14] MEDS: hydrALAZINE HCL 10 MG TABLET PO SCH ×3 (06:27→21:02)
[2020-09-14] MEDS ORDERED: PT OWN MED DRAWER 7, Y5N ONE (08:22)
[2020-09-14] MEDS: VENLAFAXINE HCL 75 MG E.R. CAPSULES PO SCH (09:00)
[2020-09-14] MEDS: LISINOPRIL 20 MG TABLET PO SCH (09:00)
[2020-09-14] MEDS: ISOSORBIDE MONONITRATE 30 MG TAB.SR.24H (FP) PO SCH (09:01)
[2020-09-14] MEDS: PRENATAL VITAMINS W/ FOLIC ACID TABLET (FP) PO SCH (09:01)
[2020-09-14] MEDS: QUEtiapine FUMARATE 200 MG TABLET PO SCH (21:01)
[2020-09-14] MEDS: THIAMINE HCL 100 MG TABLET (FP) PO SCH (21:02)
[2020-09-14] MEDS: hydrOXYzine PAMOATE 25 MG CAPSULE (FP) PO PRN (21:02)
[2020-09-14] MEDS: traZODone HCL 100 MG TABLET (FP) PO SCH (21:02)
[2020-09-14] MEDS: MELATONIN 5 MG TABLETS PO SCH (21:02)
[2020-09-15] MEDS ORDERED: PT OWN MED DRAWER 7, Y5N ONE ×2 (06:42→21:35)
[2020-09-15] MEDS: hydrALAZINE HCL 10 MG TABLET PO SCH ×3 (06:47→21:28)
[2020-09-15] MEDS: METHADONE HCL 40 MG DISPERSABLE TABLET PO SCH (06:47)
[2020-09-15] MEDS: LISINOPRIL 20 MG TABLET PO SCH (10:45)
[2020-09-15] MEDS: PRENATAL VITAMINS W/ FOLIC ACID TABLET (FP) PO SCH (10:45)
[2020-09-15] MEDS: VENLAFAXINE HCL 75 MG E.R. CAPSULES PO SCH (10:45)
[2020-09-15] MEDS: ISOSORBIDE MONONITRATE 30 MG TAB.SR.24H (FP) PO SCH (11:45)
[2020-09-15] MEDS: QUEtiapine FUMARATE 200 MG TABLET PO SCH (21:28)
[2020-09-15] MEDS: THIAMINE HCL 100 MG TABLET (FP) PO SCH (21:28)
[2020-09-15] MEDS: traZODone HCL 100 MG TABLET (FP) PO SCH (21:28)
[2020-09-15] MEDS: MELATONIN 5 MG TABLETS PO SCH (21:28)
[2020-09-15] MEDS: hydrOXYzine PAMOATE 25 MG CAPSULE (FP) PO PRN (21:28)
[2020-09-16] MEDS: METHADONE HCL 40 MG DISPERSABLE TABLET PO SCH (06:19)
[2020-09-16] MEDS: hydrALAZINE HCL 10 MG TABLET PO SCH ×3 (06:19→21:26)
[2020-09-16] MEDS: PRENATAL VITAMINS W/ FOLIC ACID TABLET (FP) PO SCH (09:37)
[2020-09-16] MEDS: LISINOPRIL 20 MG TABLET PO SCH (09:37)
[2020-09-16] MEDS: VENLAFAXINE HCL 75 MG E.R. CAPSULES PO SCH (09:37)
[2020-09-16] MEDS: ISOSORBIDE MONONITRATE 30 MG TAB.SR.24H (FP) PO SCH (09:37)
[2020-09-16] MEDS: traZODone HCL 100 MG TABLET (FP) PO SCH (21:25)
[2020-09-16] MEDS: QUEtiapine FUMARATE 200 MG TABLET PO SCH (21:25)
[2020-09-16] MEDS: THIAMINE HCL 100 MG TABLET (FP) PO SCH (21:25)
[2020-09-16] MEDS: MELATONIN 5 MG TABLETS PO SCH (21:25)
[2020-09-16] MEDS: hydrOXYzine PAMOATE 25 MG CAPSULE (FP) PO PRN (21:25)
[2020-09-17] MEDS ORDERED: PT OWN MED DRAWER 7, Y5N ONE (06:23)
[2020-09-17] MEDS: METHADONE HCL 40 MG DISPERSABLE TABLET PO SCH (06:39)
[2020-09-17] MEDS: hydrALAZINE HCL 10 MG TABLET PO SCH ×3 (06:39→21:25)
[2020-09-17] MEDS: LISINOPRIL 20 MG TABLET PO SCH (10:50)
[2020-09-17] MEDS: VENLAFAXINE HCL 75 MG E.R. CAPSULES PO SCH (10:50)
[2020-09-17] MEDS: ISOSORBIDE MONONITRATE 30 MG TAB.SR.24H (FP) PO SCH (10:50)
[2020-09-17] MEDS: PRENATAL VITAMINS W/ FOLIC ACID TABLET (FP) PO SCH (10:50)
[2020-09-17] MEDS: QUEtiapine FUMARATE 200 MG TABLET PO SCH (21:25)
[2020-09-17] MEDS: THIAMINE HCL 100 MG TABLET (FP) PO SCH (21:25)
[2020-09-17] MEDS: traZODone HCL 100 MG TABLET (FP) PO SCH (21:25)
[2020-09-17] MEDS: MELATONIN 5 MG TABLETS PO SCH (21:25)
[2020-09-18] MEDS ORDERED: PT OWN MED DRAWER 7, Y5N ONE ×2 (05:49→19:32)
[2020-09-18] MEDS: METHADONE HCL 40 MG DISPERSABLE TABLET PO SCH (06:33)
[2020-09-18] MEDS: hydrALAZINE HCL 10 MG TABLET PO SCH ×3 (06:33→21:16)
[2020-09-18] MEDS: LISINOPRIL 20 MG TABLET PO SCH (09:49)
[2020-09-18] MEDS: ISOSORBIDE MONONITRATE 30 MG TAB.SR.24H (FP) PO SCH (09:49)
[2020-09-18] MEDS: PRENATAL VITAMINS W/ FOLIC ACID TABLET (FP) PO SCH (09:50)
[2020-09-18] MEDS: VENLAFAXINE HCL 75 MG E.R. CAPSULES PO SCH (09:50)
[2020-09-18] MEDS: traZODone HCL 100 MG TABLET (FP) PO SCH (21:16)
[2020-09-18] MEDS: THIAMINE HCL 100 MG TABLET (FP) PO SCH (21:16)
[2020-09-18] MEDS: QUEtiapine FUMARATE 200 MG TABLET PO SCH (21:16)
[2020-09-18] MEDS: MELATONIN 5 MG TABLETS PO SCH (21:16)
[2020-09-19] MEDS: METHADONE HCL 40 MG DISPERSABLE TABLET PO SCH (06:14)
[2020-09-19] MEDS: hydrALAZINE HCL 10 MG TABLET PO SCH ×3 (06:14→21:06)
[2020-09-19] MEDS: PRENATAL VITAMINS W/ FOLIC ACID TABLET (FP) PO SCH (09:20)
[2020-09-19] MEDS: ISOSORBIDE MONONITRATE 30 MG TAB.SR.24H (FP) PO SCH (09:20)
[2020-09-19] MEDS: VENLAFAXINE HCL 75 MG E.R. CAPSULES PO SCH (09:20)
[2020-09-19] MEDS: LISINOPRIL 20 MG TABLET PO SCH (09:21)
[2020-09-19] MEDS ORDERED: PT OWN MED DRAWER 7, Y5N ONE ×2 (18:47)
[2020-09-19] MEDS: traZODone HCL 100 MG TABLET (FP) PO SCH (21:05)
[2020-09-19] MEDS: QUEtiapine FUMARATE 200 MG TABLET PO SCH (21:05)
[2020-09-19] MEDS: MELATONIN 5 MG TABLETS PO SCH (21:05)
[2020-09-19] MEDS: THIAMINE HCL 100 MG TABLET (FP) PO SCH (21:05)
[2020-09-19] MEDS: hydrOXYzine PAMOATE 25 MG CAPSULE (FP) PO PRN (21:05)
[2020-09-20] MEDS ORDERED: PT OWN MED DRAWER 7, Y5N ONE (06:07)
[2020-09-20] MEDS: hydrALAZINE HCL 10 MG TABLET PO SCH ×3 (06:15→21:16)
[2020-09-20] MEDS: METHADONE HCL 40 MG DISPERSABLE TABLET PO SCH (06:16)
[2020-09-20] MEDS: PRENATAL VITAMINS W/ FOLIC ACID TABLET (FP) PO SCH (09:22)
[2020-09-20] MEDS: VENLAFAXINE HCL 75 MG E.R. CAPSULES PO SCH (09:22)
[2020-09-20] MEDS: LISINOPRIL 20 MG TABLET PO SCH (09:23)
[2020-09-20] MEDS: ISOSORBIDE MONONITRATE 30 MG TAB.SR.24H (FP) PO SCH (09:23)
[2020-09-20] MEDS: MELATONIN 5 MG TABLETS PO SCH (21:14)
[2020-09-20] MEDS: THIAMINE HCL 100 MG TABLET (FP) PO SCH (21:14)
[2020-09-20] MEDS: QUEtiapine FUMARATE 200 MG TABLET PO SCH (21:15)
[2020-09-20] MEDS: traZODone HCL 100 MG TABLET (FP) PO SCH (21:15)
[2020-09-21] MEDS: hydrALAZINE HCL 10 MG TABLET PO SCH ×3 (06:28→21:22)
[2020-09-21] MEDS: METHADONE HCL 40 MG DISPERSABLE TABLET PO SCH (06:28)
[2020-09-21] MEDS: VENLAFAXINE HCL 75 MG E.R. CAPSULES PO SCH (09:54)
[2020-09-21] MEDS: PRENATAL VITAMINS W/ FOLIC ACID TABLET (FP) PO SCH (09:54)
[2020-09-21] MEDS: ISOSORBIDE MONONITRATE 30 MG TAB.SR.24H (FP) PO SCH (09:55)
[2020-09-21] MEDS: LISINOPRIL 20 MG TABLET PO SCH (09:55)
[2020-09-21] MEDS: THIAMINE HCL 100 MG TABLET (FP) PO SCH (21:21)
[2020-09-21] MEDS: MELATONIN 5 MG TABLETS PO SCH (21:21)
[2020-09-21] MEDS: QUEtiapine FUMARATE 200 MG TABLET PO SCH (21:22)
[2020-09-21] MEDS: traZODone HCL 100 MG TABLET (FP) PO SCH (21:22)
[2020-09-22] MEDS: hydrALAZINE HCL 10 MG TABLET PO SCH ×3 (06:30→21:32)
[2020-09-22] MEDS: METHADONE HCL 40 MG DISPERSABLE TABLET PO SCH (06:31)
[2020-09-22] MEDS ORDERED: PT OWN MED DRAWER 7, Y5N ONE (08:21)
[2020-09-22] MEDS: LISINOPRIL 20 MG TABLET PO SCH (09:56)
[2020-09-22] MEDS: VENLAFAXINE HCL 75 MG E.R. CAPSULES PO SCH (09:56)
[2020-09-22] MEDS: ISOSORBIDE MONONITRATE 30 MG TAB.SR.24H (FP) PO SCH (09:56)
[2020-09-22] MEDS: PRENATAL VITAMINS W/ FOLIC ACID TABLET (FP) PO SCH (09:56)
[2020-09-22] MEDS ORDERED: COLLOIDAL OATMEAL 1 BAR EACH TP PRN (13:02)
[2020-09-22] MEDS: QUEtiapine FUMARATE 200 MG TABLET PO SCH (21:32)
[2020-09-22] MEDS: THIAMINE HCL 100 MG TABLET (FP) PO SCH (21:32)
[2020-09-22] MEDS: MELATONIN 5 MG TABLETS PO SCH (21:32)
[2020-09-22] MEDS: traZODone HCL 100 MG TABLET (FP) PO SCH (21:33)
[2020-09-23] MEDS: METHADONE HCL 40 MG DISPERSABLE TABLET PO SCH (06:26)
[2020-09-23] MEDS: hydrALAZINE HCL 10 MG TABLET PO SCH ×3 (06:26→21:17)
[2020-09-23] MEDS ORDERED: PT OWN MED DRAWER 7, Y5N ONE ×2 (08:59→20:40)
[2020-09-23] MEDS: VENLAFAXINE HCL 75 MG E.R. CAPSULES PO SCH (09:50)
[2020-09-23] MEDS: ISOSORBIDE MONONITRATE 30 MG TAB.SR.24H (FP) PO SCH (09:51)
[2020-09-23] MEDS: LISINOPRIL 20 MG TABLET PO SCH (09:51)
[2020-09-23] MEDS: PRENATAL VITAMINS W/ FOLIC ACID TABLET (FP) PO SCH (09:51)
[2020-09-23] MEDS: traZODone HCL 100 MG TABLET (FP) PO SCH (21:17)
[2020-09-23] MEDS: MELATONIN 5 MG TABLETS PO SCH (21:17)
[2020-09-23] MEDS: THIAMINE HCL 100 MG TABLET (FP) PO SCH (21:17)
[2020-09-23] MEDS: QUEtiapine FUMARATE 200 MG TABLET PO SCH (21:17)
[2020-09-24] MEDS: METHADONE HCL 40 MG DISPERSABLE TABLET PO SCH (06:12)
[2020-09-24] MEDS: hydrALAZINE HCL 10 MG TABLET PO SCH ×3 (06:12→21:08)
[2020-09-24] MEDS: VENLAFAXINE HCL 75 MG E.R. CAPSULES PO SCH (09:29)
[2020-09-24] MEDS: PRENATAL VITAMINS W/ FOLIC ACID TABLET (FP) PO SCH (09:29)
[2020-09-24] MEDS: ISOSORBIDE MONONITRATE 30 MG TAB.SR.24H (FP) PO SCH (10:05)
[2020-09-24] MEDS: LISINOPRIL 20 MG TABLET PO SCH (10:05)
[2020-09-24] MEDS: QUEtiapine FUMARATE 200 MG TABLET PO SCH (21:07)
[2020-09-24] MEDS: MELATONIN 5 MG TABLETS PO SCH (21:07)
[2020-09-24] MEDS: traZODone HCL 100 MG TABLET (FP) PO SCH (21:07)
[2020-09-24] MEDS: THIAMINE HCL 100 MG TABLET (FP) PO SCH (21:07)
[2020-09-25] MEDS: METHADONE HCL 40 MG DISPERSABLE TABLET PO SCH (06:23)
[2020-09-25] MEDS: hydrALAZINE HCL 10 MG TABLET PO SCH ×3 (06:23→21:15)
[2020-09-25] MEDS: VENLAFAXINE HCL 75 MG E.R. CAPSULES PO SCH (09:47)
[2020-09-25] MEDS: ISOSORBIDE MONONITRATE 30 MG TAB.SR.24H (FP) PO SCH (09:47)
[2020-09-25] MEDS: PRENATAL VITAMINS W/ FOLIC ACID TABLET (FP) PO SCH (09:47)
[2020-09-25] MEDS: LISINOPRIL 20 MG TABLET PO SCH (09:48)
[2020-09-25] MEDS: traZODone HCL 100 MG TABLET (FP) PO SCH (21:14)
[2020-09-25] MEDS: QUEtiapine FUMARATE 200 MG TABLET PO SCH (21:14)
[2020-09-25] MEDS: MELATONIN 5 MG TABLETS PO SCH (21:14)
[2020-09-25] MEDS: THIAMINE HCL 100 MG TABLET (FP) PO SCH (21:14)
[2020-09-26] MEDS: hydrALAZINE HCL 10 MG TABLET PO SCH ×3 (06:17→21:18)
[2020-09-26] MEDS: METHADONE HCL 40 MG DISPERSABLE TABLET PO SCH (06:17)
[2020-09-26] MEDS: ISOSORBIDE MONONITRATE 30 MG TAB.SR.24H (FP) PO SCH (09:41)
[2020-09-26] MEDS: VENLAFAXINE HCL 75 MG E.R. CAPSULES PO SCH (09:41)
[2020-09-26] MEDS: PRENATAL VITAMINS W/ FOLIC ACID TABLET (FP) PO SCH (09:41)
[2020-09-26] MEDS: LISINOPRIL 20 MG TABLET PO SCH (09:41)
[2020-09-26] MEDS: traZODone HCL 100 MG TABLET (FP) PO SCH (21:17)
[2020-09-26] MEDS: THIAMINE HCL 100 MG TABLET (FP) PO SCH (21:17)
[2020-09-26] MEDS: MELATONIN 5 MG TABLETS PO SCH (21:17)
[2020-09-26] MEDS: QUEtiapine FUMARATE 200 MG TABLET PO SCH (21:18)
[2020-09-27] MEDS: METHADONE HCL 40 MG DISPERSABLE TABLET PO SCH (06:23)
[2020-09-27] MEDS: hydrALAZINE HCL 10 MG TABLET PO SCH ×3 (06:23→21:25)
[2020-09-27] MEDS: ISOSORBIDE MONONITRATE 30 MG TAB.SR.24H (FP) PO SCH (09:33)
[2020-09-27] MEDS: VENLAFAXINE HCL 75 MG E.R. CAPSULES PO SCH (09:33)
[2020-09-27] MEDS: LISINOPRIL 20 MG TABLET PO SCH (09:33)
[2020-09-27] MEDS: PRENATAL VITAMINS W/ FOLIC ACID TABLET (FP) PO SCH (09:33)
[2020-09-27] MEDS: THIAMINE HCL 100 MG TABLET (FP) PO SCH (21:24)
[2020-09-27] MEDS: MELATONIN 5 MG TABLETS PO SCH (21:25)
[2020-09-27] MEDS: QUEtiapine FUMARATE 200 MG TABLET PO SCH (21:25)
[2020-09-27] MEDS: traZODone HCL 100 MG TABLET (FP) PO SCH (21:25)
[2020-09-28] MEDS: METHADONE HCL 40 MG DISPERSABLE TABLET PO SCH (06:19)
[2020-09-28] MEDS: hydrALAZINE HCL 10 MG TABLET PO SCH ×3 (06:19→21:23)
[2020-09-28] MEDS: VENLAFAXINE HCL 75 MG E.R. CAPSULES PO SCH (09:57)
[2020-09-28] MEDS: ISOSORBIDE MONONITRATE 30 MG TAB.SR.24H (FP) PO SCH (09:57)
[2020-09-28] MEDS: LISINOPRIL 20 MG TABLET PO SCH (09:57)
[2020-09-28] MEDS: PRENATAL VITAMINS W/ FOLIC ACID TABLET (FP) PO SCH (09:59)
[2020-09-28] MEDS: QUEtiapine FUMARATE 200 MG TABLET PO SCH (21:22)
[2020-09-28] MEDS: traZODone HCL 100 MG TABLET (FP) PO SCH (21:22)
[2020-09-28] MEDS: THIAMINE HCL 100 MG TABLET (FP) PO SCH (21:22)
[2020-09-28] MEDS: MELATONIN 5 MG TABLETS PO SCH (21:22)
[2020-09-28 22:19] VITALS: PULSE 85; TEMP 96.8
[2020-09-29] MEDS: hydrALAZINE HCL 10 MG TABLET PO SCH (06:44)
[2020-09-29] MEDS: METHADONE HCL 40 MG DISPERSABLE TABLET PO SCH (06:44)
[2020-09-29 08:34] VITALS: BP 106/72
[2020-09-29] MEDS: ISOSORBIDE MONONITRATE 30 MG TAB.SR.24H (FP) PO SCH (09:23)
[2020-09-29] MEDS: PRENATAL VITAMINS W/ FOLIC ACID TABLET (FP) PO SCH (09:23)
[2020-09-29] MEDS: LISINOPRIL 20 MG TABLET PO SCH (09:23)
[2020-09-29] MEDS: VENLAFAXINE HCL 75 MG E.R. CAPSULES PO SCH (09:23)
== END 2020-09-29 09:36 | disposition home or self-care (01) | DRG 772 ==
LOC: YASAS 12:27 → Y3W 12:28 → Y3E 09-12 11:49 → Y3W 09-25 16:32
PROVIDERS: ADMIT Allergy & Immunology; ATTEND Allergy & Immunology
PROC: HZ42ZZZ Group Counseling for Substance Abuse Treatment, Cognitive-Behavioral (ICD-10-PCS; principal; 2020-09-06)
DX: F10.20 Alcohol dependence, uncomplicated (principal); F11.20 Opioid dependence, uncomplicated; F14.20 Cocaine dependence, uncomplicated; F17.210 Nicotine dependence, cigarettes, uncomplicated; F19.24 Other psychoactive substance dependence with psychoactive substance-induced mood disorder; F25.9 Schizoaffective disorder, unspecified; I95.9 Hypotension, unspecified; B18.2 Chronic viral hepatitis C; Z86.69 Personal history of other diseases of the nervous system and sense organs

== ENCOUNTER 2020-11-15 12:50 | Inpatient (IN) | payer OTHER ==
[2020-11-15] MEDS ORDERED: MENTHOL/PHENOL 1 EACH UD MM PRN (16:33)
[2020-11-15] MEDS ORDERED: MAG HYDROX/AL HYDROX/SIMETH 30 ML UNIT-DOSE CUP PO PRN (16:33)
[2020-11-15] MEDS ORDERED: BISMUTH SUBSALICYLATE 524 MG/30 ML UD PO PRN (16:33)
[2020-11-15] MEDS ORDERED: ONDANSETRON *ODT* 4 MG TABLET SL PRN (16:33)
[2020-11-15] MEDS ORDERED: NICOTINE POLACRILEX 2 MG GUM BUC PRN (16:33)
[2020-11-15] MEDS ORDERED: MAGNESIUM CITRATE 300 ML BOTTLE PO PRN (16:33)
[2020-11-15] MEDS ORDERED: IBUPROFEN 400 MG TABLET (FP) PO PRN (16:33)
[2020-11-15] MEDS ORDERED: MAGNESIUM HYDROX 2400MG/30ML ORAL SUSPENSION 30 ML CUP PO PRN (16:33)
[2020-11-15] MEDS ORDERED: ACETAMINOPHEN 325 MG TABLET (FP) PO PRN ×2 (16:33)
[2020-11-15 17:44] VITALS: BMI 31.8
[2020-11-15] MEDS ORDERED: ALBUTEROL SO4 HFA INHALER IH PRN (17:47)
[2020-11-15] MEDS: METHOCARBAMOL 500 MG TABLET PO PRN (18:10)
[2020-11-15] MEDS: hydrOXYzine PAMOATE 25 MG CAPSULE (FP) PO SCH ×2 (18:10→22:01)
[2020-11-15] MEDS: MELATONIN 5 MG TABLETS PO SCH (22:00)
[2020-11-15] MEDS: diazePAM 5 MG TABLET PO SCH (22:01)
[2020-11-15] MEDS: THIAMINE HCL 100 MG TABLET (FP) PO SCH (22:03)
[2020-11-15] MEDS: hydrALAZINE HCL 10 MG TABLET PO SCH (22:58)
[2020-11-16] MEDS: hydrOXYzine PAMOATE 25 MG CAPSULE (FP) PO SCH ×5 (05:42→22:18)
[2020-11-16] MEDS: hydrALAZINE HCL 10 MG TABLET PO SCH ×3 (05:42→22:18)
[2020-11-16] MEDS: diazePAM 5 MG TABLET PO SCH ×4 (05:43→22:17)
[2020-11-16] MEDS ORDERED: METHADONE HCL 40 MG DISPERSABLE TABLET ONE (05:44)
[2020-11-16] MEDS ORDERED: METHADONE HCL 10 MG TABLET ONE (05:44)
[2020-11-16] MEDS: METHADONE 120 MG, METHADONE 30 MG PO SCH (05:45)
[2020-11-16] MEDS ORDERED: METHADONE HCL 10 MG TABLET PO ONE (06:00)
[2020-11-16] MEDS: PRENATAL VITAMINS W/ FOLIC ACID TABLET (FP) PO SCH (10:16)
[2020-11-16] MEDS: LISINOPRIL 20 MG TABLET PO SCH (10:19)
[2020-11-16 12:46] LABS: HEMATOCRIT 37.2 % (32.4-45.2); HEMOGLOBIN 12.5 GM/dL (10.7-15.3); MCH 29.7 pg (25.7-33.7); MCHC 33.7 g/dl (32.0-36.0); MEAN CELL VOLUME 88.2 fl (80-96); MEAN PLT VOLUME 7.2 fl (7.5-11.1); PLATELET COUNT 359 K/MM3 (134-434); RBC 4.21 M/mm3 (3.60-5.2); RDW 16.3 % (11.6-15.6); WHITE BLOOD COUNT 5.6 K/mm3 (4.0-10.0)
[2020-11-16 12:48] LABS: POTASSIUM 4.1 mmol/L (3.5-5.1)
[2020-11-16 12:50] LABS: CALCIUM 8.8 mg/dL (8.5-10.1)
[2020-11-16 12:51] LABS: ALBUMIN 3.2 g/dl (3.4-5.0); BLOOD UREA NITROGEN 13.6 mg/dL (7-18)
[2020-11-16 12:54] LABS: CREATININE 0.8 mg/dL (0.55-1.3)
[2020-11-16 12:55] LABS: BILIRUBIN,TOTAL 0.3 mg/dL (0.2-1); TOT PROT 7.3 g/dl (6.4-8.2)
[2020-11-16] MEDS: VENLAFAXINE HCL 75 MG E.R. CAPSULES PO SCH (13:43)
[2020-11-16] MEDS: ISOSORBIDE MONONITRATE 30 MG TAB.SR.24H (FP) PO SCH (13:43)
[2020-11-16] MEDS: diazePAM 5 MG TABLET PO PRN (13:47)
[2020-11-16] MEDS: MELATONIN 5 MG TABLETS PO SCH (22:17)
[2020-11-16] MEDS: QUEtiapine FUMARATE 200 MG TABLET PO SCH (22:17)
[2020-11-16] MEDS: traZODone HCL 100 MG TABLET (FP) PO SCH (22:18)
[2020-11-16] MEDS: THIAMINE HCL 100 MG TABLET (FP) PO SCH (22:18)
[2020-11-17] MEDS ORDERED: METHADONE HCL 40 MG DISPERSABLE TABLET ONE (03:18)
[2020-11-17] MEDS ORDERED: METHADONE HCL 10 MG TABLET ONE (03:18)
[2020-11-17] MEDS ORDERED: METHADONE HCL 10 MG TABLET PO ONE (06:00)
[2020-11-17] MEDS: METHADONE 120 MG, METHADONE 30 MG PO SCH (06:17)
[2020-11-17] MEDS: diazePAM 5 MG TABLET PO SCH ×3 (06:18→22:23)
[2020-11-17] MEDS: hydrOXYzine PAMOATE 25 MG CAPSULE (FP) PO SCH ×5 (06:18→22:23)
[2020-11-17] MEDS: hydrALAZINE HCL 10 MG TABLET PO SCH ×3 (07:00→22:22)
[2020-11-17] MEDS: ISOSORBIDE MONONITRATE 30 MG TAB.SR.24H (FP) PO SCH (10:04)
[2020-11-17] MEDS: PRENATAL VITAMINS W/ FOLIC ACID TABLET (FP) PO SCH (10:04)
[2020-11-17] MEDS: VENLAFAXINE HCL 75 MG E.R. CAPSULES PO SCH (10:04)
[2020-11-17] MEDS: diazePAM 5 MG TABLET PO PRN ×2 (10:05→17:54)
[2020-11-17] MEDS: LISINOPRIL 20 MG TABLET PO SCH (10:09)
[2020-11-17] MEDS: METHOCARBAMOL 500 MG TABLET PO PRN (17:53)
[2020-11-17] MEDS: THIAMINE HCL 100 MG TABLET (FP) PO SCH (22:22)
[2020-11-17] MEDS: traZODone HCL 100 MG TABLET (FP) PO SCH (22:22)
[2020-11-17] MEDS: QUEtiapine FUMARATE 200 MG TABLET PO SCH (22:22)
[2020-11-17] MEDS: MELATONIN 5 MG TABLETS PO SCH (22:25)
[2020-11-18] MEDS: hydrALAZINE HCL 10 MG TABLET PO SCH ×3 (05:45→22:30)
[2020-11-18] MEDS: diazePAM 5 MG TABLET PO SCH ×2 (05:45→17:54)
[2020-11-18] MEDS: hydrOXYzine PAMOATE 25 MG CAPSULE (FP) PO SCH ×5 (05:46→22:30)
[2020-11-18] MEDS ORDERED: METHADONE HCL 10 MG TABLET PO SCH (10:15)
[2020-11-18] MEDS ORDERED: METHADONE HCL 10 MG TABLET ONE (10:22)
[2020-11-18] MEDS ORDERED: METHADONE HCL 40 MG DISPERSABLE TABLET ONE (10:22)
[2020-11-18] MEDS: PRENATAL VITAMINS W/ FOLIC ACID TABLET (FP) PO SCH (10:24)
[2020-11-18] MEDS: VENLAFAXINE HCL 75 MG E.R. CAPSULES PO SCH (10:24)
[2020-11-18] MEDS: ISOSORBIDE MONONITRATE 30 MG TAB.SR.24H (FP) PO SCH (10:24)
[2020-11-18] MEDS: LISINOPRIL 20 MG TABLET PO SCH (10:24)
[2020-11-18] MEDS: METHADONE 120 MG, METHADONE 30 MG PO SCH (10:24)
[2020-11-18] MEDS: diazePAM 5 MG TABLET PO PRN ×2 (10:26→15:19)
[2020-11-18] MEDS: traZODone HCL 100 MG TABLET (FP) PO SCH (22:30)
[2020-11-18] MEDS: THIAMINE HCL 100 MG TABLET (FP) PO SCH (22:30)
[2020-11-18] MEDS: QUEtiapine FUMARATE 200 MG TABLET PO SCH (22:30)
[2020-11-19] MEDS: MELATONIN 5 MG TABLETS PO SCH (00:18)
[2020-11-19] MEDS ORDERED: METHADONE HCL 40 MG DISPERSABLE TABLET ONE (04:44)
[2020-11-19] MEDS ORDERED: METHADONE HCL 10 MG TABLET ONE (04:44)
[2020-11-19] MEDS ORDERED: diazePAM 5 MG TABLET PO ONE (06:00)
[2020-11-19] MEDS: METHADONE 120 MG, METHADONE 30 MG PO SCH (06:03)
[2020-11-19] MEDS: hydrOXYzine PAMOATE 25 MG CAPSULE (FP) PO SCH ×2 (06:04→10:47)
[2020-11-19] MEDS: hydrALAZINE HCL 10 MG TABLET PO SCH (06:08)
[2020-11-19 07:10] VITALS: TEMP 97.8
[2020-11-19 09:16] VITALS: BP 118/69; PULSE 99
[2020-11-19] MEDS: VENLAFAXINE HCL 75 MG E.R. CAPSULES PO SCH (10:48)
[2020-11-19] MEDS: ISOSORBIDE MONONITRATE 30 MG TAB.SR.24H (FP) PO SCH (10:48)
[2020-11-19] MEDS: LISINOPRIL 20 MG TABLET PO SCH (10:48)
[2020-11-19] MEDS: PRENATAL VITAMINS W/ FOLIC ACID TABLET (FP) PO SCH (10:48)
== END 2020-11-19 12:27 | disposition other institution (70) | DRG 773 ==
LOC: YASAS 12:50 → Y6N 17:03
PROVIDERS: ADMIT Allergy & Immunology; ATTEND Allergy & Immunology
PROC: HZ2ZZZZ Detoxification Services for Substance Abuse Treatment (ICD-10-PCS; principal; 2020-11-15)
DX: F10.230 Alcohol dependence with withdrawal, uncomplicated (principal); F13.230 Sedative, hypnotic or anxiolytic dependence with withdrawal, uncomplicated; F11.20 Opioid dependence, uncomplicated; F17.210 Nicotine dependence, cigarettes, uncomplicated; F25.9 Schizoaffective disorder, unspecified; F19.280 Other psychoactive substance dependence with psychoactive substance-induced anxiety disorder; F19.282 Other psychoactive substance dependence with psychoactive substance-induced sleep disorder; F19.24 Other psychoactive substance dependence with psychoactive substance-induced mood disorder; I10 Essential (primary) hypertension; J44.9 Chronic obstructive pulmonary disease, unspecified; R56.9 Unspecified convulsions; Z86.69 Personal history of other diseases of the nervous system and sense organs; Z96.0 Presence of urogenital implants; Z56.0 Unemployment, unspecified
CPT/HCPCS: 36415; 80053; 85027; 86780; C9803; U0003

== ENCOUNTER 2020-11-19 12:35 | Inpatient (IN) | payer OTHER ==
[2020-11-19] MEDS ORDERED: MENTHOL/PHENOL 1 EACH UD MM PRN (13:20)
[2020-11-19] MEDS ORDERED: MAG HYDROX/AL HYDROX/SIMETH 30 ML UNIT-DOSE CUP PO PRN (13:20)
[2020-11-19] MEDS ORDERED: MAGNESIUM CITRATE 300 ML BOTTLE PO PRN (13:20)
[2020-11-19] MEDS ORDERED: ACETAMINOPHEN 325 MG TABLET (FP) PO PRN (13:20)
[2020-11-19] MEDS ORDERED: P-EPHED 60MG/TRIPROLIDI 2.5MG TABLET PO PRN (13:20)
[2020-11-19] MEDS ORDERED: LOPERAMIDE HCL 2 MG CAPSULE PO PRN (13:20)
[2020-11-19] MEDS ORDERED: NICOTINE POLACRILEX 2 MG GUM BUC PRN (13:20)
[2020-11-19] MEDS ORDERED: MAGNESIUM HYDROX 2400MG/30ML ORAL SUSPENSION 30 ML CUP PO PRN (13:20)
[2020-11-19] MEDS ORDERED: guaiFENesin 200 MG/10 ML 10 ML UNIT-DOSE CUPS PO PRN (13:20)
[2020-11-19] MEDS ORDERED: IBUPROFEN 400 MG TABLET (FP) PO PRN (13:20)
[2020-11-19] MEDS ORDERED: ALBUTEROL SO4 HFA INHALER IH PRN (14:10)
[2020-11-19] MEDS: hydrALAZINE HCL 10 MG TABLET PO SCH (21:31)
[2020-11-19] MEDS: traZODone HCL 100 MG TABLET (FP) PO SCH (21:31)
[2020-11-19] MEDS: THIAMINE HCL 100 MG TABLET (FP) PO SCH (21:31)
[2020-11-19] MEDS: QUEtiapine FUMARATE 200 MG TABLET PO SCH (21:32)
[2020-11-19] MEDS ORDERED: MELATONIN 5 MG TABLETS PO SCH (22:00)
[2020-11-20] MEDS ORDERED: METHADONE HCL 10 MG TABLET PO SCH (06:00)
[2020-11-20] MEDS ORDERED: PT OWN MED DRAWER 7, Y5N ONE ×4 (06:24→23:09)
[2020-11-20] MEDS ORDERED: METHADONE HCL 10 MG TABLET ONE (06:28)
[2020-11-20] MEDS ORDERED: METHADONE HCL 40 MG DISPERSABLE TABLET ONE (06:28)
[2020-11-20] MEDS: hydrALAZINE HCL 10 MG TABLET PO SCH ×3 (06:29→21:28)
[2020-11-20] MEDS: METHADONE 120 MG, METHADONE 30 MG PO SCH (06:29)
[2020-11-20] MEDS: PRENATAL VITAMINS W/ FOLIC ACID TABLET (FP) PO SCH (10:12)
[2020-11-20] MEDS: NICOTINE 7 MG/24 HOURS TOPICAL PATCH TD SCH (10:12)
[2020-11-20] MEDS: LISINOPRIL 20 MG TABLET PO SCH (10:13)
[2020-11-20] MEDS: VENLAFAXINE HCL 75 MG E.R. CAPSULES PO SCH (10:13)
[2020-11-20] MEDS: ISOSORBIDE MONONITRATE 30 MG TAB.SR.24H (FP) PO SCH (10:13)
[2020-11-20] MEDS: hydrOXYzine PAMOATE 25 MG CAPSULE (FP) PO PRN (10:14)
[2020-11-20 10:41] LABS: HIV INTERPRETATION NEGATIVE (NEGATIVE)
[2020-11-20] MEDS ORDERED: PNEUMOC 13-VAL CONJ-DIP CRM/PF 0.5 ML DISP.SYRIN IM ONE (12:00)
[2020-11-20] MEDS: THIAMINE HCL 100 MG TABLET (FP) PO SCH (21:27)
[2020-11-20] MEDS: traZODone HCL 100 MG TABLET (FP) PO SCH (21:29)
[2020-11-20] MEDS: QUEtiapine FUMARATE 200 MG TABLET PO SCH (21:29)
[2020-11-21] MEDS ORDERED: METHADONE HCL 10 MG TABLET ONE (05:30)
[2020-11-21] MEDS ORDERED: METHADONE HCL 40 MG DISPERSABLE TABLET ONE (05:30)
[2020-11-21] MEDS ORDERED: PT OWN MED DRAWER 7, Y5N ONE ×3 (05:31→13:40)
[2020-11-21] MEDS: METHADONE 120 MG, METHADONE 30 MG PO SCH (06:37)
[2020-11-21] MEDS: hydrALAZINE HCL 10 MG TABLET PO SCH ×3 (06:39→21:25)
[2020-11-21] MEDS: VENLAFAXINE HCL 75 MG E.R. CAPSULES PO SCH (10:38)
[2020-11-21] MEDS: NICOTINE 7 MG/24 HOURS TOPICAL PATCH TD SCH (10:39)
[2020-11-21] MEDS: PRENATAL VITAMINS W/ FOLIC ACID TABLET (FP) PO SCH (10:39)
[2020-11-21] MEDS: hydrOXYzine PAMOATE 25 MG CAPSULE (FP) PO PRN (10:40)
[2020-11-21] MEDS: ISOSORBIDE MONONITRATE 30 MG TAB.SR.24H (FP) PO SCH (10:40)
[2020-11-21] MEDS: LISINOPRIL 20 MG TABLET PO SCH (10:40)
[2020-11-21] MEDS: traZODone HCL 100 MG TABLET (FP) PO SCH (21:25)
[2020-11-21] MEDS: QUEtiapine FUMARATE 200 MG TABLET PO SCH (21:25)
[2020-11-21] MEDS: THIAMINE HCL 100 MG TABLET (FP) PO SCH (21:26)
[2020-11-22] MEDS ORDERED: METHADONE HCL 40 MG DISPERSABLE TABLET ONE (03:23)
[2020-11-22] MEDS ORDERED: METHADONE HCL 10 MG TABLET ONE (03:23)
[2020-11-22] MEDS ORDERED: PT OWN MED DRAWER 7, Y5N ONE ×4 (03:25→19:59)
[2020-11-22] MEDS: METHADONE 120 MG, METHADONE 30 MG PO SCH (06:10)
[2020-11-22] MEDS: hydrALAZINE HCL 10 MG TABLET PO SCH ×3 (06:10→21:13)
[2020-11-22] MEDS: ISOSORBIDE MONONITRATE 30 MG TAB.SR.24H (FP) PO SCH (09:43)
[2020-11-22] MEDS: LISINOPRIL 20 MG TABLET PO SCH (09:44)
[2020-11-22] MEDS: VENLAFAXINE HCL 75 MG E.R. CAPSULES PO SCH (09:44)
[2020-11-22] MEDS: PRENATAL VITAMINS W/ FOLIC ACID TABLET (FP) PO SCH (09:45)
[2020-11-22] MEDS: hydrOXYzine PAMOATE 25 MG CAPSULE (FP) PO PRN ×2 (09:45→21:13)
[2020-11-22] MEDS: NICOTINE 7 MG/24 HOURS TOPICAL PATCH TD SCH (09:46)
[2020-11-22] MEDS: QUEtiapine FUMARATE 200 MG TABLET PO SCH (21:13)
[2020-11-22] MEDS: THIAMINE HCL 100 MG TABLET (FP) PO SCH (21:13)
[2020-11-22] MEDS: traZODone HCL 100 MG TABLET (FP) PO SCH (21:13)
[2020-11-23] MEDS ORDERED: METHADONE HCL 10 MG TABLET ONE (03:23)
[2020-11-23] MEDS ORDERED: METHADONE HCL 40 MG DISPERSABLE TABLET ONE (03:24)
[2020-11-23] MEDS: METHADONE 120 MG, METHADONE 30 MG PO SCH (06:15)
[2020-11-23] MEDS: hydrALAZINE HCL 10 MG TABLET PO SCH ×3 (06:15→21:16)
[2020-11-23] MEDS: ISOSORBIDE MONONITRATE 30 MG TAB.SR.24H (FP) PO SCH (09:33)
[2020-11-23] MEDS: VENLAFAXINE HCL 75 MG E.R. CAPSULES PO SCH (09:33)
[2020-11-23] MEDS: LISINOPRIL 20 MG TABLET PO SCH (09:33)
[2020-11-23] MEDS: PRENATAL VITAMINS W/ FOLIC ACID TABLET (FP) PO SCH (09:33)
[2020-11-23] MEDS: hydrOXYzine PAMOATE 25 MG CAPSULE (FP) PO PRN (09:34)
[2020-11-23] MEDS: NICOTINE 7 MG/24 HOURS TOPICAL PATCH TD SCH (09:34)
[2020-11-23] MEDS: QUEtiapine FUMARATE 200 MG TABLET PO SCH (21:15)
[2020-11-23] MEDS: traZODone HCL 100 MG TABLET (FP) PO SCH (21:15)
[2020-11-23] MEDS: THIAMINE HCL 100 MG TABLET (FP) PO SCH (21:15)
[2020-11-24] MEDS ORDERED: METHADONE HCL 40 MG DISPERSABLE TABLET ONE (03:16)
[2020-11-24] MEDS ORDERED: METHADONE HCL 10 MG TABLET ONE (03:16)
[2020-11-24] MEDS: METHADONE 120 MG, METHADONE 30 MG PO SCH (06:07)
[2020-11-24] MEDS: hydrALAZINE HCL 10 MG TABLET PO SCH ×3 (06:08→21:24)
[2020-11-24] MEDS ORDERED: PT OWN MED DRAWER 7, Y5N ONE ×3 (09:15→13:50)
[2020-11-24] MEDS: hydrOXYzine PAMOATE 25 MG CAPSULE (FP) PO PRN (10:34)
[2020-11-24] MEDS: VENLAFAXINE HCL 75 MG E.R. CAPSULES PO SCH (10:34)
[2020-11-24] MEDS: ISOSORBIDE MONONITRATE 30 MG TAB.SR.24H (FP) PO SCH (10:35)
[2020-11-24] MEDS: PRENATAL VITAMINS W/ FOLIC ACID TABLET (FP) PO SCH (10:35)
[2020-11-24] MEDS: NICOTINE 7 MG/24 HOURS TOPICAL PATCH TD SCH (10:35)
[2020-11-24] MEDS: LISINOPRIL 20 MG TABLET PO SCH (10:35)
[2020-11-24] MEDS ORDERED: COLLOIDAL OATMEAL 1 BAR EACH TP PRN (12:59)
[2020-11-24] MEDS ORDERED: MINERAL OIL/PETROLAT/WATER TOPICAL CREAM 113 GM JAR TP PRN (13:05)
[2020-11-24] MEDS: CLOTRIMAZOLE 1% CREAM 15 GM TUBE TP SCH ×2 (15:05→21:25)
[2020-11-24] MEDS: traZODone HCL 100 MG TABLET (FP) PO SCH (21:24)
[2020-11-24] MEDS: THIAMINE HCL 100 MG TABLET (FP) PO SCH (21:24)
[2020-11-24] MEDS: QUEtiapine FUMARATE 200 MG TABLET PO SCH (21:24)
[2020-11-25] MEDS ORDERED: METHADONE HCL 10 MG TABLET ONE (03:56)
[2020-11-25] MEDS ORDERED: METHADONE HCL 40 MG DISPERSABLE TABLET ONE (03:57)
[2020-11-25] MEDS ORDERED: PT OWN MED DRAWER 7, Y5N ONE ×2 (03:58→08:59)
[2020-11-25] MEDS: hydrALAZINE HCL 10 MG TABLET PO SCH ×3 (06:10→21:13)
[2020-11-25] MEDS: METHADONE 120 MG, METHADONE 30 MG PO SCH (06:11)
[2020-11-25] MEDS: CLOTRIMAZOLE 1% CREAM 15 GM TUBE TP SCH ×2 (10:21→21:14)
[2020-11-25] MEDS: NICOTINE 7 MG/24 HOURS TOPICAL PATCH TD SCH (10:21)
[2020-11-25] MEDS: VENLAFAXINE HCL 75 MG E.R. CAPSULES PO SCH (10:21)
[2020-11-25] MEDS: PRENATAL VITAMINS W/ FOLIC ACID TABLET (FP) PO SCH (10:21)
[2020-11-25] MEDS: ISOSORBIDE MONONITRATE 30 MG TAB.SR.24H (FP) PO SCH (10:21)
[2020-11-25] MEDS: hydrOXYzine PAMOATE 25 MG CAPSULE (FP) PO PRN (10:22)
[2020-11-25] MEDS: LISINOPRIL 20 MG TABLET PO SCH (10:22)
[2020-11-25 13:16] LABS: EPI CELLS >36 /uL (0-25.1); HYALINE CASTS 5 /uL (0-3.1); PH,URINE 6.5 (5.0-8.0); URINE APPEARANCE TURBID; URINE BACTERIA >9,000 /uL (0-1359); URINE BILIRUBIN NEGATIVE (NEGATIVE); URINE COLOR DK YELLOW; URINE GLUCOSE (UA) NEGATIVE (NEGATIVE); URINE KETONE TRACE (NEGATIVE); URINE LEUK ESTERASE 3+ (NEGATIVE); URINE NITRITE NEGATIVE (NEGATIVE); URINE PROTEIN 1+ (NEGATIVE); URINE RBC 110 /uL (0-23.9); URINE WBC 5383 /uL (0-25.8)
[2020-11-25] MEDS: QUEtiapine FUMARATE 200 MG TABLET PO SCH (21:13)
[2020-11-25] MEDS: THIAMINE HCL 100 MG TABLET (FP) PO SCH (21:13)
[2020-11-25] MEDS: traZODone HCL 100 MG TABLET (FP) PO SCH (21:13)
[2020-11-26] MEDS ORDERED: METHADONE HCL 10 MG TABLET ONE (03:28)
[2020-11-26] MEDS ORDERED: METHADONE HCL 40 MG DISPERSABLE TABLET ONE (03:28)
[2020-11-26] MEDS: METHADONE 120 MG, METHADONE 30 MG PO SCH (06:24)
[2020-11-26] MEDS: hydrALAZINE HCL 10 MG TABLET PO SCH ×3 (06:25→21:25)
[2020-11-26] MEDS: VENLAFAXINE HCL 75 MG E.R. CAPSULES PO SCH (10:13)
[2020-11-26] MEDS: CLOTRIMAZOLE 1% CREAM 15 GM TUBE TP SCH ×2 (10:14→22:42)
[2020-11-26] MEDS: ISOSORBIDE MONONITRATE 30 MG TAB.SR.24H (FP) PO SCH (10:14)
[2020-11-26] MEDS: NICOTINE 7 MG/24 HOURS TOPICAL PATCH TD SCH (10:14)
[2020-11-26] MEDS: LISINOPRIL 20 MG TABLET PO SCH (10:14)
[2020-11-26] MEDS: hydrOXYzine PAMOATE 25 MG CAPSULE (FP) PO PRN ×2 (10:14→14:03)
[2020-11-26] MEDS: PRENATAL VITAMINS W/ FOLIC ACID TABLET (FP) PO SCH (10:14)
[2020-11-26] MEDS: traZODone HCL 100 MG TABLET (FP) PO SCH (21:24)
[2020-11-26] MEDS: THIAMINE HCL 100 MG TABLET (FP) PO SCH (21:24)
[2020-11-26] MEDS: QUEtiapine FUMARATE 200 MG TABLET PO SCH (21:24)
[2020-11-26] MEDS ORDERED: PT OWN MED DRAWER 7, Y5N ONE ×3 (21:25→22:44)
[2020-11-26] MEDS: metroNIDAZOLE 250 MG TABLET PO SCH (22:41)
[2020-11-27] MEDS ORDERED: METHADONE HCL 40 MG DISPERSABLE TABLET ONE (06:18)
[2020-11-27] MEDS ORDERED: METHADONE HCL 10 MG TABLET ONE (06:18)
[2020-11-27] MEDS: metroNIDAZOLE 250 MG TABLET PO SCH ×2 (06:23→15:47)
[2020-11-27] MEDS: hydrALAZINE HCL 10 MG TABLET PO SCH ×3 (06:23→21:18)
[2020-11-27] MEDS: METHADONE 120 MG, METHADONE 30 MG PO SCH (06:24)
[2020-11-27] MEDS ORDERED: PT OWN MED DRAWER 7, Y5N ONE ×3 (08:47→13:37)
[2020-11-27] MEDS: VENLAFAXINE HCL 75 MG E.R. CAPSULES PO SCH (10:04)
[2020-11-27] MEDS: NICOTINE 7 MG/24 HOURS TOPICAL PATCH TD SCH (10:05)
[2020-11-27] MEDS: LISINOPRIL 20 MG TABLET PO SCH (10:05)
[2020-11-27] MEDS: PRENATAL VITAMINS W/ FOLIC ACID TABLET (FP) PO SCH (10:05)
[2020-11-27] MEDS: CLOTRIMAZOLE 1% CREAM 15 GM TUBE TP SCH ×2 (10:05→21:18)
[2020-11-27] MEDS: ISOSORBIDE MONONITRATE 30 MG TAB.SR.24H (FP) PO SCH (10:05)
[2020-11-27] MEDS: NITROFURANTOIN MACROCRYSTAL 50 MG CAPSULE (FP) PO SCH ×3 (12:34→23:41)
[2020-11-27] MEDS: THIAMINE HCL 100 MG TABLET (FP) PO SCH (21:16)
[2020-11-27] MEDS: QUEtiapine FUMARATE 200 MG TABLET PO SCH (21:16)
[2020-11-27] MEDS: traZODone HCL 100 MG TABLET (FP) PO SCH (21:16)
[2020-11-28] MEDS ORDERED: METHADONE HCL 10 MG TABLET ONE (03:28)
[2020-11-28] MEDS ORDERED: METHADONE HCL 40 MG DISPERSABLE TABLET ONE (03:29)
[2020-11-28] MEDS ORDERED: PT OWN MED DRAWER 7, Y5N ONE ×3 (03:30→21:36)
[2020-11-28] MEDS: hydrALAZINE HCL 10 MG TABLET PO SCH ×3 (06:19→21:16)
[2020-11-28] MEDS: METHADONE 120 MG, METHADONE 30 MG PO SCH (06:19)
[2020-11-28] MEDS: NITROFURANTOIN MACROCRYSTAL 50 MG CAPSULE (FP) PO SCH ×4 (06:20→23:59)
[2020-11-28] MEDS: ISOSORBIDE MONONITRATE 30 MG TAB.SR.24H (FP) PO SCH (09:25)
[2020-11-28] MEDS: VENLAFAXINE HCL 75 MG E.R. CAPSULES PO SCH (09:25)
[2020-11-28] MEDS: NICOTINE 7 MG/24 HOURS TOPICAL PATCH TD SCH (09:26)
[2020-11-28] MEDS: CLOTRIMAZOLE 1% CREAM 15 GM TUBE TP SCH ×2 (09:26→21:16)
[2020-11-28] MEDS: LISINOPRIL 20 MG TABLET PO SCH (09:26)
[2020-11-28] MEDS: PRENATAL VITAMINS W/ FOLIC ACID TABLET (FP) PO SCH (09:26)
[2020-11-28] MEDS: QUEtiapine FUMARATE 200 MG TABLET PO SCH (21:15)
[2020-11-28] MEDS: traZODone HCL 100 MG TABLET (FP) PO SCH (21:15)
[2020-11-28] MEDS: THIAMINE HCL 100 MG TABLET (FP) PO SCH (21:15)
[2020-11-29] MEDS ORDERED: METHADONE HCL 10 MG TABLET ONE (06:06)
[2020-11-29] MEDS ORDERED: METHADONE HCL 40 MG DISPERSABLE TABLET ONE (06:07)
[2020-11-29] MEDS: METHADONE 120 MG, METHADONE 30 MG PO SCH (06:21)
[2020-11-29] MEDS: hydrALAZINE HCL 10 MG TABLET PO SCH ×3 (06:21→21:25)
[2020-11-29] MEDS: NITROFURANTOIN MACROCRYSTAL 50 MG CAPSULE (FP) PO SCH ×3 (06:22→18:25)
[2020-11-29] MEDS ORDERED: PT OWN MED DRAWER 7, Y5N ONE ×2 (08:48→18:40)
[2020-11-29] MEDS: VENLAFAXINE HCL 75 MG E.R. CAPSULES PO SCH (09:24)
[2020-11-29] MEDS: PRENATAL VITAMINS W/ FOLIC ACID TABLET (FP) PO SCH (09:24)
[2020-11-29] MEDS: CLOTRIMAZOLE 1% CREAM 15 GM TUBE TP SCH ×2 (09:25→21:26)
[2020-11-29] MEDS: ISOSORBIDE MONONITRATE 30 MG TAB.SR.24H (FP) PO SCH (09:25)
[2020-11-29] MEDS: NICOTINE 7 MG/24 HOURS TOPICAL PATCH TD SCH (09:25)
[2020-11-29] MEDS: LISINOPRIL 20 MG TABLET PO SCH (09:25)
[2020-11-29] MEDS: hydrOXYzine PAMOATE 25 MG CAPSULE (FP) PO PRN ×2 (14:07→21:26)
[2020-11-29] MEDS: traZODone HCL 100 MG TABLET (FP) PO SCH (21:25)
[2020-11-29] MEDS: THIAMINE HCL 100 MG TABLET (FP) PO SCH (21:26)
[2020-11-29] MEDS: QUEtiapine FUMARATE 200 MG TABLET PO SCH (21:28)
[2020-11-30] MEDS: NITROFURANTOIN MACROCRYSTAL 50 MG CAPSULE (FP) PO SCH ×5 (00:09→23:30)
[2020-11-30] MEDS ORDERED: METHADONE HCL 10 MG TABLET ONE (06:16)
[2020-11-30] MEDS ORDERED: METHADONE HCL 40 MG DISPERSABLE TABLET ONE (06:17)
[2020-11-30] MEDS: hydrALAZINE HCL 10 MG TABLET PO SCH ×3 (06:18→21:28)
[2020-11-30] MEDS: METHADONE 120 MG, METHADONE 30 MG PO SCH (06:18)
[2020-11-30] MEDS: NICOTINE 7 MG/24 HOURS TOPICAL PATCH TD SCH (09:48)
[2020-11-30] MEDS: VENLAFAXINE HCL 75 MG E.R. CAPSULES PO SCH (09:48)
[2020-11-30] MEDS: PRENATAL VITAMINS W/ FOLIC ACID TABLET (FP) PO SCH (09:48)
[2020-11-30] MEDS: CLOTRIMAZOLE 1% CREAM 15 GM TUBE TP SCH ×2 (09:49→21:28)
[2020-11-30] MEDS: ISOSORBIDE MONONITRATE 30 MG TAB.SR.24H (FP) PO SCH (09:49)
[2020-11-30] MEDS: LISINOPRIL 20 MG TABLET PO SCH (09:49)
[2020-11-30] MEDS ORDERED: PT OWN MED DRAWER 7, Y5N ONE ×3 (13:03→19:22)
[2020-11-30] MEDS: hydrOXYzine PAMOATE 25 MG CAPSULE (FP) PO PRN (13:52)
[2020-11-30] MEDS: THIAMINE HCL 100 MG TABLET (FP) PO SCH (21:27)
[2020-11-30] MEDS: traZODone HCL 100 MG TABLET (FP) PO SCH (21:27)
[2020-11-30] MEDS: QUEtiapine FUMARATE 200 MG TABLET PO SCH (21:28)
[2020-12-01] MEDS ORDERED: METHADONE HCL 10 MG TABLET ONE (06:25)
[2020-12-01] MEDS ORDERED: METHADONE HCL 40 MG DISPERSABLE TABLET ONE (06:26)
[2020-12-01] MEDS: hydrALAZINE HCL 10 MG TABLET PO SCH ×3 (06:27→21:24)
[2020-12-01] MEDS: METHADONE 120 MG, METHADONE 30 MG PO SCH (06:27)
[2020-12-01] MEDS: NITROFURANTOIN MACROCRYSTAL 50 MG CAPSULE (FP) PO SCH ×3 (06:27→17:46)
[2020-12-01] MEDS ORDERED: PT OWN MED DRAWER 7, Y5N ONE ×3 (09:00→17:45)
[2020-12-01] MEDS: ISOSORBIDE MONONITRATE 30 MG TAB.SR.24H (FP) PO SCH (09:40)
[2020-12-01] MEDS: PRENATAL VITAMINS W/ FOLIC ACID TABLET (FP) PO SCH (09:40)
[2020-12-01] MEDS: VENLAFAXINE HCL 75 MG E.R. CAPSULES PO SCH (09:40)
[2020-12-01] MEDS: CLOTRIMAZOLE 1% CREAM 15 GM TUBE TP SCH ×2 (09:40→21:24)
[2020-12-01] MEDS: LISINOPRIL 20 MG TABLET PO SCH (09:41)
[2020-12-01] MEDS: NICOTINE 7 MG/24 HOURS TOPICAL PATCH TD SCH (09:41)
[2020-12-01] MEDS: QUEtiapine FUMARATE 200 MG TABLET PO SCH (21:23)
[2020-12-01] MEDS: THIAMINE HCL 100 MG TABLET (FP) PO SCH (21:23)
[2020-12-01] MEDS: traZODone HCL 100 MG TABLET (FP) PO SCH (21:24)
[2020-12-02] MEDS: NITROFURANTOIN MACROCRYSTAL 50 MG CAPSULE (FP) PO SCH ×5 (00:41→23:33)
[2020-12-02] MEDS ORDERED: PT OWN MED DRAWER 7, Y5N ONE ×5 (03:18→17:05)
[2020-12-02] MEDS ORDERED: METHADONE HCL 40 MG DISPERSABLE TABLET ONE (03:18)
[2020-12-02] MEDS ORDERED: METHADONE HCL 10 MG TABLET ONE (03:18)
[2020-12-02] MEDS: METHADONE 120 MG, METHADONE 30 MG PO SCH (06:16)
[2020-12-02] MEDS: hydrALAZINE HCL 10 MG TABLET PO SCH ×3 (06:16→21:10)
[2020-12-02] MEDS: ISOSORBIDE MONONITRATE 30 MG TAB.SR.24H (FP) PO SCH (09:58)
[2020-12-02] MEDS: VENLAFAXINE HCL 75 MG E.R. CAPSULES PO SCH (09:58)
[2020-12-02] MEDS: CLOTRIMAZOLE 1% CREAM 15 GM TUBE TP SCH ×2 (09:58→21:11)
[2020-12-02] MEDS: PRENATAL VITAMINS W/ FOLIC ACID TABLET (FP) PO SCH (09:59)
[2020-12-02] MEDS: LISINOPRIL 20 MG TABLET PO SCH (09:59)
[2020-12-02] MEDS: hydrOXYzine PAMOATE 25 MG CAPSULE (FP) PO PRN (09:59)
[2020-12-02] MEDS: NICOTINE 7 MG/24 HOURS TOPICAL PATCH TD SCH (09:59)
[2020-12-02] MEDS: QUEtiapine FUMARATE 200 MG TABLET PO SCH (21:10)
[2020-12-02] MEDS: traZODone HCL 100 MG TABLET (FP) PO SCH (21:10)
[2020-12-02] MEDS: THIAMINE HCL 100 MG TABLET (FP) PO SCH (21:10)
[2020-12-03] MEDS ORDERED: METHADONE HCL 40 MG DISPERSABLE TABLET ONE (03:16)
[2020-12-03] MEDS ORDERED: METHADONE HCL 10 MG TABLET ONE (03:17)
[2020-12-03] MEDS: hydrALAZINE HCL 10 MG TABLET PO SCH (06:07)
[2020-12-03] MEDS: NITROFURANTOIN MACROCRYSTAL 50 MG CAPSULE (FP) PO SCH (06:07)
[2020-12-03] MEDS: METHADONE 120 MG, METHADONE 30 MG PO SCH (06:07)
[2020-12-03 08:22] VITALS: BP 129/73; PULSE 89; TEMP 97.9
[2020-12-03] MEDS: NICOTINE 7 MG/24 HOURS TOPICAL PATCH TD SCH (08:59)
[2020-12-03] MEDS: PRENATAL VITAMINS W/ FOLIC ACID TABLET (FP) PO SCH (08:59)
[2020-12-03] MEDS: CLOTRIMAZOLE 1% CREAM 15 GM TUBE TP SCH (08:59)
[2020-12-03] MEDS: LISINOPRIL 20 MG TABLET PO SCH (08:59)
[2020-12-03] MEDS: hydrOXYzine PAMOATE 25 MG CAPSULE (FP) PO PRN (08:59)
[2020-12-03] MEDS: VENLAFAXINE HCL 75 MG E.R. CAPSULES PO SCH (08:59)
[2020-12-03] MEDS ORDERED: PT OWN MED DRAWER 7, Y5N ONE (09:00)
== END 2020-12-03 09:39 | disposition home or self-care (01) | DRG 772 ==
LOC: YASAS 12:35 → Y3E 12:36 → Y3W 12-02 19:08
PROVIDERS: ADMIT Allergy & Immunology; ATTEND Allergy & Immunology
PROC: HZ42ZZZ Group Counseling for Substance Abuse Treatment, Cognitive-Behavioral (ICD-10-PCS; principal; 2020-11-19)
DX: F10.20 Alcohol dependence, uncomplicated (principal); F11.20 Opioid dependence, uncomplicated; F13.20 Sedative, hypnotic or anxiolytic dependence, uncomplicated; F17.210 Nicotine dependence, cigarettes, uncomplicated; F31.9 Bipolar disorder, unspecified; F20.9 Schizophrenia, unspecified; R56.9 Unspecified convulsions; N89.8 Other specified noninflammatory disorders of vagina; R30.0 Dysuria; B96.29 Other Escherichia coli [E. coli] as the cause of diseases classified elsewhere; Y04.0XXA Assault by unarmed brawl or fight, initial encounter; Y93.89 Activity, other specified; Y92.239 Unspecified place in hospital as the place of occurrence of the external cause; Y99.9 Unspecified external cause status
CPT/HCPCS: 36415; 81003; 87086; 87186; 87389; 90670; C9803; U0003

== ENCOUNTER 2021-04-12 12:53 | Inpatient (IN) | payer OTHER ==
[2021-04-12 17:21] VITALS: BMI 36.1
[2021-04-12] MEDS ORDERED: BISMUTH SUBSALICYLATE 524 MG/30 ML PO PRN (17:45)
[2021-04-12] MEDS ORDERED: METHOCARBAMOL 500 MG TABLET PO PRN (17:45)
[2021-04-12] MEDS ORDERED: IBUPROFEN 400 MG TABLET (FP) PO PRN (17:45)
[2021-04-12] MEDS ORDERED: MAG HYDROX/AL HYDROX/SIMETH 30 ML UNIT-DOSE CUP PO PRN (17:45)
[2021-04-12] MEDS ORDERED: ONDANSETRON *ODT* 4 MG TABLET SL PRN (17:45)
[2021-04-12] MEDS ORDERED: MENTHOL/PHENOL 1 EACH UD MM PRN (17:45)
[2021-04-12] MEDS ORDERED: MAGNESIUM HYDROX 2400MG/30ML ORAL SUSPENSION 30 ML CUP PO PRN (17:45)
[2021-04-12] MEDS ORDERED: MAGNESIUM CITRATE 300 ML BOTTLE PO PRN (17:45)
[2021-04-12] MEDS ORDERED: NICOTINE POLACRILEX 2 MG GUM BUC PRN (17:45)
[2021-04-12] MEDS ORDERED: ACETAMINOPHEN 325 MG TABLET (FP) PO PRN ×2 (17:45)
[2021-04-12] MEDS ORDERED: COLLOIDAL OATMEAL 1 BAR EACH TP PRN (18:23)
[2021-04-12] MEDS: MELATONIN 5 MG TABLETS PO SCH (21:17)
[2021-04-12] MEDS: THIAMINE HCL 100 MG TABLET (FP) PO SCH (21:17)
[2021-04-12] MEDS: diazePAM 5 MG TABLET PO SCH (22:26)
[2021-04-13] MEDS: diazePAM 5 MG TABLET PO PRN ×2 (03:24→13:41)
[2021-04-13] MEDS ORDERED: hydrOXYzine PAMOATE 25 MG CAPSULE (FP) PO ONE (03:25)
[2021-04-13] MEDS: diazePAM 5 MG TABLET PO SCH ×4 (06:29→22:51)
[2021-04-13] MEDS ORDERED: methaDONE HCL 40 MG DISPERSABLE TABLET PO ONE (07:45)
[2021-04-13] MEDS: PRENATAL VITAMINS W/ FOLIC ACID TABLET (FP) PO SCH (10:27)
[2021-04-13] MEDS: NICOTINE 14 MG/24 HOURS TOPICAL PATCH TD SCH (10:27)
[2021-04-13] MEDS ORDERED: ALBUTEROL SO4 HFA INHALER IH PRN (12:30)
[2021-04-13] MEDS ORDERED: AMMONIUM LACTATE 12% LOTION 225 GM BOTTLE TP PRN (12:34)
[2021-04-13] MEDS ORDERED: hydrOXYzine PAMOATE 50 MG CAPSULE (FP) PO PRN (12:35)
[2021-04-13] MEDS: QUEtiapine FUMARATE 50 MG TABLET PO SCH (13:41)
[2021-04-13] MEDS ORDERED: QUEtiapine FUMARATE 100 MG TABLET (FP) PO SCH (22:00)
[2021-04-13] MEDS: MELATONIN 5 MG TABLETS PO SCH (22:51)
[2021-04-13] MEDS: THIAMINE HCL 100 MG TABLET (FP) PO SCH (22:51)
[2021-04-13] MEDS: QUEtiapine FUMARATE 100 MG TABLET (FP) PO SCH (22:51)
[2021-04-14] MEDS: methaDONE HCL 40 MG DISPERSABLE TABLET PO SCH (05:54)
[2021-04-14] MEDS: diazePAM 5 MG TABLET PO SCH ×3 (05:55→22:37)
[2021-04-14] MEDS: PRENATAL VITAMINS W/ FOLIC ACID TABLET (FP) PO SCH (10:29)
[2021-04-14] MEDS: QUEtiapine FUMARATE 50 MG TABLET PO SCH (10:29)
[2021-04-14] MEDS: NICOTINE 14 MG/24 HOURS TOPICAL PATCH TD SCH (10:29)
[2021-04-14] MEDS: diazePAM 5 MG TABLET PO PRN ×2 (10:33→20:35)
[2021-04-14] MEDS ORDERED: diphenhydrAMINE HCL 25 MG CAPSULE (FP) PO PRN (11:16)
[2021-04-14 12:44] LABS: HEMATOCRIT 37.5 % (32.4-45.2); HEMOGLOBIN 12.1 GM/dL (10.7-15.3); MCH 29.5 pg (25.7-33.7); MCHC 32.4 g/dl (32.0-36.0); MEAN CELL VOLUME 90.9 fl (80-96); MEAN PLT VOLUME 6.8 fl (7.5-11.1); PLATELET COUNT 329 10^3/uL (134-434); RBC 4.12 M/mm3 (3.60-5.2); RDW 15.4 % (11.6-15.6); WHITE BLOOD COUNT 6.1 K/mm3 (4.0-10.0)
[2021-04-14 12:48] LABS: ALBUMIN 3.2 g/dl (3.4-5.0); CALCIUM 8.6 mg/dL (8.5-10.1)
[2021-04-14 12:49] LABS: BLOOD UREA NITROGEN 22.4 mg/dL (7-18)
[2021-04-14 12:52] LABS: CREATININE 0.9 mg/dL (0.55-1.3)
[2021-04-14 12:53] LABS: BILIRUBIN,TOTAL 0.2 mg/dL (0.2-1); TOT PROT 7.4 g/dl (6.4-8.2)
[2021-04-14] MEDS: QUEtiapine FUMARATE 100 MG TABLET (FP) PO SCH (22:36)
[2021-04-14] MEDS: THIAMINE HCL 100 MG TABLET (FP) PO SCH (22:36)
[2021-04-14] MEDS: MELATONIN 5 MG TABLETS PO SCH (22:36)
[2021-04-15] MEDS: diazePAM 5 MG TABLET PO SCH ×2 (05:58→17:42)
[2021-04-15] MEDS: methaDONE HCL 40 MG DISPERSABLE TABLET PO SCH (05:58)
[2021-04-15] MEDS: QUEtiapine FUMARATE 50 MG TABLET PO SCH (10:44)
[2021-04-15] MEDS: PRENATAL VITAMINS W/ FOLIC ACID TABLET (FP) PO SCH (10:44)
[2021-04-15] MEDS: NICOTINE 14 MG/24 HOURS TOPICAL PATCH TD SCH (10:44)
[2021-04-15] MEDS: diazePAM 5 MG TABLET PO PRN ×2 (10:46→15:32)
[2021-04-15] MEDS: QUEtiapine FUMARATE 100 MG TABLET (FP) PO SCH (22:23)
[2021-04-15] MEDS: THIAMINE HCL 100 MG TABLET (FP) PO SCH (22:23)
[2021-04-15] MEDS: MELATONIN 5 MG TABLETS PO SCH (22:23)
[2021-04-16] MEDS: methaDONE HCL 40 MG DISPERSABLE TABLET PO SCH (05:59)
[2021-04-16] MEDS ORDERED: diazePAM 5 MG TABLET PO ONE (06:00)
[2021-04-16 08:50] VITALS: BP 100/56; PULSE 70; TEMP 96.9
[2021-04-16] MEDS: QUEtiapine FUMARATE 50 MG TABLET PO SCH (10:42)
[2021-04-16] MEDS: NICOTINE 14 MG/24 HOURS TOPICAL PATCH TD SCH (10:42)
[2021-04-16] MEDS: PRENATAL VITAMINS W/ FOLIC ACID TABLET (FP) PO SCH (10:42)
== END 2021-04-16 11:28 | disposition other institution (70) | DRG 773 ==
LOC: YASAS 12:53 → Y3N 19:53
PROVIDERS: ADMIT Allergy & Immunology; ATTEND Allergy & Immunology
PROC: HZ2ZZZZ Detoxification Services for Substance Abuse Treatment (ICD-10-PCS; principal; 2021-04-12)
DX: F13.230 Sedative, hypnotic or anxiolytic dependence with withdrawal, uncomplicated (principal); F11.20 Opioid dependence, uncomplicated; F14.20 Cocaine dependence, uncomplicated; F17.210 Nicotine dependence, cigarettes, uncomplicated; F25.9 Schizoaffective disorder, unspecified; F19.24 Other psychoactive substance dependence with psychoactive substance-induced mood disorder; F32.9 Major depressive disorder, single episode, unspecified; G40.509 Epileptic seizures related to external causes, not intractable, without status epilepticus; I10 Essential (primary) hypertension; J44.9 Chronic obstructive pulmonary disease, unspecified; Z91.14 Patient's other noncompliance with medication regimen
CPT/HCPCS: 36415; 80053; 81025; 85027; 86780; 93005; 93010; C9803; U0003; U0005

== ENCOUNTER 2021-04-16 11:39 | Inpatient (IN) | payer OTHER ==
[2021-04-16] MEDS ORDERED: hydrOXYzine PAMOATE 25 MG CAPSULE (FP) PO PRN (12:59)
[2021-04-16] MEDS ORDERED: LOPERAMIDE HCL 2 MG CAPSULE PO PRN (12:59)
[2021-04-16] MEDS ORDERED: IBUPROFEN 400 MG TABLET (FP) PO PRN (12:59)
[2021-04-16] MEDS ORDERED: guaiFENesin 200 MG/10 ML 10 ML UNIT-DOSE CUPS PO PRN (12:59)
[2021-04-16] MEDS ORDERED: ACETAMINOPHEN 325 MG TABLET (FP) PO PRN (12:59)
[2021-04-16] MEDS ORDERED: MAGNESIUM CITRATE 300 ML BOTTLE PO PRN (12:59)
[2021-04-16] MEDS ORDERED: P-EPHED 60MG/TRIPROLIDI 2.5MG TABLET PO PRN (12:59)
[2021-04-16] MEDS ORDERED: NICOTINE POLACRILEX 2 MG GUM BUC PRN (12:59)
[2021-04-16] MEDS ORDERED: MENTHOL/PHENOL 1 EACH UD MM PRN (12:59)
[2021-04-16] MEDS ORDERED: MAGNESIUM HYDROX 2400MG/30ML ORAL SUSPENSION 30 ML CUP PO PRN (12:59)
[2021-04-16] MEDS ORDERED: ALBUTEROL SO4 HFA INHALER IH PRN (13:02)
[2021-04-16] MEDS ORDERED: COLLOIDAL OATMEAL 1 BAR EACH TP PRN (13:05)
[2021-04-16] MEDS ORDERED: AMMONIUM LACTATE 12% LOTION 225 GM BOTTLE TP PRN (13:05)
[2021-04-16] MEDS ORDERED: METHOCARBAMOL 500 MG TABLET PO PRN (13:06)
[2021-04-16] MEDS: hydrALAZINE HCL 10 MG TABLET PO SCH ×2 (14:47→21:14)
[2021-04-16] MEDS: QUEtiapine FUMARATE 100 MG TABLET (FP) PO SCH (21:13)
[2021-04-16] MEDS: THIAMINE HCL 100 MG TABLET (FP) PO SCH (21:14)
[2021-04-16] MEDS: MELATONIN 5 MG TABLETS PO SCH (21:14)
[2021-04-16] MEDS: MAG HYDROX/AL HYDROX/SIMETH 30 ML UNIT-DOSE CUP PO PRN (21:15)
[2021-04-17] MEDS: methaDONE HCL 40 MG DISPERSABLE TABLET PO SCH (06:15)
[2021-04-17] MEDS: hydrALAZINE HCL 10 MG TABLET PO SCH ×3 (06:15→21:45)
[2021-04-17] MEDS: PRENATAL VITAMINS W/ FOLIC ACID TABLET (FP) PO SCH (09:46)
[2021-04-17] MEDS: LISINOPRIL 20 MG TABLET PO SCH (09:46)
[2021-04-17] MEDS: QUEtiapine FUMARATE 50 MG TABLET PO SCH (09:46)
[2021-04-17] MEDS: NICOTINE 7 MG/24 HOURS TOPICAL PATCH TD SCH (09:47)
[2021-04-17] MEDS: ISOSORBIDE MONONITRATE 30 MG TAB.SR.24H (FP) PO SCH (09:47)
[2021-04-17] MEDS ORDERED: PT OWN MED DRAWER 7, Y5N ONE (18:45)
[2021-04-17] MEDS: QUEtiapine FUMARATE 100 MG TABLET (FP) PO SCH (21:45)
[2021-04-17] MEDS: MAG HYDROX/AL HYDROX/SIMETH 30 ML UNIT-DOSE CUP PO PRN (21:45)
[2021-04-17] MEDS: MELATONIN 5 MG TABLETS PO SCH (21:45)
[2021-04-17] MEDS: THIAMINE HCL 100 MG TABLET (FP) PO SCH (21:45)
[2021-04-18] MEDS: methaDONE HCL 40 MG DISPERSABLE TABLET PO SCH (06:11)
[2021-04-18] MEDS: hydrALAZINE HCL 10 MG TABLET PO SCH ×3 (06:11→21:07)
[2021-04-18] MEDS: LISINOPRIL 20 MG TABLET PO SCH (09:53)
[2021-04-18] MEDS: ISOSORBIDE MONONITRATE 30 MG TAB.SR.24H (FP) PO SCH (09:54)
[2021-04-18] MEDS: NICOTINE 7 MG/24 HOURS TOPICAL PATCH TD SCH (09:54)
[2021-04-18] MEDS: QUEtiapine FUMARATE 50 MG TABLET PO SCH (09:54)
[2021-04-18] MEDS: PRENATAL VITAMINS W/ FOLIC ACID TABLET (FP) PO SCH (09:55)
[2021-04-18] MEDS: QUEtiapine FUMARATE 100 MG TABLET (FP) PO SCH (21:06)
[2021-04-18] MEDS: THIAMINE HCL 100 MG TABLET (FP) PO SCH (21:07)
[2021-04-18] MEDS: MELATONIN 5 MG TABLETS PO SCH (21:07)
[2021-04-18] MEDS: MAG HYDROX/AL HYDROX/SIMETH 30 ML UNIT-DOSE CUP PO PRN (21:08)
[2021-04-19] MEDS: hydrALAZINE HCL 10 MG TABLET PO SCH ×3 (06:08→21:23)
[2021-04-19] MEDS: methaDONE HCL 40 MG DISPERSABLE TABLET PO SCH (06:08)
[2021-04-19] MEDS: LISINOPRIL 20 MG TABLET PO SCH (09:24)
[2021-04-19] MEDS: QUEtiapine FUMARATE 50 MG TABLET PO SCH (09:24)
[2021-04-19] MEDS: ISOSORBIDE MONONITRATE 30 MG TAB.SR.24H (FP) PO SCH (09:24)
[2021-04-19] MEDS: NICOTINE 7 MG/24 HOURS TOPICAL PATCH TD SCH (09:24)
[2021-04-19] MEDS: PRENATAL VITAMINS W/ FOLIC ACID TABLET (FP) PO SCH (09:24)
[2021-04-19] MEDS: MAG HYDROX/AL HYDROX/SIMETH 30 ML UNIT-DOSE CUP PO PRN (12:16)
[2021-04-19] MEDS: QUEtiapine FUMARATE 100 MG TABLET (FP) PO SCH (21:23)
[2021-04-19] MEDS: THIAMINE HCL 100 MG TABLET (FP) PO SCH (21:23)
[2021-04-19] MEDS: MELATONIN 5 MG TABLETS PO SCH (21:23)
[2021-04-20] MEDS: hydrALAZINE HCL 10 MG TABLET PO SCH ×3 (06:06→21:18)
[2021-04-20] MEDS: methaDONE HCL 40 MG DISPERSABLE TABLET PO SCH (06:06)
[2021-04-20] MEDS: LISINOPRIL 20 MG TABLET PO SCH (09:41)
[2021-04-20] MEDS: ISOSORBIDE MONONITRATE 30 MG TAB.SR.24H (FP) PO SCH (09:41)
[2021-04-20] MEDS: QUEtiapine FUMARATE 50 MG TABLET PO SCH (09:41)
[2021-04-20] MEDS: hydrOXYzine PAMOATE 25 MG CAPSULE (FP) PO PRN ×2 (09:42→14:34)
[2021-04-20] MEDS: PRENATAL VITAMINS W/ FOLIC ACID TABLET (FP) PO SCH (09:42)
[2021-04-20] MEDS: NICOTINE 7 MG/24 HOURS TOPICAL PATCH TD SCH (09:42)
[2021-04-20] MEDS: THIAMINE HCL 100 MG TABLET (FP) PO SCH (21:18)
[2021-04-20] MEDS: QUEtiapine FUMARATE 100 MG TABLET (FP) PO SCH (21:18)
[2021-04-20] MEDS: MELATONIN 5 MG TABLETS PO SCH (21:18)
[2021-04-21] MEDS: methaDONE HCL 40 MG DISPERSABLE TABLET PO SCH (06:16)
[2021-04-21] MEDS: hydrALAZINE HCL 10 MG TABLET PO SCH ×3 (06:16→21:33)
[2021-04-21] MEDS: NICOTINE 7 MG/24 HOURS TOPICAL PATCH TD SCH (10:12)
[2021-04-21] MEDS: LISINOPRIL 20 MG TABLET PO SCH (10:12)
[2021-04-21] MEDS: ISOSORBIDE MONONITRATE 30 MG TAB.SR.24H (FP) PO SCH (10:12)
[2021-04-21] MEDS: QUEtiapine FUMARATE 50 MG TABLET PO SCH (10:12)
[2021-04-21] MEDS: PRENATAL VITAMINS W/ FOLIC ACID TABLET (FP) PO SCH (10:12)
[2021-04-21] MEDS: THIAMINE HCL 100 MG TABLET (FP) PO SCH (21:34)
[2021-04-21] MEDS: QUEtiapine FUMARATE 100 MG TABLET (FP) PO SCH (21:34)
[2021-04-21] MEDS: MELATONIN 5 MG TABLETS PO SCH (21:34)
[2021-04-22] MEDS: methaDONE HCL 40 MG DISPERSABLE TABLET PO SCH (06:22)
[2021-04-22] MEDS: hydrALAZINE HCL 10 MG TABLET PO SCH ×3 (06:22→21:10)
[2021-04-22] MEDS: PRENATAL VITAMINS W/ FOLIC ACID TABLET (FP) PO SCH (09:46)
[2021-04-22] MEDS: NICOTINE 7 MG/24 HOURS TOPICAL PATCH TD SCH (09:46)
[2021-04-22] MEDS: ISOSORBIDE MONONITRATE 30 MG TAB.SR.24H (FP) PO SCH (09:46)
[2021-04-22] MEDS: LISINOPRIL 20 MG TABLET PO SCH (09:46)
[2021-04-22] MEDS: QUEtiapine FUMARATE 50 MG TABLET PO SCH (09:46)
[2021-04-22] MEDS: THIAMINE HCL 100 MG TABLET (FP) PO SCH (21:10)
[2021-04-22] MEDS: QUEtiapine FUMARATE 100 MG TABLET (FP) PO SCH (21:10)
[2021-04-22] MEDS: MELATONIN 5 MG TABLETS PO SCH (21:10)
[2021-04-22] MEDS: MAG HYDROX/AL HYDROX/SIMETH 30 ML UNIT-DOSE CUP PO PRN (21:10)
[2021-04-23] MEDS: methaDONE HCL 40 MG DISPERSABLE TABLET PO SCH (06:06)
[2021-04-23] MEDS: hydrALAZINE HCL 10 MG TABLET PO SCH ×3 (06:06→21:09)
[2021-04-23] MEDS: ISOSORBIDE MONONITRATE 30 MG TAB.SR.24H (FP) PO SCH (09:52)
[2021-04-23] MEDS: QUEtiapine FUMARATE 50 MG TABLET PO SCH (09:52)
[2021-04-23] MEDS: PRENATAL VITAMINS W/ FOLIC ACID TABLET (FP) PO SCH (09:52)
[2021-04-23] MEDS: LISINOPRIL 20 MG TABLET PO SCH (09:52)
[2021-04-23] MEDS: NICOTINE 7 MG/24 HOURS TOPICAL PATCH TD SCH (09:53)
[2021-04-23] MEDS: QUEtiapine FUMARATE 100 MG TABLET (FP) PO SCH (21:09)
[2021-04-23] MEDS: MELATONIN 5 MG TABLETS PO SCH (21:09)
[2021-04-23] MEDS: THIAMINE HCL 100 MG TABLET (FP) PO SCH (21:09)
[2021-04-24] MEDS: methaDONE HCL 40 MG DISPERSABLE TABLET PO SCH (06:30)
[2021-04-24] MEDS: hydrALAZINE HCL 10 MG TABLET PO SCH ×3 (06:30→21:10)
[2021-04-24] MEDS: LISINOPRIL 20 MG TABLET PO SCH (09:56)
[2021-04-24] MEDS: ISOSORBIDE MONONITRATE 30 MG TAB.SR.24H (FP) PO SCH (09:56)
[2021-04-24] MEDS: QUEtiapine FUMARATE 50 MG TABLET PO SCH (09:56)
[2021-04-24] MEDS: PRENATAL VITAMINS W/ FOLIC ACID TABLET (FP) PO SCH (09:56)
[2021-04-24] MEDS: NICOTINE 7 MG/24 HOURS TOPICAL PATCH TD SCH (09:56)
[2021-04-24] MEDS: hydrOXYzine PAMOATE 25 MG CAPSULE (FP) PO PRN (09:57)
[2021-04-24] MEDS: QUEtiapine FUMARATE 100 MG TABLET (FP) PO SCH (21:10)
[2021-04-24] MEDS: THIAMINE HCL 100 MG TABLET (FP) PO SCH (21:10)
[2021-04-24] MEDS: MELATONIN 5 MG TABLETS PO SCH (21:11)
[2021-04-25] MEDS: hydrALAZINE HCL 10 MG TABLET PO SCH ×3 (06:16→21:40)
[2021-04-25] MEDS: methaDONE HCL 40 MG DISPERSABLE TABLET PO SCH (06:16)
[2021-04-25] MEDS: NICOTINE 7 MG/24 HOURS TOPICAL PATCH TD SCH (09:36)
[2021-04-25] MEDS: LISINOPRIL 20 MG TABLET PO SCH (09:36)
[2021-04-25] MEDS: ISOSORBIDE MONONITRATE 30 MG TAB.SR.24H (FP) PO SCH (09:36)
[2021-04-25] MEDS: PRENATAL VITAMINS W/ FOLIC ACID TABLET (FP) PO SCH (09:36)
[2021-04-25] MEDS: QUEtiapine FUMARATE 50 MG TABLET PO SCH (09:36)
[2021-04-25] MEDS: hydrOXYzine PAMOATE 25 MG CAPSULE (FP) PO PRN (09:37)
[2021-04-25] MEDS: THIAMINE HCL 100 MG TABLET (FP) PO SCH (21:40)
[2021-04-25] MEDS: QUEtiapine FUMARATE 100 MG TABLET (FP) PO SCH (21:40)
[2021-04-25] MEDS: MELATONIN 5 MG TABLETS PO SCH (21:41)
[2021-04-26] MEDS: methaDONE HCL 40 MG DISPERSABLE TABLET PO SCH (06:14)
[2021-04-26] MEDS: hydrALAZINE HCL 10 MG TABLET PO SCH ×3 (06:14→21:16)
[2021-04-26] MEDS: NICOTINE 7 MG/24 HOURS TOPICAL PATCH TD SCH (09:49)
[2021-04-26] MEDS: QUEtiapine FUMARATE 50 MG TABLET PO SCH (09:49)
[2021-04-26] MEDS: ISOSORBIDE MONONITRATE 30 MG TAB.SR.24H (FP) PO SCH (09:49)
[2021-04-26] MEDS: PRENATAL VITAMINS W/ FOLIC ACID TABLET (FP) PO SCH (09:49)
[2021-04-26] MEDS: LISINOPRIL 20 MG TABLET PO SCH (09:49)
[2021-04-26] MEDS: THIAMINE HCL 100 MG TABLET (FP) PO SCH (21:14)
[2021-04-26] MEDS: QUEtiapine FUMARATE 100 MG TABLET (FP) PO SCH (21:16)
[2021-04-26] MEDS: MELATONIN 5 MG TABLETS PO SCH (21:17)
[2021-04-27] MEDS: methaDONE HCL 40 MG DISPERSABLE TABLET PO SCH (06:12)
[2021-04-27] MEDS: hydrALAZINE HCL 10 MG TABLET PO SCH ×3 (06:12→21:31)
[2021-04-27] MEDS: ISOSORBIDE MONONITRATE 30 MG TAB.SR.24H (FP) PO SCH (10:14)
[2021-04-27] MEDS: LISINOPRIL 20 MG TABLET PO SCH (10:14)
[2021-04-27] MEDS: NICOTINE 7 MG/24 HOURS TOPICAL PATCH TD SCH (10:14)
[2021-04-27] MEDS: QUEtiapine FUMARATE 50 MG TABLET PO SCH (10:14)
[2021-04-27] MEDS: PRENATAL VITAMINS W/ FOLIC ACID TABLET (FP) PO SCH (10:14)
[2021-04-27] MEDS: QUEtiapine FUMARATE 100 MG TABLET (FP) PO SCH (21:31)
[2021-04-27] MEDS: THIAMINE HCL 100 MG TABLET (FP) PO SCH (21:32)
[2021-04-27] MEDS: MELATONIN 5 MG TABLETS PO SCH (21:32)
[2021-04-28] MEDS: hydrALAZINE HCL 10 MG TABLET PO SCH ×3 (05:48→21:08)
[2021-04-28] MEDS: methaDONE HCL 40 MG DISPERSABLE TABLET PO SCH (05:49)
[2021-04-28] MEDS: QUEtiapine FUMARATE 50 MG TABLET PO SCH (10:01)
[2021-04-28] MEDS: PRENATAL VITAMINS W/ FOLIC ACID TABLET (FP) PO SCH (10:01)
[2021-04-28] MEDS: NICOTINE 7 MG/24 HOURS TOPICAL PATCH TD SCH (10:02)
[2021-04-28] MEDS: LISINOPRIL 20 MG TABLET PO SCH (10:02)
[2021-04-28] MEDS: ISOSORBIDE MONONITRATE 30 MG TAB.SR.24H (FP) PO SCH (10:02)
[2021-04-28] MEDS: QUEtiapine FUMARATE 100 MG TABLET (FP) PO SCH (21:08)
[2021-04-28] MEDS: MELATONIN 5 MG TABLETS PO SCH (21:08)
[2021-04-28] MEDS: THIAMINE HCL 100 MG TABLET (FP) PO SCH (21:08)
[2021-04-29] MEDS ORDERED: methaDONE HCL 40 MG DISPERSABLE TABLET PO SCH (06:00)
[2021-04-29] MEDS: hydrALAZINE HCL 10 MG TABLET PO SCH (06:10)
[2021-04-29 07:13] VITALS: BP 115/67; PULSE 75; TEMP 67.3
== END 2021-04-29 09:07 | disposition home or self-care (01) | DRG 772 ==
LOC: YASAS 11:39 → Y3W 11:51
PROVIDERS: ADMIT Allergy & Immunology; ATTEND Allergy & Immunology
PROC: HZ42ZZZ Group Counseling for Substance Abuse Treatment, Cognitive-Behavioral (ICD-10-PCS; principal; 2021-04-16)
DX: F10.20 Alcohol dependence, uncomplicated (principal); F11.20 Opioid dependence, uncomplicated; F14.20 Cocaine dependence, uncomplicated; F13.20 Sedative, hypnotic or anxiolytic dependence, uncomplicated; F31.9 Bipolar disorder, unspecified; J44.9 Chronic obstructive pulmonary disease, unspecified; B18.2 Chronic viral hepatitis C; Z87.440 Personal history of urinary (tract) infections
CPT/HCPCS: 87086; 87186

== ENCOUNTER 2021-09-07 14:16 | Inpatient (IN) | payer OTHER ==
[2021-09-07] MEDS ORDERED: MAGNESIUM HYDROX 2400MG/30ML ORAL SUSPENSION 30 ML CUP PO PRN (16:14)
[2021-09-07] MEDS ORDERED: IBUPROFEN 400 MG TABLET (FP) PO PRN (16:14)
[2021-09-07] MEDS ORDERED: BISMUTH SUBSALICYLATE 524 MG/30 ML PO PRN (16:14)
[2021-09-07] MEDS ORDERED: MENTHOL/PHENOL 1 EACH UD MM PRN (16:14)
[2021-09-07] MEDS ORDERED: ONDANSETRON *ODT* 4 MG TABLET SL PRN (16:14)
[2021-09-07] MEDS ORDERED: MAGNESIUM CITRATE 300 ML BOTTLE PO PRN (16:14)
[2021-09-07] MEDS ORDERED: ACETAMINOPHEN 325 MG TABLET (FP) PO PRN (16:14)
[2021-09-07] MEDS ORDERED: NICOTINE 10 MG CARTRIDGE (INHALER) IH PRN (16:14)
[2021-09-07] MEDS ORDERED: MAG HYDROX/AL HYDROX/SIMETH 30 ML UNIT-DOSE CUP PO PRN (16:14)
[2021-09-07 17:44] VITALS: BMI 37.2
[2021-09-07] MEDS ORDERED: methaDONE HCL 10 MG TABLET (FOR DETOX USE ONLY) PO ONE (18:17)
[2021-09-07] MEDS: hydrOXYzine PAMOATE 25 MG CAPSULE (FP) PO SCH ×2 (18:37→22:53)
[2021-09-07] MEDS: PRENATAL VITAMINS W/ FOLIC ACID TABLET (FP) PO SCH (18:58)
[2021-09-07] MEDS: diazePAM 5 MG TABLET PO SCH ×2 (19:12→22:53)
[2021-09-07] MEDS ORDERED: MELATONIN 5 MG TABLETS PO SCH (22:00)
[2021-09-07] MEDS: SULFAMETHOXAZOLE/TRIMETHOPRIM 800MG/160MG D.S. TABLET PO SCH (22:53)
[2021-09-07] MEDS: THIAMINE HCL 100 MG TABLET (FP) PO SCH (22:53)
[2021-09-07] MEDS: ACETAMINOPHEN 325 MG TABLET (FP) PO PRN (22:55)
[2021-09-08] MEDS: hydrOXYzine PAMOATE 25 MG CAPSULE (FP) PO SCH ×5 (06:31→22:47)
[2021-09-08] MEDS: diazePAM 5 MG TABLET PO SCH ×4 (06:31→22:46)
[2021-09-08] MEDS ORDERED: methaDONE HCL 40 MG DISPERSABLE TABLET PO ONE (10:00)
[2021-09-08] MEDS: PRENATAL VITAMINS W/ FOLIC ACID TABLET (FP) PO SCH (10:31)
[2021-09-08] MEDS: SULFAMETHOXAZOLE/TRIMETHOPRIM 800MG/160MG D.S. TABLET PO SCH ×2 (10:31→22:45)
[2021-09-08] MEDS: METHOCARBAMOL 500 MG TABLET PO PRN ×2 (10:32→17:59)
[2021-09-08 10:40] LABS: HEMATOCRIT 34.6 % (32.4-45.2); HEMOGLOBIN 11.7 GM/dL (10.7-15.3); MCH 30.2 pg (25.7-33.7); MCHC 33.8 g/dl (32.0-36.0); MEAN CELL VOLUME 89.3 fl (80-96); MEAN PLT VOLUME 7.2 fl (7.5-11.1); PLATELET COUNT 281 10^3/uL (134-434); RBC 3.87 M/mm3 (3.60-5.2); RDW 14.6 % (11.6-15.6); WHITE BLOOD COUNT 4.3 K/mm3 (4.0-10.0)
[2021-09-08 10:43] LABS: BLOOD UREA NITROGEN 19.6 mg/dL (7-18); CALCIUM 8.1 mg/dL (8.5-10.1)
[2021-09-08 10:45] LABS: CREATININE 0.8 mg/dL (0.55-1.3)
[2021-09-08 10:47] LABS: BILIRUBIN,TOTAL 0.3 mg/dL (0.2-1); TOT PROT 7.1 g/dl (6.4-8.2)
[2021-09-08] MEDS: diazePAM 5 MG TABLET PO PRN (12:50)
[2021-09-08] MEDS: VENLAFAXINE HCL 37.5 MG E.R. CAPSULE PO SCH (13:16)
[2021-09-08] MEDS: QUEtiapine FUMARATE 200 MG TABLET PO SCH (22:45)
[2021-09-08] MEDS: THIAMINE HCL 100 MG TABLET (FP) PO SCH (22:45)
[2021-09-09] MEDS: methaDONE HCL 40 MG DISPERSABLE TABLET PO SCH (06:23)
[2021-09-09] MEDS: hydrOXYzine PAMOATE 25 MG CAPSULE (FP) PO SCH ×5 (06:23→22:28)
[2021-09-09] MEDS: diazePAM 5 MG TABLET PO SCH ×3 (06:24→22:29)
[2021-09-09] MEDS: SULFAMETHOXAZOLE/TRIMETHOPRIM 800MG/160MG D.S. TABLET PO SCH ×2 (10:18→22:28)
[2021-09-09] MEDS: PRENATAL VITAMINS W/ FOLIC ACID TABLET (FP) PO SCH (10:18)
[2021-09-09] MEDS: VENLAFAXINE HCL 37.5 MG E.R. CAPSULE PO SCH (10:18)
[2021-09-09] MEDS: METHOCARBAMOL 500 MG TABLET PO PRN (10:18)
[2021-09-09] MEDS: diazePAM 5 MG TABLET PO PRN ×2 (10:19→18:14)
[2021-09-09] MEDS: ACETAMINOPHEN 325 MG TABLET (FP) PO PRN (10:19)
[2021-09-09] MEDS: QUEtiapine FUMARATE 200 MG TABLET PO SCH (22:28)
[2021-09-09] MEDS: THIAMINE HCL 100 MG TABLET (FP) PO SCH (22:29)
[2021-09-10] MEDS: methaDONE HCL 40 MG DISPERSABLE TABLET PO SCH (06:06)
[2021-09-10] MEDS: diazePAM 5 MG TABLET PO SCH ×2 (06:06→17:42)
[2021-09-10] MEDS: hydrOXYzine PAMOATE 25 MG CAPSULE (FP) PO SCH ×5 (06:07→22:33)
[2021-09-10] MEDS: VENLAFAXINE HCL 37.5 MG E.R. CAPSULE PO SCH (10:26)
[2021-09-10] MEDS: SULFAMETHOXAZOLE/TRIMETHOPRIM 800MG/160MG D.S. TABLET PO SCH (10:26)
[2021-09-10] MEDS: PRENATAL VITAMINS W/ FOLIC ACID TABLET (FP) PO SCH (10:26)
[2021-09-10] MEDS: diazePAM 5 MG TABLET PO PRN (10:26)
[2021-09-10] MEDS: QUEtiapine FUMARATE 200 MG TABLET PO SCH (22:33)
[2021-09-10] MEDS: THIAMINE HCL 100 MG TABLET (FP) PO SCH (22:33)
[2021-09-11] MEDS ORDERED: diazePAM 5 MG TABLET PO ONE (06:00)
[2021-09-11] MEDS: methaDONE HCL 40 MG DISPERSABLE TABLET PO SCH (06:04)
[2021-09-11] MEDS: hydrOXYzine PAMOATE 25 MG CAPSULE (FP) PO SCH ×3 (06:04→14:34)
[2021-09-11 09:19] VITALS: TEMP 96.1
[2021-09-11] MEDS: VENLAFAXINE HCL 37.5 MG E.R. CAPSULE PO SCH (11:03)
[2021-09-11] MEDS: PRENATAL VITAMINS W/ FOLIC ACID TABLET (FP) PO SCH (11:03)
[2021-09-11 13:37] VITALS: BP 124/77; PULSE 91
== END 2021-09-11 17:35 | disposition other institution (70) | DRG 773 ==
LOC: YASAS 14:16 → Y6N 17:19
PROVIDERS: ADMIT Allergy & Immunology; ATTEND Allergy & Immunology
PROC: HZ2ZZZZ Detoxification Services for Substance Abuse Treatment (ICD-10-PCS; principal; 2021-09-07)
DX: F13.230 Sedative, hypnotic or anxiolytic dependence with withdrawal, uncomplicated (principal); F11.20 Opioid dependence, uncomplicated; F14.20 Cocaine dependence, uncomplicated; F17.210 Nicotine dependence, cigarettes, uncomplicated; F19.24 Other psychoactive substance dependence with psychoactive substance-induced mood disorder; F19.282 Other psychoactive substance dependence with psychoactive substance-induced sleep disorder; F19.280 Other psychoactive substance dependence with psychoactive substance-induced anxiety disorder; F31.9 Bipolar disorder, unspecified; F25.9 Schizoaffective disorder, unspecified; I10 Essential (primary) hypertension; J44.9 Chronic obstructive pulmonary disease, unspecified; R74.01 Elevation of levels of liver transaminase levels; B18.2 Chronic viral hepatitis C; Z86.16 Personal history of COVID-19; Z86.69 Personal history of other diseases of the nervous system and sense organs; Z56.0 Unemployment, unspecified
CPT/HCPCS: 36415; 80053; 85027; 86780; 93005; 93010; C9803; U0003; U0005

== ENCOUNTER 2021-09-11 17:48 | Inpatient (IN) | payer OTHER ==
[2021-09-11] MEDS ORDERED: NICOTINE POLACRILEX 2 MG GUM BUC PRN (23:27)
[2021-09-11] MEDS ORDERED: ACETAMINOPHEN 325 MG TABLET (FP) PO PRN (23:27)
[2021-09-11] MEDS ORDERED: P-EPHED 60MG/TRIPROLIDI 2.5MG TABLET PO PRN (23:27)
[2021-09-11] MEDS ORDERED: LOPERAMIDE HCL 2 MG CAPSULE PO PRN (23:27)
[2021-09-11] MEDS ORDERED: guaiFENesin 200 MG/10 ML 10 ML UNIT-DOSE CUPS PO PRN (23:27)
[2021-09-11] MEDS ORDERED: MAGNESIUM CITRATE 300 ML BOTTLE PO PRN (23:27)
[2021-09-11] MEDS ORDERED: MAG HYDROX/AL HYDROX/SIMETH 30 ML UNIT-DOSE CUP PO PRN (23:27)
[2021-09-11] MEDS ORDERED: NICOTINE 10 MG CARTRIDGE (INHALER) IH PRN (23:27)
[2021-09-11] MEDS ORDERED: MENTHOL/PHENOL 1 EACH UD MM PRN (23:27)
[2021-09-11] MEDS ORDERED: MAGNESIUM HYDROX 2400MG/30ML ORAL SUSPENSION 30 ML CUP PO PRN (23:27)
[2021-09-11] MEDS ORDERED: ALBUTEROL SO4 HFA INHALER IH PRN (23:28)
[2021-09-11] MEDS: MELATONIN 5 MG TABLETS PO SCH (23:50)
[2021-09-12] MEDS: IBUPROFEN 400 MG TABLET (FP) PO PRN (02:29)
[2021-09-12] MEDS: hydrOXYzine PAMOATE 25 MG CAPSULE (FP) PO PRN ×2 (02:29→10:18)
[2021-09-12] MEDS ORDERED: hydrOXYzine PAMOATE 25 MG CAPSULE (FP) PO SCH (06:00)
[2021-09-12] MEDS: methaDONE HCL 40 MG DISPERSABLE TABLET PO SCH (06:55)
[2021-09-12] MEDS: hydrALAZINE HCL 10 MG TABLET PO SCH ×3 (07:56→21:53)
[2021-09-12] MEDS: PRENATAL VITAMINS W/ FOLIC ACID TABLET (FP) PO SCH (10:18)
[2021-09-12] MEDS: LISINOPRIL 20 MG TABLET PO SCH (10:18)
[2021-09-12] MEDS: ISOSORBIDE MONONITRATE 30 MG TAB.SR.24H (FP) PO SCH (10:49)
[2021-09-12] MEDS: VENLAFAXINE HCL 37.5 MG E.R. CAPSULE PO SCH (10:49)
[2021-09-12] MEDS: MELATONIN 5 MG TABLETS PO SCH (21:53)
[2021-09-12] MEDS: QUEtiapine FUMARATE 200 MG TABLET PO SCH (21:53)
[2021-09-12] MEDS: THIAMINE HCL 100 MG TABLET (FP) PO SCH (21:53)
[2021-09-13] MEDS: hydrALAZINE HCL 10 MG TABLET PO SCH ×3 (06:17→22:10)
[2021-09-13] MEDS: methaDONE HCL 40 MG DISPERSABLE TABLET PO SCH (06:17)
[2021-09-13] MEDS: LISINOPRIL 20 MG TABLET PO SCH (10:11)
[2021-09-13] MEDS: PRENATAL VITAMINS W/ FOLIC ACID TABLET (FP) PO SCH (10:12)
[2021-09-13] MEDS: VENLAFAXINE HCL 37.5 MG E.R. CAPSULE PO SCH (10:12)
[2021-09-13] MEDS: hydrOXYzine PAMOATE 25 MG CAPSULE (FP) PO PRN (10:12)
[2021-09-13] MEDS: ISOSORBIDE MONONITRATE 30 MG TAB.SR.24H (FP) PO SCH (10:13)
[2021-09-13] MEDS: QUEtiapine FUMARATE 200 MG TABLET PO SCH (22:10)
[2021-09-13] MEDS: THIAMINE HCL 100 MG TABLET (FP) PO SCH (22:10)
[2021-09-13] MEDS: MELATONIN 5 MG TABLETS PO SCH (22:10)
[2021-09-14] MEDS: hydrALAZINE HCL 10 MG TABLET PO SCH ×3 (06:11→21:46)
[2021-09-14] MEDS: methaDONE HCL 40 MG DISPERSABLE TABLET PO SCH (06:12)
[2021-09-14] MEDS: LISINOPRIL 20 MG TABLET PO SCH (10:23)
[2021-09-14] MEDS: PRENATAL VITAMINS W/ FOLIC ACID TABLET (FP) PO SCH (10:23)
[2021-09-14] MEDS: VENLAFAXINE HCL 37.5 MG E.R. CAPSULE PO SCH (10:24)
[2021-09-14] MEDS: ISOSORBIDE MONONITRATE 30 MG TAB.SR.24H (FP) PO SCH (10:25)
[2021-09-14] MEDS: hydrOXYzine PAMOATE 25 MG CAPSULE (FP) PO PRN (10:26)
[2021-09-14] MEDS: THIAMINE HCL 100 MG TABLET (FP) PO SCH (21:45)
[2021-09-14] MEDS: MELATONIN 5 MG TABLETS PO SCH (21:46)
[2021-09-14] MEDS: QUEtiapine FUMARATE 200 MG TABLET PO SCH (21:46)
[2021-09-15 01:46] LABS: EPI CELLS 19 /uL (0-25.1); HYALINE CASTS 2 /uL (0-3.1); URINE APPEARANCE CLOUDY; URINE BACTERIA >9,000 /uL (0-1359); URINE BILIRUBIN NEGATIVE (NEGATIVE); URINE COLOR YELLOW; URINE GLUCOSE (UA) NEGATIVE (NEGATIVE); URINE KETONE NEGATIVE (NEGATIVE); URINE LEUK ESTERASE 3+ (NEGATIVE); URINE NITRITE POSITIVE (NEGATIVE); URINE PROTEIN TRACE (NEGATIVE); URINE RBC 96 /uL (0-23.9); URINE WBC 772 /uL (0-25.8)
[2021-09-15] MEDS: hydrALAZINE HCL 10 MG TABLET PO SCH ×3 (06:28→21:54)
[2021-09-15] MEDS: methaDONE HCL 40 MG DISPERSABLE TABLET PO SCH (06:28)
[2021-09-15] MEDS: IBUPROFEN 400 MG TABLET (FP) PO PRN (06:31)
[2021-09-15] MEDS: PRENATAL VITAMINS W/ FOLIC ACID TABLET (FP) PO SCH (10:07)
[2021-09-15] MEDS: LISINOPRIL 20 MG TABLET PO SCH (10:08)
[2021-09-15] MEDS: SULFAMETHOXAZOLE/TRIMETHOPRIM 800MG/160MG D.S. TABLET PO SCH ×2 (10:08→21:54)
[2021-09-15] MEDS: VENLAFAXINE HCL 37.5 MG E.R. CAPSULE PO SCH (10:08)
[2021-09-15] MEDS: ISOSORBIDE MONONITRATE 30 MG TAB.SR.24H (FP) PO SCH (10:09)
[2021-09-15] MEDS ORDERED: PT OWN MED DRAWER 7, Y5N ONE (19:52)
[2021-09-15] MEDS: QUEtiapine FUMARATE 200 MG TABLET PO SCH (21:54)
[2021-09-15] MEDS: MELATONIN 5 MG TABLETS PO SCH (21:54)
[2021-09-15] MEDS: THIAMINE HCL 100 MG TABLET (FP) PO SCH (21:54)
[2021-09-16] MEDS ORDERED: PT OWN MED DRAWER 7, Y5N ONE (03:09)
[2021-09-16] MEDS: methaDONE HCL 40 MG DISPERSABLE TABLET PO SCH (06:23)
[2021-09-16] MEDS: hydrALAZINE HCL 10 MG TABLET PO SCH ×3 (06:25→21:40)
[2021-09-16] MEDS: VENLAFAXINE HCL 37.5 MG E.R. CAPSULE PO SCH (10:23)
[2021-09-16] MEDS: PRENATAL VITAMINS W/ FOLIC ACID TABLET (FP) PO SCH (10:23)
[2021-09-16] MEDS: ISOSORBIDE MONONITRATE 30 MG TAB.SR.24H (FP) PO SCH (10:24)
[2021-09-16] MEDS: LISINOPRIL 20 MG TABLET PO SCH (10:24)
[2021-09-16] MEDS: SULFAMETHOXAZOLE/TRIMETHOPRIM 800MG/160MG D.S. TABLET PO SCH ×2 (10:24→21:40)
[2021-09-16] MEDS: THIAMINE HCL 100 MG TABLET (FP) PO SCH (21:40)
[2021-09-16] MEDS: QUEtiapine FUMARATE 200 MG TABLET PO SCH (21:40)
[2021-09-16] MEDS: MELATONIN 5 MG TABLETS PO SCH (21:40)
[2021-09-17] MEDS: hydrALAZINE HCL 10 MG TABLET PO SCH ×3 (06:20→21:55)
[2021-09-17] MEDS: methaDONE HCL 40 MG DISPERSABLE TABLET PO SCH (06:20)
[2021-09-17] MEDS: IBUPROFEN 400 MG TABLET (FP) PO PRN (06:21)
[2021-09-17] MEDS: PRENATAL VITAMINS W/ FOLIC ACID TABLET (FP) PO SCH (10:22)
[2021-09-17] MEDS: LISINOPRIL 20 MG TABLET PO SCH (10:22)
[2021-09-17] MEDS: ISOSORBIDE MONONITRATE 30 MG TAB.SR.24H (FP) PO SCH (10:22)
[2021-09-17] MEDS: SULFAMETHOXAZOLE/TRIMETHOPRIM 800MG/160MG D.S. TABLET PO SCH ×2 (10:22→21:55)
[2021-09-17] MEDS: VENLAFAXINE HCL 37.5 MG E.R. CAPSULE PO SCH (10:22)
[2021-09-17] MEDS: LACTOBACILLUS ACIDOPHILUS 1 TABLET PO SCH (16:12)
[2021-09-17] MEDS: QUEtiapine FUMARATE 200 MG TABLET PO SCH (21:55)
[2021-09-17] MEDS: THIAMINE HCL 100 MG TABLET (FP) PO SCH (21:55)
[2021-09-17] MEDS: MELATONIN 5 MG TABLETS PO SCH (21:56)
[2021-09-18] MEDS: methaDONE HCL 40 MG DISPERSABLE TABLET PO SCH (06:13)
[2021-09-18] MEDS: hydrALAZINE HCL 10 MG TABLET PO SCH ×3 (07:57→21:34)
[2021-09-18] MEDS ORDERED: PT OWN MED DRAWER 7, Y5N ONE (09:19)
[2021-09-18] MEDS: VENLAFAXINE HCL 37.5 MG E.R. CAPSULE PO SCH (10:35)
[2021-09-18] MEDS: SULFAMETHOXAZOLE/TRIMETHOPRIM 800MG/160MG D.S. TABLET PO SCH (10:35)
[2021-09-18] MEDS: LACTOBACILLUS ACIDOPHILUS 1 TABLET PO SCH (10:35)
[2021-09-18] MEDS: hydrOXYzine PAMOATE 25 MG CAPSULE (FP) PO PRN (10:36)
[2021-09-18] MEDS: PRENATAL VITAMINS W/ FOLIC ACID TABLET (FP) PO SCH (10:36)
[2021-09-18] MEDS: LISINOPRIL 20 MG TABLET PO SCH (10:36)
[2021-09-18] MEDS: ISOSORBIDE MONONITRATE 30 MG TAB.SR.24H (FP) PO SCH (11:28)
[2021-09-18] MEDS: NITROFURANTOIN MACROCRYSTAL 50 MG CAPSULE (FP) PO SCH ×2 (12:44→17:14)
[2021-09-18] MEDS: QUEtiapine FUMARATE 200 MG TABLET PO SCH (21:34)
[2021-09-18] MEDS: MELATONIN 5 MG TABLETS PO SCH (21:34)
[2021-09-18] MEDS: THIAMINE HCL 100 MG TABLET (FP) PO SCH (21:34)
[2021-09-19] MEDS: NITROFURANTOIN MACROCRYSTAL 50 MG CAPSULE (FP) PO SCH ×4 (01:48→17:11)
[2021-09-19] MEDS: hydrALAZINE HCL 10 MG TABLET PO SCH ×3 (06:07→21:34)
[2021-09-19] MEDS: methaDONE HCL 40 MG DISPERSABLE TABLET PO SCH (06:07)
[2021-09-19] MEDS: LISINOPRIL 20 MG TABLET PO SCH (10:22)
[2021-09-19] MEDS: LACTOBACILLUS ACIDOPHILUS 1 TABLET PO SCH (10:22)
[2021-09-19] MEDS: PRENATAL VITAMINS W/ FOLIC ACID TABLET (FP) PO SCH (10:22)
[2021-09-19] MEDS: VENLAFAXINE HCL 37.5 MG E.R. CAPSULE PO SCH (10:24)
[2021-09-19] MEDS: hydrOXYzine PAMOATE 25 MG CAPSULE (FP) PO PRN (10:24)
[2021-09-19] MEDS: ISOSORBIDE MONONITRATE 30 MG TAB.SR.24H (FP) PO SCH (10:24)
[2021-09-19] MEDS: QUEtiapine FUMARATE 200 MG TABLET PO SCH (21:34)
[2021-09-19] MEDS: THIAMINE HCL 100 MG TABLET (FP) PO SCH (21:34)
[2021-09-19] MEDS: MELATONIN 5 MG TABLETS PO SCH (21:35)
[2021-09-20] MEDS: NITROFURANTOIN MACROCRYSTAL 50 MG CAPSULE (FP) PO SCH ×5 (00:18→23:37)
[2021-09-20] MEDS: hydrALAZINE HCL 10 MG TABLET PO SCH ×3 (06:09→21:36)
[2021-09-20] MEDS: methaDONE HCL 40 MG DISPERSABLE TABLET PO SCH (06:09)
[2021-09-20] MEDS: PRENATAL VITAMINS W/ FOLIC ACID TABLET (FP) PO SCH (10:20)
[2021-09-20] MEDS: LISINOPRIL 20 MG TABLET PO SCH (10:21)
[2021-09-20] MEDS: ISOSORBIDE MONONITRATE 30 MG TAB.SR.24H (FP) PO SCH (10:21)
[2021-09-20] MEDS: LACTOBACILLUS ACIDOPHILUS 1 TABLET PO SCH (10:21)
[2021-09-20] MEDS: VENLAFAXINE HCL 37.5 MG E.R. CAPSULE PO SCH (10:22)
[2021-09-20] MEDS: hydrOXYzine PAMOATE 25 MG CAPSULE (FP) PO PRN (10:23)
[2021-09-20] MEDS: MELATONIN 5 MG TABLETS PO SCH (21:36)
[2021-09-20] MEDS: QUEtiapine FUMARATE 200 MG TABLET PO SCH (21:36)
[2021-09-20] MEDS: THIAMINE HCL 100 MG TABLET (FP) PO SCH (21:36)
[2021-09-21] MEDS ORDERED: PT OWN MED DRAWER 7, Y5N ONE ×2 (02:21→13:42)
[2021-09-21] MEDS: hydrALAZINE HCL 10 MG TABLET PO SCH ×3 (06:08→21:36)
[2021-09-21] MEDS: methaDONE HCL 40 MG DISPERSABLE TABLET PO SCH (06:09)
[2021-09-21] MEDS: NITROFURANTOIN MACROCRYSTAL 50 MG CAPSULE (FP) PO SCH ×4 (06:10→23:42)
[2021-09-21] MEDS: LISINOPRIL 20 MG TABLET PO SCH (10:51)
[2021-09-21] MEDS: LACTOBACILLUS ACIDOPHILUS 1 TABLET PO SCH (10:51)
[2021-09-21] MEDS: VENLAFAXINE HCL 37.5 MG E.R. CAPSULE PO SCH (10:55)
[2021-09-21] MEDS: ISOSORBIDE MONONITRATE 30 MG TAB.SR.24H (FP) PO SCH (10:55)
[2021-09-21] MEDS: PRENATAL VITAMINS W/ FOLIC ACID TABLET (FP) PO SCH (11:21)
[2021-09-21] MEDS: IBUPROFEN 400 MG TABLET (FP) PO PRN (13:43)
[2021-09-21] MEDS: THIAMINE HCL 100 MG TABLET (FP) PO SCH (21:36)
[2021-09-21] MEDS: QUEtiapine FUMARATE 200 MG TABLET PO SCH (21:36)
[2021-09-21] MEDS: MELATONIN 5 MG TABLETS PO SCH (21:37)
[2021-09-22] MEDS ORDERED: PT OWN MED DRAWER 7, Y5N ONE (03:15)
[2021-09-22] MEDS: hydrALAZINE HCL 10 MG TABLET PO SCH ×3 (06:05→21:28)
[2021-09-22] MEDS: methaDONE HCL 40 MG DISPERSABLE TABLET PO SCH (06:05)
[2021-09-22] MEDS: NITROFURANTOIN MACROCRYSTAL 50 MG CAPSULE (FP) PO SCH ×3 (06:07→19:15)
[2021-09-22] MEDS: PRENATAL VITAMINS W/ FOLIC ACID TABLET (FP) PO SCH (10:43)
[2021-09-22] MEDS: LACTOBACILLUS ACIDOPHILUS 1 TABLET PO SCH (10:43)
[2021-09-22] MEDS: VENLAFAXINE HCL 37.5 MG E.R. CAPSULE PO SCH (10:44)
[2021-09-22] MEDS: LISINOPRIL 20 MG TABLET PO SCH (10:44)
[2021-09-22] MEDS: ISOSORBIDE MONONITRATE 30 MG TAB.SR.24H (FP) PO SCH (10:45)
[2021-09-22] MEDS: QUEtiapine FUMARATE 200 MG TABLET PO SCH (21:28)
[2021-09-22] MEDS: THIAMINE HCL 100 MG TABLET (FP) PO SCH (21:28)
[2021-09-22] MEDS: MELATONIN 5 MG TABLETS PO SCH (21:28)
[2021-09-23] MEDS: NITROFURANTOIN MACROCRYSTAL 50 MG CAPSULE (FP) PO SCH ×3 (00:12→11:34)
[2021-09-23] MEDS: methaDONE HCL 40 MG DISPERSABLE TABLET PO SCH (06:06)
[2021-09-23] MEDS ORDERED: PT OWN MED DRAWER 7, Y5N ONE (06:08)
[2021-09-23] MEDS: hydrALAZINE HCL 10 MG TABLET PO SCH ×2 (06:09→14:33)
[2021-09-23 07:20] VITALS: BP 103/61; PULSE 80; TEMP 97.8
[2021-09-23] MEDS: PRENATAL VITAMINS W/ FOLIC ACID TABLET (FP) PO SCH (10:32)
[2021-09-23] MEDS: LISINOPRIL 20 MG TABLET PO SCH (10:32)
[2021-09-23] MEDS: LACTOBACILLUS ACIDOPHILUS 1 TABLET PO SCH (10:32)
[2021-09-23] MEDS: VENLAFAXINE HCL 37.5 MG E.R. CAPSULE PO SCH (10:33)
[2021-09-23] MEDS: ISOSORBIDE MONONITRATE 30 MG TAB.SR.24H (FP) PO SCH (10:34)
== END 2021-09-23 14:45 | disposition home or self-care (01) | DRG 772 ==
LOC: YASAS 17:48 → Y5N 17:50
PROVIDERS: ADMIT Allergy & Immunology; ATTEND Allergy & Immunology
PROC: HZ42ZZZ Group Counseling for Substance Abuse Treatment, Cognitive-Behavioral (ICD-10-PCS; principal; 2021-09-11)
DX: F14.20 Cocaine dependence, uncomplicated (principal); F11.20 Opioid dependence, uncomplicated; F17.210 Nicotine dependence, cigarettes, uncomplicated; J44.9 Chronic obstructive pulmonary disease, unspecified; N39.0 Urinary tract infection, site not specified; B18.2 Chronic viral hepatitis C; Z86.69 Personal history of other diseases of the nervous system and sense organs
CPT/HCPCS: 81003; 87086; 87186

== ENCOUNTER 2021-11-26 13:58 | Inpatient (IN) | payer OTHER ==
[2021-11-26] MEDS ORDERED: LOPERAMIDE HCL 2 MG CAPSULE PO PRN (15:40)
[2021-11-26] MEDS ORDERED: ACETAMINOPHEN 325 MG TABLET (FP) PO PRN (15:40)
[2021-11-26] MEDS ORDERED: MAGNESIUM HYDROX 2400MG/30ML ORAL SUSPENSION 30 ML CUP PO PRN (15:40)
[2021-11-26] MEDS ORDERED: BISMUTH SUBSALICYLATE 524 MG/30 ML PO PRN (15:40)
[2021-11-26] MEDS ORDERED: ONDANSETRON *ODT* 4 MG TABLET SL PRN (15:40)
[2021-11-26] MEDS ORDERED: MAGNESIUM CITRATE 300 ML BOTTLE PO PRN (15:40)
[2021-11-26] MEDS ORDERED: MENTHOL/PHENOL 1 EACH UD MM PRN (15:40)
[2021-11-26] MEDS ORDERED: MAG HYDROX/AL HYDROX/SIMETH 30 ML UNIT-DOSE CUP PO PRN (15:40)
[2021-11-26] MEDS ORDERED: IBUPROFEN 400 MG TABLET (FP) PO PRN (15:40)
[2021-11-26] MEDS ORDERED: hydrOXYzine PAMOATE 25 MG CAPSULE (FP) PO SCH (18:00)
[2021-11-26 19:00] VITALS: BMI 36.3
[2021-11-26] MEDS ORDERED: ALBUTEROL SO4 HFA INHALER IH PRN (19:00)
[2021-11-26] MEDS: diazePAM 5 MG TABLET PO SCH ×2 (19:50→22:58)
[2021-11-26] MEDS: hydrALAZINE HCL 10 MG TABLET PO SCH (22:56)
[2021-11-26] MEDS: MELATONIN 5 MG TABLETS PO SCH (22:56)
[2021-11-26] MEDS: THIAMINE HCL 100 MG TABLET (FP) PO SCH (22:56)
[2021-11-26] MEDS: ACETAMINOPHEN 325 MG TABLET (FP) PO PRN (22:58)
[2021-11-27] MEDS: diazePAM 5 MG TABLET PO SCH ×4 (06:05→23:08)
[2021-11-27] MEDS: hydrALAZINE HCL 10 MG TABLET PO SCH ×3 (06:06→23:07)
[2021-11-27] MEDS: LISINOPRIL 20 MG TABLET PO SCH (11:13)
[2021-11-27] MEDS: PRENATAL VITAMINS W/ FOLIC ACID TABLET (FP) PO SCH (11:13)
[2021-11-27] MEDS: ISOSORBIDE MONONITRATE 30 MG TAB.SR.24H (FP) PO SCH (11:13)
[2021-11-27 12:00] LABS: HEMATOCRIT 36.3 % (32.4-45.2); HEMOGLOBIN 11.8 GM/dL (10.7-15.3); MCH 29.7 pg (25.7-33.7); MCHC 32.5 g/dl (32.0-36.0); MEAN CELL VOLUME 91.2 fl (80-96); MEAN PLT VOLUME 7.4 fl (7.5-11.1); PLATELET COUNT 232 10^3/uL (134-434); RBC 3.99 M/mm3 (3.60-5.2); RDW 15.7 % (11.6-15.6); WHITE BLOOD COUNT 5.3 K/mm3 (4.0-10.0)
[2021-11-27 12:02] LABS: CALCIUM 8.7 mg/dL (8.5-10.1)
[2021-11-27 12:03] LABS: ALBUMIN 3.2 g/dl (3.4-5.0); BLOOD UREA NITROGEN 35.6 mg/dL (7-18)
[2021-11-27 12:06] LABS: CREATININE 1.2 mg/dL (0.55-1.3)
[2021-11-27 12:07] LABS: BILIRUBIN,TOTAL 0.3 mg/dL (0.2-1); TOT PROT 7.5 g/dl (6.4-8.2)
[2021-11-27] MEDS: VENLAFAXINE HCL 37.5 MG E.R. CAPSULE PO SCH (12:22)
[2021-11-27] MEDS: methaDONE HCL 40 MG DISPERSABLE TABLET PO SCH (12:22)
[2021-11-27] MEDS: diazePAM 5 MG TABLET PO PRN ×2 (13:42→21:15)
[2021-11-27] MEDS ORDERED: SODIUM POLYSTYRENE SULFONATE 15 GM/60 ML BOTTLE PO ONE ×2 (14:27→21:35)
[2021-11-27] MEDS: LIDOCAINE 5% TOPICAL PATCH TP SCH (15:42)
[2021-11-27] MEDS: ACETAMINOPHEN 325 MG TABLET (FP) PO PRN (21:04)
[2021-11-27] MEDS: METHOCARBAMOL 500 MG TABLET PO PRN (21:05)
[2021-11-27] MEDS: QUEtiapine FUMARATE 100 MG TABLET (FP) PO SCH (21:15)
[2021-11-27] MEDS: MELATONIN 5 MG TABLETS PO SCH (21:15)
[2021-11-27] MEDS: THIAMINE HCL 100 MG TABLET (FP) PO SCH (21:15)
[2021-11-27] MEDS: LIDOCAINE PATCH REMOVAL MC SCH ×2 (23:07)
[2021-11-28] MEDS: diazePAM 5 MG TABLET PO SCH ×3 (05:40→22:10)
[2021-11-28] MEDS: methaDONE HCL 40 MG DISPERSABLE TABLET PO SCH (05:41)
[2021-11-28] MEDS: ACETAMINOPHEN 325 MG TABLET (FP) PO PRN (05:41)
[2021-11-28] MEDS: hydrALAZINE HCL 10 MG TABLET PO SCH ×3 (05:41→22:11)
[2021-11-28] MEDS: diazePAM 5 MG TABLET PO PRN ×3 (08:10→17:30)
[2021-11-28] MEDS: LIDOCAINE 5% TOPICAL PATCH TP SCH (09:26)
[2021-11-28] MEDS: ISOSORBIDE MONONITRATE 30 MG TAB.SR.24H (FP) PO SCH (10:08)
[2021-11-28] MEDS: PRENATAL VITAMINS W/ FOLIC ACID TABLET (FP) PO SCH (10:08)
[2021-11-28] MEDS: VENLAFAXINE HCL 37.5 MG E.R. CAPSULE PO SCH (10:08)
[2021-11-28] MEDS: LISINOPRIL 20 MG TABLET PO SCH (10:08)
[2021-11-28] MEDS: METHOCARBAMOL 500 MG TABLET PO PRN ×2 (10:08→22:12)
[2021-11-28] MEDS: THIAMINE HCL 100 MG TABLET (FP) PO SCH (22:11)
[2021-11-28] MEDS: LIDOCAINE PATCH REMOVAL MC SCH ×2 (22:11)
[2021-11-28] MEDS: MELATONIN 5 MG TABLETS PO SCH (22:11)
[2021-11-28] MEDS: QUEtiapine FUMARATE 100 MG TABLET (FP) PO SCH (22:11)
[2021-11-29] MEDS: diazePAM 5 MG TABLET PO SCH ×2 (05:37→17:07)
[2021-11-29] MEDS: methaDONE HCL 40 MG DISPERSABLE TABLET PO SCH (05:37)
[2021-11-29] MEDS: hydrALAZINE HCL 10 MG TABLET PO SCH ×3 (05:38→22:03)
[2021-11-29] MEDS: LIDOCAINE 5% TOPICAL PATCH TP SCH (09:28)
[2021-11-29] MEDS: LISINOPRIL 20 MG TABLET PO SCH (09:29)
[2021-11-29] MEDS: diazePAM 5 MG TABLET PO PRN ×2 (09:29→14:07)
[2021-11-29] MEDS: ISOSORBIDE MONONITRATE 30 MG TAB.SR.24H (FP) PO SCH (09:30)
[2021-11-29] MEDS: PRENATAL VITAMINS W/ FOLIC ACID TABLET (FP) PO SCH (09:30)
[2021-11-29] MEDS: VENLAFAXINE HCL 37.5 MG E.R. CAPSULE PO SCH (09:30)
[2021-11-29] MEDS: NICOTINE 10 MG CARTRIDGE (INHALER) IH PRN ×2 (09:32→17:08)
[2021-11-29 12:53] LABS: ALBUMIN 3.4 g/dl (3.4-5.0); BLOOD UREA NITROGEN 19.4 mg/dL (7-18)
[2021-11-29 12:55] LABS: CREATININE 0.9 mg/dL (0.55-1.3)
[2021-11-29 13:00] LABS: BILIRUBIN,TOTAL 0.2 mg/dL (0.2-1); TOT PROT 7.6 g/dl (6.4-8.2)
[2021-11-29] MEDS: QUEtiapine FUMARATE 100 MG TABLET (FP) PO SCH (22:02)
[2021-11-29] MEDS: THIAMINE HCL 100 MG TABLET (FP) PO SCH (22:03)
[2021-11-29] MEDS: LIDOCAINE PATCH REMOVAL MC SCH ×2 (22:03)
[2021-11-29] MEDS: MELATONIN 5 MG TABLETS PO SCH (22:03)
[2021-11-29] MEDS: METHOCARBAMOL 500 MG TABLET PO PRN (22:03)
[2021-11-30] MEDS ORDERED: diazePAM 5 MG TABLET PO ONE (06:00)
[2021-11-30] MEDS: methaDONE HCL 40 MG DISPERSABLE TABLET PO SCH (06:16)
[2021-11-30] MEDS: hydrALAZINE HCL 10 MG TABLET PO SCH (06:16)
[2021-11-30] MEDS: NICOTINE 10 MG CARTRIDGE (INHALER) IH PRN (06:23)
[2021-11-30 08:44] VITALS: BP 122/64; PULSE 63; TEMP 97.7
[2021-11-30] MEDS: VENLAFAXINE HCL 37.5 MG E.R. CAPSULE PO SCH (11:11)
[2021-11-30] MEDS: ISOSORBIDE MONONITRATE 30 MG TAB.SR.24H (FP) PO SCH (11:11)
[2021-11-30] MEDS: LISINOPRIL 20 MG TABLET PO SCH (11:11)
[2021-11-30] MEDS: PRENATAL VITAMINS W/ FOLIC ACID TABLET (FP) PO SCH (11:11)
[2021-11-30] MEDS: LIDOCAINE 5% TOPICAL PATCH TP SCH (11:12)
== END 2021-11-30 13:35 | disposition other institution (70) | DRG 773 ==
LOC: YASAS 13:58 → Y3N 19:12
PROVIDERS: ADMIT Allergy & Immunology; ATTEND Allergy & Immunology
PROC: HZ2ZZZZ Detoxification Services for Substance Abuse Treatment (ICD-10-PCS; principal; 2021-11-26)
DX: F10.230 Alcohol dependence with withdrawal, uncomplicated (principal); F11.20 Opioid dependence, uncomplicated; F13.230 Sedative, hypnotic or anxiolytic dependence with withdrawal, uncomplicated; F17.210 Nicotine dependence, cigarettes, uncomplicated; F19.280 Other psychoactive substance dependence with psychoactive substance-induced anxiety disorder; F19.282 Other psychoactive substance dependence with psychoactive substance-induced sleep disorder; F19.24 Other psychoactive substance dependence with psychoactive substance-induced mood disorder; F31.9 Bipolar disorder, unspecified; E87.5 Hyperkalemia; J44.9 Chronic obstructive pulmonary disease, unspecified; B18.2 Chronic viral hepatitis C; R74.01 Elevation of levels of liver transaminase levels; R79.89 Other specified abnormal findings of blood chemistry; Z87.440 Personal history of urinary (tract) infections; Z86.16 Personal history of COVID-19; Z91.51 Personal history of suicidal behavior; Z56.0 Unemployment, unspecified
CPT/HCPCS: 36415; 80053; 84132; 84450; 84460; 85027; 86780; 93005; 93010; C9803; U0003; U0005

== ENCOUNTER 2021-11-30 14:03 | Inpatient (IN) | payer OTHER ==
[2021-11-30] MEDS ORDERED: ACETAMINOPHEN 325 MG TABLET (FP) PO PRN (15:37)
[2021-11-30] MEDS ORDERED: P-EPHED 60MG/TRIPROLIDI 2.5MG TABLET PO PRN (15:37)
[2021-11-30] MEDS ORDERED: LOPERAMIDE HCL 2 MG CAPSULE PO PRN (15:37)
[2021-11-30] MEDS ORDERED: hydrOXYzine PAMOATE 25 MG CAPSULE (FP) PO PRN (15:37)
[2021-11-30] MEDS ORDERED: MENTHOL/PHENOL 1 EACH UD MM PRN (15:37)
[2021-11-30] MEDS ORDERED: guaiFENesin 200 MG/10 ML 10 ML UNIT-DOSE CUPS PO PRN (15:37)
[2021-11-30] MEDS ORDERED: IBUPROFEN 400 MG TABLET (FP) PO PRN (15:37)
[2021-11-30] MEDS ORDERED: NICOTINE POLACRILEX 2 MG GUM BUC PRN (15:37)
[2021-11-30] MEDS ORDERED: MAGNESIUM HYDROX 2400MG/30ML ORAL SUSPENSION 30 ML CUP PO PRN (15:37)
[2021-11-30] MEDS ORDERED: MAG HYDROX/AL HYDROX/SIMETH 30 ML UNIT-DOSE CUP PO PRN (15:37)
[2021-11-30] MEDS ORDERED: MAGNESIUM CITRATE 300 ML BOTTLE PO PRN (15:37)
[2021-11-30] MEDS ORDERED: ALBUTEROL SO4 HFA INHALER IH PRN (15:40)
[2021-11-30] MEDS ORDERED: SODIUM POLYSTYRENE SULFONATE 15 GM/60 ML BOTTLE PO ONE (15:56)
[2021-11-30] MEDS ORDERED: TUBERCULIN PPD 5 TU/0.1ML VIAL ID ONE (18:54)
[2021-11-30] MEDS: QUEtiapine FUMARATE 200 MG TABLET PO SCH (21:28)
[2021-11-30] MEDS: THIAMINE HCL 100 MG TABLET (FP) PO SCH (21:28)
[2021-11-30] MEDS: hydrALAZINE HCL 10 MG TABLET PO SCH (21:28)
[2021-11-30] MEDS: MELATONIN 5 MG TABLETS PO SCH (21:29)
[2021-11-30] MEDS: NICOTINE 10 MG CARTRIDGE (INHALER) IH PRN (21:29)
[2021-11-30] MEDS: LIDOCAINE PATCH REMOVAL MC SCH (21:29)
[2021-12-01] MEDS: hydrALAZINE HCL 10 MG TABLET PO SCH ×3 (06:03→21:43)
[2021-12-01] MEDS ORDERED: VENLAFAXINE HCL 37.5 MG E.R. CAPSULE PO SCH (10:00)
[2021-12-01] MEDS ORDERED: LIDOCAINE 5% TOPICAL PATCH TP SCH (10:00)
[2021-12-01] MEDS ORDERED: PRENATAL VITAMINS W/ FOLIC ACID TABLET (FP) PO SCH (10:00)
[2021-12-01] MEDS ORDERED: LISINOPRIL 20 MG TABLET PO SCH (10:00)
[2021-12-01] MEDS ORDERED: ISOSORBIDE MONONITRATE 30 MG TAB.SR.24H (FP) PO SCH (10:00)
[2021-12-01] MEDS ORDERED: NICOTINE 7 MG/24 HOURS TOPICAL PATCH TD SCH (10:00)
[2021-12-01] MEDS ORDERED: methaDONE HCL 40 MG DISPERSABLE TABLET PO ONE (10:00)
[2021-12-01 13:04] LABS: HIV INTERPRETATION NEGATIVE (NEGATIVE)
[2021-12-01] MEDS: NICOTINE 10 MG CARTRIDGE (INHALER) IH PRN (21:42)
[2021-12-01] MEDS: LIDOCAINE PATCH REMOVAL MC SCH (21:43)
[2021-12-01] MEDS: THIAMINE HCL 100 MG TABLET (FP) PO SCH (21:43)
[2021-12-01] MEDS: QUEtiapine FUMARATE 200 MG TABLET PO SCH (21:43)
[2021-12-01] MEDS: MELATONIN 5 MG TABLETS PO SCH (21:43)
[2021-12-01 22:53] VITALS: PULSE 96
[2021-12-02] MEDS: hydrALAZINE HCL 10 MG TABLET PO SCH (05:46)
[2021-12-02] MEDS ORDERED: methaDONE HCL 40 MG DISPERSABLE TABLET PO SCH (06:00)
[2021-12-02 07:21] VITALS: BP 120/71; TEMP 97.5
== END 2021-12-02 08:37 | disposition left against medical advice (07) | DRG 770 ==
LOC: YASAS 14:03 → Y5N 14:04
PROVIDERS: ADMIT Allergy & Immunology; ATTEND Allergy & Immunology
PROC: HZ42ZZZ Group Counseling for Substance Abuse Treatment, Cognitive-Behavioral (ICD-10-PCS; principal; 2021-11-30)
DX: F10.20 Alcohol dependence, uncomplicated (principal); F11.20 Opioid dependence, uncomplicated; F14.20 Cocaine dependence, uncomplicated; F17.210 Nicotine dependence, cigarettes, uncomplicated; J44.9 Chronic obstructive pulmonary disease, unspecified; B18.2 Chronic viral hepatitis C; Z86.69 Personal history of other diseases of the nervous system and sense organs
CPT/HCPCS: 36415; 84132; 87389

== ENCOUNTER 2021-12-18 16:05 | Inpatient (IN) | payer OTHER ==
[2021-12-18 17:19] VITALS: BMI 38.9
[2021-12-18] MEDS ORDERED: guaiFENesin 200 MG/10 ML 10 ML UNIT-DOSE CUPS PO PRN (19:41)
[2021-12-18] MEDS ORDERED: NICOTINE 7 MG/24 HOURS TOPICAL PATCH TD PRN (19:41)
[2021-12-18] MEDS ORDERED: P-EPHED 60MG/TRIPROLIDI 2.5MG TABLET PO PRN (19:41)
[2021-12-18] MEDS ORDERED: MAGNESIUM CITRATE 300 ML BOTTLE PO PRN (19:41)
[2021-12-18] MEDS ORDERED: hydrOXYzine PAMOATE 25 MG CAPSULE (FP) PO PRN (19:41)
[2021-12-18] MEDS ORDERED: MAGNESIUM HYDROX 2400MG/30ML ORAL SUSPENSION 30 ML CUP PO PRN (19:41)
[2021-12-18] MEDS ORDERED: IBUPROFEN 400 MG TABLET (FP) PO PRN (19:41)
[2021-12-18] MEDS ORDERED: ALBUTEROL SO4 HFA INHALER IH PRN (19:44)
[2021-12-18] MEDS ORDERED: LISINOPRIL 10 MG TABLET PO ONE (19:45)
[2021-12-19] MEDS: THIAMINE HCL 100 MG TABLET (FP) PO SCH ×2 (01:40→21:37)
[2021-12-19] MEDS: levETIRAcetam 500 MG TABLET (FP) PO SCH ×3 (01:40→21:37)
[2021-12-19] MEDS ORDERED: ONDANSETRON *ODT* 4 MG TABLET SL PRN (01:57)
[2021-12-19] MEDS ORDERED: TUBERCULIN PPD 5 TU/0.1ML VIAL ID ONE ×3 (07:19→07:52)
[2021-12-19] MEDS ORDERED: methaDONE HCL 10 MG TABLET PO SCH (07:34)
[2021-12-19] MEDS: PRENATAL VITAMINS W/ FOLIC ACID TABLET (FP) PO SCH (10:05)
[2021-12-19] MEDS ORDERED: methaDONE HCL 40 MG DISPERSABLE TABLET ONE (10:28)
[2021-12-19] MEDS ORDERED: methaDONE HCL 10 MG TABLET ONE (10:28)
[2021-12-19] MEDS: AMOX TR/POT CLAV 875MG/125MG TABLETS (FP) PO SCH ×3 (10:47→21:36)
[2021-12-19 11:36] LABS: HEMATOCRIT 29.9 % (32.4-45.2); HEMOGLOBIN 10.2 GM/dL (10.7-15.3); MCH 30.4 pg (25.7-33.7); MCHC 34.2 g/dl (32.0-36.0); MEAN CELL VOLUME 88.9 fl (80-96); MEAN PLT VOLUME 6.7 fl (7.5-11.1); PLATELET COUNT 307 10^3/uL (134-434); RBC 3.36 M/mm3 (3.60-5.2); RDW 15.1 % (11.6-15.6); WHITE BLOOD COUNT 7.4 K/mm3 (4.0-10.0)
[2021-12-19] MEDS: LISINOPRIL 20 MG TABLET PO SCH (11:59)
[2021-12-19 13:03] LABS: ALBUMIN 2.7 g/dl (3.4-5.0)
[2021-12-19 13:04] LABS: BLOOD UREA NITROGEN 25.9 mg/dL (7-18)
[2021-12-19 13:06] LABS: CREATININE 1.5 mg/dL (0.55-1.3)
[2021-12-19 13:07] LABS: BILIRUBIN,TOTAL 0.4 mg/dL (0.2-1); TOT PROT 7.2 g/dl (6.4-8.2)
[2021-12-19] MEDS: LOPERAMIDE HCL 2 MG CAPSULE PO PRN (17:25)
[2021-12-19] MEDS: ACETAMINOPHEN 325 MG TABLET (FP) PO PRN (19:52)
[2021-12-19] MEDS: QUEtiapine FUMARATE 200 MG TABLET PO SCH (21:37)
[2021-12-20] MEDS ORDERED: methaDONE HCL 10 MG TABLET PO SCH (06:00)
[2021-12-20] MEDS ORDERED: methaDONE HCL 10 MG TABLET ONE (06:05)
[2021-12-20] MEDS ORDERED: methaDONE HCL 40 MG DISPERSABLE TABLET ONE (06:05)
[2021-12-20] MEDS: PRENATAL VITAMINS W/ FOLIC ACID TABLET (FP) PO SCH (10:02)
[2021-12-20] MEDS: levETIRAcetam 500 MG TABLET (FP) PO SCH ×2 (10:03→21:36)
[2021-12-20] MEDS: AMOX TR/POT CLAV 875MG/125MG TABLETS (FP) PO SCH ×2 (10:04→21:35)
[2021-12-20] MEDS: LISINOPRIL 20 MG TABLET PO SCH (10:04)
[2021-12-20] MEDS: VENLAFAXINE HCL 37.5 MG E.R. CAPSULE PO SCH (11:57)
[2021-12-20] MEDS: THIAMINE HCL 100 MG TABLET (FP) PO SCH (21:35)
[2021-12-20] MEDS: QUEtiapine FUMARATE 200 MG TABLET PO SCH (21:36)
[2021-12-20] MEDS: MELATONIN 5 MG TABLETS PO PRN (21:36)
[2021-12-21] MEDS ORDERED: methaDONE HCL 40 MG DISPERSABLE TABLET ONE (03:04)
[2021-12-21] MEDS ORDERED: methaDONE HCL 10 MG TABLET ONE (03:04)
[2021-12-21] MEDS: VENLAFAXINE HCL 37.5 MG E.R. CAPSULE PO SCH (10:57)
[2021-12-21] MEDS: AMOX TR/POT CLAV 875MG/125MG TABLETS (FP) PO SCH ×2 (10:57→21:45)
[2021-12-21] MEDS: levETIRAcetam 500 MG TABLET (FP) PO SCH ×2 (10:57→21:45)
[2021-12-21] MEDS: PRENATAL VITAMINS W/ FOLIC ACID TABLET (FP) PO SCH (10:57)
[2021-12-21] MEDS: LISINOPRIL 20 MG TABLET PO SCH (10:59)
[2021-12-21] MEDS: ACETAMINOPHEN 325 MG TABLET (FP) PO PRN (13:20)
[2021-12-21 21:45] LABS: EPI CELLS 28 /uL (0-25.1); HYALINE CASTS 0 /uL (0-3.1); URINE APPEARANCE CLEAR; URINE BACTERIA 117 /uL (0-1359); URINE BILIRUBIN NEGATIVE (NEGATIVE); URINE COLOR YELLOW; URINE GLUCOSE (UA) NEGATIVE (NEGATIVE); URINE KETONE NEGATIVE (NEGATIVE); URINE LEUK ESTERASE 1+ (NEGATIVE); URINE NITRITE NEGATIVE (NEGATIVE); URINE PROTEIN NEGATIVE (NEGATIVE); URINE RBC 7 /uL (0-23.9); URINE UROBILINOGEN 0.2 mg/dL (0.2-1.0); URINE WBC 134 /uL (0-25.8)
[2021-12-21] MEDS: QUEtiapine FUMARATE 200 MG TABLET PO SCH (21:45)
[2021-12-21] MEDS: THIAMINE HCL 100 MG TABLET (FP) PO SCH (21:45)
[2021-12-22] MEDS ORDERED: methaDONE HCL 10 MG TABLET ONE (03:11)
[2021-12-22] MEDS ORDERED: methaDONE HCL 40 MG DISPERSABLE TABLET ONE (03:11)
[2021-12-22] MEDS: ACETAMINOPHEN 325 MG TABLET (FP) PO PRN (09:02)
[2021-12-22] MEDS: AMOX TR/POT CLAV 875MG/125MG TABLETS (FP) PO SCH ×2 (09:03→21:58)
[2021-12-22] MEDS: levETIRAcetam 500 MG TABLET (FP) PO SCH ×2 (09:03→21:58)
[2021-12-22] MEDS: PRENATAL VITAMINS W/ FOLIC ACID TABLET (FP) PO SCH (09:06)
[2021-12-22] MEDS: LISINOPRIL 20 MG TABLET PO SCH (09:07)
[2021-12-22] MEDS: VENLAFAXINE HCL 37.5 MG E.R. CAPSULE PO SCH (11:16)
[2021-12-22] MEDS: QUEtiapine FUMARATE 200 MG TABLET PO SCH (21:58)
[2021-12-22] MEDS: THIAMINE HCL 100 MG TABLET (FP) PO SCH (21:58)
[2021-12-23] MEDS ORDERED: methaDONE HCL 10 MG TABLET ONE (03:18)
[2021-12-23] MEDS ORDERED: methaDONE HCL 40 MG DISPERSABLE TABLET ONE (03:19)
[2021-12-23] MEDS: levETIRAcetam 500 MG TABLET (FP) PO SCH (10:18)
[2021-12-23] MEDS: PRENATAL VITAMINS W/ FOLIC ACID TABLET (FP) PO SCH (10:18)
[2021-12-23] MEDS: LISINOPRIL 20 MG TABLET PO SCH (10:19)
[2021-12-23] MEDS: AMOX TR/POT CLAV 875MG/125MG TABLETS (FP) PO SCH ×2 (10:19→21:35)
[2021-12-23] MEDS: VENLAFAXINE HCL 37.5 MG E.R. CAPSULE PO SCH (10:21)
[2021-12-23] MEDS: THIAMINE HCL 100 MG TABLET (FP) PO SCH (21:35)
[2021-12-23] MEDS: QUEtiapine FUMARATE 200 MG TABLET PO SCH (21:35)
[2021-12-24] MEDS ORDERED: methaDONE HCL 10 MG TABLET ONE (02:43)
[2021-12-24] MEDS ORDERED: methaDONE HCL 40 MG DISPERSABLE TABLET ONE (02:43)
[2021-12-24 08:06] LABS: SARS-CoV-2 NAA Not Detected (Not Detected)
[2021-12-24] MEDS: LISINOPRIL 20 MG TABLET PO SCH (10:10)
[2021-12-24] MEDS: VENLAFAXINE HCL 37.5 MG E.R. CAPSULE PO SCH (10:10)
[2021-12-24] MEDS: AMOX TR/POT CLAV 875MG/125MG TABLETS (FP) PO SCH ×2 (10:10→21:29)
[2021-12-24] MEDS: PRENATAL VITAMINS W/ FOLIC ACID TABLET (FP) PO SCH (10:10)
[2021-12-24] MEDS: BACITRACIN 0.9 GM PACKET TP SCH ×2 (15:42→21:29)
[2021-12-24] MEDS: QUEtiapine FUMARATE 50 MG TABLET PO SCH (21:29)
[2021-12-24] MEDS: THIAMINE HCL 100 MG TABLET (FP) PO SCH (21:29)
[2021-12-24] MEDS: ACETAMINOPHEN 325 MG TABLET (FP) PO PRN (21:30)
[2021-12-24] MEDS: MELATONIN 5 MG TABLETS PO PRN (21:30)
[2021-12-25] MEDS ORDERED: methaDONE HCL 40 MG DISPERSABLE TABLET ONE (02:41)
[2021-12-25] MEDS ORDERED: methaDONE HCL 10 MG TABLET ONE (02:41)
[2021-12-25] MEDS: PRENATAL VITAMINS W/ FOLIC ACID TABLET (FP) PO SCH (10:30)
[2021-12-25] MEDS: VENLAFAXINE HCL 37.5 MG E.R. CAPSULE PO SCH (10:31)
[2021-12-25] MEDS: AMOX TR/POT CLAV 875MG/125MG TABLETS (FP) PO SCH (10:31)
[2021-12-25] MEDS: BACITRACIN 0.9 GM PACKET TP SCH ×2 (10:31→21:34)
[2021-12-25] MEDS: LISINOPRIL 20 MG TABLET PO SCH (10:31)
[2021-12-25] MEDS: THIAMINE HCL 100 MG TABLET (FP) PO SCH (21:34)
[2021-12-25] MEDS: QUEtiapine FUMARATE 50 MG TABLET PO SCH (21:34)
[2021-12-25] MEDS: MELATONIN 5 MG TABLETS PO PRN (21:35)
[2021-12-26] MEDS ORDERED: methaDONE HCL 10 MG TABLET ONE (05:03)
[2021-12-26] MEDS ORDERED: methaDONE HCL 40 MG DISPERSABLE TABLET ONE (05:04)
[2021-12-26] MEDS: VENLAFAXINE HCL 37.5 MG E.R. CAPSULE PO SCH (10:06)
[2021-12-26] MEDS: PRENATAL VITAMINS W/ FOLIC ACID TABLET (FP) PO SCH (10:06)
[2021-12-26] MEDS: BACITRACIN 0.9 GM PACKET TP SCH ×2 (10:06→21:27)
[2021-12-26] MEDS: LISINOPRIL 20 MG TABLET PO SCH (14:11)
[2021-12-26] MEDS: QUEtiapine FUMARATE 50 MG TABLET PO SCH (21:27)
[2021-12-26] MEDS: MELATONIN 5 MG TABLETS PO PRN (21:27)
[2021-12-26] MEDS: THIAMINE HCL 100 MG TABLET (FP) PO SCH (21:27)
[2021-12-27] MEDS ORDERED: methaDONE HCL 40 MG DISPERSABLE TABLET PO SCH (08:15)
[2021-12-27] MEDS ORDERED: methaDONE HCL 10 MG TABLET ONE (08:43)
[2021-12-27] MEDS ORDERED: methaDONE HCL 40 MG DISPERSABLE TABLET ONE (08:44)
[2021-12-27] MEDS: BACITRACIN 0.9 GM PACKET TP SCH ×2 (10:17→21:32)
[2021-12-27] MEDS: PRENATAL VITAMINS W/ FOLIC ACID TABLET (FP) PO SCH (10:17)
[2021-12-27] MEDS: LISINOPRIL 20 MG TABLET PO SCH (10:18)
[2021-12-27] MEDS: VENLAFAXINE HCL 37.5 MG E.R. CAPSULE PO SCH (10:18)
[2021-12-27] MEDS: FERROUS SO4 325 MG TABLET (FP) PO SCH (17:24)
[2021-12-27 19:44] LABS: EPI CELLS >36 /uL (0-25.1); HYALINE CASTS 1 /uL (0-3.1); URINE APPEARANCE CLEAR; URINE BACTERIA 751 /uL (0-1359); URINE BILIRUBIN NEGATIVE (NEGATIVE); URINE COLOR YELLOW; URINE GLUCOSE (UA) NEGATIVE (NEGATIVE); URINE KETONE NEGATIVE (NEGATIVE); URINE LEUK ESTERASE 3+ (NEGATIVE); URINE NITRITE NEGATIVE (NEGATIVE); URINE PROTEIN NEGATIVE (NEGATIVE); URINE RBC 14 /uL (0-23.9); URINE UROBILINOGEN 0.2 mg/dL (0.2-1.0); URINE WBC 273 /uL (0-25.8)
[2021-12-27] MEDS: THIAMINE HCL 100 MG TABLET (FP) PO SCH (21:32)
[2021-12-27] MEDS: QUEtiapine FUMARATE 50 MG TABLET PO SCH (21:33)
[2021-12-28] MEDS ORDERED: methaDONE HCL 10 MG TABLET ONE (04:14)
[2021-12-28] MEDS ORDERED: methaDONE HCL 40 MG DISPERSABLE TABLET ONE (04:14)
[2021-12-28] MEDS: FERROUS SO4 325 MG TABLET (FP) PO SCH ×2 (07:06→17:01)
[2021-12-28] MEDS: VENLAFAXINE HCL 37.5 MG E.R. CAPSULE PO SCH (10:22)
[2021-12-28] MEDS: LISINOPRIL 20 MG TABLET PO SCH (10:22)
[2021-12-28] MEDS: PRENATAL VITAMINS W/ FOLIC ACID TABLET (FP) PO SCH (10:22)
[2021-12-28] MEDS: BACITRACIN 0.9 GM PACKET TP SCH ×2 (10:22→21:39)
[2021-12-28] MEDS: ACETAMINOPHEN 325 MG TABLET (FP) PO PRN (17:01)
[2021-12-28] MEDS: QUEtiapine FUMARATE 50 MG TABLET PO SCH (21:39)
[2021-12-28] MEDS: THIAMINE HCL 100 MG TABLET (FP) PO SCH (21:39)
[2021-12-28] MEDS: MELATONIN 5 MG TABLETS PO PRN (21:40)
[2021-12-29] MEDS ORDERED: methaDONE HCL 10 MG TABLET ONE (05:10)
[2021-12-29] MEDS ORDERED: methaDONE HCL 40 MG DISPERSABLE TABLET ONE (05:10)
[2021-12-29] MEDS: FERROUS SO4 325 MG TABLET (FP) PO SCH ×2 (07:00→18:28)
[2021-12-29] MEDS: LISINOPRIL 20 MG TABLET PO SCH (10:23)
[2021-12-29] MEDS: PRENATAL VITAMINS W/ FOLIC ACID TABLET (FP) PO SCH (10:23)
[2021-12-29] MEDS: VENLAFAXINE HCL 37.5 MG E.R. CAPSULE PO SCH (10:24)
[2021-12-29] MEDS: BACITRACIN 0.9 GM PACKET TP SCH ×2 (10:24→21:45)
[2021-12-29] MEDS ORDERED: hydrOXYzine PAMOATE 25 MG CAPSULE (FP) PO PRN (12:46)
[2021-12-29] MEDS: hydrOXYzine PAMOATE 25 MG CAPSULE (FP) PO PRN (14:35)
[2021-12-29] MEDS: THIAMINE HCL 100 MG TABLET (FP) PO SCH (21:44)
[2021-12-29] MEDS: QUEtiapine FUMARATE 200 MG TABLET PO SCH (21:46)
[2021-12-30] MEDS ORDERED: methaDONE HCL 10 MG TABLET ONE (03:05)
[2021-12-30] MEDS ORDERED: methaDONE HCL 40 MG DISPERSABLE TABLET ONE (03:05)
[2021-12-30] MEDS: FERROUS SO4 325 MG TABLET (FP) PO SCH ×2 (07:04→17:56)
[2021-12-30] MEDS: PRENATAL VITAMINS W/ FOLIC ACID TABLET (FP) PO SCH (10:26)
[2021-12-30] MEDS: BACITRACIN 0.9 GM PACKET TP SCH ×2 (10:27→21:57)
[2021-12-30] MEDS: VENLAFAXINE HCL 37.5 MG E.R. CAPSULE PO SCH (10:27)
[2021-12-30] MEDS: hydrOXYzine PAMOATE 25 MG CAPSULE (FP) PO PRN ×2 (10:27→21:57)
[2021-12-30] MEDS: LISINOPRIL 20 MG TABLET PO SCH (10:28)
[2021-12-30] MEDS: THIAMINE HCL 100 MG TABLET (FP) PO SCH (21:57)
[2021-12-30] MEDS: QUEtiapine FUMARATE 200 MG TABLET PO SCH (21:57)
[2021-12-31] MEDS ORDERED: methaDONE HCL 40 MG DISPERSABLE TABLET ONE (03:11)
[2021-12-31] MEDS ORDERED: methaDONE HCL 10 MG TABLET ONE (03:11)
[2021-12-31] MEDS: FERROUS SO4 325 MG TABLET (FP) PO SCH ×2 (07:53→17:19)
[2021-12-31] MEDS: BACITRACIN 0.9 GM PACKET TP SCH ×2 (10:20→21:39)
[2021-12-31] MEDS: PRENATAL VITAMINS W/ FOLIC ACID TABLET (FP) PO SCH (10:20)
[2021-12-31] MEDS: hydrOXYzine PAMOATE 25 MG CAPSULE (FP) PO PRN ×2 (10:21→21:39)
[2021-12-31] MEDS: LISINOPRIL 20 MG TABLET PO SCH (10:21)
[2021-12-31] MEDS: VENLAFAXINE HCL 37.5 MG E.R. CAPSULE PO SCH (12:09)
[2021-12-31] MEDS: QUEtiapine FUMARATE 200 MG TABLET PO SCH (21:39)
[2021-12-31] MEDS: THIAMINE HCL 100 MG TABLET (FP) PO SCH (21:39)
[2022-01-01] MEDS ORDERED: methaDONE HCL 10 MG TABLET ONE (06:29)
[2022-01-01] MEDS ORDERED: methaDONE HCL 40 MG DISPERSABLE TABLET ONE (06:29)
[2022-01-01] MEDS: FERROUS SO4 325 MG TABLET (FP) PO SCH ×2 (07:36→17:15)
[2022-01-01] MEDS: PRENATAL VITAMINS W/ FOLIC ACID TABLET (FP) PO SCH (10:13)
[2022-01-01] MEDS: BACITRACIN 0.9 GM PACKET TP SCH ×2 (10:13→21:40)
[2022-01-01] MEDS: LISINOPRIL 20 MG TABLET PO SCH (10:14)
[2022-01-01] MEDS: VENLAFAXINE HCL 37.5 MG E.R. CAPSULE PO SCH (10:14)
[2022-01-01] MEDS: QUEtiapine FUMARATE 200 MG TABLET PO SCH (21:34)
[2022-01-01] MEDS: THIAMINE HCL 100 MG TABLET (FP) PO SCH (21:34)
[2022-01-02] MEDS ORDERED: methaDONE HCL 40 MG DISPERSABLE TABLET ONE (04:36)
[2022-01-02] MEDS ORDERED: methaDONE HCL 10 MG TABLET ONE (04:36)
[2022-01-02] MEDS: FERROUS SO4 325 MG TABLET (FP) PO SCH ×2 (07:47→18:49)
[2022-01-02] MEDS: hydrOXYzine PAMOATE 25 MG CAPSULE (FP) PO PRN ×2 (10:37→21:26)
[2022-01-02] MEDS: PRENATAL VITAMINS W/ FOLIC ACID TABLET (FP) PO SCH (10:37)
[2022-01-02] MEDS: VENLAFAXINE HCL 37.5 MG E.R. CAPSULE PO SCH (10:38)
[2022-01-02] MEDS: BACITRACIN 0.9 GM PACKET TP SCH ×2 (10:38→21:24)
[2022-01-02] MEDS: LISINOPRIL 20 MG TABLET PO SCH (10:38)
[2022-01-02] MEDS: THIAMINE HCL 100 MG TABLET (FP) PO SCH (21:25)
[2022-01-02] MEDS: MELATONIN 5 MG TABLETS PO PRN (21:25)
[2022-01-02] MEDS: QUEtiapine FUMARATE 200 MG TABLET PO SCH (21:25)
[2022-01-03] MEDS ORDERED: methaDONE HCL 10 MG TABLET ONE (04:15)
[2022-01-03] MEDS ORDERED: methaDONE HCL 40 MG DISPERSABLE TABLET ONE (04:16)
[2022-01-03] MEDS: LOPERAMIDE HCL 2 MG CAPSULE PO PRN (06:26)
[2022-01-03] MEDS: FERROUS SO4 325 MG TABLET (FP) PO SCH ×2 (07:46→17:30)
[2022-01-03] MEDS: PRENATAL VITAMINS W/ FOLIC ACID TABLET (FP) PO SCH (10:13)
[2022-01-03] MEDS: VENLAFAXINE HCL 37.5 MG E.R. CAPSULE PO SCH (10:13)
[2022-01-03] MEDS: BACITRACIN 0.9 GM PACKET TP SCH ×2 (10:13→21:32)
[2022-01-03] MEDS: LISINOPRIL 20 MG TABLET PO SCH (10:14)
[2022-01-03] MEDS: hydrOXYzine PAMOATE 25 MG CAPSULE (FP) PO PRN ×2 (10:14→21:31)
[2022-01-03] MEDS: NICOTINE POLACRILEX 2 MG GUM BC PRN (10:16)
[2022-01-03] MEDS: THIAMINE HCL 100 MG TABLET (FP) PO SCH (21:31)
[2022-01-03] MEDS: QUEtiapine FUMARATE 200 MG TABLET PO SCH (21:31)
[2022-01-03] MEDS: MELATONIN 5 MG TABLETS PO PRN (21:31)
[2022-01-04] MEDS ORDERED: methaDONE HCL 10 MG TABLET ONE (03:45)
[2022-01-04] MEDS ORDERED: methaDONE HCL 40 MG DISPERSABLE TABLET ONE (03:46)
[2022-01-04] MEDS: FERROUS SO4 325 MG TABLET (FP) PO SCH ×2 (07:23→17:24)
[2022-01-04] MEDS: PRENATAL VITAMINS W/ FOLIC ACID TABLET (FP) PO SCH (10:12)
[2022-01-04] MEDS: LISINOPRIL 20 MG TABLET PO SCH (10:13)
[2022-01-04] MEDS: BACITRACIN 0.9 GM PACKET TP SCH ×2 (10:14→21:30)
[2022-01-04] MEDS: VENLAFAXINE HCL 37.5 MG E.R. CAPSULE PO SCH (10:14)
[2022-01-04] MEDS: hydrOXYzine PAMOATE 25 MG CAPSULE (FP) PO PRN ×2 (10:15→20:16)
[2022-01-04] MEDS: MELATONIN 5 MG TABLETS PO PRN (21:30)
[2022-01-04] MEDS: QUEtiapine FUMARATE 200 MG TABLET PO SCH (21:30)
[2022-01-04] MEDS: THIAMINE HCL 100 MG TABLET (FP) PO SCH (21:30)
[2022-01-05] MEDS ORDERED: methaDONE HCL 10 MG TABLET ONE (03:38)
[2022-01-05] MEDS ORDERED: methaDONE HCL 40 MG DISPERSABLE TABLET ONE (03:38)
[2022-01-05] MEDS: FERROUS SO4 325 MG TABLET (FP) PO SCH ×2 (07:05→18:04)
[2022-01-05] MEDS: PRENATAL VITAMINS W/ FOLIC ACID TABLET (FP) PO SCH (10:09)
[2022-01-05] MEDS: VENLAFAXINE HCL 37.5 MG E.R. CAPSULE PO SCH (10:10)
[2022-01-05] MEDS: hydrOXYzine PAMOATE 25 MG CAPSULE (FP) PO PRN (10:10)
[2022-01-05] MEDS: BACITRACIN 0.9 GM PACKET TP SCH ×2 (10:10→21:35)
[2022-01-05] MEDS: LISINOPRIL 10 MG TABLET PO SCH (10:11)
[2022-01-05] MEDS: NICOTINE POLACRILEX 2 MG GUM BC PRN (10:11)
[2022-01-05] MEDS: THIAMINE HCL 100 MG TABLET (FP) PO SCH (21:35)
[2022-01-05] MEDS: QUEtiapine FUMARATE 200 MG TABLET PO SCH (21:35)
[2022-01-06] MEDS ORDERED: methaDONE HCL 10 MG TABLET ONE (05:32)
[2022-01-06] MEDS ORDERED: methaDONE HCL 40 MG DISPERSABLE TABLET ONE (05:32)
[2022-01-06] MEDS: PRENATAL VITAMINS W/ FOLIC ACID TABLET (FP) PO SCH (10:17)
[2022-01-06] MEDS: hydrOXYzine PAMOATE 25 MG CAPSULE (FP) PO PRN ×2 (10:18→17:33)
[2022-01-06] MEDS: BACITRACIN 0.9 GM PACKET TP SCH ×2 (10:19→21:36)
[2022-01-06] MEDS: VENLAFAXINE HCL 37.5 MG E.R. CAPSULE PO SCH (10:19)
[2022-01-06] MEDS: FERROUS SO4 325 MG TABLET (FP) PO SCH ×2 (10:19→16:48)
[2022-01-06] MEDS: LISINOPRIL 10 MG TABLET PO SCH (10:20)
[2022-01-06] MEDS: NICOTINE 10 MG CARTRIDGE (INHALER) IH PRN ×2 (10:22→21:36)
[2022-01-06] MEDS: THIAMINE HCL 100 MG TABLET (FP) PO SCH (21:35)
[2022-01-06] MEDS: QUEtiapine FUMARATE 200 MG TABLET PO SCH (21:35)
[2022-01-06] MEDS: MELATONIN 5 MG TABLETS PO PRN (21:36)
[2022-01-07] MEDS ORDERED: methaDONE HCL 40 MG DISPERSABLE TABLET ONE (02:50)
[2022-01-07] MEDS ORDERED: methaDONE HCL 10 MG TABLET ONE (02:50)
[2022-01-07] MEDS: PRENATAL VITAMINS W/ FOLIC ACID TABLET (FP) PO SCH (10:34)
[2022-01-07] MEDS: FERROUS SO4 325 MG TABLET (FP) PO SCH ×2 (10:34→16:52)
[2022-01-07] MEDS: BACITRACIN 0.9 GM PACKET TP SCH ×2 (10:36→21:35)
[2022-01-07] MEDS: LISINOPRIL 10 MG TABLET PO SCH (10:36)
[2022-01-07] MEDS: VENLAFAXINE HCL 37.5 MG E.R. CAPSULE PO SCH (10:37)
[2022-01-07] MEDS: LOPERAMIDE HCL 2 MG CAPSULE PO PRN (10:38)
[2022-01-07] MEDS: hydrOXYzine PAMOATE 25 MG CAPSULE (FP) PO PRN ×2 (14:22→19:56)
[2022-01-07] MEDS: NICOTINE 10 MG CARTRIDGE (INHALER) IH PRN (19:57)
[2022-01-07] MEDS: QUEtiapine FUMARATE 200 MG TABLET PO SCH (21:35)
[2022-01-07] MEDS: THIAMINE HCL 100 MG TABLET (FP) PO SCH (21:35)
[2022-01-08] MEDS ORDERED: methaDONE HCL 40 MG DISPERSABLE TABLET ONE (02:33)
[2022-01-08] MEDS ORDERED: methaDONE HCL 10 MG TABLET ONE (02:33)
[2022-01-08] MEDS: FERROUS SO4 325 MG TABLET (FP) PO SCH ×2 (10:24→17:21)
[2022-01-08] MEDS: hydrOXYzine PAMOATE 25 MG CAPSULE (FP) PO PRN ×3 (10:24→21:31)
[2022-01-08] MEDS: NICOTINE 10 MG CARTRIDGE (INHALER) IH PRN (10:24)
[2022-01-08] MEDS: VENLAFAXINE HCL 37.5 MG E.R. CAPSULE PO SCH (10:24)
[2022-01-08] MEDS: PRENATAL VITAMINS W/ FOLIC ACID TABLET (FP) PO SCH (10:25)
[2022-01-08] MEDS: LISINOPRIL 10 MG TABLET PO SCH (10:25)
[2022-01-08] MEDS: BACITRACIN 0.9 GM PACKET TP SCH ×2 (10:25→21:33)
[2022-01-08] MEDS: NICOTINE POLACRILEX 2 MG GUM BC PRN (14:35)
[2022-01-08] MEDS: THIAMINE HCL 100 MG TABLET (FP) PO SCH (21:31)
[2022-01-08] MEDS: QUEtiapine FUMARATE 200 MG TABLET PO SCH (21:31)
[2022-01-08] MEDS: MELATONIN 5 MG TABLETS PO PRN (21:31)
[2022-01-09] MEDS ORDERED: methaDONE HCL 40 MG DISPERSABLE TABLET ONE (04:58)
[2022-01-09] MEDS ORDERED: methaDONE HCL 10 MG TABLET ONE (04:58)
[2022-01-09] MEDS: NICOTINE 10 MG CARTRIDGE (INHALER) IH PRN (06:08)
[2022-01-09] MEDS: PRENATAL VITAMINS W/ FOLIC ACID TABLET (FP) PO SCH (10:25)
[2022-01-09] MEDS: BACITRACIN 0.9 GM PACKET TP SCH ×2 (10:27→21:31)
[2022-01-09] MEDS: FERROUS SO4 325 MG TABLET (FP) PO SCH ×2 (10:27→17:12)
[2022-01-09] MEDS: LISINOPRIL 10 MG TABLET PO SCH (10:28)
[2022-01-09] MEDS: VENLAFAXINE HCL 37.5 MG E.R. CAPSULE PO SCH (10:28)
[2022-01-09] MEDS: hydrOXYzine PAMOATE 25 MG CAPSULE (FP) PO PRN (17:31)
[2022-01-09] MEDS: THIAMINE HCL 100 MG TABLET (FP) PO SCH (21:31)
[2022-01-09] MEDS: QUEtiapine FUMARATE 200 MG TABLET PO SCH (21:31)
[2022-01-09] MEDS: MELATONIN 5 MG TABLETS PO PRN (21:32)
[2022-01-10] MEDS ORDERED: methaDONE HCL 10 MG TABLET ONE (05:21)
[2022-01-10] MEDS ORDERED: methaDONE HCL 40 MG DISPERSABLE TABLET ONE (05:21)
[2022-01-10] MEDS: FERROUS SO4 325 MG TABLET (FP) PO SCH ×2 (07:23→17:34)
[2022-01-10] MEDS: PRENATAL VITAMINS W/ FOLIC ACID TABLET (FP) PO SCH (10:21)
[2022-01-10] MEDS: hydrOXYzine PAMOATE 25 MG CAPSULE (FP) PO PRN ×2 (10:21→17:34)
[2022-01-10] MEDS: BACITRACIN 0.9 GM PACKET TP SCH ×2 (10:21→21:56)
[2022-01-10] MEDS: LISINOPRIL 10 MG TABLET PO SCH (10:21)
[2022-01-10] MEDS: VENLAFAXINE HCL 37.5 MG E.R. CAPSULE PO SCH (10:21)
[2022-01-10] MEDS: NICOTINE 10 MG CARTRIDGE (INHALER) IH PRN ×3 (10:22→22:04)
[2022-01-10] MEDS: THIAMINE HCL 100 MG TABLET (FP) PO SCH (21:38)
[2022-01-10] MEDS: QUEtiapine FUMARATE 200 MG TABLET PO SCH (21:38)
[2022-01-10] MEDS: MELATONIN 5 MG TABLETS PO PRN (21:39)
[2022-01-10] MEDS: MAG HYDROX/AL HYDROX/SIMETH 30 ML UNIT-DOSE CUP PO PRN (22:04)
[2022-01-11] MEDS ORDERED: methaDONE HCL 10 MG TABLET ONE (03:10)
[2022-01-11] MEDS ORDERED: methaDONE HCL 40 MG DISPERSABLE TABLET ONE (03:11)
[2022-01-11] MEDS: FERROUS SO4 325 MG TABLET (FP) PO SCH ×2 (07:06→17:52)
[2022-01-11] MEDS: PRENATAL VITAMINS W/ FOLIC ACID TABLET (FP) PO SCH (10:28)
[2022-01-11] MEDS: hydrOXYzine PAMOATE 25 MG CAPSULE (FP) PO PRN ×2 (10:28→21:51)
[2022-01-11] MEDS: VENLAFAXINE HCL 37.5 MG E.R. CAPSULE PO SCH (10:28)
[2022-01-11] MEDS: BACITRACIN 0.9 GM PACKET TP SCH ×2 (10:29→21:55)
[2022-01-11] MEDS: NICOTINE 10 MG CARTRIDGE (INHALER) IH PRN (10:29)
[2022-01-11] MEDS: LISINOPRIL 10 MG TABLET PO SCH (10:29)
[2022-01-11] MEDS: QUEtiapine FUMARATE 200 MG TABLET PO SCH (21:51)
[2022-01-11] MEDS: THIAMINE HCL 100 MG TABLET (FP) PO SCH (21:51)
[2022-01-11] MEDS: MELATONIN 5 MG TABLETS PO PRN (21:51)
[2022-01-11] MEDS: ACETAMINOPHEN 325 MG TABLET (FP) PO PRN (21:51)
[2022-01-11] MEDS: MAG HYDROX/AL HYDROX/SIMETH 30 ML UNIT-DOSE CUP PO PRN (21:52)
[2022-01-12] MEDS ORDERED: methaDONE HCL 10 MG TABLET ONE (03:45)
[2022-01-12] MEDS ORDERED: methaDONE HCL 40 MG DISPERSABLE TABLET ONE (03:46)
[2022-01-12] MEDS: hydrOXYzine PAMOATE 25 MG CAPSULE (FP) PO PRN ×3 (06:13→21:29)
[2022-01-12] MEDS: FERROUS SO4 325 MG TABLET (FP) PO SCH ×2 (08:05→17:01)
[2022-01-12] MEDS: PRENATAL VITAMINS W/ FOLIC ACID TABLET (FP) PO SCH (10:32)
[2022-01-12] MEDS: LISINOPRIL 10 MG TABLET PO SCH (10:33)
[2022-01-12] MEDS: VENLAFAXINE HCL 37.5 MG E.R. CAPSULE PO SCH (10:33)
[2022-01-12] MEDS: BACITRACIN 0.9 GM PACKET TP SCH ×2 (10:34→21:29)
[2022-01-12] MEDS: NICOTINE 10 MG CARTRIDGE (INHALER) IH PRN ×2 (17:03→21:29)
[2022-01-12] MEDS: THIAMINE HCL 100 MG TABLET (FP) PO SCH (21:29)
[2022-01-12] MEDS: MELATONIN 5 MG TABLETS PO PRN (21:29)
[2022-01-12] MEDS: QUEtiapine FUMARATE 200 MG TABLET PO SCH (21:29)
[2022-01-13] MEDS ORDERED: methaDONE HCL 10 MG TABLET ONE (05:19)
[2022-01-13] MEDS ORDERED: methaDONE HCL 40 MG DISPERSABLE TABLET ONE (05:19)
[2022-01-13 07:12] VITALS: BP 109/70; PULSE 84; TEMP 96.8
[2022-01-13] MEDS: FERROUS SO4 325 MG TABLET (FP) PO SCH (07:31)
[2022-01-13] MEDS: PRENATAL VITAMINS W/ FOLIC ACID TABLET (FP) PO SCH (09:51)
[2022-01-13] MEDS: hydrOXYzine PAMOATE 25 MG CAPSULE (FP) PO PRN (09:51)
[2022-01-13] MEDS: VENLAFAXINE HCL 37.5 MG E.R. CAPSULE PO SCH (09:51)
[2022-01-13] MEDS: BACITRACIN 0.9 GM PACKET TP SCH (09:52)
[2022-01-13] MEDS: LISINOPRIL 10 MG TABLET PO SCH (09:52)
== END 2022-01-13 10:00 | disposition other institution (70) | DRG 772 ==
LOC: YASAS 16:05 → Y5N 12-19 00:49
PROVIDERS: ADMIT Allergy & Immunology; ATTEND Allergy & Immunology
PROC: HZ42ZZZ Group Counseling for Substance Abuse Treatment, Cognitive-Behavioral (ICD-10-PCS; principal; 2021-12-19)
DX: F10.20 Alcohol dependence, uncomplicated (principal); F11.20 Opioid dependence, uncomplicated; F14.20 Cocaine dependence, uncomplicated; F13.20 Sedative, hypnotic or anxiolytic dependence, uncomplicated; F17.210 Nicotine dependence, cigarettes, uncomplicated; F31.9 Bipolar disorder, unspecified; F25.9 Schizoaffective disorder, unspecified; F19.24 Other psychoactive substance dependence with psychoactive substance-induced mood disorder; L03.115 Cellulitis of right lower limb; J44.9 Chronic obstructive pulmonary disease, unspecified; D50.9 Iron deficiency anemia, unspecified; B18.2 Chronic viral hepatitis C
CPT/HCPCS: 36415; 80053; 81003; 81025; 84703; 85027; 86780; C9803-CS; U0003; U0005

== ENCOUNTER 2022-11-04 15:50 | Inpatient (IN) | payer OTHER ==
[2022-11-04 17:02] VITALS: BMI 38.9
[2022-11-04] MEDS ORDERED: ALBUTEROL SO4 HFA INHALER IH PRN (18:33)
[2022-11-04] MEDS ORDERED: POLYETHYLENE GLYCOL (HEALTHYLAX) 3350 17 GM PACKET PO PRN (18:39)
[2022-11-04] MEDS ORDERED: LOPERAMIDE HCL 2 MG CAPSULE PO PRN (18:39)
[2022-11-04] MEDS ORDERED: MELATONIN 5 MG TABLETS PO PRN (18:39)
[2022-11-04] MEDS ORDERED: BENZOCAINE/MENTHOL (CHLORASEPTIC ) LOZENGE MM PRN (18:39)
[2022-11-04] MEDS ORDERED: P-EPHED 60MG/TRIPROLIDI 2.5MG TABLET PO PRN (18:39)
[2022-11-04] MEDS ORDERED: guaiFENesin 200 MG/10 ML 10 ML UNIT-DOSE CUPS PO PRN (18:39)
[2022-11-04] MEDS ORDERED: hydrOXYzine PAMOATE 25 MG CAPSULE (FP) PO PRN (18:39)
[2022-11-04] MEDS ORDERED: NICOTINE POLACRILEX 2 MG GUM BC PRN (18:39)
[2022-11-04] MEDS ORDERED: MAGNESIUM HYDROX 2400MG/30ML ORAL SUSPENSION 30 ML CUP PO PRN (18:39)
[2022-11-04] MEDS ORDERED: IBUPROFEN 400 MG TABLET (FP) PO PRN (18:39)
[2022-11-04] MEDS ORDERED: hydrOXYzine PAMOATE 50 MG CAPSULE (FP) PO SCH (22:00)
[2022-11-05 01:15] VITALS: RESP 18
[2022-11-05] MEDS: DOCUSATE SODIUM 100 MG CAPSULE (FP) PO SCH ×4 (01:17→21:13)
[2022-11-05] MEDS: FERROUS SO4 325 MG TABLET (FP) PO SCH ×3 (01:17→21:13)
[2022-11-05] MEDS: APIXABAN 5 MG TABLET PO SCH ×3 (01:17→21:13)
[2022-11-05] MEDS: ATORVASTATIN CA 10 MG TABLET (FP) PO SCH ×2 (01:17→21:13)
[2022-11-05] MEDS: diphenhydrAMINE HCL 25 MG CAPSULE (FP) PO SCH ×3 (01:17→21:13)
[2022-11-05] MEDS: BUDESONIDE/FORMETEROL FUMARATE 80/4.5 mcg INHALER IH SCH ×4 (01:18→21:15)
[2022-11-05] MEDS: THIAMINE HCL 100 MG TABLET (FP) PO SCH ×2 (01:18→21:13)
[2022-11-05] MEDS: PANTOPRAZOLE 20 MG TABLET PO SCH ×2 (01:18→10:50)
[2022-11-05] MEDS: levETIRAcetam 250 MG TABLET PO SCH ×3 (01:51→21:13)
[2022-11-05] MEDS ORDERED: methaDONE HCL 10 MG TABLET PO ONE (09:41)
[2022-11-05] MEDS: PRENATAL VITAMINS W/ FOLIC ACID TABLET (FP) PO SCH (10:51)
[2022-11-05] MEDS: EMTRICITABINE 200MG/TENOFOVIR 300MG PO SCH (10:52)
[2022-11-05 11:16] LABS: HEMOGLOBIN 11.1 GM/dL (10.7-15.3); MCH 25.6 pg (25.7-33.7); MCHC 31.8 g/dl (32.0-36.0); MEAN CELL VOLUME 80.6 fl (80-96); MEAN PLT VOLUME 7.1 fl (7.5-11.1); PLATELET COUNT 347 10^3/uL (134-434); RBC 4.34 M/mm3 (3.60-5.2); RDW 18.5 % (11.6-15.6); WHITE BLOOD COUNT 7.8 K/mm3 (4.0-10.0)
[2022-11-05 11:29] LABS: CALCIUM 9.3 mg/dL (8.5-10.1)
[2022-11-05 11:30] LABS: ALBUMIN 3.7 g/dl (3.4-5.0); BLOOD UREA NITROGEN 24.6 mg/dL (7-18)
[2022-11-05 11:33] LABS: CREATININE 1.1 mg/dL (0.55-1.3)
[2022-11-05 11:35] LABS: TOT PROT 8.1 g/dl (6.4-8.2)
[2022-11-05 11:38] LABS: BILIRUBIN,TOTAL 0.2 mg/dL (0.2-1)
[2022-11-05 12:29] LABS: SYPHILIS W/ RPR CONF NON-REACTIVE (NONREACTIVE)
[2022-11-05] MEDS: PARoxetine HCL 20 MG TABLET PO SCH (13:34)
[2022-11-05] MEDS: QUEtiapine FUMARATE 100 MG TABLET (FP) PO SCH ×2 (13:34→21:13)
[2022-11-05] MEDS ORDERED: COLLOIDAL OATMEAL 1 BAR EACH TP PRN (15:36)
[2022-11-05] MEDS: SUVOREXANT 10 MG TABLET PO PRN (21:12)
[2022-11-06] MEDS: DOCUSATE SODIUM 100 MG CAPSULE (FP) PO SCH ×3 (05:46→21:02)
[2022-11-06] MEDS ORDERED: methaDONE HCL 10 MG TABLET PO SCH (06:00)
[2022-11-06] MEDS: levETIRAcetam 250 MG TABLET PO SCH ×2 (09:22→21:02)
[2022-11-06] MEDS: PARoxetine HCL 20 MG TABLET PO SCH (09:22)
[2022-11-06] MEDS: APIXABAN 5 MG TABLET PO SCH ×2 (09:22→21:02)
[2022-11-06] MEDS: diphenhydrAMINE HCL 25 MG CAPSULE (FP) PO SCH ×2 (09:22→21:01)
[2022-11-06] MEDS: PANTOPRAZOLE 20 MG TABLET PO SCH (09:22)
[2022-11-06] MEDS: QUEtiapine FUMARATE 100 MG TABLET (FP) PO SCH ×2 (09:22→21:02)
[2022-11-06] MEDS: FERROUS SO4 325 MG TABLET (FP) PO SCH ×2 (09:22→21:02)
[2022-11-06] MEDS: EMTRICITABINE 200MG/TENOFOVIR 300MG PO SCH (09:23)
[2022-11-06] MEDS: PRENATAL VITAMINS W/ FOLIC ACID TABLET (FP) PO SCH (09:23)
[2022-11-06] MEDS: BUDESONIDE/FORMETEROL FUMARATE 80/4.5 mcg INHALER IH SCH ×2 (09:23→21:02)
[2022-11-06] MEDS: SUVOREXANT 10 MG TABLET PO PRN (21:00)
[2022-11-06] MEDS: THIAMINE HCL 100 MG TABLET (FP) PO SCH (21:02)
[2022-11-06] MEDS: ATORVASTATIN CA 10 MG TABLET (FP) PO SCH (21:02)
[2022-11-07] MEDS: DOCUSATE SODIUM 100 MG CAPSULE (FP) PO SCH ×3 (06:10→22:12)
[2022-11-07] MEDS: PANTOPRAZOLE 20 MG TABLET PO SCH (09:45)
[2022-11-07] MEDS: QUEtiapine FUMARATE 100 MG TABLET (FP) PO SCH ×2 (09:45→22:13)
[2022-11-07] MEDS: FERROUS SO4 325 MG TABLET (FP) PO SCH ×2 (09:45→22:13)
[2022-11-07] MEDS: APIXABAN 5 MG TABLET PO SCH ×2 (09:45→22:14)
[2022-11-07] MEDS: diphenhydrAMINE HCL 25 MG CAPSULE (FP) PO SCH ×2 (09:45→22:13)
[2022-11-07] MEDS: BUDESONIDE/FORMETEROL FUMARATE 80/4.5 mcg INHALER IH SCH ×2 (09:45→22:12)
[2022-11-07] MEDS: EMTRICITABINE 200MG/TENOFOVIR 300MG PO SCH (09:46)
[2022-11-07] MEDS: PRENATAL VITAMINS W/ FOLIC ACID TABLET (FP) PO SCH (09:46)
[2022-11-07] MEDS: PARoxetine HCL 20 MG TABLET PO SCH (09:46)
[2022-11-07] MEDS: levETIRAcetam 250 MG TABLET PO SCH ×2 (09:46→22:13)
[2022-11-07] MEDS: THIAMINE HCL 100 MG TABLET (FP) PO SCH (22:13)
[2022-11-07] MEDS: ATORVASTATIN CA 10 MG TABLET (FP) PO SCH (22:13)
[2022-11-07] MEDS: SUVOREXANT 10 MG TABLET PO PRN (22:15)
[2022-11-08] MEDS: DOCUSATE SODIUM 100 MG CAPSULE (FP) PO SCH ×3 (06:00→21:07)
[2022-11-08] MEDS: ACETAMINOPHEN 325 MG TABLET (FP) PO PRN (07:21)
[2022-11-08] MEDS: diphenhydrAMINE HCL 25 MG CAPSULE (FP) PO SCH ×2 (10:47→21:07)
[2022-11-08] MEDS: FERROUS SO4 325 MG TABLET (FP) PO SCH ×2 (10:48→21:07)
[2022-11-08] MEDS: APIXABAN 5 MG TABLET PO SCH ×2 (10:48→21:07)
[2022-11-08] MEDS: levETIRAcetam 250 MG TABLET PO SCH ×2 (10:48→21:07)
[2022-11-08] MEDS: BUDESONIDE/FORMETEROL FUMARATE 80/4.5 mcg INHALER IH SCH ×2 (10:49→21:06)
[2022-11-08] MEDS: QUEtiapine FUMARATE 100 MG TABLET (FP) PO SCH ×2 (10:49→21:06)
[2022-11-08] MEDS: PANTOPRAZOLE 20 MG TABLET PO SCH (10:49)
[2022-11-08] MEDS: PARoxetine HCL 20 MG TABLET PO SCH (10:49)
[2022-11-08] MEDS: PRENATAL VITAMINS W/ FOLIC ACID TABLET (FP) PO SCH (10:49)
[2022-11-08] MEDS: EMTRICITABINE 200MG/TENOFOVIR 300MG PO SCH (10:50)
[2022-11-08] MEDS: ATORVASTATIN CA 10 MG TABLET (FP) PO SCH (21:07)
[2022-11-08] MEDS: THIAMINE HCL 100 MG TABLET (FP) PO SCH (21:07)
[2022-11-08] MEDS: SUVOREXANT 10 MG TABLET PO PRN (21:09)
[2022-11-09] MEDS: DOCUSATE SODIUM 100 MG CAPSULE (FP) PO SCH ×3 (06:06→21:09)
[2022-11-09] MEDS: diphenhydrAMINE HCL 25 MG CAPSULE (FP) PO SCH ×2 (09:58→21:09)
[2022-11-09] MEDS: FERROUS SO4 325 MG TABLET (FP) PO SCH ×2 (09:58→21:08)
[2022-11-09] MEDS: levETIRAcetam 250 MG TABLET PO SCH ×2 (09:58→21:09)
[2022-11-09] MEDS: QUEtiapine FUMARATE 100 MG TABLET (FP) PO SCH ×2 (09:58→21:08)
[2022-11-09] MEDS: APIXABAN 5 MG TABLET PO SCH ×2 (09:58→21:09)
[2022-11-09] MEDS: PANTOPRAZOLE 20 MG TABLET PO SCH (09:58)
[2022-11-09] MEDS: BUDESONIDE/FORMETEROL FUMARATE 80/4.5 mcg INHALER IH SCH ×2 (09:59→21:08)
[2022-11-09] MEDS: EMTRICITABINE 200MG/TENOFOVIR 300MG PO SCH (09:59)
[2022-11-09] MEDS: PARoxetine HCL 20 MG TABLET PO SCH (09:59)
[2022-11-09] MEDS: PRENATAL VITAMINS W/ FOLIC ACID TABLET (FP) PO SCH (10:00)
[2022-11-09] MEDS: THIAMINE HCL 100 MG TABLET (FP) PO SCH (21:09)
[2022-11-09] MEDS: ATORVASTATIN CA 10 MG TABLET (FP) PO SCH (21:09)
[2022-11-09] MEDS: SUVOREXANT 10 MG TABLET PO PRN (21:10)
[2022-11-10] MEDS: DOCUSATE SODIUM 100 MG CAPSULE (FP) PO SCH ×3 (06:11→21:41)
[2022-11-10] MEDS: diphenhydrAMINE HCL 25 MG CAPSULE (FP) PO SCH ×2 (10:22→21:41)
[2022-11-10] MEDS: PANTOPRAZOLE 20 MG TABLET PO SCH (10:22)
[2022-11-10] MEDS: BUDESONIDE/FORMETEROL FUMARATE 80/4.5 mcg INHALER IH SCH ×2 (10:22→21:43)
[2022-11-10] MEDS: FERROUS SO4 325 MG TABLET (FP) PO SCH ×2 (10:22→21:41)
[2022-11-10] MEDS: APIXABAN 5 MG TABLET PO SCH ×2 (10:22→21:41)
[2022-11-10] MEDS: QUEtiapine FUMARATE 100 MG TABLET (FP) PO SCH ×2 (10:22→21:41)
[2022-11-10] MEDS: levETIRAcetam 250 MG TABLET PO SCH ×2 (10:22→21:41)
[2022-11-10] MEDS: PRENATAL VITAMINS W/ FOLIC ACID TABLET (FP) PO SCH (10:23)
[2022-11-10] MEDS: PARoxetine HCL 20 MG TABLET PO SCH (10:25)
[2022-11-10] MEDS: EMTRICITABINE 200MG/TENOFOVIR 300MG PO SCH (10:25)
[2022-11-10] MEDS: ATORVASTATIN CA 10 MG TABLET (FP) PO SCH (21:41)
[2022-11-10] MEDS: THIAMINE HCL 100 MG TABLET (FP) PO SCH (21:41)
[2022-11-10] MEDS: SUVOREXANT 10 MG TABLET PO PRN (21:42)
[2022-11-11] MEDS: DOCUSATE SODIUM 100 MG CAPSULE (FP) PO SCH ×3 (05:55→21:24)
[2022-11-11] MEDS: MAG HYDROX/AL HYDROX/SIMETH 30 ML UNIT-DOSE CUP PO PRN (07:37)
[2022-11-11] MEDS: BUDESONIDE/FORMETEROL FUMARATE 80/4.5 mcg INHALER IH SCH ×2 (09:45→21:25)
[2022-11-11] MEDS: PRENATAL VITAMINS W/ FOLIC ACID TABLET (FP) PO SCH (09:45)
[2022-11-11] MEDS: levETIRAcetam 250 MG TABLET PO SCH (09:45)
[2022-11-11] MEDS: PANTOPRAZOLE 20 MG TABLET PO SCH (09:46)
[2022-11-11] MEDS: QUEtiapine FUMARATE 100 MG TABLET (FP) PO SCH ×2 (09:46→21:24)
[2022-11-11] MEDS: PARoxetine HCL 20 MG TABLET PO SCH (09:46)
[2022-11-11] MEDS: APIXABAN 5 MG TABLET PO SCH ×2 (09:46→21:25)
[2022-11-11] MEDS: FERROUS SO4 325 MG TABLET (FP) PO SCH ×2 (09:46→21:25)
[2022-11-11] MEDS: diphenhydrAMINE HCL 25 MG CAPSULE (FP) PO SCH ×2 (09:46→21:24)
[2022-11-11] MEDS: EMTRICITABINE 200MG/TENOFOVIR 300MG PO SCH (10:52)
[2022-11-11 12:22] LABS: EPI CELLS >36 /uL (0-25.1); HYALINE CASTS 2 /uL (0-3.1); URINE APPEARANCE CLEAR; URINE BACTERIA 247 /uL (0-1359); URINE BILIRUBIN NEGATIVE (NEGATIVE); URINE COLOR YELLOW; URINE GLUCOSE (UA) NEGATIVE (NEGATIVE); URINE KETONE NEGATIVE (NEGATIVE); URINE LEUK ESTERASE 2+ (NEGATIVE); URINE NITRITE NEGATIVE (NEGATIVE); URINE PROTEIN TRACE (NEGATIVE); URINE RBC 36 /uL (0-23.9); URINE WBC 59 /uL (0-25.8)
[2022-11-11] MEDS: SUVOREXANT 10 MG TABLET PO PRN (21:24)
[2022-11-11] MEDS: ATORVASTATIN CA 10 MG TABLET (FP) PO SCH (21:24)
[2022-11-11] MEDS: THIAMINE HCL 100 MG TABLET (FP) PO SCH (21:24)
[2022-11-12] MEDS: DOCUSATE SODIUM 100 MG CAPSULE (FP) PO SCH ×3 (06:05→21:26)
[2022-11-12] MEDS: PRENATAL VITAMINS W/ FOLIC ACID TABLET (FP) PO SCH (10:40)
[2022-11-12] MEDS: APIXABAN 5 MG TABLET PO SCH ×2 (10:40→21:26)
[2022-11-12] MEDS: PANTOPRAZOLE 20 MG TABLET PO SCH (10:40)
[2022-11-12] MEDS: QUEtiapine FUMARATE 100 MG TABLET (FP) PO SCH ×2 (10:40→21:26)
[2022-11-12] MEDS: diphenhydrAMINE HCL 25 MG CAPSULE (FP) PO SCH ×2 (10:40→21:26)
[2022-11-12] MEDS: FERROUS SO4 325 MG TABLET (FP) PO SCH ×2 (10:40→21:26)
[2022-11-12] MEDS: BUDESONIDE/FORMETEROL FUMARATE 80/4.5 mcg INHALER IH SCH ×2 (10:41→21:25)
[2022-11-12] MEDS: PARoxetine HCL 20 MG TABLET PO SCH (10:41)
[2022-11-12] MEDS: EMTRICITABINE 200MG/TENOFOVIR 300MG PO SCH (10:42)
[2022-11-12] MEDS: ACETAMINOPHEN 325 MG TABLET (FP) PO PRN (10:43)
[2022-11-12] MEDS: ATORVASTATIN CA 10 MG TABLET (FP) PO SCH (21:26)
[2022-11-12] MEDS: THIAMINE HCL 100 MG TABLET (FP) PO SCH (21:26)
[2022-11-12] MEDS: SUVOREXANT 10 MG TABLET PO PRN (21:28)
[2022-11-13] MEDS: DOCUSATE SODIUM 100 MG CAPSULE (FP) PO SCH ×3 (06:08→21:13)
[2022-11-13] MEDS ORDERED: methaDONE HCL 40 MG DISPERSABLE TABLET PO SCH (06:30)
[2022-11-13] MEDS: APIXABAN 5 MG TABLET PO SCH ×2 (09:46→21:12)
[2022-11-13] MEDS: BUDESONIDE/FORMETEROL FUMARATE 80/4.5 mcg INHALER IH SCH ×2 (09:46→21:14)
[2022-11-13] MEDS: EMTRICITABINE 200MG/TENOFOVIR 300MG PO SCH (09:47)
[2022-11-13] MEDS: diphenhydrAMINE HCL 25 MG CAPSULE (FP) PO SCH ×2 (09:47→21:12)
[2022-11-13] MEDS: FERROUS SO4 325 MG TABLET (FP) PO SCH ×2 (09:47→21:13)
[2022-11-13] MEDS: PANTOPRAZOLE 20 MG TABLET PO SCH (09:47)
[2022-11-13] MEDS: PARoxetine HCL 20 MG TABLET PO SCH (09:47)
[2022-11-13] MEDS: QUEtiapine FUMARATE 100 MG TABLET (FP) PO SCH ×2 (09:47→21:13)
[2022-11-13] MEDS: PRENATAL VITAMINS W/ FOLIC ACID TABLET (FP) PO SCH (09:49)
[2022-11-13] MEDS: THIAMINE HCL 100 MG TABLET (FP) PO SCH (21:13)
[2022-11-13] MEDS: ATORVASTATIN CA 10 MG TABLET (FP) PO SCH (21:13)
[2022-11-13] MEDS: SUVOREXANT 10 MG TABLET PO PRN (21:17)
[2022-11-14] MEDS: DOCUSATE SODIUM 100 MG CAPSULE (FP) PO SCH ×3 (06:09→21:28)
[2022-11-14] MEDS: QUEtiapine FUMARATE 100 MG TABLET (FP) PO SCH ×2 (09:55→21:27)
[2022-11-14] MEDS: BUDESONIDE/FORMETEROL FUMARATE 80/4.5 mcg INHALER IH SCH ×2 (09:55→22:38)
[2022-11-14] MEDS: APIXABAN 5 MG TABLET PO SCH ×2 (09:55→21:28)
[2022-11-14] MEDS: PARoxetine HCL 20 MG TABLET PO SCH (09:55)
[2022-11-14] MEDS: PRENATAL VITAMINS W/ FOLIC ACID TABLET (FP) PO SCH (09:56)
[2022-11-14] MEDS: FERROUS SO4 325 MG TABLET (FP) PO SCH ×2 (09:56→21:27)
[2022-11-14] MEDS: PANTOPRAZOLE 20 MG TABLET PO SCH (09:56)
[2022-11-14] MEDS: diphenhydrAMINE HCL 25 MG CAPSULE (FP) PO SCH ×2 (09:56→21:27)
[2022-11-14] MEDS: EMTRICITABINE 200MG/TENOFOVIR 300MG PO SCH (09:57)
[2022-11-14] MEDS: THIAMINE HCL 100 MG TABLET (FP) PO SCH (21:27)
[2022-11-14] MEDS: ATORVASTATIN CA 10 MG TABLET (FP) PO SCH (21:28)
[2022-11-14] MEDS: SUVOREXANT 10 MG TABLET PO PRN (21:28)
[2022-11-15] MEDS: DOCUSATE SODIUM 100 MG CAPSULE (FP) PO SCH ×3 (06:01→21:24)
[2022-11-15] MEDS: PANTOPRAZOLE 20 MG TABLET PO SCH (10:13)
[2022-11-15] MEDS: diphenhydrAMINE HCL 25 MG CAPSULE (FP) PO SCH ×2 (10:13→21:24)
[2022-11-15] MEDS: FERROUS SO4 325 MG TABLET (FP) PO SCH ×2 (10:13→21:24)
[2022-11-15] MEDS: PRENATAL VITAMINS W/ FOLIC ACID TABLET (FP) PO SCH (10:13)
[2022-11-15] MEDS: QUEtiapine FUMARATE 100 MG TABLET (FP) PO SCH ×2 (10:13→21:24)
[2022-11-15] MEDS: APIXABAN 5 MG TABLET PO SCH ×2 (10:13→21:24)
[2022-11-15] MEDS: PARoxetine HCL 20 MG TABLET PO SCH (10:13)
[2022-11-15] MEDS: BUDESONIDE/FORMETEROL FUMARATE 80/4.5 mcg INHALER IH SCH ×2 (10:13→21:25)
[2022-11-15] MEDS: EMTRICITABINE 200MG/TENOFOVIR 300MG PO SCH (10:14)
[2022-11-15] MEDS: THIAMINE HCL 100 MG TABLET (FP) PO SCH (21:24)
[2022-11-15] MEDS: ATORVASTATIN CA 10 MG TABLET (FP) PO SCH (21:24)
[2022-11-15] MEDS: SUVOREXANT 10 MG TABLET PO PRN (21:24)
[2022-11-16] MEDS: DOCUSATE SODIUM 100 MG CAPSULE (FP) PO SCH ×3 (05:44→21:02)
[2022-11-16] MEDS: PRENATAL VITAMINS W/ FOLIC ACID TABLET (FP) PO SCH (09:59)
[2022-11-16] MEDS: BUDESONIDE/FORMETEROL FUMARATE 80/4.5 mcg INHALER IH SCH ×2 (09:59→21:02)
[2022-11-16] MEDS: PARoxetine HCL 20 MG TABLET PO SCH (09:59)
[2022-11-16] MEDS: APIXABAN 5 MG TABLET PO SCH ×2 (10:01→21:02)
[2022-11-16] MEDS: PANTOPRAZOLE 20 MG TABLET PO SCH (10:01)
[2022-11-16] MEDS: QUEtiapine FUMARATE 100 MG TABLET (FP) PO SCH ×2 (10:01→21:03)
[2022-11-16] MEDS: diphenhydrAMINE HCL 25 MG CAPSULE (FP) PO SCH ×2 (10:01→21:02)
[2022-11-16] MEDS: FERROUS SO4 325 MG TABLET (FP) PO SCH ×2 (10:01→21:02)
[2022-11-16] MEDS: EMTRICITABINE 200MG/TENOFOVIR 300MG PO SCH (10:02)
[2022-11-16] MEDS: ACETAMINOPHEN 325 MG TABLET (FP) PO PRN (10:03)
[2022-11-16] MEDS: ATORVASTATIN CA 10 MG TABLET (FP) PO SCH (21:02)
[2022-11-16] MEDS: THIAMINE HCL 100 MG TABLET (FP) PO SCH (21:03)
[2022-11-16] MEDS: SUVOREXANT 10 MG TABLET PO PRN (21:05)
[2022-11-17] MEDS: DOCUSATE SODIUM 100 MG CAPSULE (FP) PO SCH ×3 (05:34→21:15)
[2022-11-17] MEDS: PANTOPRAZOLE 20 MG TABLET PO SCH (09:40)
[2022-11-17] MEDS: diphenhydrAMINE HCL 25 MG CAPSULE (FP) PO SCH ×2 (09:40→21:15)
[2022-11-17] MEDS: APIXABAN 5 MG TABLET PO SCH ×2 (09:40→21:15)
[2022-11-17] MEDS: BUDESONIDE/FORMETEROL FUMARATE 80/4.5 mcg INHALER IH SCH ×2 (09:40→21:16)
[2022-11-17] MEDS: PRENATAL VITAMINS W/ FOLIC ACID TABLET (FP) PO SCH (09:40)
[2022-11-17] MEDS: QUEtiapine FUMARATE 100 MG TABLET (FP) PO SCH ×2 (09:40→21:16)
[2022-11-17] MEDS: EMTRICITABINE 200MG/TENOFOVIR 300MG PO SCH (09:41)
[2022-11-17] MEDS: FERROUS SO4 325 MG TABLET (FP) PO SCH ×2 (09:41→21:16)
[2022-11-17] MEDS: PARoxetine HCL 20 MG TABLET PO SCH (09:41)
[2022-11-17] MEDS: ATORVASTATIN CA 10 MG TABLET (FP) PO SCH (21:15)
[2022-11-17] MEDS: THIAMINE HCL 100 MG TABLET (FP) PO SCH (21:15)
[2022-11-17] MEDS: SUVOREXANT 10 MG TABLET PO PRN (21:16)
[2022-11-18] MEDS: DOCUSATE SODIUM 100 MG CAPSULE (FP) PO SCH ×3 (06:04→21:18)
[2022-11-18] MEDS: diphenhydrAMINE HCL 25 MG CAPSULE (FP) PO SCH ×2 (09:50→21:18)
[2022-11-18] MEDS: QUEtiapine FUMARATE 100 MG TABLET (FP) PO SCH ×2 (09:50→21:18)
[2022-11-18] MEDS: FERROUS SO4 325 MG TABLET (FP) PO SCH ×2 (09:50→21:18)
[2022-11-18] MEDS: PANTOPRAZOLE 20 MG TABLET PO SCH (09:50)
[2022-11-18] MEDS: PRENATAL VITAMINS W/ FOLIC ACID TABLET (FP) PO SCH (09:50)
[2022-11-18] MEDS: BUDESONIDE/FORMETEROL FUMARATE 80/4.5 mcg INHALER IH SCH ×2 (09:51→21:18)
[2022-11-18] MEDS: PARoxetine HCL 20 MG TABLET PO SCH (09:51)
[2022-11-18] MEDS: APIXABAN 5 MG TABLET PO SCH ×2 (09:51→21:18)
[2022-11-18] MEDS: EMTRICITABINE 200MG/TENOFOVIR 300MG PO SCH (09:52)
[2022-11-18] MEDS: THIAMINE HCL 100 MG TABLET (FP) PO SCH (21:18)
[2022-11-18] MEDS: ATORVASTATIN CA 10 MG TABLET (FP) PO SCH (21:18)
[2022-11-18] MEDS: SUVOREXANT 10 MG TABLET PO PRN (21:19)
[2022-11-19] MEDS: DOCUSATE SODIUM 100 MG CAPSULE (FP) PO SCH ×3 (06:05→22:15)
[2022-11-19] MEDS: PRENATAL VITAMINS W/ FOLIC ACID TABLET (FP) PO SCH (10:46)
[2022-11-19] MEDS: EMTRICITABINE 200MG/TENOFOVIR 300MG PO SCH (10:48)
[2022-11-19] MEDS: FERROUS SO4 325 MG TABLET (FP) PO SCH ×2 (10:48→22:13)
[2022-11-19] MEDS: diphenhydrAMINE HCL 25 MG CAPSULE (FP) PO SCH ×2 (10:48→22:14)
[2022-11-19] MEDS: QUEtiapine FUMARATE 100 MG TABLET (FP) PO SCH ×2 (10:48→22:08)
[2022-11-19] MEDS: PARoxetine HCL 20 MG TABLET PO SCH (10:48)
[2022-11-19] MEDS: BUDESONIDE/FORMETEROL FUMARATE 80/4.5 mcg INHALER IH SCH ×2 (10:48→22:19)
[2022-11-19] MEDS: APIXABAN 5 MG TABLET PO SCH ×2 (10:48→22:16)
[2022-11-19] MEDS: PANTOPRAZOLE 20 MG TABLET PO SCH (10:48)
[2022-11-19] MEDS: SUVOREXANT 10 MG TABLET PO PRN ×2 (22:09→22:19)
[2022-11-19] MEDS: ATORVASTATIN CA 10 MG TABLET (FP) PO SCH (22:14)
[2022-11-19] MEDS: THIAMINE HCL 100 MG TABLET (FP) PO SCH (22:19)
[2022-11-20] MEDS: DOCUSATE SODIUM 100 MG CAPSULE (FP) PO SCH ×3 (05:58→22:23)
[2022-11-20] MEDS: PARoxetine HCL 20 MG TABLET PO SCH (09:28)
[2022-11-20] MEDS: FERROUS SO4 325 MG TABLET (FP) PO SCH ×2 (09:28→22:23)
[2022-11-20] MEDS: APIXABAN 5 MG TABLET PO SCH ×2 (09:28→22:23)
[2022-11-20] MEDS: QUEtiapine FUMARATE 100 MG TABLET (FP) PO SCH ×2 (09:28→22:23)
[2022-11-20] MEDS: PRENATAL VITAMINS W/ FOLIC ACID TABLET (FP) PO SCH (09:28)
[2022-11-20] MEDS: diphenhydrAMINE HCL 25 MG CAPSULE (FP) PO SCH ×2 (09:28→22:22)
[2022-11-20] MEDS: PANTOPRAZOLE 20 MG TABLET PO SCH (09:29)
[2022-11-20] MEDS: BUDESONIDE/FORMETEROL FUMARATE 80/4.5 mcg INHALER IH SCH ×2 (09:29→22:25)
[2022-11-20] MEDS: EMTRICITABINE 200MG/TENOFOVIR 300MG PO SCH (09:34)
[2022-11-20] MEDS: MAG HYDROX/AL HYDROX/SIMETH 30 ML UNIT-DOSE CUP PO PRN (09:35)
[2022-11-20] MEDS: ATORVASTATIN CA 10 MG TABLET (FP) PO SCH (22:23)
[2022-11-20] MEDS: SUVOREXANT 10 MG TABLET PO PRN (22:23)
[2022-11-20] MEDS: THIAMINE HCL 100 MG TABLET (FP) PO SCH (22:23)
[2022-11-20] MEDS: ACETAMINOPHEN 325 MG TABLET (FP) PO PRN (22:24)
[2022-11-21] MEDS: DOCUSATE SODIUM 100 MG CAPSULE (FP) PO SCH ×3 (05:57→21:32)
[2022-11-21] MEDS ORDERED: methaDONE HCL 10 MG TABLET PO SCH (06:00)
[2022-11-21] MEDS: PRENATAL VITAMINS W/ FOLIC ACID TABLET (FP) PO SCH (10:33)
[2022-11-21] MEDS: BUDESONIDE/FORMETEROL FUMARATE 80/4.5 mcg INHALER IH SCH ×2 (10:33→21:26)
[2022-11-21] MEDS: APIXABAN 5 MG TABLET PO SCH ×2 (10:34→21:32)
[2022-11-21] MEDS: FERROUS SO4 325 MG TABLET (FP) PO SCH ×2 (10:34→21:32)
[2022-11-21] MEDS: PANTOPRAZOLE 20 MG TABLET PO SCH (10:34)
[2022-11-21] MEDS: QUEtiapine FUMARATE 100 MG TABLET (FP) PO SCH ×2 (10:34→21:34)
[2022-11-21] MEDS: EMTRICITABINE 200MG/TENOFOVIR 300MG PO SCH (10:34)
[2022-11-21] MEDS: PARoxetine HCL 20 MG TABLET PO SCH (10:34)
[2022-11-21] MEDS: diphenhydrAMINE HCL 25 MG CAPSULE (FP) PO SCH ×2 (10:34→21:32)
[2022-11-21] MEDS: THIAMINE HCL 100 MG TABLET (FP) PO SCH (21:32)
[2022-11-21] MEDS: SUVOREXANT 10 MG TABLET PO PRN (21:33)
[2022-11-21] MEDS: ATORVASTATIN CA 10 MG TABLET (FP) PO SCH (21:33)
[2022-11-22] MEDS: DOCUSATE SODIUM 100 MG CAPSULE (FP) PO SCH ×3 (05:57→21:32)
[2022-11-22] MEDS: QUEtiapine FUMARATE 100 MG TABLET (FP) PO SCH ×2 (10:06→21:28)
[2022-11-22] MEDS: APIXABAN 5 MG TABLET PO SCH ×2 (10:06→21:29)
[2022-11-22] MEDS: PANTOPRAZOLE 20 MG TABLET PO SCH (10:06)
[2022-11-22] MEDS: FERROUS SO4 325 MG TABLET (FP) PO SCH ×2 (10:06→21:28)
[2022-11-22] MEDS: PARoxetine HCL 20 MG TABLET PO SCH (10:06)
[2022-11-22] MEDS: BUDESONIDE/FORMETEROL FUMARATE 80/4.5 mcg INHALER IH SCH ×2 (10:06→21:28)
[2022-11-22] MEDS: diphenhydrAMINE HCL 25 MG CAPSULE (FP) PO SCH ×2 (10:06→21:29)
[2022-11-22] MEDS: PRENATAL VITAMINS W/ FOLIC ACID TABLET (FP) PO SCH (10:07)
[2022-11-22] MEDS: EMTRICITABINE 200MG/TENOFOVIR 300MG PO SCH (10:07)
[2022-11-22] MEDS: MAG HYDROX/AL HYDROX/SIMETH 30 ML UNIT-DOSE CUP PO PRN (10:10)
[2022-11-22] MEDS: ATORVASTATIN CA 10 MG TABLET (FP) PO SCH (21:28)
[2022-11-22] MEDS: SUVOREXANT 10 MG TABLET PO PRN (21:29)
[2022-11-22] MEDS: THIAMINE HCL 100 MG TABLET (FP) PO SCH (21:29)
[2022-11-23] MEDS: DOCUSATE SODIUM 100 MG CAPSULE (FP) PO SCH ×3 (05:59→22:02)
[2022-11-23] MEDS: PARoxetine HCL 20 MG TABLET PO SCH (09:45)
[2022-11-23] MEDS: FERROUS SO4 325 MG TABLET (FP) PO SCH ×2 (09:45→22:02)
[2022-11-23] MEDS: diphenhydrAMINE HCL 25 MG CAPSULE (FP) PO SCH ×2 (09:45→22:02)
[2022-11-23] MEDS: PRENATAL VITAMINS W/ FOLIC ACID TABLET (FP) PO SCH (09:45)
[2022-11-23] MEDS: PANTOPRAZOLE 20 MG TABLET PO SCH (09:45)
[2022-11-23] MEDS: APIXABAN 5 MG TABLET PO SCH ×2 (09:45→22:02)
[2022-11-23] MEDS: QUEtiapine FUMARATE 100 MG TABLET (FP) PO SCH ×2 (09:46→22:01)
[2022-11-23] MEDS: BUDESONIDE/FORMETEROL FUMARATE 80/4.5 mcg INHALER IH SCH ×2 (09:46→22:01)
[2022-11-23] MEDS: EMTRICITABINE 200MG/TENOFOVIR 300MG PO SCH (09:46)
[2022-11-23 14:46] LABS: EPI CELLS >36 /uL (0-25.1); HYALINE CASTS 1 /uL (0-3.1); PH,URINE 6.5 (5.0-8.0); URINE APPEARANCE CLOUDY; URINE BACTERIA 671 /uL (0-1359); URINE BILIRUBIN NEGATIVE (NEGATIVE); URINE COLOR YELLOW; URINE GLUCOSE (UA) NEGATIVE (NEGATIVE); URINE KETONE TRACE (NEGATIVE); URINE LEUK ESTERASE 2+ (NEGATIVE); URINE NITRITE NEGATIVE (NEGATIVE); URINE PROTEIN 1+ (NEGATIVE); URINE RBC 8121 /uL (0-23.9); URINE WBC 82 /uL (0-25.8)
[2022-11-23] MEDS: SUVOREXANT 10 MG TABLET PO PRN (22:01)
[2022-11-23] MEDS: THIAMINE HCL 100 MG TABLET (FP) PO SCH (22:01)
[2022-11-23] MEDS: ATORVASTATIN CA 10 MG TABLET (FP) PO SCH (22:02)
[2022-11-24] MEDS: DOCUSATE SODIUM 100 MG CAPSULE (FP) PO SCH ×3 (05:55→21:08)
[2022-11-24] MEDS: BUDESONIDE/FORMETEROL FUMARATE 80/4.5 mcg INHALER IH SCH ×2 (09:26→21:09)
[2022-11-24] MEDS: QUEtiapine FUMARATE 100 MG TABLET (FP) PO SCH ×2 (09:26→21:08)
[2022-11-24] MEDS: PANTOPRAZOLE 20 MG TABLET PO SCH (09:26)
[2022-11-24] MEDS: diphenhydrAMINE HCL 25 MG CAPSULE (FP) PO SCH ×2 (09:27→21:08)
[2022-11-24] MEDS: FERROUS SO4 325 MG TABLET (FP) PO SCH ×2 (09:27→21:08)
[2022-11-24] MEDS: APIXABAN 5 MG TABLET PO SCH ×2 (09:27→21:08)
[2022-11-24] MEDS: EMTRICITABINE 200MG/TENOFOVIR 300MG PO SCH (09:27)
[2022-11-24] MEDS: PARoxetine HCL 20 MG TABLET PO SCH (09:27)
[2022-11-24] MEDS: PRENATAL VITAMINS W/ FOLIC ACID TABLET (FP) PO SCH (09:27)
[2022-11-24] MEDS: ATORVASTATIN CA 10 MG TABLET (FP) PO SCH (21:08)
[2022-11-24] MEDS: THIAMINE HCL 100 MG TABLET (FP) PO SCH (21:08)
[2022-11-24] MEDS: SUVOREXANT 10 MG TABLET PO PRN (21:10)
[2022-11-25] MEDS: DOCUSATE SODIUM 100 MG CAPSULE (FP) PO SCH ×3 (06:05→21:49)
[2022-11-25] MEDS: APIXABAN 5 MG TABLET PO SCH ×2 (10:20→21:49)
[2022-11-25] MEDS: PRENATAL VITAMINS W/ FOLIC ACID TABLET (FP) PO SCH (10:20)
[2022-11-25] MEDS: PARoxetine HCL 20 MG TABLET PO SCH (10:20)
[2022-11-25] MEDS: BUDESONIDE/FORMETEROL FUMARATE 80/4.5 mcg INHALER IH SCH ×2 (10:21→21:48)
[2022-11-25] MEDS: diphenhydrAMINE HCL 25 MG CAPSULE (FP) PO SCH ×2 (10:21→21:49)
[2022-11-25] MEDS: PANTOPRAZOLE 20 MG TABLET PO SCH (10:21)
[2022-11-25] MEDS: FERROUS SO4 325 MG TABLET (FP) PO SCH ×2 (10:21→21:49)
[2022-11-25] MEDS: QUEtiapine FUMARATE 100 MG TABLET (FP) PO SCH ×2 (10:21→21:49)
[2022-11-25] MEDS: EMTRICITABINE 200MG/TENOFOVIR 300MG PO SCH (10:22)
[2022-11-25] MEDS: THIAMINE HCL 100 MG TABLET (FP) PO SCH (21:49)
[2022-11-25] MEDS: ATORVASTATIN CA 10 MG TABLET (FP) PO SCH (21:49)
[2022-11-25] MEDS: SUVOREXANT 10 MG TABLET PO PRN (21:50)
[2022-11-26] MEDS: DOCUSATE SODIUM 100 MG CAPSULE (FP) PO SCH ×3 (06:16→21:13)
[2022-11-26] MEDS: MAG HYDROX/AL HYDROX/SIMETH 30 ML UNIT-DOSE CUP PO PRN (09:32)
[2022-11-26] MEDS: QUEtiapine FUMARATE 100 MG TABLET (FP) PO SCH ×2 (09:33→21:13)
[2022-11-26] MEDS: PARoxetine HCL 20 MG TABLET PO SCH (09:33)
[2022-11-26] MEDS: BUDESONIDE/FORMETEROL FUMARATE 80/4.5 mcg INHALER IH SCH ×2 (09:33→21:12)
[2022-11-26] MEDS: FERROUS SO4 325 MG TABLET (FP) PO SCH ×2 (09:34→21:13)
[2022-11-26] MEDS: APIXABAN 5 MG TABLET PO SCH ×2 (09:34→21:13)
[2022-11-26] MEDS: diphenhydrAMINE HCL 25 MG CAPSULE (FP) PO SCH ×2 (09:34→21:12)
[2022-11-26] MEDS: PRENATAL VITAMINS W/ FOLIC ACID TABLET (FP) PO SCH (09:34)
[2022-11-26] MEDS: PANTOPRAZOLE 20 MG TABLET PO SCH (09:34)
[2022-11-26] MEDS: EMTRICITABINE 200MG/TENOFOVIR 300MG PO SCH (09:35)
[2022-11-26] MEDS: THIAMINE HCL 100 MG TABLET (FP) PO SCH (21:13)
[2022-11-26] MEDS: SUVOREXANT 10 MG TABLET PO PRN (21:13)
[2022-11-26] MEDS: ATORVASTATIN CA 10 MG TABLET (FP) PO SCH (21:13)
[2022-11-27] MEDS: DOCUSATE SODIUM 100 MG CAPSULE (FP) PO SCH ×3 (05:55→22:13)
[2022-11-27] MEDS: PRENATAL VITAMINS W/ FOLIC ACID TABLET (FP) PO SCH (10:33)
[2022-11-27] MEDS: PARoxetine HCL 20 MG TABLET PO SCH (10:33)
[2022-11-27] MEDS: FERROUS SO4 325 MG TABLET (FP) PO SCH ×2 (10:33→22:13)
[2022-11-27] MEDS: BUDESONIDE/FORMETEROL FUMARATE 80/4.5 mcg INHALER IH SCH ×2 (10:33→22:13)
[2022-11-27] MEDS: EMTRICITABINE 200MG/TENOFOVIR 300MG PO SCH (10:34)
[2022-11-27] MEDS: QUEtiapine FUMARATE 100 MG TABLET (FP) PO SCH ×2 (10:34→22:13)
[2022-11-27] MEDS: PANTOPRAZOLE 20 MG TABLET PO SCH (10:34)
[2022-11-27] MEDS: diphenhydrAMINE HCL 25 MG CAPSULE (FP) PO SCH ×2 (10:34→22:13)
[2022-11-27] MEDS: APIXABAN 5 MG TABLET PO SCH ×2 (10:34→22:13)
[2022-11-27] MEDS: ATORVASTATIN CA 10 MG TABLET (FP) PO SCH (22:13)
[2022-11-27] MEDS: THIAMINE HCL 100 MG TABLET (FP) PO SCH (22:13)
[2022-11-27] MEDS: SUVOREXANT 10 MG TABLET PO PRN (22:14)
[2022-11-28] MEDS: DOCUSATE SODIUM 100 MG CAPSULE (FP) PO SCH ×3 (05:57→21:49)
[2022-11-28] MEDS: ACETAMINOPHEN 325 MG TABLET (FP) PO PRN (05:59)
[2022-11-28] MEDS: PRENATAL VITAMINS W/ FOLIC ACID TABLET (FP) PO SCH (09:51)
[2022-11-28] MEDS: APIXABAN 5 MG TABLET PO SCH ×2 (09:51→21:49)
[2022-11-28] MEDS: EMTRICITABINE 200MG/TENOFOVIR 300MG PO SCH (09:52)
[2022-11-28] MEDS: diphenhydrAMINE HCL 25 MG CAPSULE (FP) PO SCH ×2 (09:52→21:49)
[2022-11-28] MEDS: BUDESONIDE/FORMETEROL FUMARATE 80/4.5 mcg INHALER IH SCH ×2 (09:52→21:48)
[2022-11-28] MEDS: PARoxetine HCL 20 MG TABLET PO SCH (09:52)
[2022-11-28] MEDS: PANTOPRAZOLE 20 MG TABLET PO SCH (09:52)
[2022-11-28] MEDS: QUEtiapine FUMARATE 100 MG TABLET (FP) PO SCH ×2 (09:52→21:49)
[2022-11-28] MEDS: FERROUS SO4 325 MG TABLET (FP) PO SCH ×2 (09:52→21:49)
[2022-11-28] MEDS: THIAMINE HCL 100 MG TABLET (FP) PO SCH (21:49)
[2022-11-28] MEDS: ATORVASTATIN CA 10 MG TABLET (FP) PO SCH (21:49)
[2022-11-28] MEDS: SUVOREXANT 10 MG TABLET PO PRN (21:50)
[2022-11-29] MEDS: DOCUSATE SODIUM 100 MG CAPSULE (FP) PO SCH ×3 (06:01→21:54)
[2022-11-29] MEDS: PRENATAL VITAMINS W/ FOLIC ACID TABLET (FP) PO SCH (10:37)
[2022-11-29] MEDS: QUEtiapine FUMARATE 100 MG TABLET (FP) PO SCH ×2 (10:38→21:54)
[2022-11-29] MEDS: FERROUS SO4 325 MG TABLET (FP) PO SCH ×2 (10:38→21:54)
[2022-11-29] MEDS: BUDESONIDE/FORMETEROL FUMARATE 80/4.5 mcg INHALER IH SCH ×2 (10:38→22:18)
[2022-11-29] MEDS: diphenhydrAMINE HCL 25 MG CAPSULE (FP) PO SCH ×2 (10:38→21:54)
[2022-11-29] MEDS: APIXABAN 5 MG TABLET PO SCH ×2 (10:38→21:54)
[2022-11-29] MEDS: PANTOPRAZOLE 20 MG TABLET PO SCH (10:38)
[2022-11-29] MEDS: EMTRICITABINE 200MG/TENOFOVIR 300MG PO SCH (10:38)
[2022-11-29] MEDS: PARoxetine HCL 20 MG TABLET PO SCH (10:38)
[2022-11-29] MEDS: THIAMINE HCL 100 MG TABLET (FP) PO SCH (21:54)
[2022-11-29] MEDS: SUVOREXANT 10 MG TABLET PO PRN (21:54)
[2022-11-29] MEDS: ATORVASTATIN CA 10 MG TABLET (FP) PO SCH (21:54)
[2022-11-30] MEDS: DOCUSATE SODIUM 100 MG CAPSULE (FP) PO SCH ×3 (05:56→21:06)
[2022-11-30] MEDS: MAG HYDROX/AL HYDROX/SIMETH 30 ML UNIT-DOSE CUP PO PRN (08:43)
[2022-11-30] MEDS: PARoxetine HCL 20 MG TABLET PO SCH (10:24)
[2022-11-30] MEDS: APIXABAN 5 MG TABLET PO SCH ×2 (10:24→21:06)
[2022-11-30] MEDS: diphenhydrAMINE HCL 25 MG CAPSULE (FP) PO SCH ×2 (10:24→21:06)
[2022-11-30] MEDS: FERROUS SO4 325 MG TABLET (FP) PO SCH ×2 (10:24→21:06)
[2022-11-30] MEDS: QUEtiapine FUMARATE 100 MG TABLET (FP) PO SCH ×2 (10:24→21:06)
[2022-11-30] MEDS: PANTOPRAZOLE 20 MG TABLET PO SCH (10:24)
[2022-11-30] MEDS: PRENATAL VITAMINS W/ FOLIC ACID TABLET (FP) PO SCH (10:24)
[2022-11-30] MEDS: BUDESONIDE/FORMETEROL FUMARATE 80/4.5 mcg INHALER IH SCH ×2 (10:25→21:06)
[2022-11-30] MEDS: EMTRICITABINE 200MG/TENOFOVIR 300MG PO SCH (10:25)
[2022-11-30] MEDS: ATORVASTATIN CA 10 MG TABLET (FP) PO SCH (21:06)
[2022-11-30] MEDS: THIAMINE HCL 100 MG TABLET (FP) PO SCH (21:06)
[2022-11-30] MEDS: SUVOREXANT 10 MG TABLET PO PRN (21:08)
[2022-12-01] MEDS: DOCUSATE SODIUM 100 MG CAPSULE (FP) PO SCH ×3 (06:09→21:24)
[2022-12-01] MEDS: PRENATAL VITAMINS W/ FOLIC ACID TABLET (FP) PO SCH (10:51)
[2022-12-01] MEDS: diphenhydrAMINE HCL 25 MG CAPSULE (FP) PO SCH ×2 (10:51→21:23)
[2022-12-01] MEDS: PARoxetine HCL 20 MG TABLET PO SCH (10:51)
[2022-12-01] MEDS: APIXABAN 5 MG TABLET PO SCH ×2 (10:51→21:24)
[2022-12-01] MEDS: PANTOPRAZOLE 20 MG TABLET PO SCH (10:51)
[2022-12-01] MEDS: BUDESONIDE/FORMETEROL FUMARATE 80/4.5 mcg INHALER IH SCH ×2 (10:52→21:25)
[2022-12-01] MEDS: QUEtiapine FUMARATE 100 MG TABLET (FP) PO SCH ×2 (10:55→21:23)
[2022-12-01] MEDS: FERROUS SO4 325 MG TABLET (FP) PO SCH ×2 (10:56→21:24)
[2022-12-01] MEDS: EMTRICITABINE 200MG/TENOFOVIR 300MG PO SCH (10:57)
[2022-12-01] MEDS: SUVOREXANT 10 MG TABLET PO PRN (21:23)
[2022-12-01] MEDS: ATORVASTATIN CA 10 MG TABLET (FP) PO SCH (21:24)
[2022-12-01] MEDS: THIAMINE HCL 100 MG TABLET (FP) PO SCH (21:24)
[2022-12-02] MEDS: DOCUSATE SODIUM 100 MG CAPSULE (FP) PO SCH (06:02)
[2022-12-02 07:25] VITALS: BP 140/79; PULSE 99; TEMP 98.5
[2022-12-02] MEDS: APIXABAN 5 MG TABLET PO SCH (09:10)
[2022-12-02] MEDS: diphenhydrAMINE HCL 25 MG CAPSULE (FP) PO SCH (09:10)
[2022-12-02] MEDS: PANTOPRAZOLE 20 MG TABLET PO SCH (09:10)
[2022-12-02] MEDS: QUEtiapine FUMARATE 100 MG TABLET (FP) PO SCH (09:10)
[2022-12-02] MEDS: PRENATAL VITAMINS W/ FOLIC ACID TABLET (FP) PO SCH (09:10)
[2022-12-02] MEDS: FERROUS SO4 325 MG TABLET (FP) PO SCH (09:10)
[2022-12-02] MEDS: PARoxetine HCL 20 MG TABLET PO SCH (09:11)
[2022-12-02] MEDS: EMTRICITABINE 200MG/TENOFOVIR 300MG PO SCH (09:12)
[2022-12-02] MEDS: BUDESONIDE/FORMETEROL FUMARATE 80/4.5 mcg INHALER IH SCH (09:12)
== END 2022-12-02 09:25 | disposition home or self-care (01) | DRG 772 ==
LOC: YASAS 15:50 → Y3W 11-05 00:02 → Y5N 11-05 00:31
PROVIDERS: ADMIT Allergy & Immunology; ATTEND Allergy & Immunology
PROC: HZ42ZZZ Group Counseling for Substance Abuse Treatment, Cognitive-Behavioral (ICD-10-PCS; principal; 2022-11-05)
DX: F10.20 Alcohol dependence, uncomplicated (principal); F11.20 Opioid dependence, uncomplicated; F13.20 Sedative, hypnotic or anxiolytic dependence, uncomplicated; F14.20 Cocaine dependence, uncomplicated; F17.210 Nicotine dependence, cigarettes, uncomplicated; F19.282 Other psychoactive substance dependence with psychoactive substance-induced sleep disorder; F19.280 Other psychoactive substance dependence with psychoactive substance-induced anxiety disorder; F19.24 Other psychoactive substance dependence with psychoactive substance-induced mood disorder; F31.9 Bipolar disorder, unspecified; I10 Essential (primary) hypertension; J44.9 Chronic obstructive pulmonary disease, unspecified; E78.5 Hyperlipidemia, unspecified; B18.2 Chronic viral hepatitis C; Z87.09 Personal history of other diseases of the respiratory system; Z99.89 Dependence on other enabling machines and devices; Z86.69 Personal history of other diseases of the nervous system and sense organs; Z79.01 Long term (current) use of anticoagulants; Z87.448 Personal history of other diseases of urinary system; Z59.00 Homelessness unspecified; Z56.0 Unemployment, unspecified
CPT/HCPCS: 36415; 80053; 81003; 81025; 85027; 86780; 86803; 87086; 87522; C9803-CS; G0480; U0003; U0005

== ENCOUNTER 2023-12-16 17:31 | Inpatient (IN) | payer OTHER ==
[2023-12-16 19:31] VITALS: BMI 41.6
[2023-12-16] MEDS ORDERED: ALBUTEROL SO4 HFA INHALER IH PRN (21:15)
[2023-12-16] MEDS ORDERED: ACETAMINOPHEN 325 MG TABLET (FP) PO PRN (21:16)
[2023-12-16] MEDS ORDERED: NALOXONE HCL (KLOXXADO) 8 MG SPRAY NS PRN (21:19)
[2023-12-16] MEDS ORDERED: MAGNESIUM HYDROX 2400MG/30ML ORAL SUSPENSION 30 ML CUP PO PRN (21:19)
[2023-12-16] MEDS ORDERED: guaiFENesin 600 MG TABLET.ER (FP) PO PRN (21:19)
[2023-12-16] MEDS ORDERED: BENZONATATE 200 MG CAPSULE PO PRN (21:19)
[2023-12-16] MEDS ORDERED: P-EPHED 60MG/TRIPROLIDI 2.5MG TABLET PO PRN (21:19)
[2023-12-16] MEDS ORDERED: NALOXONE HCL 0.4 MG/ML VIAL IM PRN (21:19)
[2023-12-16] MEDS ORDERED: DICYCLOMINE HCL 10 MG CAPSULE PO PRN (21:19)
[2023-12-16] MEDS ORDERED: MAG HYDROX/AL HYDROX/SIMETH 30 ML UNIT-DOSE CUP PO PRN (21:19)
[2023-12-16] MEDS ORDERED: NICOTINE POLACRILEX 2 MG GUM BUC PRN (21:19)
[2023-12-16] MEDS ORDERED: BENZOCAINE/MENTHOL (CHLORASEPTIC ) LOZENGE MM PRN (21:19)
[2023-12-16] MEDS ORDERED: POLYETHYLENE GLYCOL (HEALTHYLAX) 3350 17 GM PACKET PO PRN (21:19)
[2023-12-16] MEDS ORDERED: ONDANSETRON *ODT* 4 MG TABLET SL PRN (21:19)
[2023-12-16] MEDS ORDERED: DOCUSATE SODIUM 100 MG PO SCH (22:00)
[2023-12-16] MEDS ORDERED: diazePAM 5 MG TABLET ONE (22:12)
[2023-12-16] MEDS: diazePAM 5 MG TABLET PO ONE (22:14)
[2023-12-16] MEDS: THIAMINE HCL 100 MG TABLET (FP) PO SCH (22:43)
[2023-12-16] MEDS: MELATONIN 5 MG TABLETS PO SCH (22:43)
[2023-12-16] MEDS: APIXABAN 5 MG TABLET PO SCH (22:43)
[2023-12-16] MEDS: levETIRAcetam 500 MG TABLET (FP) PO SCH (22:43)
[2023-12-16] MEDS: DOCUSATE SODIUM 100 MG CAPSULE (FP) PO SCH (22:43)
[2023-12-16] MEDS: ATORVASTATIN CA 10 MG TABLET (FP) PO SCH (22:43)
[2023-12-16] MEDS: propRANOLol HCL 10 MG TABLET PO ONE (22:59)
[2023-12-17] MEDS: diazePAM 5 MG TABLET PO SCH (05:23)
[2023-12-17] MEDS ORDERED: methaDONE HCL 10 MG TABLET PO SCH (06:00)
[2023-12-17 06:48] VITALS: RESP 18
[2023-12-17] MEDS: PRENATAL VITAMINS W/ FOLIC ACID TABLET (FP) PO SCH (10:08)
[2023-12-17 12:46] LABS: POTASSIUM 4.8 mmol/L (3.5-5.1)
[2023-12-17 12:51] LABS: ALBUMIN 3.8 g/dl (3.4-5.0); BLOOD UREA NITROGEN 26.4 mg/dL (7-18); CALCIUM 9.3 mg/dL (8.5-10.1)
[2023-12-17 12:54] LABS: CREATININE 1.3 mg/dL (0.55-1.3); HEMATOCRIT 37.8 % (32.4-45.2); HEMOGLOBIN 12.6 GM/dL (10.7-15.3); MCH 29.3 pg (25.7-33.7); MCHC 33.2 g/dl (32.0-36.0); MEAN PLT VOLUME 7.5 fl (7.5-11.1); PLATELET COUNT 350 10^3/uL (134-434); RDW 14.7 % (11.6-15.6); WHITE BLOOD COUNT 12.5 K/mm3 (4.0-10.0)
[2023-12-17 12:55] LABS: TOT PROT 8.3 g/dl (6.4-8.2)
[2023-12-17 13:12] LABS: BILIRUBIN,TOTAL 0.3 mg/dL (0.2-1)
[2023-12-17] MEDS: diazePAM 5 MG TABLET PO PRN (13:53)
[2023-12-17] MEDS: METHOCARBAMOL 500 MG TABLET PO PRN (17:46)
[2023-12-17] MEDS: LOPERAMIDE HCL 2 MG CAPSULE PO PRN (17:48)
[2023-12-17] MEDS: QUEtiapine FUMARATE 100 MG TABLET (FP) PO SCH (21:16)
[2023-12-18] MEDS: diazePAM 5 MG TABLET PO ONE (05:51)
[2023-12-18 06:59] VITALS: BP 111/72; PULSE 90; TEMP 97.8
[2023-12-18] MEDS: BUDESONIDE/FORMETEROL FUMARATE 80/4.5 mcg INHALER IH SCH (10:56)
[2023-12-18] MEDS ORDERED: metFORMIN HCL 500 MG TABLET (FP) PO SCH (16:30)
== END 2023-12-18 09:50 | disposition home or self-care (01) | DRG 773 ==
LOC: YASAS 17:31 → Y6N 22:01
PROVIDERS: ADMIT Allergy & Immunology; ATTEND Surgery
PROC: HZ2ZZZZ Detoxification Services for Substance Abuse Treatment (ICD-10-PCS; principal; 2023-12-16)
DX: F13.230 Sedative, hypnotic or anxiolytic dependence with withdrawal, uncomplicated (principal); F11.20 Opioid dependence, uncomplicated; F14.20 Cocaine dependence, uncomplicated; F17.210 Nicotine dependence, cigarettes, uncomplicated; F19.282 Other psychoactive substance dependence with psychoactive substance-induced sleep disorder; F25.1 Schizoaffective disorder, depressive type; F19.24 Other psychoactive substance dependence with psychoactive substance-induced mood disorder; E78.5 Hyperlipidemia, unspecified; I10 Essential (primary) hypertension; J44.9 Chronic obstructive pulmonary disease, unspecified; Z86.19 Personal history of other infectious and parasitic diseases; E66.01 Morbid (severe) obesity due to excess calories; Z68.41 Body mass index [BMI] 40.0-44.9, adult
CPT/HCPCS: 36415; 80053; 80305; 82962; 85027; 86780; 87635; 93005; 93010